=== PATIENT | male | born 1950 | race Caucasian/White ===

== ENCOUNTER 2016-07-26 13:02 | Outpatient (RCR) | payer MEDICARE, BC ==
--- OUTSIDE RECORDS SUMMARY | 2016-05-24 13:13 | XMS REPORT | Continuity of Care Document ---
Author Author [facility] Organization [facility] Address Unknown Phone Unavailable Care Team Providers Care Line Installer Repairer Name Role Phone MICHELLE MARIA MD PCP Insurance Providers Payer Name Policy Number Subscriber Name Relationship Wps Medicare [id number] Bossman Martin Self / Same As Patient Advance Directives Directive Response Recorded Date/Time Advance Directives No 06/11/15 6:00pm Health Care Power of Color Checker No 06/11/15 6:00pm Organ Donor No 06/11/15 6:00pm Problems Active Problems Medical Problem Onset Date Status CAP (community acquired pneumonia) Unknown Acute Chest congestion Unknown Acute Dyspnea on exertion Unknown Acute Dyspnea on exertion Unknown Acute Non-Hodgkin lymphoma Unknown Acute Medications Current Home Medications Medication Dose Units Route Directions Days/Qty Instructions Start Date Aspirin 325 Mg 975 Mg Oral Daily 06/11/15 [place] 3 Polyunsat Fatty Acids 1,000 Mg 2,000 Mg Oral Daily 06/11/15 Oxycodone Hcl 10 Mg 10 Mg Oral Every 12 Hours 06/12/15 Multivitamin 1 Each 1 Tab Oral Twice A Day 06/12/15 [place]-3/Dha/Epa/Fish Oil 1 Each 1,000 Mg Oral Bedtime 06/12/15 Aspirin 325 Mg 1,300 Mg Oral Bedtime 06/12/15 Mv-Min/Vit C/Glu/Evita Hcl/Hc124 1 Each 2 Tab Oral Twice A Day Levofloxacin 750 Mg 750 Mg Oral Daily@1100 7 06/13/15 Past Home Medications Medication Directions Ordered Status Aspirin 325 Mg Tab, 8 Ea Oral Daily 04/03/14 Discontinued Tramadol Hcl 50 Mg Tablet, 50 Mg Oral Every 8HRS as needed for Pain 11/15/13 Discontinued Cyclobenzaprine Hcl (Flexeril) 10 Mg Tablet, 1 Each Oral Twice A Day as needed for Spasms 11/15/13 Discontinued [Glucosamine] , 1 Tab Oral Daily 11/15/13 Discontinued Multivitamin 1 Each Tablet, 1 Each Oral Daily 11/15/13 Discontinued Vitamin B Complex & Vit C No.4 150 Mg Tablet, 150 Mg Oral Daily 11/15/13 Discontinued Milk Thistle Seed Xt/Silymarin 1 Each Capsule, 1 Each Oral Daily 11/15/13 Discontinued Aspirin 325 Mg Tab, 1300 Mg Oral Twice A Day 11/15/13 Discontinued Oxycodone/Acetaminophen 1 Tab Tablet, 1-2 Tab Oral Every 4HRS as needed for Pain 11/16/13 Discontinued Oxycodone Hcl 5 Mg Tablet, 5-10 Mg Oral Every 6 Hours as needed for Pain Discontinued Levofloxacin 500 Mg Tablet, 500 Mg Oral Daily 06/11/15 Discontinued Levofloxacin 500 Mg Tablet, 500 Mg Oral Daily 06/12/15 Discontinued Social History Social History Problem Response Recorded Date/Time Alcohol Use Occasionally Uses 06/11/2015 5:41pm Recreational Drug Use N PT REPORTS QUIT USING HEROIN 25 YRS AGO 06/11/2015 5: 41pm Recent Foreign Travel No 11/23/2013 3:45pm Recent Infectious Disease Exposure No 11/23/2013 3:45pm Hospitalization with Isolation Denies 11/24/2013 2:23pm Sexually Transmitted Disease No 06/11/2015 5:41pm HIV/AIDS No 06/11/2015 5:41pm Do you dip or chew tobacco? Yes 06/11/2015 5:52pm Hospital Discharge Instructions No hospital discharge instructions. Plan of Care Prescriptions See Medication Section Functional Status No functional status results. Allergies, Adverse Reactions, Alerts Allergen Type Severity Reaction Status Last Updated Gadolinium-Containing Contrast Media ([id number]) Allergy Severe Anaphylaxis Active 03/01/15 gadoteridol ([id number]) Allergy Mild SNEEZING, HOARSE VOICE Active Immunizations Name Given Type Date of Pneumonia Vaccine 12/13/14 Historical Date of Influenza Vaccine 05/15/15 Historical Hepatitis B Yes Historical Tetanus Booster (TDap) Unknown Historical Vital Signs No known vital signs results. Results Laboratory Results Test Name Result Units Flags Reference Collection Date/Time Result Date/ Time Comments Urine Immunofixation Comments [id number] 10/22/2015 7:00am 2015 1:30pm Test performed at [place] [address], [facility] [address] CLIA# [id number], Radha Perez MD - Lastex Operator Procedures No known history of procedures. Encounters Encounter Location Arrival/Admit Date Discharge/Depart Date Attending Provider Discharged Recurring [facility] 12/08/15 10:49am 11:59pm INOCENCIO VERA N
[2016-05-24 13:35] LABS: BASOPHILS % (AUTO) 1 % (0-10); EOSINOPHILS # (AUTO) 0.1 10^3/uL (0.0-0.3); EOSINOPHILS % (AUTO) 4 % (0-10); LYMPHOCYTES # (AUTO) 0.8 X 10^3 (1.0-4.0); LYMPHOCYTES % (AUTO) 28 % (12-44); MEAN CORPUSCULAR HEMOGLOBIN 33 PG (25-34); MEAN CORPUSCULAR HGB CONC 36 G/DL (32-36); MEAN CORPUSCULAR VOLUME 92 FL (80-99); MEAN PLATELET VOLUME 8.3 FL (7.4-10.4); MONOCYTES # (AUTO) 0.3 X 10^3 (0.0-1.0); MONOCYTES % (AUTO) 11 % (0-12); NEUTROPHILS # (AUTO) 1.6 X 10^3 (1.8-7.8); NEUTROPHILS % (AUTO) 57 % (42-75); PLATELET COUNT 229 10^3/uL (130-400); RED BLOOD COUNT 4.04 10^6/uL (4.35-5.85); RED CELL DISTRIBUTION WIDTH 15.4 % (10.0-14.5); WHITE BLOOD COUNT 2.8 10^3/uL (4.3-11.0)
[2016-05-24 14:06] LABS: ALANINE AMINOTRANSFERASE 24 U/L (0-55); ALBUMIN 4.5 G/DL (3.2-4.5); ANION GAP 10 MMOL/L (5-14); ASPARTATE AMINO TRANSFERASE 32 U/L (5-34); BILIRUBIN,TOTAL 0.6 MG/DL (0.1-1.0); BLOOD UREA NITROGEN 10 MG/DL (7-18); BUN/CREATININE RATIO 11; CALCIUM 9.8 MG/DL (8.5-10.1); CARBON DIOXIDE 23 MMOL/L (21-32); CHLORIDE 103 MMOL/L (98-107); CREATININE SERUM 0.89 MG/DL (0.60-1.30); GFR ESTIMATED > 60; GLUCOSE 102 MG/DL (70-105); LACTATE DEHYDROGENASE 278 U/L (125-220); POTASSIUM 3.5 MMOL/L (3.6-5.0); SODIUM 136 MMOL/L (135-145); TOTAL PROTEIN 7.8 G/DL (6.4-8.2)
[2016-05-25 05:43] LABS: IMMUNOGLOBULIN IGA 28 mg/dL (71-263); IMMUNOGLOBULIN IGG 1554 mg/dL (672-1680)
[2016-05-25 08:06] LABS: IMMUNOGLOBULIN IGM 35 mg/dL (47-209)
[2016-06-07 15:42] LABS: PEP REPORT SEE PATH REPORT
[2016-06-08 01:05] LABS: LIGHT CHAIN KAPPA SERUM QUANT 44.96 mg/L (3.30-19.40); LIGHT CHAIN LAMBDA SERUM QUANT 10.74 mg/L (5.71-26.30)
[2016-06-14 06:32] LABS: CLIN PATHOLOGY REPORT FOOTNOTE; SERUM PROTEIN ELEC DETAIL L-16-0013537
[~2016-07-26] VITALS: Ht 180.3 cm; Wt 93.4 kg
[~2016-07-26 13:02] MED LIST: ACETAMINOPHEN 500 MG TAB (TYLENOL) CANCER CTR PO PRN; ASP325T PO; ASPI-808 PO; CYCL10TA9 PO; LEVO500T2 PO; LEVO500T80 PO; LEVO750T39 PO; MILK1CAP2 PO; MULT-974 PO; MULT1TAB69 PO; MV-M1TAB27 PO; OMEG-160 PO; OMG1KC PO; OXC10TCR PO; OXYC1TAB87 PO; OXYC5TAB71 PO; PNEUMOCOCCAL VACCINE 25 MCG/0.5 ML VIAL IM ONE; TRAM50TA2 PO; VITA150T PO; diphenhydrAMINE 25 MG TAB (BENADRYL) CANCER CENTER PO SCH; glucosamine PO; riTUXimab 500 MG, riTUXimab FOR IV INJ CONC 200 MG in NS (IVPB) CANCER CENTER 163 ML IV SCH
[2016-07-26 13:18] LABS: BASOPHILS % (AUTO) 0 % (0-10); EOSINOPHILS # (AUTO) 0.1 10^3/uL (0.0-0.3); EOSINOPHILS % (AUTO) 4 % (0-10); LYMPHOCYTES # (AUTO) 0.7 X 10^3 (1.0-4.0); LYMPHOCYTES % (AUTO) 23 % (12-44); MEAN CORPUSCULAR HEMOGLOBIN 33 PG (25-34); MEAN CORPUSCULAR HGB CONC 36 G/DL (32-36); MEAN CORPUSCULAR VOLUME 91 FL (80-99); MONOCYTES # (AUTO) 0.4 X 10^3 (0.0-1.0); MONOCYTES % (AUTO) 13 % (0-12); NEUTROPHILS # (AUTO) 1.7 X 10^3 (1.8-7.8); NEUTROPHILS % (AUTO) 61 % (42-75); PLATELET COUNT 102 10^3/uL (130-400); RED BLOOD COUNT 4.13 10^6/uL (4.35-5.85); RED CELL DISTRIBUTION WIDTH 15.1 % (10.0-14.5); WHITE BLOOD COUNT 2.9 10^3/uL (4.3-11.0)
[2016-07-26 13:49] LABS: ALANINE AMINOTRANSFERASE 23 U/L (0-55); ALBUMIN 4.7 G/DL (3.2-4.5); ANION GAP 9 MMOL/L (5-14); ASPARTATE AMINO TRANSFERASE 30 U/L (5-34); BILIRUBIN,TOTAL 0.4 MG/DL (0.1-1.0); BLOOD UREA NITROGEN 19 MG/DL (7-18); BUN/CREATININE RATIO 23; CALCIUM 9.9 MG/DL (8.5-10.1); CARBON DIOXIDE 22 MMOL/L (21-32); CHLORIDE 106 MMOL/L (98-107); CREATININE SERUM 0.83 MG/DL (0.60-1.30); GFR ESTIMATED > 60; GLUCOSE 92 MG/DL (70-105); LACTATE DEHYDROGENASE 278 U/L (125-220); POTASSIUM 4.1 MMOL/L (3.6-5.0); SODIUM 137 MMOL/L (135-145); TOTAL PROTEIN 7.9 G/DL (6.4-8.2)
[2016-07-27 03:26] LABS: IMMUNOGLOBULIN IGA 32 mg/dL (71-263); IMMUNOGLOBULIN IGG 1510 mg/dL (672-1680)
[2016-07-27 07:59] LABS: IMMUNOGLOBULIN IGM 36 mg/dL (47-209)
[2016-08-13] MEDS ORDERED: AZIT250T5 PO (15:26)
== END 2016-08-22 | disposition home or self-care (01) ==
LOC: ONC 13:02
PROVIDERS: ATTEND Internal Medicine Hematology & Oncology
DX: Z51.11 Encounter for antineoplastic chemotherapy (principal); C85.80 Other specified types of non-Hodgkin lymphoma, unspecified site; D68.59 Other primary thrombophilia; B19.20 Unspecified viral hepatitis C without hepatic coma; Z79.899 Other long term (current) drug therapy; Z23 Encounter for immunization
CPT/HCPCS: 36415; 36591; 80053; 82784; 83615; 83883; 84155; 84165; 85025; 86317; 90471; 90732; 96413; 99213

== ENCOUNTER → 2016-09-15 | Outpatient (CLI) | payer MEDICARE ==
[~2016-09-15] MED LIST changes: +ACET-2469 PO; -ACETAMINOPHEN 500 MG TAB (TYLENOL) CANCER CTR PO PRN; +AZIT250T5 PO; +BARIUM SUSPENSION 2.1% (VANILLA SILQ) 450 ML PO ONE; +CATHETER FLUSH 10 ML SYR IV PRN; +HYDR-3812 PO; +IOHEXOL 350 MG/ML 100 ML (OMNIPAQUE 350) VIAL IV ONE; +LISI-552 PO; +NS 100 ML (IVPB) BAG IV ONE; +OXYC20TA3 PO; -PNEUMOCOCCAL VACCINE 25 MCG/0.5 ML VIAL IM ONE; -diphenhydrAMINE 25 MG TAB (BENADRYL) CANCER CENTER PO SCH; -riTUXimab 500 MG, riTUXimab FOR IV INJ CONC 200 MG in NS (IVPB) CANCER CENTER 163 ML IV SCH
--- OUTSIDE RECORDS SUMMARY | 2016-09-15 10:09 | XMS REPORT | Continuity of Care Document ---
Author Author [facility] Organization [facility] Address Unknown Phone Unavailable Care Team Providers Care Product Development Director Name Role Phone MICHELLE MARIA MD PCP Insurance Providers Payer Name Policy Number Subscriber Name Relationship Wps Medicare [id number] Bossman Martin Self / Same As Patient Advance Directives Directive Response Recorded Date/Time Advance Directives No 06/11/15 6:00pm Health Care Power of Shipping Support No 06/11/15 6:00pm Organ Donor No 06/11/15 6:00pm Problems Active Problems Medical Problem Onset Date Status CAP (community acquired pneumonia) Unknown Acute Chest congestion Unknown Acute Dyspnea on exertion Unknown Acute Dyspnea on exertion Unknown Acute Non-Hodgkin lymphoma Unknown Acute Medications Current Home Medications Medication Dose Units Route Directions Days/Qty Instructions Start Date Aspirin 325 Mg 975 Mg Oral Daily 06/11/15 [place] 3 Polyunsat Fatty Acids 1,000 Mg 2,000 Mg Oral Daily 06/11/15 Oxycodone Hcl 10 Mg 10 Mg Oral Every 12 Hours 06/12/15 Multivitamin 1 Each 1 Tab Oral Twice A Day 06/12/15 [place]-3/Dha/Epa/Fish Oil 1 Each 1,000 Mg Oral Bedtime [...] Reaction Status Last Updated Gadolinium-Containing Contrast Media ([id number]) Allergy Severe Anaphylaxis Active 03/01/15 gadoteridol ([id number]) Allergy Mild SNEEZING, HOARSE VOICE Active Immunizations Name Given Type Date of Pneumonia Vaccine 12/13/14 Historical Date of Influenza Vaccine 05/15/15 Historical Hepatitis B Yes Historical Tetanus Booster (TDap) Unknown Historical Vital Signs No known vital signs results. Results Laboratory Results Test Name Result Units Flags Reference Collection Date/Time Result Date/ Time Comments Urine Immunofixation Comments [id number] 10/22/2015 7:00am 2015 1:30pm Test performed at [place] [address], [facility] [address] CLIA# [id number], Radha Perez MD - Sampler Ovens Procedures No known history of procedures. Encounters Encounter Location Arrival/Admit Date Discharge/Depart Date Attending Provider Discharged Recurring [facility] 12/08/15 10:49am 11:59pm INOCENCIO VERA N
--- NOTE | 2016-09-15 11:28 | Diagnostic Imaging Report ---
PROCEDURE: CT chest, abdomen, and pelvis with contrast. TECHNIQUE: Multiple contiguous axial images were obtained through the chest, abdomen, and pelvis after the administration of intravenous contrast. INDICATION: Non-Hodgkin's lymphoma, surveillance. COMPARISON: 01/15/2015. CT CHEST FINDINGS: No supraclavicular or axillary lymphadenopathy. No mediastinal, hilar or juxtaphrenic lymphadenopathy. Heart is normal in size without pericardial effusion. Normal caliber thoracic aorta. No pleural effusion or pneumothorax. No pulmonary mass or consolidation. No concerning pulmonary nodules to suggest pulmonary involvement of lymphoma. Scattered centrilobular emphysema is unchanged. Linear atelectasis in the right lower lobe is similar. No osseous lesions in the thorax to indicate skeletal metastasis. IMPRESSION: 1. Stable chest without evidence of recurrence. However, please see below for details of the abdomen for recurrence. CT ABDOMEN AND PELVIS FINDINGS: Multiple new enlarged upper abdominal lymph nodes. These are predominantly centered around the celiac and superior mesenteric axes. The dominant conglomeration of lymph nodes now measures 3.6 x 4.7 cm and is located along the superior mesenteric root in the central mesentery. Additional new enlarging lymph nodes include the followin.3 x 1.5 cm gastroepiploic lymph node, 1.6 x 1.1 cm right paraaortic lymph node and a 1.6 x 1.8 cm lymph node, and a conglomeration of lymph nodes along the lower right superior mesenteric artery and vein now measuring 3.8 x 2.2 cm. Confluent ill-defined induration around the mesentery is otherwise unchanged. Multiple new enlarged bilateral inguinal lymph nodes, largest on the left measures 4.6 x 3.2 cm, and the largest on the right measures 2.7 x 1.9 cm. There is an enlarged right internal iliac chain lymph node measuring 1.6 x 1.6 cm. There is also a new subcutaneous soft tissue nodule in the mid right back measuring 1.2 cm. The liver and gallbladder are normal. The spleen is at the upper limits of normal in size measuring 13 cm. No bowel obstruction. Pancreas and adrenals are normal. Kidneys enhance normally without evidence of lymphomatous involvement. Prostate remains enlarged measuring 5.6 x 5.2 cm. Normal caliber abdominal aorta. IMPRESSION: 1. New and increased lymphadenopathy within the upper abdomen, pelvis and bilateral inguinal regions is compatible with disease progression. Dictated by: Dictated on workstation # [id number]
== END ==
LOC: RAD 10:05
PROVIDERS: ATTEND Internal Medicine Hematology & Oncology
DX: Z01.89 Encounter for other specified special examinations (principal); C82.18 Follicular lymphoma grade II, lymph nodes of multiple sites
CPT/HCPCS: 71260; 74177

== ENCOUNTER 2016-09-23 05:36 | Outpatient (CLI) | payer MEDICARE ==
[~2016-09-23] VITALS: Ht 182.9 cm; Wt 98.0 kg
[~2016-09-23 05:36] MED LIST changes: -ACET-2469 PO; -BARIUM SUSPENSION 2.1% (VANILLA SILQ) 450 ML PO ONE; -CATHETER FLUSH 10 ML SYR IV PRN; -HYDR-3812 PO; -IOHEXOL 350 MG/ML 100 ML (OMNIPAQUE 350) VIAL IV ONE; -LISI-552 PO; -NS 100 ML (IVPB) BAG IV ONE; -OXYC20TA3 PO
--- OUTSIDE RECORDS SUMMARY | 2016-09-23 05:39 | XMS REPORT | Continuity of Care Document ---
Author Author [facility] Organization [facility] Address Unknown Phone Unavailable Care Team Providers Care Merchandise Deliverer Name Role Phone MICHELLE MARIA MD PCP Insurance Providers Payer Name Policy Number Subscriber Name Relationship Wps Medicare [id number] Bossman Martin Self / Same As Patient Advance Directives Directive Response Recorded Date/Time Advance Directives No 06/11/15 6:00pm Health Care Power of Equities Trader No 06/11/15 6:00pm Organ Donor No 06/11/15 6:00pm Problems Active Problems Medical Problem Onset Date Status CAP (community acquired pneumonia) Unknown Acute Chest congestion Unknown Acute Dyspnea on exertion Unknown Acute Dyspnea on exertion Unknown Acute Non-Hodgkin lymphoma Unknown Acute Medications Current Home Medications Medication Dose Units Route Directions Days/Qty Instructions Start Date Aspirin 325 Mg 975 Mg Oral Daily 06/11/15 [place] 3 Polyunsat Fatty Acids 1,000 Mg 2,000 Mg Oral Daily 06/11/15 Oxycodone Hcl 10 Mg 10 Mg Oral Every 12 Hours 06/12/15 Multivitamin 1 Each 1 Tab Oral Twice A Day 06/12/15 [place]-3/Dha/Epa/Fish Oil 1 Each 1,000 Mg Oral Bedtime [...] Reaction Status Last Updated Gadolinium-Containing Contrast Media ([id number]) Allergy Severe Anaphylaxis Active 03/01/15 gadoteridol ([id number]) Allergy Mild SNEEZING, HOARSE VOICE Active Immunizations Name Given Type Date of Pneumonia Vaccine 12/13/14 Historical Date of Influenza Vaccine 05/15/15 Historical Hepatitis B Yes Historical Tetanus Booster (TDap) Unknown Historical Vital Signs No known vital signs results. Results Laboratory Results Test Name Result Units Flags Reference Collection Date/Time Result Date/ Time Comments Urine Immunofixation Comments [id number] 10/22/2015 7:00am 2015 1:30pm Test performed at [place] [address], [facility] [address] CLIA# [id number], Radha Perez MD - Forensic Psychologist Procedures No known history of procedures. Encounters Encounter Location Arrival/Admit Date Discharge/Depart Date Attending Provider Discharged Recurring [facility] 12/08/15 10:49am 11:59pm INOCENCIO VERA N
[2016-09-23] MEDS ORDERED: LISI-552 PO (09:27)
[2016-09-23] MEDS ORDERED: ACET-2469 PO (09:27)
[2016-09-23] MEDS ORDERED: VITA150T PO (09:27)
[2016-09-23] MEDS ORDERED: OXYC20TA3 PO (09:27)
[2016-09-29] MEDS ORDERED: HYDR-3812 PO (12:01)
== END 2016-09-23 09:31 ==
LOC: PREOP 05:36
PROVIDERS: ATTEND Surgery
DX: Z01.818 Encounter for other preprocedural examination (principal); C82.18 Follicular lymphoma grade II, lymph nodes of multiple sites

== ENCOUNTER 2016-09-29 08:43 | Day surgery (SDC) | payer MEDICARE ==
[~2016-09-29] VITALS: Ht 182.9 cm; Wt 98.0 kg
[~2016-09-29 08:43] MED LIST changes: +ACET-2469 PO; +LISI-552 PO; +OXYC20TA3 PO
--- OUTSIDE RECORDS SUMMARY | 2016-09-29 08:46 | XMS REPORT | Continuity of Care Document ---
Author Author [facility] Organization [facility] Address Unknown Phone Unavailable Care Team Providers Care Bus Company Manager Name Role Phone MICHELLE MARIA MD PCP Insurance Providers Payer Name Policy Number Subscriber Name Relationship Wps Medicare [id number] Bossman Martin Self / Same As Patient Advance Directives Directive Response Recorded Date/Time Advance Directives No 06/11/15 6:00pm Health Care Power of Night Clerk Auditor No 06/11/15 6:00pm Organ Donor No 06/11/15 6:00pm Problems Active Problems Medical Problem Onset Date Status CAP (community acquired pneumonia) Unknown Acute Chest congestion Unknown Acute Dyspnea on exertion Unknown Acute Dyspnea on exertion Unknown Acute Non-Hodgkin lymphoma Unknown Acute Medications Current Home Medications Medication Dose Units Route Directions Days/Qty Instructions Start Date Aspirin 325 Mg 975 Mg Oral Daily 06/11/15 [place] 3 Polyunsat Fatty Acids 1,000 Mg 2,000 Mg Oral Daily 06/11/15 Oxycodone Hcl 10 Mg 10 Mg Oral Every 12 Hours 06/12/15 Multivitamin 1 Each 1 Tab Oral Twice A Day 06/12/15 [place]-3/Dha/Epa/Fish Oil 1 Each 1,000 Mg Oral Bedtime [...] Reaction Status Last Updated Gadolinium-Containing Contrast Media ([id number]) Allergy Severe Anaphylaxis Active 03/01/15 gadoteridol ([id number]) Allergy Mild SNEEZING, HOARSE VOICE Active Immunizations Name Given Type Date of Pneumonia Vaccine 12/13/14 Historical Date of Influenza Vaccine 05/15/15 Historical Hepatitis B Yes Historical Tetanus Booster (TDap) Unknown Historical Vital Signs No known vital signs results. Results Laboratory Results Test Name Result Units Flags Reference Collection Date/Time Result Date/ Time Comments Urine Immunofixation Comments [id number] 10/22/2015 7:00am 2015 1:30pm Test performed at [place] [address], [facility] [address] CLIA# [id number], Radha Perez MD - Catapult And Arresting Gear Officer Procedures No known history of procedures. Encounters Encounter Location Arrival/Admit Date Discharge/Depart Date Attending Provider Discharged Recurring [facility] 12/08/15 10:49am 11:59pm INOCENCIO VERA N
--- OUTSIDE RECORDS SUMMARY | 2016-09-29 08:47 | XMS REPORT | Continuity of Care Document ---
Author Author [facility] Organization [facility] Address Unknown Phone Unavailable Care Team Providers Care Mill Tender Washing Name Role Phone MICHELLE MARIA MD PCP Insurance Providers Payer Name Policy Number Subscriber Name Relationship Wps Medicare [id number] Bossman Martin Self / Same As Patient Advance Directives Directive Response Recorded Date/Time Advance Directives No 06/11/15 6:00pm Health Care Power of Remotely Piloted Vehicle Controller No 06/11/15 6:00pm Organ Donor No 06/11/15 6:00pm Problems Active Problems Medical Problem Onset Date Status CAP (community acquired pneumonia) Unknown Acute Chest congestion Unknown Acute Dyspnea on exertion Unknown Acute Dyspnea on exertion Unknown Acute Non-Hodgkin lymphoma Unknown Acute Medications Current Home Medications Medication Dose Units Route Directions Days/Qty Instructions Start Date Aspirin 325 Mg 975 Mg Oral Daily 06/11/15 [place] 3 Polyunsat Fatty Acids 1,000 Mg 2,000 Mg Oral Daily 06/11/15 Oxycodone Hcl 10 Mg 10 Mg Oral Every 12 Hours 06/12/15 Multivitamin 1 Each 1 Tab Oral Twice A Day 06/12/15 [place]-3/Dha/Epa/Fish Oil 1 Each 1,000 Mg Oral Bedtime [...] Reaction Status Last Updated Gadolinium-Containing Contrast Media ([id number]) Allergy Severe Anaphylaxis Active 03/01/15 gadoteridol ([id number]) Allergy Mild SNEEZING, HOARSE VOICE Active Immunizations Name Given Type Date of Pneumonia Vaccine 12/13/14 Historical Date of Influenza Vaccine 05/15/15 Historical Hepatitis B Yes Historical Tetanus Booster (TDap) Unknown Historical Vital Signs No known vital signs results. Results Laboratory Results Test Name Result Units Flags Reference Collection Date/Time Result Date/ Time Comments Urine Immunofixation Comments [id number] 10/22/2015 7:00am 2015 1:30pm Test performed at [place] [address], [facility] [address] CLIA# [id number], Radha Perez MD - Pickling Grader Procedures No known history of procedures. Encounters Encounter Location Arrival/Admit Date Discharge/Depart Date Attending Provider Discharged Recurring [facility] 12/08/15 10:49am 11:59pm INOCENCIO VERA N
[2016-09-29 08:50] VITALS: BP 152/92
--- NOTE | 2016-09-29 08:51 | Progress Note-Pre Operative ---
Pre-Operative Progress Note H&P Reviewed The H&P was reviewed, patient examined and no changes noted. Date H&P Reviewed: Sep 29, 2016 Time H&P Reviewed: 08:50 Pre-Operative Diagnosis: Follicular lymphoma. Non-functioning port IVANA BOYD MD Sep 29, 2016 8:51 am
[2016-09-29 09:15] LABS: BASOPHILS % (AUTO) 0 % (0-10); EOSINOPHILS # (AUTO) 0.1 10^3/uL (0.0-0.3); EOSINOPHILS % (AUTO) 2 % (0-10); LYMPHOCYTES # (AUTO) 0.6 X 10^3 (1.0-4.0); LYMPHOCYTES % (AUTO) 19 % (12-44); MEAN CORPUSCULAR HEMOGLOBIN 33 PG (25-34); MEAN CORPUSCULAR HGB CONC 37 G/DL (32-36); MEAN CORPUSCULAR VOLUME 90 FL (80-99); MEAN PLATELET VOLUME 8.9 FL (7.4-10.4); MONOCYTES # (AUTO) 0.5 X 10^3 (0.0-1.0); MONOCYTES % (AUTO) 14 % (0-12); NEUTROPHILS # (AUTO) 2.1 X 10^3 (1.8-7.8); NEUTROPHILS % (AUTO) 65 % (42-75); PLATELET COUNT 117 10^3/uL (130-400); RED CELL DISTRIBUTION WIDTH 14.2 % (10.0-14.5); WHITE BLOOD COUNT 3.3 10^3/uL (4.3-11.0)
[2016-09-29] MEDS ORDERED: LIDOCAINE 1% 10 MG/ML 0.2 ML SYR (FOR IV START) ONE (10:07)
[2016-09-29] MEDS ORDERED: LACTATED RINGERS 1,000 ML IV PRN (10:14)
[2016-09-29] MEDS ORDERED: LIDOCAINE 1% 10 MG/ML 0.2 ML SYR (FOR IV START) INJ ONE (10:15)
[2016-09-29] MEDS ORDERED: HEParin (CENTRAL IV FLUSH) 500 UNIT/5 ML SYR ONE (10:30)
[2016-09-29] MEDS ORDERED: BUP/EPI 0.25% 1:200,000 (MARCAINE) 30 ML VIAL ONE (10:30)
[2016-09-29] MEDS ORDERED: fentaNYL INJECTION 100 MCG/2 ML AMP ONE (11:05)
[2016-09-29] MEDS ORDERED: proPOfol 200 MG/20 ML (DIPRIVAN) VIAL IV ONE (11:05)
[2016-09-29] MEDS: ceFAZolin 1 GM/NS 50 ML IVPB IV ONE ×4 (11:08→12:08)
[2016-09-29] MEDS ORDERED: SEVOFLURANE (ULTANE) 15 ML INHAL SOLN ONE (11:57)
[2016-09-29] MEDS ORDERED: LACTATED RINGERS 1,000 ML IV ONE (11:57)
--- NOTE | 2016-09-29 12:00 | Progress Note-Post Operative ---
Post-Operative Progess Note Pre-Operative Diagnosis Follicular lymphoma. Non-functioning port Post-Operative Diagnosis ssame Post-Op Procedure Note Date of Procedure: Sep 29, 2016 Name of Procedure: removal of nonfunctioning port Tcmjuw-r-Pfry placement Anesthesia Type Gen. Estimated blood loss (mL): IVANA Galarza MD Sep 29, 2016 12:00 pm
[2016-09-29] MEDS ORDERED: HYDR-3812 PO (12:01)
--- NOTE | 2016-09-29 12:02 | Discharge Inst-Simple/Standard ---
Discharge Inst-Standard Discharge Medications New, Converted or Re-Newed RX: RX on Chart Patient Instructions/Follow Up Plan of Care/Instructions/FU: dressings off in 48 hours. May use Uqhdnc-x-Elur Activity as Tolerated: Yes Discharge Diet: No Restrictions IVANA BOYD MD Sep 29, 2016 12:02 pm
[2016-09-29] MEDS ORDERED: ONDANSETRON 4 MG/2 ML (SDV) Z0FRAN IV PRN (12:15)
[2016-09-29] MEDS: morphine INJ 10 MG/ML 1ML (SYR OR VIAL) IV PRN ×3 (12:31→12:42)
[2016-09-29] MEDS ORDERED: HYDROmorphone (DILAUDID) 2 MG/ML VIAL ONE (12:54)
[2016-09-29] MEDS: HYDROmorphone (DILAUDID) 2 MG/ML VIAL IV PRN ×2 (12:56→13:07)
--- NOTE | 2016-09-29 13:20 | Diagnostic Imaging Report ---
INDICATION: Central line placement. IMPRESSION: 137.4 seconds of fluoroscopy was used during right IJ central line insertion. A digital image shows the tip of the catheter projecting over the cavoatrial junction. Dictated by: Dictated on workstation # [id number]
[2016-09-29 13:40] VITALS: BP 132/97
[2016-09-29] MEDS ORDERED: oxyCODONE/APAP 10/325MG (PERCOCET 10) TABLET PO ONE ×2 (14:15→14:30)
[2016-09-29 14:20] VITALS: BP 129/98
[2016-09-29 14:50] VITALS: BP 130/85
[2016-09-29 15:00] VITALS: BP 130/85
--- NOTE | 2016-10-01 08:42 | OPERATIVE REPORT ---
PROCEDURE PHYSICIAN: IVANA BOYD DATE OF PROCEDURE: 09/29/2016 PREOPERATIVE DIAGNOSIS: 1. Follicular lymphoma. 2. Nonfunctioning port. PROCEDURE: 1. Removal of nonfunctioning Odzosx-v-Bcnc. 2. Ultrasound localization of right internal jugular vein. 3. Intraoperative fluoroscopy. 4. Vxxgrf-u-Taby placement. INDICATION FOR THE PROCEDURE: This gentleman is on systemic therapy to manage follicular lymphoma. An existing Fqudxo-y-Ehqp became nonfunctional. Therefore, it was felt reasonable to remove it and replace with a new Vnznav-s-Rmuw, using the jugular approach under ultrasound guidance. Informed consent was obtained after reviewing the procedure in detail. DESCRIPTION OF PROCEDURE: He was placed supine on the operating table and general anesthesia induced using a laryngeal mask airway. A gram of Ancef was administered intravenously as prophylaxis against wound infection. His neck and upper chest were prepared and draped in the usual sterile manner. Preemptive analgesia was established using 0.25% Marcaine with epinephrine. A secondary incision was made along the previous scar over the right infraclavicular fossa and nonfunctioning Arwyzs-o-Lkxb removed uneventfully. Subsequently, right internal jugular vein was localized using a 10 MHz ultrasound probe and a floppy guidewire introduced into the heart, under fluoroscopy. The Mike catheter was then brought into the neck in a retrograde fashion and advanced to the heart, under fluoroscopy, using the peel-away sheath. The catheter was then pulled back to the superior vena cava under fluoroscopy and connected to the Dqaotc-c-Wcvg, that had been primed with heparinized saline. I was able to aspirate and flush the system without difficulty. The port was then secured to the pectoralis tissue, using 2-0 Prolene sutures. The incision was then closed using 3-0 Vicryl for the subcutaneous tissue and 4-0 Vicryl for skin, in a subcuticular fashion. He tolerated the procedure well, was extubated in the operating room and taken to the recovery room in a stable condition. [place], sponges, and instruments were correct at the end of the operation. Job ID: [id number] Dictated Date: 09/29/2016 13:52:20 Barbering Teacher Date: 10/01/2016 08:37:16 / josue RAMOS
== END 2016-09-29 15:00 | disposition home or self-care (01) ==
LOC: SDC 08:43
PROVIDERS: ATTEND Surgery
DX: T82.9XXA Unspecified complication of cardiac and vascular prosthetic device, implant and graft, initial encounter (principal); C82.18 Follicular lymphoma grade II, lymph nodes of multiple sites
CPT/HCPCS: 36415; 85025; 87081

== ENCOUNTER 2016-11-15 12:42 | Outpatient (RCR) | payer MEDICARE ==
--- OUTSIDE RECORDS SUMMARY | 2016-08-26 11:25 | XMS REPORT | Continuity of Care Document ---
Author Author [facility] Organization [facility] Address Unknown Phone Unavailable Care Team Providers Care Ostrich Farmer Name Role Phone MICHELLE MARIA MD PCP Insurance Providers Payer Name Policy Number Subscriber Name Relationship Wps Medicare [id number] Bossman Martin Self / Same As Patient Advance Directives Directive Response Recorded Date/Time Advance Directives No 06/11/15 6:00pm Health Care Power of Eyeglass Frames Polisher No 06/11/15 6:00pm Organ Donor No 06/11/15 6:00pm Problems Active Problems Medical Problem Onset Date Status CAP (community acquired pneumonia) Unknown Acute Chest congestion Unknown Acute Dyspnea on exertion Unknown Acute Dyspnea on exertion Unknown Acute Non-Hodgkin lymphoma Unknown Acute Medications Current Home Medications Medication Dose Units Route Directions Days/Qty Instructions Start Date Aspirin 325 Mg 975 Mg Oral Daily 06/11/15 [place] 3 Polyunsat Fatty Acids 1,000 Mg 2,000 Mg Oral Daily 06/11/15 Oxycodone Hcl 10 Mg 10 Mg Oral Every 12 Hours 06/12/15 Multivitamin 1 Each 1 Tab Oral Twice A Day 06/12/15 [place]-3/Dha/Epa/Fish Oil 1 Each 1,000 Mg Oral Bedtime [...] Reaction Status Last Updated Gadolinium-Containing Contrast Media ([id number]) Allergy Severe Anaphylaxis Active 03/01/15 gadoteridol ([id number]) Allergy Mild SNEEZING, HOARSE VOICE Active Immunizations Name Given Type Date of Pneumonia Vaccine 12/13/14 Historical Date of Influenza Vaccine 05/15/15 Historical Hepatitis B Yes Historical Tetanus Booster (TDap) Unknown Historical Vital Signs No known vital signs results. Results Laboratory Results Test Name Result Units Flags Reference Collection Date/Time Result Date/ Time Comments Urine Immunofixation Comments [id number] 10/22/2015 7:00am 2015 1:30pm Test performed at [place] [address], [facility] [address] CLIA# [id number], Radha Perez MD - Bag Shaker Procedures No known history of procedures. Encounters Encounter Location Arrival/Admit Date Discharge/Depart Date Attending Provider Discharged Recurring [facility] 12/08/15 10:49am 11:59pm INOCENCIO VERA N
[2016-09-15 08:59] LABS: BASOPHILS % (AUTO) 0 % (0-10); EOSINOPHILS # (AUTO) 0.1 10^3/uL (0.0-0.3); EOSINOPHILS % (AUTO) 3 % (0-10); LYMPHOCYTES # (AUTO) 0.6 X 10^3 (1.0-4.0); LYMPHOCYTES % (AUTO) 21 % (12-44); MEAN CORPUSCULAR HEMOGLOBIN 33 PG (25-34); MEAN CORPUSCULAR HGB CONC 35 G/DL (32-36); MEAN CORPUSCULAR VOLUME 93 FL (80-99); MEAN PLATELET VOLUME 8.7 FL (7.4-10.4); MONOCYTES # (AUTO) 0.3 X 10^3 (0.0-1.0); MONOCYTES % (AUTO) 13 % (0-12); NEUTROPHILS # (AUTO) 1.7 X 10^3 (1.8-7.8); NEUTROPHILS % (AUTO) 63 % (42-75); PLATELET COUNT 111 10^3/uL (130-400); RED BLOOD COUNT 4.27 10^6/uL (4.35-5.85); RED CELL DISTRIBUTION WIDTH 15.2 % (10.0-14.5); WHITE BLOOD COUNT 2.7 10^3/uL (4.3-11.0)
[2016-09-15 09:26] LABS: ALANINE AMINOTRANSFERASE 28 U/L (0-55); ALBUMIN 4.8 G/DL (3.2-4.5); ANION GAP 7 MMOL/L (5-14); ASPARTATE AMINO TRANSFERASE 34 U/L (5-34); BILIRUBIN,TOTAL 0.5 MG/DL (0.1-1.0); BLOOD UREA NITROGEN 14 MG/DL (7-18); BUN/CREATININE RATIO 13; CALCIUM 9.6 MG/DL (8.5-10.1); CARBON DIOXIDE 25 MMOL/L (21-32); CHLORIDE 104 MMOL/L (98-107); CREATININE SERUM 1.09 MG/DL (0.60-1.30); GFR ESTIMATED > 60; GLUCOSE 109 MG/DL (70-105); LACTATE DEHYDROGENASE 254 U/L (125-220); POTASSIUM 4.6 MMOL/L (3.6-5.0); SODIUM 136 MMOL/L (135-145)
[2016-09-21 03:49] LABS: IMMUNOGLOBULIN IGA 37 mg/dL (71-263); IMMUNOGLOBULIN IGG 1584 mg/dL (672-1680)
[2016-09-21 07:48] LABS: IMMUNOGLOBULIN IGM 31 mg/dL (47-209)
[~2016-11-15 12:42] MED LIST changes: +ACETAMINOPHEN 500 MG TAB (TYLENOL) CANCER CTR ONE; +ACETAMINOPHEN 500 MG TAB (TYLENOL) CANCER CTR PO PRN; +HYDR-3812 PO; +IVIG 10 GM (PRIVIGEN) CANCER C 100 ML IV SCH; +IVIG 20 GM (PRIVIGEN) CANCER C 200 ML IV SCH; +diphenhydrAMINE 25 MG TAB (BENADRYL) CANCER CENTER PO ONE; +diphenhydrAMINE 25 MG TAB (BENADRYL) CANCER CENTER PO SCH; +riTUXimab 500 MG, riTUXimab FOR IV INJ CONC 200 MG in NS (IVPB) CANCER CENTER 163 ML IV SCH
[2016-11-15 13:06] LABS: BASOPHILS % (AUTO) 0 % (0-10); EOSINOPHILS # (AUTO) 0.1 10^3/uL (0.0-0.3); EOSINOPHILS % (AUTO) 5 % (0-10); LYMPHOCYTES # (AUTO) 0.6 X 10^3 (1.0-4.0); LYMPHOCYTES % (AUTO) 19 % (12-44); MEAN CORPUSCULAR HEMOGLOBIN 34 PG (25-34); MEAN CORPUSCULAR HGB CONC 37 G/DL (32-36); MEAN CORPUSCULAR VOLUME 92 FL (80-99); MEAN PLATELET VOLUME 9.3 FL (7.4-10.4); MONOCYTES # (AUTO) 0.5 X 10^3 (0.0-1.0); MONOCYTES % (AUTO) 16 % (0-12); NEUTROPHILS # (AUTO) 1.8 X 10^3 (1.8-7.8); NEUTROPHILS % (AUTO) 60 % (42-75); PLATELET COUNT 122 10^3/uL (130-400); RED BLOOD COUNT 3.58 10^6/uL (4.35-5.85); WHITE BLOOD COUNT 2.9 10^3/uL (4.3-11.0)
[2016-11-15 13:53] LABS: ALANINE AMINOTRANSFERASE 18 U/L (0-55); ALBUMIN 4.3 G/DL (3.2-4.5); ANION GAP 7 MMOL/L (5-14); ASPARTATE AMINO TRANSFERASE 31 U/L (5-34); BILIRUBIN,TOTAL 0.5 MG/DL (0.1-1.0); BLOOD UREA NITROGEN 13 MG/DL (7-18); BUN/CREATININE RATIO 14; CALCIUM 9.6 MG/DL (8.5-10.1); CARBON DIOXIDE 24 MMOL/L (21-32); CHLORIDE 103 MMOL/L (98-107); CREATININE SERUM 0.96 MG/DL (0.60-1.30); GFR ESTIMATED > 60; GLUCOSE 98 MG/DL (70-105); LACTATE DEHYDROGENASE 322 U/L (125-220); POTASSIUM 4.3 MMOL/L (3.6-5.0); SODIUM 134 MMOL/L (135-145)
[2016-11-16 05:20] LABS: IMMUNOGLOBULIN IGA 30 mg/dL (71-263); IMMUNOGLOBULIN IGG 1512 mg/dL (672-1680)
[2016-11-16 07:21] LABS: IMMUNOGLOBULIN IGM 26 mg/dL (47-209)
== END 2016-11-24 | disposition home or self-care (01) ==
LOC: ONC 12:42
PROVIDERS: ATTEND Internal Medicine Hematology & Oncology
DX: C82.18 Follicular lymphoma grade II, lymph nodes of multiple sites (principal); D68.59 Other primary thrombophilia; B19.20 Unspecified viral hepatitis C without hepatic coma; Z79.899 Other long term (current) drug therapy
CPT/HCPCS: 36415; 36591; 80053; 82784; 83615; 85025; 96365; 96366; 96413; 99213

== ENCOUNTER → 2017-01-28 | Outpatient (CLI) | payer MEDICARE ==
[~2017-01-28] MED LIST changes: -ACETAMINOPHEN 500 MG TAB (TYLENOL) CANCER CTR ONE; -ACETAMINOPHEN 500 MG TAB (TYLENOL) CANCER CTR PO PRN; +BARIUM SUSPENSION 2.1% (VANILLA SILQ) 450 ML PO ONE; +CATHETER FLUSH 10 ML SYR IV PRN; +IOHEXOL 350 MG/ML 100 ML (OMNIPAQUE 350) VIAL IV ONE; -IVIG 10 GM (PRIVIGEN) CANCER C 100 ML IV SCH; -IVIG 20 GM (PRIVIGEN) CANCER C 200 ML IV SCH; +NS 100 ML (IVPB) BAG IV ONE; -diphenhydrAMINE 25 MG TAB (BENADRYL) CANCER CENTER PO ONE; -diphenhydrAMINE 25 MG TAB (BENADRYL) CANCER CENTER PO SCH; -riTUXimab 500 MG, riTUXimab FOR IV INJ CONC 200 MG in NS (IVPB) CANCER CENTER 163 ML IV SCH
--- NOTE | 2017-01-28 12:51 | Diagnostic Imaging Report ---
PROCEDURE: CT chest, abdomen, and pelvis with contrast. TECHNIQUE: Multiple contiguous axial images were obtained through the chest, abdomen, and pelvis after the administration of intravenous contrast. INDICATION: Non-Hodgkin's lymphoma surveillance. COMPARISON: 09/15/2016. FINDINGS: CT chest with contrast: The lungs are well aerated. There are no parenchymal masses. No infiltrates. There is minimal atelectasis noted in the right lung base. There is good opacification of the aorta and pulmonary artery. Aorta appears normal. There is calcification of the coronary arteries. No mediastinal or hilar adenopathy of pathologic size has developed. There are no bony lesions. IMPRESSION: Stable CT chest with no changes to indicate recurrent lymphoma. CT abdomen and pelvis: The marker lymph node measured in the superior retroperitoneal region of the abdomen has increased in size. This now measures 3 x 2.4 cm. This previously measured 2.3 x 1.5 cm. The periaortic lymph node left of midline which previously measured 1.7 x 1.1 cm now measures 1.8 x 1.4 cm. The lymph node in the mesenteric root anterior to the duodenum now measures 5.6 x 4.3 cm. This previously measured 4.7 x 3.6 cm. The additional matted adenopathy extending to the right from this level also has increased in size. The liver remains normal in appearance. The gallbladder and bile ducts are normal. The pancreas and spleen are normal. The adrenal glands and kidneys appear normal. There is normal enhancement of the abdominal organs and vessels. The aorta is densely calcified without aneurysm. The stomach and small bowel are not distended. There is no evidence of bowel obstruction. The colon shows normal stool and gas pattern. The pelvis appears normal. Soft tissues show significant bilateral inguinal adenopathy. The previously measured lymph node in the right inguinal region now measures approximately 5.6 x 4.3 cm. This previously measured 4.4 x 3.2 cm. Bone windows appear normal. IMPRESSION: 1. Diffuse intra-abdominal and inguinal adenopathy previously reported has continued to increase in size. See report above for details. Dictated by: Dictated on workstation # [id number]
== END ==
LOC: RAD 10:27
PROVIDERS: ATTEND Internal Medicine Hematology & Oncology
DX: C82.18 Follicular lymphoma grade II, lymph nodes of multiple sites (principal)
CPT/HCPCS: 71260; 74177

== ENCOUNTER 2017-03-07 12:49 | Outpatient (RCR) | payer MEDICARE ==
[2017-01-28 11:04] LABS: BASOPHILS % (AUTO) 0 % (0-10); EOSINOPHILS # (AUTO) 0.1 10^3/uL (0.0-0.3); EOSINOPHILS % (AUTO) 2 % (0-10); LYMPHOCYTES # (AUTO) 0.9 X 10^3 (1.0-4.0); LYMPHOCYTES % (AUTO) 17 % (12-44); MEAN CORPUSCULAR HEMOGLOBIN 33 PG (25-34); MEAN CORPUSCULAR HGB CONC 35 G/DL (32-36); MEAN CORPUSCULAR VOLUME 92 FL (80-99); MEAN PLATELET VOLUME 10.1 FL (7.4-10.4); MONOCYTES # (AUTO) 0.5 X 10^3 (0.0-1.0); MONOCYTES % (AUTO) 9 % (0-12); NEUTROPHILS # (AUTO) 3.7 X 10^3 (1.8-7.8); NEUTROPHILS % (AUTO) 72 % (42-75); PLATELET COUNT 122 10^3/uL (130-400); RED BLOOD COUNT 4.08 10^6/uL (4.35-5.85); RED CELL DISTRIBUTION WIDTH 14.9 % (10.0-14.5); WHITE BLOOD COUNT 5.2 10^3/uL (4.3-11.0)
[2017-01-28 11:29] LABS: ALANINE AMINOTRANSFERASE 17 U/L (0-55); ALBUMIN 4.5 GM/DL (3.2-4.5); ANION GAP 11 MMOL/L (5-14); ASPARTATE AMINO TRANSFERASE 25 U/L (5-34); BILIRUBIN,TOTAL 0.7 MG/DL (0.1-1.0); BLOOD UREA NITROGEN 15 MG/DL (7-18); BUN/CREATININE RATIO 13 (0-20); CALCIUM 9.8 MG/DL (8.5-10.1); CARBON DIOXIDE 24 MMOL/L (21-32); CHLORIDE 102 MMOL/L (98-107); CREATININE SERUM 1.12 MG/DL (0.60-1.30); GFR ESTIMATED > 60; GLUCOSE 103 MG/DL (70-105); HEMOLYSIS 4 (-100-29); ICTERUS 0.7 (-100-1.9); LACTATE DEHYDROGENASE 242 U/L (125-220); LIPEMIA 0 (-100-49); POTASSIUM 4.2 MMOL/L (3.6-5.0); SODIUM 137 MMOL/L (135-145); TOTAL PROTEIN 8.6 GM/DL (6.4-8.2)
[2017-02-07 13:15] LABS: BASOPHILS % (AUTO) 0 % (0-10); EOSINOPHILS # (AUTO) 0.1 10^3/uL (0.0-0.3); EOSINOPHILS % (AUTO) 2 % (0-10); LYMPHOCYTES # (AUTO) 0.8 X 10^3 (1.0-4.0); LYMPHOCYTES % (AUTO) 16 % (12-44); MEAN CORPUSCULAR HEMOGLOBIN 33 PG (25-34); MEAN CORPUSCULAR HGB CONC 36 G/DL (32-36); MEAN CORPUSCULAR VOLUME 91 FL (80-99); MEAN PLATELET VOLUME 8.8 FL (7.4-10.4); MONOCYTES # (AUTO) 0.5 X 10^3 (0.0-1.0); MONOCYTES % (AUTO) 10 % (0-12); NEUTROPHILS # (AUTO) 3.5 X 10^3 (1.8-7.8); NEUTROPHILS % (AUTO) 72 % (42-75); PLATELET COUNT 127 10^3/uL (130-400); RED BLOOD COUNT 3.92 10^6/uL (4.35-5.85); WHITE BLOOD COUNT 4.9 10^3/uL (4.3-11.0)
[2017-02-07 13:35] LABS: ALANINE AMINOTRANSFERASE 17 U/L (0-55); ALBUMIN 4.5 GM/DL (3.2-4.5); ANION GAP 8 MMOL/L (5-14); ASPARTATE AMINO TRANSFERASE 23 U/L (5-34); BILIRUBIN,TOTAL 0.6 MG/DL (0.1-1.0); BLOOD UREA NITROGEN 14 MG/DL (7-18); BUN/CREATININE RATIO 13 (0-20); CALCIUM 9.9 MG/DL (8.5-10.1); CARBON DIOXIDE 26 MMOL/L (21-32); CHLORIDE 103 MMOL/L (98-107); CREATININE SERUM 1.04 MG/DL (0.60-1.30); GFR ESTIMATED > 60; GLUCOSE 111 MG/DL (70-105); HEMOLYSIS 5 (-100-29); ICTERUS 0.6 (-100-1.9); LACTATE DEHYDROGENASE 230 U/L (125-220); LIPEMIA 7 (-100-49); POTASSIUM 3.9 MMOL/L (3.6-5.0); SODIUM 137 MMOL/L (135-145); TOTAL PROTEIN 8.5 GM/DL (6.4-8.2)
[2017-02-08 01:52] LABS: IMMUNOGLOBULIN IGA 41 mg/dL (71-263); IMMUNOGLOBULIN IGG 1481 mg/dL (672-1680)
[2017-02-08 07:15] LABS: IMMUNOGLOBULIN IGM 46 mg/dL (47-209)
[2017-02-21 13:15] LABS: BASOPHILS % (AUTO) 0 % (0-10); EOSINOPHILS # (AUTO) 0.1 10^3/uL (0.0-0.3); EOSINOPHILS % (AUTO) 1 % (0-10); LYMPHOCYTES # (AUTO) 0.6 X 10^3 (1.0-4.0); LYMPHOCYTES % (AUTO) 11 % (12-44); MEAN CORPUSCULAR HEMOGLOBIN 33 PG (25-34); MEAN CORPUSCULAR HGB CONC 36 G/DL (32-36); MEAN CORPUSCULAR VOLUME 92 FL (80-99); MEAN PLATELET VOLUME 9.3 FL (7.4-10.4); MONOCYTES # (AUTO) 0.5 X 10^3 (0.0-1.0); MONOCYTES % (AUTO) 10 % (0-12); NEUTROPHILS # (AUTO) 3.9 X 10^3 (1.8-7.8); NEUTROPHILS % (AUTO) 77 % (42-75); PLATELET COUNT 133 10^3/uL (130-400); RED BLOOD COUNT 3.91 10^6/uL (4.35-5.85); RED CELL DISTRIBUTION WIDTH 14.9 % (10.0-14.5)
[2017-02-21 13:41] LABS: ALANINE AMINOTRANSFERASE 20 U/L (0-55); ALBUMIN 4.5 GM/DL (3.2-4.5); ANION GAP 8 MMOL/L (5-14); ASPARTATE AMINO TRANSFERASE 26 U/L (5-34); BILIRUBIN,TOTAL 0.6 MG/DL (0.1-1.0); BLOOD UREA NITROGEN 14 MG/DL (7-18); BUN/CREATININE RATIO 14; CALCIUM 9.7 MG/DL (8.5-10.1); CARBON DIOXIDE 24 MMOL/L (21-32); CHLORIDE 102 MMOL/L (98-107); CREATININE SERUM 0.98 MG/DL (0.60-1.30); GFR ESTIMATED > 60; GLUCOSE 108 MG/DL (70-105); LACTATE DEHYDROGENASE 252 U/L (125-220); MAGNESIUM 2.1 MG/DL (1.8-2.4); POTASSIUM 4.3 MMOL/L (3.6-5.0); SODIUM 134 MMOL/L (135-145); TOTAL PROTEIN 8.4 GM/DL (6.4-8.2); URIC ACID 5.1 MG/DL (2.6-7.2)
[2017-02-28 14:44] LABS: BASOPHILS % (AUTO) 0 % (0-10); EOSINOPHILS # (AUTO) 0.1 10^3/uL (0.0-0.3); EOSINOPHILS % (AUTO) 2 % (0-10); LYMPHOCYTES # (AUTO) 0.6 X 10^3 (1.0-4.0); LYMPHOCYTES % (AUTO) 10 % (12-44); MEAN CORPUSCULAR HEMOGLOBIN 33 PG (25-34); MEAN CORPUSCULAR HGB CONC 36 G/DL (32-36); MEAN CORPUSCULAR VOLUME 91 FL (80-99); MEAN PLATELET VOLUME 9.1 FL (7.4-10.4); MONOCYTES # (AUTO) 0.7 X 10^3 (0.0-1.0); MONOCYTES % (AUTO) 12 % (0-12); NEUTROPHILS # (AUTO) 4.4 X 10^3 (1.8-7.8); NEUTROPHILS % (AUTO) 76 % (42-75); PLATELET COUNT 147 10^3/uL (130-400); RED BLOOD COUNT 4.29 10^6/uL (4.35-5.85); WHITE BLOOD COUNT 5.8 10^3/uL (4.3-11.0)
[2017-02-28 16:09] LABS: ANION GAP 12 MMOL/L (5-14); BLOOD UREA NITROGEN 17 MG/DL (7-18); BUN/CREATININE RATIO 16; CALCIUM 10.4 MG/DL (8.5-10.1); CARBON DIOXIDE 23 MMOL/L (21-32); CHLORIDE 99 MMOL/L (98-107); CREATININE SERUM 1.04 MG/DL (0.60-1.30); GFR ESTIMATED > 60; GLUCOSE 101 MG/DL (70-105); POTASSIUM 3.6 MMOL/L (3.6-5.0); SODIUM 134 MMOL/L (135-145)
[~2017-03-07] VITALS: Ht 180.3 cm; Wt 94.3 kg
[~2017-03-07 12:49] MED LIST changes: +ACETAMINOPHEN 325 MG TAB (TYLENOL) CANCER CTR PO PRN; +ACETAMINOPHEN 500 MG TAB (TYLENOL) CANCER CTR PO PRN; -BARIUM SUSPENSION 2.1% (VANILLA SILQ) 450 ML PO ONE; +BENDAMUSTINE HCL 160 MG in NS (IVPB) CANCER CENTER 50 ML IV SCH; -CATHETER FLUSH 10 ML SYR IV PRN; -IOHEXOL 350 MG/ML 100 ML (OMNIPAQUE 350) VIAL IV ONE; +IVIG 10 GM (PRIVIGEN) CANCER C 100 ML IV SCH; +IVIG 20 GM (PRIVIGEN) CANCER C 200 ML IV SCH; -NS 100 ML (IVPB) BAG IV ONE; +NS IV 1000 ML (CANCER CTR) IV SCH; +NS IV 500 ML (CANCER CENTER) 500 ML ONE; +ONDANSETRON 16 MG, DEXAMETHASONE 10 MG/NS 50 ML IVPB IV SCH; +PALONOSETRON 0.25 MG, DEXAMETHASONE 10 MG/NS 50 ML IVPB IV PRN; +diphenhydrAMINE 25 MG TAB (BENADRYL) CANCER CENTER PO SCH; +diphenhydrAMINE 50 MG/ML INJ (CANCER CENTER) IV PRN; +riTUXimab 500 MG, riTUXimab FOR IV INJ CONC 300 MG in NS (IVPB) CANCER CENTER 186 ML IV SCH
[2017-03-07 13:31] LABS: BASOPHILS % (AUTO) 0 % (0-10); EOSINOPHILS # (AUTO) 0.1 10^3/uL (0.0-0.3); EOSINOPHILS % (AUTO) 2 % (0-10); LYMPHOCYTES # (AUTO) 0.7 X 10^3 (1.0-4.0); LYMPHOCYTES % (AUTO) 14 % (12-44); MEAN CORPUSCULAR HEMOGLOBIN 34 PG (25-34); MEAN CORPUSCULAR HGB CONC 36 G/DL (32-36); MEAN CORPUSCULAR VOLUME 93 FL (80-99); MEAN PLATELET VOLUME 9.1 FL (7.4-10.4); MONOCYTES # (AUTO) 0.6 X 10^3 (0.0-1.0); MONOCYTES % (AUTO) 12 % (0-12); NEUTROPHILS # (AUTO) 3.8 X 10^3 (1.8-7.8); NEUTROPHILS % (AUTO) 73 % (42-75); PLATELET COUNT 135 10^3/uL (130-400); RED BLOOD COUNT 3.63 10^6/uL (4.35-5.85); RED CELL DISTRIBUTION WIDTH 15.1 % (10.0-14.5); WHITE BLOOD COUNT 5.2 10^3/uL (4.3-11.0)
[2017-03-07 13:59] LABS: ANION GAP 7 MMOL/L (5-14); BLOOD UREA NITROGEN 17 MG/DL (7-18); BUN/CREATININE RATIO 19; CALCIUM 9.6 MG/DL (8.5-10.1); CARBON DIOXIDE 25 MMOL/L (21-32); CHLORIDE 99 MMOL/L (98-107); CREATININE SERUM 0.89 MG/DL (0.60-1.30); GFR ESTIMATED > 60; GLUCOSE 96 MG/DL (70-105); POTASSIUM 4.6 MMOL/L (3.6-5.0); SODIUM 131 MMOL/L (135-145)
== END 2017-03-13 | disposition home or self-care (01) ==
LOC: ONC 12:49
PROVIDERS: ATTEND Internal Medicine Hematology & Oncology
DX: Z51.11 Encounter for antineoplastic chemotherapy (principal); C82.18 Follicular lymphoma grade II, lymph nodes of multiple sites; D80.2 Selective deficiency of immunoglobulin A [IgA]; D68.59 Other primary thrombophilia; B19.20 Unspecified viral hepatitis C without hepatic coma; Z79.899 Other long term (current) drug therapy
CPT/HCPCS: 36415; 36591; 80048; 80053; 82784; 83615; 83735; 84550; 85025; 96365; 96366; 96375; 96409; 96411; 96413; 96415

== ENCOUNTER 2017-05-03 13:34 | Outpatient (RCR) | payer MEDICARE ==
[2017-03-21 14:00] LABS: BASOPHILS % (AUTO) 0 % (0-10); EOSINOPHILS # (AUTO) 0.1 10^3/uL (0.0-0.3); EOSINOPHILS % (AUTO) 3 % (0-10); LYMPHOCYTES # (AUTO) 0.7 X 10^3 (1.0-4.0); LYMPHOCYTES % (AUTO) 22 % (12-44); MEAN CORPUSCULAR HEMOGLOBIN 34 PG (25-34); MEAN CORPUSCULAR HGB CONC 36 G/DL (32-36); MEAN CORPUSCULAR VOLUME 95 FL (80-99); MEAN PLATELET VOLUME 9.6 FL (7.4-10.4); MONOCYTES # (AUTO) 0.5 X 10^3 (0.0-1.0); MONOCYTES % (AUTO) 15 % (0-12); NEUTROPHILS # (AUTO) 1.9 X 10^3 (1.8-7.8); NEUTROPHILS % (AUTO) 60 % (42-75); PLATELET COUNT 114 10^3/uL (130-400); RED BLOOD COUNT 3.55 10^6/uL (4.35-5.85); RED CELL DISTRIBUTION WIDTH 15.5 % (10.0-14.5); WHITE BLOOD COUNT 3.1 10^3/uL (4.3-11.0)
[2017-03-21 14:26] LABS: ALANINE AMINOTRANSFERASE 20 U/L (0-55); ALBUMIN 4.4 GM/DL (3.2-4.5); ANION GAP 10 MMOL/L (5-14); ASPARTATE AMINO TRANSFERASE 28 U/L (5-34); BILIRUBIN,TOTAL 0.7 MG/DL (0.1-1.0); BLOOD UREA NITROGEN 15 MG/DL (7-18); BUN/CREATININE RATIO 15; CALCIUM 9.8 MG/DL (8.5-10.1); CARBON DIOXIDE 21 MMOL/L (21-32); CHLORIDE 104 MMOL/L (98-107); CREATININE SERUM 0.97 MG/DL (0.60-1.30); GFR ESTIMATED > 60; GLUCOSE 81 MG/DL (70-105); LACTATE DEHYDROGENASE 239 U/L (125-220); MAGNESIUM 2.1 MG/DL (1.8-2.4); POTASSIUM 4.2 MMOL/L (3.6-5.0); SODIUM 135 MMOL/L (135-145)
[2017-04-05 06:30] LABS: IMMUNOGLOBULIN IGA 35 mg/dL (71-263); IMMUNOGLOBULIN IGG 1581 mg/dL (672-1680)
[2017-04-05 10:56] LABS: IMMUNOGLOBULIN IGM 39 mg/dL (47-209)
[2017-04-19 13:41] LABS: BASOPHILS % (AUTO) 1 % (0-10); EOSINOPHILS # (AUTO) 0.1 10^3/uL (0.0-0.3); EOSINOPHILS % (AUTO) 7 % (0-10); LYMPHOCYTES # (AUTO) 0.5 X 10^3 (1.0-4.0); LYMPHOCYTES % (AUTO) 43 % (12-44); MEAN CORPUSCULAR HEMOGLOBIN 34 PG (25-34); MEAN CORPUSCULAR HGB CONC 36 G/DL (32-36); MEAN CORPUSCULAR VOLUME 95 FL (80-99); MEAN PLATELET VOLUME 9.2 FL (7.4-10.4); MONOCYTES # (AUTO) 0.4 X 10^3 (0.0-1.0); MONOCYTES % (AUTO) 33 % (0-12); NEUTROPHILS # (AUTO) 0.2 X 10^3 (1.8-7.8); NEUTROPHILS % (AUTO) 16 % (42-75); PLATELET COUNT 115 10^3/uL (130-400); RED BLOOD COUNT 3.42 10^6/uL (4.35-5.85); RED CELL DISTRIBUTION WIDTH 14.4 % (10.0-14.5)
[2017-04-19 13:46] LABS: WHITE BLOOD COUNT 1.2 10^3/uL (4.3-11.0)
[2017-04-19 14:04] LABS: ALANINE AMINOTRANSFERASE 17 U/L (0-55); ALBUMIN 4.2 GM/DL (3.2-4.5); ANION GAP 9 MMOL/L (5-14); ASPARTATE AMINO TRANSFERASE 31 U/L (5-34); BILIRUBIN,TOTAL 0.6 MG/DL (0.1-1.0); BLOOD UREA NITROGEN 11 MG/DL (7-18); BUN/CREATININE RATIO 10; CALCIUM 9.3 MG/DL (8.5-10.1); CARBON DIOXIDE 22 MMOL/L (21-32); CHLORIDE 105 MMOL/L (98-107); CREATININE SERUM 1.07 MG/DL (0.60-1.30); GFR ESTIMATED > 60; GLUCOSE 90 MG/DL (70-105); LACTATE DEHYDROGENASE 278 U/L (125-220); MAGNESIUM 2.1 MG/DL (1.8-2.4); SODIUM 136 MMOL/L (135-145); TOTAL PROTEIN 7.7 GM/DL (6.4-8.2); URIC ACID 5.4 MG/DL (2.6-7.2)
[2017-04-26 13:55] LABS: BASOPHILS % (AUTO) 1 % (0-10); EOSINOPHILS # (AUTO) 0.1 10^3/uL (0.0-0.3); EOSINOPHILS % (AUTO) 6 % (0-10); LYMPHOCYTES # (AUTO) 0.5 X 10^3 (1.0-4.0); LYMPHOCYTES % (AUTO) 39 % (12-44); MEAN CORPUSCULAR HEMOGLOBIN 34 PG (25-34); MEAN CORPUSCULAR HGB CONC 36 G/DL (32-36); MEAN CORPUSCULAR VOLUME 94 FL (80-99); MEAN PLATELET VOLUME 8.9 FL (7.4-10.4); MONOCYTES # (AUTO) 0.4 X 10^3 (0.0-1.0); MONOCYTES % (AUTO) 29 % (0-12); NEUTROPHILS # (AUTO) 0.3 X 10^3 (1.8-7.8); NEUTROPHILS % (AUTO) 26 % (42-75); PLATELET COUNT 113 10^3/uL (130-400); RED BLOOD COUNT 3.52 10^6/uL (4.35-5.85); RED CELL DISTRIBUTION WIDTH 14.3 % (10.0-14.5)
[2017-04-26 13:57] LABS: WHITE BLOOD COUNT 1.3 10^3/uL (4.3-11.0)
[2017-04-26 14:14] LABS: ANION GAP 9 MMOL/L (5-14); BLOOD UREA NITROGEN 14 MG/DL (7-18); BUN/CREATININE RATIO 14; CALCIUM 9.5 MG/DL (8.5-10.1); CARBON DIOXIDE 24 MMOL/L (21-32); CHLORIDE 103 MMOL/L (98-107); CREATININE SERUM 0.97 MG/DL (0.60-1.30); GFR ESTIMATED > 60; GLUCOSE 100 MG/DL (70-105); SODIUM 136 MMOL/L (135-145)
[2017-05-02 13:38] LABS: BASOPHILS % (AUTO) 2 % (0-10); EOSINOPHILS # (AUTO) 0.1 10^3/uL (0.0-0.3); EOSINOPHILS % (AUTO) 6 % (0-10); LYMPHOCYTES # (AUTO) 0.6 X 10^3 (1.0-4.0); LYMPHOCYTES % (AUTO) 40 % (12-44); MEAN CORPUSCULAR HEMOGLOBIN 34 PG (25-34); MEAN CORPUSCULAR HGB CONC 36 G/DL (32-36); MEAN CORPUSCULAR VOLUME 94 FL (80-99); MEAN PLATELET VOLUME 9.2 FL (7.4-10.4); MONOCYTES # (AUTO) 0.3 X 10^3 (0.0-1.0); MONOCYTES % (AUTO) 18 % (0-12); NEUTROPHILS # (AUTO) 0.5 X 10^3 (1.8-7.8); NEUTROPHILS % (AUTO) 34 % (42-75); PLATELET COUNT 116 10^3/uL (130-400); RED BLOOD COUNT 3.51 10^6/uL (4.35-5.85); RED CELL DISTRIBUTION WIDTH 14.1 % (10.0-14.5); WHITE BLOOD COUNT 1.6 10^3/uL (4.3-11.0)
[2017-05-02 13:56] LABS: ANION GAP 9 MMOL/L (5-14); BLOOD UREA NITROGEN 14 MG/DL (7-18); BUN/CREATININE RATIO 14; CALCIUM 9.4 MG/DL (8.5-10.1); CARBON DIOXIDE 25 MMOL/L (21-32); CHLORIDE 102 MMOL/L (98-107); CREATININE SERUM 1.01 MG/DL (0.60-1.30); GFR ESTIMATED > 60; GLUCOSE 98 MG/DL (70-105); SODIUM 136 MMOL/L (135-145)
[~2017-05-03] VITALS: Ht 180.3 cm; Wt 93.4 kg
[~2017-05-03 13:34] MED LIST changes: +BENDAMUSTINE HCL 130 MG in NS (IVPB) CANCER CENTER 50 ML IV SCH
== END 2017-05-14 | disposition home or self-care (01) ==
LOC: ONC 13:34
PROVIDERS: ATTEND Internal Medicine Hematology & Oncology
DX: Z51.11 Encounter for antineoplastic chemotherapy (principal); C82.18 Follicular lymphoma grade II, lymph nodes of multiple sites; D80.2 Selective deficiency of immunoglobulin A [IgA]; D68.59 Other primary thrombophilia; B19.20 Unspecified viral hepatitis C without hepatic coma; Z79.899 Other long term (current) drug therapy
CPT/HCPCS: 36591; 80048; 80053; 82784; 83615; 83735; 84550; 85025; 96365; 96366; 96375; 96409; 96411; 96413; 96415

== ENCOUNTER 2017-08-12 12:45 | Outpatient (RCR) | payer MEDICARE ==
[2017-05-30 10:56] LABS: BASOPHILS % (AUTO) 1 % (0-10); EOSINOPHILS # (AUTO) 0.1 10^3/uL (0.0-0.3); EOSINOPHILS % (AUTO) 5 % (0-10); HEMATOCRIT 35 % (40-54); HEMOGLOBIN 12.6 G/DL (13.3-17.7); LYMPHOCYTES # (AUTO) 0.4 X 10^3 (1.0-4.0); LYMPHOCYTES % (AUTO) 25 % (12-44); MEAN CORPUSCULAR HEMOGLOBIN 33 PG (25-34); MEAN CORPUSCULAR HGB CONC 36 G/DL (32-36); MEAN CORPUSCULAR VOLUME 93 FL (80-99); MEAN PLATELET VOLUME 9.2 FL (7.4-10.4); MONOCYTES # (AUTO) 0.4 X 10^3 (0.0-1.0); MONOCYTES % (AUTO) 25 % (0-12); NEUTROPHILS # (AUTO) 0.8 X 10^3 (1.8-7.8); NEUTROPHILS % (AUTO) 45 % (42-75); PLATELET COUNT 133 10^3/uL (130-400); RED BLOOD COUNT 3.79 10^6/uL (4.35-5.85); RED CELL DISTRIBUTION WIDTH 13.8 % (10.0-14.5); WHITE BLOOD COUNT 1.8 10^3/uL (4.3-11.0)
[2017-05-30 11:19] LABS: ALANINE AMINOTRANSFERASE 18 U/L (0-55); ALBUMIN 4.4 GM/DL (3.2-4.5); ALKALINE PHOSPHATASE 65 U/L (40-136); BILIRUBIN,TOTAL 0.7 MG/DL (0.1-1.0); BUN/CREATININE RATIO 14; CALCIUM 9.5 MG/DL (8.5-10.1); CARBON DIOXIDE 25 MMOL/L (21-32); CHLORIDE 102 MMOL/L (98-107); CREATININE SERUM 0.94 MG/DL (0.60-1.30); GFR ESTIMATED > 60; GLUCOSE 109 MG/DL (70-105); MAGNESIUM 2.1 MG/DL (1.8-2.4); POTASSIUM 4.1 MMOL/L (3.6-5.0); SODIUM 135 MMOL/L (135-145); TOTAL PROTEIN 8.1 GM/DL (6.4-8.2)
[2017-06-06 13:19] LABS: BASOPHILS % (AUTO) 1 % (0-10); EOSINOPHILS # (AUTO) 0.1 10^3/uL (0.0-0.3); EOSINOPHILS % (AUTO) 6 % (0-10); HEMATOCRIT 36 % (40-54); LYMPHOCYTES # (AUTO) 0.3 X 10^3 (1.0-4.0); LYMPHOCYTES % (AUTO) 15 % (12-44); MEAN CORPUSCULAR HEMOGLOBIN 33 PG (25-34); MEAN CORPUSCULAR HGB CONC 36 G/DL (32-36); MEAN CORPUSCULAR VOLUME 92 FL (80-99); MEAN PLATELET VOLUME 9.5 FL (7.4-10.4); MONOCYTES # (AUTO) 0.5 X 10^3 (0.0-1.0); MONOCYTES % (AUTO) 28 % (0-12); NEUTROPHILS # (AUTO) 0.8 X 10^3 (1.8-7.8); NEUTROPHILS % (AUTO) 50 % (42-75); PLATELET COUNT 124 10^3/uL (130-400); RED CELL DISTRIBUTION WIDTH 13.8 % (10.0-14.5); WHITE BLOOD COUNT 1.7 10^3/uL (4.3-11.0)
[2017-06-06 13:39] LABS: BUN/CREATININE RATIO 13; CARBON DIOXIDE 29 MMOL/L (21-32); CHLORIDE 102 MMOL/L (98-107); CREATININE SERUM 0.94 MG/DL (0.60-1.30); GFR ESTIMATED > 60; GLUCOSE 111 MG/DL (70-105); POTASSIUM 4.2 MMOL/L (3.6-5.0); SODIUM 136 MMOL/L (135-145)
[2017-06-13 13:42] LABS: BASOPHILS % (AUTO) 1 % (0-10); EOSINOPHILS # (AUTO) 0.1 10^3/uL (0.0-0.3); EOSINOPHILS % (AUTO) 7 % (0-10); HEMATOCRIT 34 % (40-54); HEMOGLOBIN 12.4 G/DL (13.3-17.7); LYMPHOCYTES # (AUTO) 0.3 X 10^3 (1.0-4.0); LYMPHOCYTES % (AUTO) 26 % (12-44); MEAN CORPUSCULAR HEMOGLOBIN 34 PG (25-34); MEAN CORPUSCULAR HGB CONC 37 G/DL (32-36); MEAN CORPUSCULAR VOLUME 94 FL (80-99); MEAN PLATELET VOLUME 9.2 FL (7.4-10.4); MONOCYTES # (AUTO) 0.4 X 10^3 (0.0-1.0); MONOCYTES % (AUTO) 31 % (0-12); NEUTROPHILS # (AUTO) 0.5 X 10^3 (1.8-7.8); NEUTROPHILS % (AUTO) 36 % (42-75); PLATELET COUNT 111 10^3/uL (130-400); RED BLOOD COUNT 3.61 10^6/uL (4.35-5.85); RED CELL DISTRIBUTION WIDTH 14.7 % (10.0-14.5)
[2017-06-13 13:43] LABS: WHITE BLOOD COUNT 1.3 10^3/uL (4.3-11.0)
[2017-06-13 13:59] LABS: BUN/CREATININE RATIO 13; CALCIUM 9.7 MG/DL (8.5-10.1); CARBON DIOXIDE 20 MMOL/L (21-32); CHLORIDE 101 MMOL/L (98-107); CREATININE SERUM 0.99 MG/DL (0.60-1.30); GFR ESTIMATED > 60; GLUCOSE 105 MG/DL (70-105); POTASSIUM 4.2 MMOL/L (3.6-5.0); SODIUM 133 MMOL/L (135-145)
[2017-06-20 11:05] LABS: BASOPHILS % (AUTO) 0 % (0-10); EOSINOPHILS # (AUTO) 0.1 10^3/uL (0.0-0.3); EOSINOPHILS % (AUTO) 6 % (0-10); HEMATOCRIT 34 % (40-54); HEMOGLOBIN 12.3 G/DL (13.3-17.7); LYMPHOCYTES # (AUTO) 0.3 X 10^3 (1.0-4.0); LYMPHOCYTES % (AUTO) 24 % (12-44); MEAN CORPUSCULAR HEMOGLOBIN 34 PG (25-34); MEAN CORPUSCULAR HGB CONC 36 G/DL (32-36); MEAN CORPUSCULAR VOLUME 94 FL (80-99); MEAN PLATELET VOLUME 9.1 FL (7.4-10.4); MONOCYTES # (AUTO) 0.4 X 10^3 (0.0-1.0); MONOCYTES % (AUTO) 28 % (0-12); NEUTROPHILS # (AUTO) 0.5 X 10^3 (1.8-7.8); NEUTROPHILS % (AUTO) 42 % (42-75); PLATELET COUNT 103 10^3/uL (130-400); RED BLOOD COUNT 3.62 10^6/uL (4.35-5.85); RED CELL DISTRIBUTION WIDTH 14.8 % (10.0-14.5)
[2017-06-20 11:15] LABS: WHITE BLOOD COUNT 1.3 10^3/uL (4.3-11.0)
[2017-06-20 11:27] LABS: BUN/CREATININE RATIO 16; CALCIUM 9.3 MG/DL (8.5-10.1); CARBON DIOXIDE 23 MMOL/L (21-32); CHLORIDE 103 MMOL/L (98-107); CREATININE SERUM 0.87 MG/DL (0.60-1.30); GFR ESTIMATED > 60; GLUCOSE 105 MG/DL (70-105); POTASSIUM 4.5 MMOL/L (3.6-5.0); SODIUM 137 MMOL/L (135-145)
[2017-06-27 11:26] LABS: BASOPHILS % (AUTO) 1 % (0-10); EOSINOPHILS # (AUTO) 0.1 10^3/uL (0.0-0.3); EOSINOPHILS % (AUTO) 5 % (0-10); HEMATOCRIT 35 % (40-54); HEMOGLOBIN 12.5 G/DL (13.3-17.7); LYMPHOCYTES # (AUTO) 0.5 X 10^3 (1.0-4.0); LYMPHOCYTES % (AUTO) 21 % (12-44); MEAN CORPUSCULAR HEMOGLOBIN 34 PG (25-34); MEAN CORPUSCULAR HGB CONC 36 G/DL (32-36); MEAN CORPUSCULAR VOLUME 94 FL (80-99); MONOCYTES # (AUTO) 0.6 X 10^3 (0.0-1.0); MONOCYTES % (AUTO) 28 % (0-12); NEUTROPHILS % (AUTO) 46 % (42-75); PLATELET COUNT 132 10^3/uL (130-400); RED BLOOD COUNT 3.68 10^6/uL (4.35-5.85); RED CELL DISTRIBUTION WIDTH 14.5 % (10.0-14.5); WHITE BLOOD COUNT 2.2 10^3/uL (4.3-11.0)
[2017-06-27 11:42] LABS: ALANINE AMINOTRANSFERASE 23 U/L (0-55); ALBUMIN 4.5 GM/DL (3.2-4.5); ALKALINE PHOSPHATASE 59 U/L (40-136); BILIRUBIN,TOTAL 0.7 MG/DL (0.1-1.0); BUN/CREATININE RATIO 13; CALCIUM 9.7 MG/DL (8.5-10.1); CARBON DIOXIDE 25 MMOL/L (21-32); CHLORIDE 102 MMOL/L (98-107); CREATININE SERUM 0.97 MG/DL (0.60-1.30); GFR ESTIMATED > 60; GLUCOSE 93 MG/DL (70-105); POTASSIUM 4.1 MMOL/L (3.6-5.0); SODIUM 135 MMOL/L (135-145); TOTAL PROTEIN 8.1 GM/DL (6.4-8.2)
[2017-07-04 14:14] LABS: BASOPHILS % (AUTO) 0 % (0-10); EOSINOPHILS # (AUTO) 0.1 10^3/uL (0.0-0.3); EOSINOPHILS % (AUTO) 2 % (0-10); HEMATOCRIT 34 % (40-54); HEMOGLOBIN 12.3 G/DL (13.3-17.7); LYMPHOCYTES # (AUTO) 0.5 X 10^3 (1.0-4.0); LYMPHOCYTES % (AUTO) 13 % (12-44); MEAN CORPUSCULAR HEMOGLOBIN 34 PG (25-34); MEAN CORPUSCULAR HGB CONC 36 G/DL (32-36); MEAN CORPUSCULAR VOLUME 93 FL (80-99); MEAN PLATELET VOLUME 9.2 FL (7.4-10.4); MONOCYTES # (AUTO) 0.5 X 10^3 (0.0-1.0); MONOCYTES % (AUTO) 12 % (0-12); NEUTROPHILS # (AUTO) 3.1 X 10^3 (1.8-7.8); NEUTROPHILS % (AUTO) 73 % (42-75); PLATELET COUNT 139 10^3/uL (130-400); RED BLOOD COUNT 3.62 10^6/uL (4.35-5.85); RED CELL DISTRIBUTION WIDTH 14.6 % (10.0-14.5); WHITE BLOOD COUNT 4.2 10^3/uL (4.3-11.0)
[2017-07-04 14:30] LABS: BUN/CREATININE RATIO 15; CALCIUM 9.6 MG/DL (8.5-10.1); CARBON DIOXIDE 22 MMOL/L (21-32); CHLORIDE 105 MMOL/L (98-107); CREATININE SERUM 1.11 MG/DL (0.60-1.30); GFR ESTIMATED > 60; GLUCOSE 91 MG/DL (70-105); SODIUM 137 MMOL/L (135-145)
[2017-07-26 13:48] LABS: BASOPHILS % (AUTO) 0 % (0-10); EOSINOPHILS # (AUTO) 0.2 10^3/uL (0.0-0.3); EOSINOPHILS % (AUTO) 5 % (0-10); HEMATOCRIT 35 % (40-54); HEMOGLOBIN 12.6 G/DL (13.3-17.7); LYMPHOCYTES # (AUTO) 0.5 X 10^3 (1.0-4.0); LYMPHOCYTES % (AUTO) 13 % (12-44); MEAN CORPUSCULAR HEMOGLOBIN 35 PG (25-34); MEAN CORPUSCULAR HGB CONC 37 G/DL (32-36); MEAN CORPUSCULAR VOLUME 95 FL (80-99); MEAN PLATELET VOLUME 9.1 FL (7.4-10.4); MONOCYTES # (AUTO) 0.5 X 10^3 (0.0-1.0); MONOCYTES % (AUTO) 13 % (0-12); NEUTROPHILS # (AUTO) 2.4 X 10^3 (1.8-7.8); NEUTROPHILS % (AUTO) 69 % (42-75); PLATELET COUNT 125 10^3/uL (130-400); RED BLOOD COUNT 3.64 10^6/uL (4.35-5.85); RED CELL DISTRIBUTION WIDTH 14.9 % (10.0-14.5); WHITE BLOOD COUNT 3.5 10^3/uL (4.3-11.0)
[2017-07-26 14:06] LABS: ALANINE AMINOTRANSFERASE 17 U/L (0-55); ALBUMIN 4.5 GM/DL (3.2-4.5); ALKALINE PHOSPHATASE 59 U/L (40-136); BILIRUBIN,TOTAL 0.6 MG/DL (0.1-1.0); BUN/CREATININE RATIO 13; CALCIUM 9.4 MG/DL (8.5-10.1); CARBON DIOXIDE 23 MMOL/L (21-32); CHLORIDE 101 MMOL/L (98-107); CREATININE SERUM 0.97 MG/DL (0.60-1.30); GFR ESTIMATED > 60; GLUCOSE 93 MG/DL (70-105); POTASSIUM 3.9 MMOL/L (3.6-5.0); SODIUM 135 MMOL/L (135-145)
[2017-08-11 11:15] LABS: BASOPHILS % (AUTO) 1 % (0-10); EOSINOPHILS # (AUTO) 0.1 10^3/uL (0.0-0.3); EOSINOPHILS % (AUTO) 2 % (0-10); HEMATOCRIT 36 % (40-54); LYMPHOCYTES # (AUTO) 0.5 X 10^3 (1.0-4.0); LYMPHOCYTES % (AUTO) 13 % (12-44); MEAN CORPUSCULAR HEMOGLOBIN 35 PG (25-34); MEAN CORPUSCULAR HGB CONC 36 G/DL (32-36); MEAN CORPUSCULAR VOLUME 96 FL (80-99); MONOCYTES # (AUTO) 0.6 X 10^3 (0.0-1.0); MONOCYTES % (AUTO) 15 % (0-12); NEUTROPHILS # (AUTO) 2.6 X 10^3 (1.8-7.8); NEUTROPHILS % (AUTO) 69 % (42-75); PLATELET COUNT 130 10^3/uL (130-400); RED BLOOD COUNT 3.76 10^6/uL (4.35-5.85); RED CELL DISTRIBUTION WIDTH 14.6 % (10.0-14.5); WHITE BLOOD COUNT 3.8 10^3/uL (4.3-11.0)
[2017-08-11 11:31] LABS: BUN/CREATININE RATIO 15; CALCIUM 9.7 MG/DL (8.5-10.1); CARBON DIOXIDE 24 MMOL/L (21-32); CHLORIDE 102 MMOL/L (98-107); CREATININE SERUM 1.09 MG/DL (0.60-1.30); GFR ESTIMATED > 60; GLUCOSE 105 MG/DL (70-105); POTASSIUM 4.4 MMOL/L (3.6-5.0); SODIUM 137 MMOL/L (135-145)
[~2017-08-12] VITALS: Ht 180.3 cm; Wt 100.7 kg
[~2017-08-12 12:45] MED LIST changes: +ACHD5005 PO; +AZIT250T12 PO; -AZIT250T5 PO; -BENDAMUSTINE HCL 160 MG in NS (IVPB) CANCER CENTER 50 ML IV SCH; -HYDR-3812 PO; +ONDANSETRON MDV (CANCER CENTER 16 MG, DEXAMETHASONE PF INJ (CANCER C 10 MG in D5W 50 ML... IV SCH; +PALONOSETRON HCL 0.25 MG, DEXAMETHASONE PF INJ (CANCER C 10 MG in D5W 50 ML IV(CANCER C... IV PRN
[2017-08-13] MEDS ORDERED: METO-351 PO (14:14)
== END 2017-08-28 | disposition home or self-care (01) ==
LOC: ONC 12:45
PROVIDERS: ATTEND Internal Medicine Hematology & Oncology
DX: Z51.11 Encounter for antineoplastic chemotherapy (principal); C82.18 Follicular lymphoma grade II, lymph nodes of multiple sites; D80.2 Selective deficiency of immunoglobulin A [IgA]; D68.59 Other primary thrombophilia; B19.20 Unspecified viral hepatitis C without hepatic coma; Z79.899 Other long term (current) drug therapy
CPT/HCPCS: 36415; 36591; 80048; 80053; 82784; 83615; 83735; 84550; 85025; 96365; 96366; 96375; 96409; 96411; 96413

== ENCOUNTER 2017-08-12 13:15 | Observation (INO) | payer MEDICARE ==
[~2017-08-12] VITALS: Ht 182.9 cm; Wt 99.3 kg
[~2017-08-12 13:15] MED LIST changes: -ACETAMINOPHEN 325 MG TAB (TYLENOL) CANCER CTR PO PRN; -ACETAMINOPHEN 500 MG TAB (TYLENOL) CANCER CTR PO PRN; -BENDAMUSTINE HCL 130 MG in NS (IVPB) CANCER CENTER 50 ML IV SCH; -IVIG 10 GM (PRIVIGEN) CANCER C 100 ML IV SCH; -IVIG 20 GM (PRIVIGEN) CANCER C 200 ML IV SCH; -NS IV 1000 ML (CANCER CTR) IV SCH; -NS IV 500 ML (CANCER CENTER) 500 ML ONE; -ONDANSETRON 16 MG, DEXAMETHASONE 10 MG/NS 50 ML IVPB IV SCH; -ONDANSETRON MDV (CANCER CENTER 16 MG, DEXAMETHASONE PF INJ (CANCER C 10 MG in D5W 50 ML... IV SCH; -PALONOSETRON 0.25 MG, DEXAMETHASONE 10 MG/NS 50 ML IVPB IV PRN; -PALONOSETRON HCL 0.25 MG, DEXAMETHASONE PF INJ (CANCER C 10 MG in D5W 50 ML IV(CANCER C... IV PRN; -diphenhydrAMINE 25 MG TAB (BENADRYL) CANCER CENTER PO SCH; -diphenhydrAMINE 50 MG/ML INJ (CANCER CENTER) IV PRN; -riTUXimab 500 MG, riTUXimab FOR IV INJ CONC 300 MG in NS (IVPB) CANCER CENTER 186 ML IV SCH
--- OUTSIDE RECORDS SUMMARY | 2017-08-12 13:21 | XMS REPORT ---
Author Author WILLY JEFFERSON Organization [employer] Address Unknown Phone Unavailable Care Team Providers Care Fluid Jet Cutter Operator Name Role Phone WILLY JEFFERSON CP Unavailable Allergies No Known Allergies Problems Problem Type Condition Code Onset Dates Condition Status Problem Personal history of tobacco use, presenting hazards to health V15.82 Active Problem Routine general medical examination at health care facility V70.0 Active Problem Other malaise and fatigue 780.79 Active Problem Acute pain of left shoulder M25.512 Active Problem Bursitis M71.9 Active Problem Chronic pain syndrome G89.4 Active Problem Unspecified episodic mood disorder 296.90 Active Problem Pneumonia, organism unspecified 486 Active Problem Lymphoma C85.90 Active Problem Hepatitis C B19.20 Active Problem Cellulitis and abscess of foot, except toes 682.7 Active Problem Family history of other condition V19.8 Active Assessment Low back pain M54.5 Active Problem Other malignant lymphomas, unspecified site, extranodal and solid organ sites 202.80 Active Problem Primary hypercoagulable state 289.81 Active Problem Abdominal or pelvic swelling, mass or lump, unspecified site 789.30 Active Medications Medication Code System Code Instructions Start Date End Date Status Dosage Oxycodone HCl [facility] [address]-75 20 mg Orally 2 times a day January 20, 2016 1 tablet as needed Results No Known Results Summary Purpose [employer]Works Submission
--- OUTSIDE RECORDS SUMMARY | 2017-08-12 13:21 | XMS REPORT ---
Author Author WILLY JEFFERSON Organization [employer] Address Unknown Phone Unavailable Care Team Providers Care Specialties Operator Name Role Phone WILLY JEFFERSON CP Unavailable Allergies No Known Allergies Problems Problem Type Condition Code Onset Dates Condition Status Problem Family history of other condition V19.8 Active Problem Abdominal or pelvic swelling, mass or lump, unspecified site 789.30 Active Problem Other malignant lymphomas, unspecified site, extranodal and solid organ sites 202.80 Active Problem Primary hypercoagulable state 289.81 Active Problem Cellulitis and abscess of foot, except toes 682.7 Active Problem Hepatitis C B19.20 Active Problem Unspecified episodic mood disorder 296.90 Active Problem Lymphoma C85.90 Active Problem Other malaise and fatigue 780.79 Active Problem Personal history of tobacco use, presenting hazards to health V15.82 Active Problem Pneumonia, organism unspecified 486 Active Problem Routine general medical examination at health care facility V70.0 Active Medications No Known Medications Results No Known Results Summary Purpose [employer]Works Submission
--- OUTSIDE RECORDS SUMMARY | 2017-08-12 13:22 | XMS REPORT ---
Author Author WILLY JEFFERSON Organization [employer] Address Unknown Phone Unavailable Care Team Providers Care Greens Keeper Name Role Phone WILLY JEFFERSON CP Unavailable [...] at health care facility V70.0 Active Medications Medication Code System Code Instructions Start Date End Date Status Dosage OxyContin [facility] [address]-51 10 mg Orally every 12 hrs Mar 19, 2015 1 tablet Results No Known Results Summary Purpose [employer]ClinicalWorks Submission
--- OUTSIDE RECORDS SUMMARY | 2017-08-12 13:22 | XMS REPORT ---
Author Author WILLY JEFFERSON Organization [employer] Address Unknown Phone Unavailable Care Team Providers Care Associate Professor Of Theology Name Role Phone WILLY JEFFERSON CP Unavailable Allergies No Known Allergies Problems Problem Type Condition Code Onset Dates Condition Status Problem Primary hypercoagulable state 289.81 Active Problem Family history of other condition V19.8 Active Problem Cellulitis and abscess of foot, except toes 682.7 Active Problem Pneumonia, organism unspecified 486 Active Problem Routine general medical examination at health care facility V70.0 Active Problem Unspecified episodic mood disorder 296.90 Active Problem Abdominal or pelvic swelling, mass or lump, unspecified site 789.30 Active Problem Other malignant lymphomas, unspecified site, extranodal and solid organ sites 202.80 Active Problem Other malaise and fatigue 780.79 Active Problem Personal history of tobacco use, presenting hazards to health V15.82 Active Medications No Known Medications Results No Known Results Summary Purpose [employer] Submission
--- OUTSIDE RECORDS SUMMARY | 2017-08-12 13:22 | XMS REPORT ---
Author Author WILLY JEFFERSON Organization [employer] Address Unknown Phone Unavailable Care Team Providers Care Health Care Facilities Inspector Name Role Phone WILLY JEFFERSON CP Unavailable [...] presenting hazards to health V15.82 Active Medications Medication Code System Code Instructions Start Date End Date Status Dosage OxyContin [facility] [address]-28 10 MG Orally every 12 hrs Mar 19, 2015 1 tablet Results No Known Results Summary Purpose [employer]ClinicalWorks Submission
--- OUTSIDE RECORDS SUMMARY | 2017-08-12 13:22 | XMS REPORT ---
Author WILLY Tobin Organization [employer] Address Unknown Phone Unavailable Care Team Providers Care Shipyard Laborer Name Role Phone WILLY JEFFERSON CP Unavailable Allergies No Known Allergies Problems Problem Type Condition Code Onset Dates Condition Status Problem Primary hypercoagulable state 289.81 Active Problem Family history of other condition V19.8 Active Problem Cellulitis and abscess of foot, except toes 682.7 Active Assessment Chronic hepatitis C with hepatic coma B18.2 Active Problem Pneumonia, organism unspecified 486 Active [...] health V15.82 Active Medications No Known Medications Procedures Procedure Coding System Code Date VENIPUNCT, ROUTINE* CPT-4 14127 Jun 30, 2015 LIPID PANEL CPT-4 90640 Jun 30, 2015 PROTHROMBIN TIME CPT-4 43993 Jun 30, 2015 ACUTE HEPATITIS PANEL CPT-4 35579 Jun 30, 2015 HEPATITIS C, RNA, QUANT CPT-4 70446 Jun 30, 2015 ALANINE AMINO (ALT) (SGPT) CPT-4 01978 Jun 30, 2015 ASSAY OF HAPTOGLOBIN, QUANT CPT-4 14585 Jun 30, 2015 BILIRUBIN, TOTAL CPT-4 65668 Jun 30, 2015 ASSAY, NEPHELOMETRY NOT SPEC CPT-4 45403 Jun 30, 2015 No Charge CPT-4 13844 Jun 30, 2015 ASSAY OF APOLIPOPROTEIN CPT-4 74449 Jun 30, 2015 ASSAY OF GGT CPT-4 18660 Jun 30, 2015 Results Name Result Date Reference Range Unit Abnormality Flag ROUTINE VENIPUNCTURE Summary Purpose eClinicalWorks Submission
--- OUTSIDE RECORDS SUMMARY | 2017-08-12 13:22 | XMS REPORT ---
Author Author WILLY JEFFERSON [facility] Address [address] [place] [address] Care Team Providers Care Fmd Teacher Name Role Phone WILLY JEFFERSON Unavailable PROBLEMS Type Condition ICD9-CM Code [id number] Code Onset Dates Condition Status SNOMED Code Problem Hepatitis C B19.20 Active 00778306 Problem Primary hypercoagulable state 289.81 Active 82659722 Problem Other chronic pain G89.29 Active 92041600 Problem Essential hypertension I10 Active 36250772 Problem Bursitis M71.9 Active 81425055 Problem Lymphoma C85.90 Active 657936661 Problem Chronic pain syndrome G89.4 Active 285896269 Problem Acute pain of left shoulder M25.512 Active 81441999 ALLERGIES No Information SOCIAL HISTORY Never Assessed PLAN OF CARE VITAL SIGNS MEDICATIONS Medication Instructions Dosage Frequency Start Date End Date Duration Status Oxycodone HCl 20 MG Orally 4 times a day 1 tablet as needed 6h Sep, 28 days Active RESULTS No Results PROCEDURES No Known procedures IMMUNIZATIONS No Known Immunizations MEDICAL (GENERAL) HISTORY Type Description Date Medical History Hep C positive history of IV drug use Medical History Hernia x2 Medical History Protein S deficiency Medical History Sepsis due to Pneumonia 11/2014 Medical History Follicular non-Hodgkin's lymphoma, grade 1-2 CD20 positive affecting abd/thorax Surgical History Tonsillectomy Surgical History hernia repair x 2 Surgical History lymph node biopsy Surgical History port replaced right jugular 11/2016 Hospitalization History pnemumonia and [place] in [place] 2014 Hospitalization History pneumonia in [place] along with bacertia in foot 2011 Hospitalization History surgeries Hospitalization History pneumonia 06/2015 Hospitalization History Viral Pneumonia 04/2016
--- OUTSIDE RECORDS SUMMARY | 2017-08-12 13:22 | XMS REPORT ---
Author Author WILLY JEFFERSON [facility] Address [address] [place] [address] Care Team Providers Care Pathology Teacher Name Role Phone WILLY JEFFERSON Unavailable PROBLEMS Type Condition ICD9-CM Code [id number] Code Onset Dates Condition Status SNOMED Code Problem Hepatitis C B19.20 Active 13690915 Problem Primary hypercoagulable state 289.81 Active 58375721 Problem Other chronic pain G89.29 Active 17549202 Problem Essential hypertension I10 Active 35164469 Problem Bursitis M71.9 Active 49527293 Problem Lymphoma C85.90 Active 320125367 Problem Chronic pain syndrome G89.4 Active 835746191 Problem Acute pain of left shoulder M25.512 Active 38238912 ALLERGIES Substance Reaction Event Type Date Status contrast dye Unknown Non Drug Allergy Aug, Active SOCIAL HISTORY No smoking Hx information available PLAN OF CARE Activity Details Follow Up 3 Months Reason:chronic pain VITAL SIGNS Height 72 in 2016-08-25 Weight 213.4 lbs 2016-08-25 Heart Rate 80 bpm 2016-08-25 Respiratory Rate 20 2016-08-25 Oximetry on room air:97 % 2016-08-25 BMI 28.94 kg/m2 2016-08-25 Blood pressure systolic 162 mmHg 2016-08-25 Blood pressure diastolic 100 mmHg 2016-08-25 MEDICATIONS Medication Instructions Dosage Frequency Start Date End Date Duration Status MS Contin 15 MG Orally every 12 hrs 1 tablet 12h Aug, Aug, 07 days Active Super B Complex Active Multivitamin/Minerals Active Fish Oil 1200 MG Orally Twice a day 1 capsule 12h Active Albuterol Sulfate HFA 108 (90 Base) MCG/ACT Inhalation every 4 hrs 2 puffs as needed 4h Active Lisinopril 20 mg Orally Once a day 1 tab 24h Aug, 30 days Active RESULTS No Results PROCEDURES Procedure Date Ordered Related Diagnosis Body Site MEASURE BLOOD OXYGEN LEVEL Aug 25, 2016 [facility] VISIT ESTABLISHED PATIENT Aug 25, 2016 Office Visit, Est Pt., Level 3 Aug 25, 2016 IMMUNIZATIONS No Known Immunizations
--- OUTSIDE RECORDS SUMMARY | 2017-08-12 13:22 | XMS REPORT ---
Author Author WILLY JEFFERSON Organization eClinicalWorks Address Unknown Phone Unavailable Care Team Providers Care Facilities Coordinator Name Role Phone WILLY JEFFERSON CP Unavailable Allergies No Known Allergies Problems Problem Type Condition Code Onset Dates Condition Status Problem Abdominal or pelvic swelling, mass or lump, unspecified site 789.30 Active Problem Other malaise and fatigue 780.79 Active Problem Personal history of tobacco use, presenting hazards to health V15.82 Active Problem Bursitis M71.9 Active Problem Lymphoma C85.90 Active Problem Acute pain of left shoulder M25.512 Active Problem Pneumonia, organism unspecified 486 Active Problem Routine general medical examination at health care facility V70.0 Active Problem Hepatitis C B19.20 Active Problem Unspecified episodic mood disorder 296.90 Active Problem Primary hypercoagulable state 289.81 Active Problem Cellulitis and abscess of foot, except toes 682.7 Active Problem Family history of other condition V19.8 Active Assessment Low back pain M54.5 Active Problem Other malignant lymphomas, unspecified site, extranodal and solid organ sites 202.80 Active Medications Medication Code System Code Instructions Start Date End Date Status Dosage Oxycodone HCl [facility] [address]-37 20 mg Orally 2 times a day January 20, 2016 1 tablet as needed Results No Known Results Summary Purpose eClinicalWorks Submission
--- OUTSIDE RECORDS SUMMARY | 2017-08-12 13:22 | XMS REPORT ---
Author Author JORJE BROWN [facility] Address [address] [place] [address] Care Team Providers Care Application Integration Engineer Name Role Phone STEPHANIE JORJE Unavailable PROBLEMS Type Condition ICD9-CM Code [id number] Code Onset Dates Condition Status SNOMED Code Problem Personal history of tobacco use, presenting hazards to health V15.82 Active 1771455743255 Problem Routine general medical examination at health care facility V70.0 Active 027408769 Problem Other malaise and fatigue 780.79 Active 498515688 Problem Acute pain of left shoulder M25.512 Active 15365139 Problem Bursitis M71.9 Active 79900094 Problem Unspecified episodic mood disorder 296.90 Active 529847262 Problem Pneumonia, organism unspecified 486 Active 856096762 Problem Lymphoma C85.90 Active 832346932 Problem Hepatitis C B19.20 Active 97670582 Assessment Low back pain M54.5 15 Apr, 2016 Active 809280320 Problem Cellulitis and abscess of foot, except toes 682.7 Active 424553370 Problem Family history of other condition V19.8 Active 234959505 Assessment Impingement syndrome, shoulder, left M75.42 Apr, Active 947402791 Problem Other malignant lymphomas, unspecified site, extranodal and solid organ sites 202.80 Active 12639017 Problem Primary hypercoagulable state 289.81 Active 87082947 Problem Abdominal or pelvic swelling, mass or lump, unspecified site 789.30 Active 701708096 ALLERGIES Unknown Allergies SOCIAL HISTORY No smoking Hx information available PLAN OF CARE VITAL SIGNS Height 72 in 2016-04-29 Blood pressure systolic 152 mmHg 2016-04-29 Blood pressure diastolic 88 mmHg 2016-04-29 MEDICATIONS Unknown Medications RESULTS No Results PROCEDURES Procedure Date Ordered Related Diagnosis Body Site [facility] VISIT ESTABLISHED PATIENT Apr 29, 2016 Office Visit, Est Pt., Level 3 Apr 29, 2016 IMMUNIZATIONS No Known Immunizations
--- OUTSIDE RECORDS SUMMARY | 2017-08-12 13:22 | XMS REPORT ---
Author Author WILLY JEFFERSON Organization eClinicalWorks Address Unknown Phone Unavailable Care Team Providers Care Parer Name Role Phone WILLY JEFFERSON CP Unavailable [...] Start Date End Date Status Dosage OxyContin [facility] [address]-12 10 MG Orally every 12 hrs Mar 19, 2015 1 tablet Results No Known Results Summary Purpose eClinicalWorks Submission
--- OUTSIDE RECORDS SUMMARY | 2017-08-12 13:23 | XMS REPORT ---
Author Author WILLY JEFFERSON [facility] Address [address] [place] [address] Care Team Providers Care Vendor Specialist Name Role Phone WILLY JEFFERSON Unavailable PROBLEMS Type Condition ICD9-CM Code [id number] Code Onset Dates Condition Status SNOMED Code Problem Hepatitis C B19.20 Active 33064552 Problem Primary hypercoagulable state 289.81 Active 42044976 Problem Other chronic pain G89.29 Active 37537189 Problem Essential hypertension I10 Active 78889958 Problem Bursitis M71.9 Active 42151577 Problem Lymphoma C85.90 Active 673302536 Problem Chronic pain syndrome G89.4 Active 399628113 Problem Acute pain of left shoulder M25.512 Active 43159114 ALLERGIES Unknown Allergies SOCIAL HISTORY No smoking Hx information available PLAN OF CARE VITAL SIGNS MEDICATIONS Medication Instructions Dosage Frequency Start Date End Date Duration Status Oxycodone HCl 20 mg Orally 2 times a day 1 tablet as needed 12h 14 Jul, 2016 Active RESULTS No Results PROCEDURES No Known procedures IMMUNIZATIONS No Known Immunizations
--- OUTSIDE RECORDS SUMMARY | 2017-08-12 13:23 | XMS REPORT ---
Author Author WILLY JEFFERSON [facility] eClinicalWorks Address Unknown Phone Unavailable Care Team Providers Care Toll Line Mechanic Name Role Phone WILLY JEFFERSON CP Unavailable Allergies, Adverse Reactions, Alerts Substance Reaction Event Type contrast dye Info Not Available Non Drug Allergy Problems Problem Type Condition Code Onset Dates [...] C85.90 Active Problem Hepatitis C B19.20 Active Assessment Arthralgia, unspecified joint M25.50 Active Assessment History of pneumonia Z87.01 Active Problem Cellulitis and abscess of foot, except toes 682.7 Active Problem Family history of other condition V19.8 Active Assessment Chronic pain syndrome G89.4 Active Problem Other malignant lymphomas, unspecified site, extranodal and solid organ sites 202.80 Active Problem Primary hypercoagulable state 289.81 Active Problem Abdominal or pelvic swelling, mass or lump, unspecified site 789.30 Active Medications Medication Code System Code Instructions Start Date End Date Status Dosage Albuterol Sulfate HFA [facility] [address]-73 108 (90 Base) MCG/ACT Inhalation every 4 hrs 2 puffs [place] [address]-88 5 MG Orally Once a day 1 tablet Fish Oil [facility] [address] 1200 MG Orally Twice a day 1 capsule Multivitamin/Minerals NDC 0 not defined Oxycodone HCl [facility] [address]-63 20 mg Orally 2 times a day January 20, 2016 1 tablet as needed Procedures Procedure Coding System Code Date CHEST X-RAY CPT-4 19616 Jun 07, 2016 [facility] VISIT ESTABLISHED PATIENT CPT-4 G0467 Jun 07, 2016 No Charge CPT-4 03451 Jun 07, 2016 Office Visit, Est Pt., Level 3 CPT-4 51685 Jun 07, 2016 Vital Signs Date/Time: Jun 07, 2016 Cardiac Monitoring Heart Rate 76 bpm Weight 201.1 lbs Height 72 in BMI 27.27 Index Blood Pressure Diastolic 80 mmHg Blood Pressure Systolic 140 mmHg Results Name Result Date Reference Range Unit Abnormality Flag [employer] Xray : Chest (IN HOUSE) Summary Purpose eClinicalWorks Submission
--- OUTSIDE RECORDS SUMMARY | 2017-08-12 13:23 | XMS REPORT ---
Author Author WILLY JEFFERSON Organization eClinical[employer] Address Unknown Phone Unavailable Care Team Providers Care Manufacturing Quality Inspector Name Role Phone WILLY JEFFERSON CP [...] Start Date End Date Status Dosage OxyContin [facility] [address]-59 10 MG Orally every 12 hrs Mar 19, 2015 1 tablet Results No Known Results Summary Purpose eClinicalWorks Submission
--- OUTSIDE RECORDS SUMMARY | 2017-08-12 13:23 | XMS REPORT ---
Author Author WILLY JEFFERSON Organization eClinicalWorks Address Unknown Phone Unavailable Care Team Providers Care Engraver Block Name Role Phone WILLY JEFFERSON CP Unavailable [...] Medications Results No Known Results Summary Purpose [employer] Submission
--- OUTSIDE RECORDS SUMMARY | 2017-08-12 13:23 | XMS REPORT ---
Author Author WILLY JEFFERSON Organization eClinicalWorks Address Unknown Phone Unavailable Care Team Providers Care Boss Dyer Name Role Phone WILLY JEFFERSON CP Unavailable [...]
--- OUTSIDE RECORDS SUMMARY | 2017-08-12 13:24 | XMS REPORT ---
Author Author WILLY JEFFERSON [facility] Address [address] [place] [address] Care Team Providers Care Stacker Name Role Phone WILLY JEFFERSON Unavailable PROBLEMS Type Condition ICD9-CM Code [id number] Code Onset Dates Condition Status SNOMED Code Problem Hepatitis C B19.20 Active 32119237 Problem Primary hypercoagulable state 289.81 Active 33417628 Problem Other chronic pain G89.29 Active 46563824 Problem Essential hypertension I10 Active 43094701 Problem Bursitis M71.9 Active 23924549 Problem Lymphoma C85.90 Active 478005112 Problem Chronic pain syndrome G89.4 Active 771390154 Problem Acute pain of left shoulder M25.512 Active 62831366 ALLERGIES No Information SOCIAL HISTORY Never Assessed PLAN OF CARE VITAL SIGNS MEDICATIONS Medication Instructions Dosage Frequency Start Date End Date Duration Status Oxycodone HCl 20 MG Orally 3 times a day 1 tablet as needed 8h Jan, 28 days Active RESULTS No Results PROCEDURES [...] 11/2016 Hospitalization History [place]nemum[place] in [place] 2014 Hospitalization History pneumonia in [place] along with bacertia in foot 2011 Hospitalization History surgeries Hospitalization History pneumonia 06/2015 Hospitalization History Viral Pneumonia 04/2016
--- OUTSIDE RECORDS SUMMARY | 2017-08-12 13:24 | XMS REPORT ---
Author Author WILLY JEFFERSON [facility] Address [address] [place] [address] Care Team Providers Care Supervisor Dry Cell Assembly Name Role Phone WILLY JEFFERSON Unavailable PROBLEMS Type Condition ICD9-CM Code EGI83-GC Code Onset Dates Condition Status SNOMED Code Problem Hepatitis C B19.20 Active 11817263 Problem Primary hypercoagulable state 289.81 Active 63641450 Problem Other chronic pain G89.29 Active 26873622 Problem Essential hypertension I10 Active 30827366 Problem Bursitis M71.9 Active 86006596 Problem Lymphoma C85.90 Active 802773822 Problem Chronic pain syndrome G89.4 Active 318230355 Problem Acute pain of left shoulder M25.512 Active 51870798 ALLERGIES No Information SOCIAL HISTORY Never Assessed PLAN OF CARE VITAL SIGNS MEDICATIONS Medication Instructions Dosage Frequency Start Date End Date Duration Status Oxycodone HCl 20 MG Orally 4 times a day 1 tablet as needed 6h Oct, 28 days Active RESULTS No Results PROCEDURES [...] 11/2016 Hospitalization History [place]um[place] in [place] 2014 Hospitalization History pneumonia in [place] along with bacertia in foot 2011 Hospitalization History surgeries Hospitalization History pneumonia 06/2015 Hospitalization History Viral Pneumonia 04/2016
--- OUTSIDE RECORDS SUMMARY | 2017-08-12 13:24 | XMS REPORT ---
Author Author WILLY JEFFERSON [facility] Address [address] [place] [address] Care Team Providers Care Nut Process Helper Name Role Phone WILLY JEFFERSON Unavailable PROBLEMS Type Condition ICD9-CM Code JMR03-IN Code Onset Dates Condition Status SNOMED Code Problem Hepatitis C B19.20 Active 10551924 Problem Primary hypercoagulable state 289.81 Active 83106041 Problem Other chronic pain G89.29 Active 50156780 Problem Essential hypertension I10 Active 07670288 Problem Bursitis M71.9 Active 60933462 Problem Lymphoma C85.90 Active 825706696 Problem Chronic pain syndrome G89.4 Active 322199160 Problem Acute pain of left shoulder M25.512 Active 64804266 ALLERGIES Substance Reaction Event Type Date Status contrast dye Unknown Non Drug Allergy December, Active SOCIAL HISTORY Never Assessed PLAN OF CARE Activity Details Follow Up 3 Months Reason:pain mgmt VITAL SIGNS Height 72 in 2016-12-27 Weight 209 lbs 2016-12-27 Temperature 97.9 degrees Fahrenheit 2016-12-27 Heart Rate 88 bpm 2016-12-27 Respiratory Rate 18 2016-12-27 BMI 28.34 kg/m2 2016-12-27 Blood pressure systolic 120 mmHg 2016-12-27 Blood pressure diastolic 80 mmHg 2016-12-27 MEDICATIONS Medication Instructions Dosage Frequency Start Date End Date Duration Status Lisinopril 20 mg Orally Once a day 1 tab 24h Aug, 30 days Active Multivitamin/Minerals Active Super B Complex Active Albuterol Sulfate HFA 108 (90 Base) MCG/ACT Inhalation every 4 hrs 2 puffs as needed 4h Active Fish Oil 1200 MG Orally Twice a day 1 capsule 12h Active Oxycodone HCl 20 mg Orally 3 times a day 1 tablet as needed 8h December, Active RESULTS No Results PROCEDURES Procedure Date Ordered Result Body Site [facility] VISIT ESTABLISHED PATIENT December 27, 2016 IMMUNIZATIONS No Known Immunizations MEDICAL (GENERAL) HISTORY [...] 11/2016 Hospitalization History [place]nemum[place] and [place] in [place] 2014 Hospitalization History pneumonia in [place] along with bacertia in foot 2011 Hospitalization History surgeries Hospitalization History pneumonia 06/2015 Hospitalization History Viral Pneumonia 04/2016
--- OUTSIDE RECORDS SUMMARY | 2017-08-12 13:24 | XMS REPORT ---
Author Author WILLY JEFFERSON [facility] Address [address] [place] [address] Care Team Providers Care Silk Washing Machine Operator Name Role Phone WILLY JEFFERSON Unavailable PROBLEMS Type Condition ICD9-CM Code [id number] Code Onset Dates Condition Status SNOMED Code Problem Personal history of tobacco use, presenting hazards to health V15.82 Active 6182883558575 Problem Routine general medical examination at health care facility V70.0 Active 454207146 Problem Other malaise and fatigue 780.79 Active 300055603 Problem Acute pain of left shoulder M25.512 Active 93124206 Problem Bursitis M71.9 Active 91905580 Problem Unspecified episodic mood disorder 296.90 Active 867255500 Problem Pneumonia, organism unspecified 486 Active 280793585 Problem Lymphoma C85.90 Active 925074346 Problem Hepatitis C B19.20 Active 51063948 Assessment Other chronic pain G89.29 Mar, Active 39402474 Assessment Low back pain M54.5 Mar, Active 382286331 Problem Cellulitis and abscess of foot, except toes 682.7 Active 546644324 Problem Family history of other condition V19.8 Active 414258045 Assessment Left arm pain M79.602 Mar, Active 215252098 Problem Other malignant lymphomas, unspecified site, extranodal and solid organ sites 202.80 Active 17945045 Problem Primary hypercoagulable state 289.81 Active 40551881 Problem Abdominal or pelvic swelling, mass or lump, unspecified site 789.30 Active 649414134 ALLERGIES Substance Reaction Event Type Date Status contrast dye Unknown Non Drug Allergy Mar, Active SOCIAL HISTORY No smoking Hx information available PLAN OF CARE VITAL SIGNS Height 72 in 2016-04-08 Weight 206 lbs 2016-04-08 Heart Rate 88 bpm 2016-04-08 Respiratory Rate 20 2016-04-08 BMI 27.94 kg/m2 2016-04-08 Blood pressure systolic 154 mmHg 2016-04-08 Blood pressure diastolic 92 mmHg 2016-04-08 MEDICATIONS Medication Instructions Dosage Frequency Start Date End Date Duration Status Oxycodone HCl 20 mg Orally 2 times a day 1 tablet as needed 12h Jan, Active Aspirin 325 mg 3 2 times per day May, Active Multivitamin/Minerals Active Fish Oil 1200 MG Orally Twice a day 1 capsule 12h Active RESULTS Name Result Date Reference Range Xray : Shoulder, Left 2 view (IN HOUSE) 2016-04-08 PROCEDURES Procedure Date Ordered Related Diagnosis Body Site X-RAY EXAM OF SHOULDER Apr 08, 2016 [facility] VISIT ESTABLISHED PATIENT Apr 08, 2016 Office Visit, Est Pt., Level 3 Apr 08, 2016 IMMUNIZATIONS No Known Immunizations
--- OUTSIDE RECORDS SUMMARY | 2017-08-12 13:24 | XMS REPORT ---
Author Author WILLY JEFFERSON Organization [employer] Address Unknown Phone Unavailable Care Team Providers Care State Federal Relations Deputy Director Name Role Phone WILLY JEFFERSON CP Unavailable Allergies No Known Allergies Problems Problem Type Condition ICD-9 Code Onset Dates Condition Status Problem Primary [...] Start Date End Date Status Dosage OxyContin [facility] [address]-90 10 MG Orally every 12 hrs Mar 19, 2015 1 tablet Results No Known Results Summary Purpose [employer] Submission
--- OUTSIDE RECORDS SUMMARY | 2017-08-12 13:24 | XMS REPORT ---
Author Author WILLY JEFFERSON Organization [employer] Address Unknown Phone Unavailable Care Team Providers Care Retort Setter Name Role Phone WILLY JEFFERSON CP Unavailable [...] Start Date End Date Status Dosage OxyContin [facility] [address]-17 10 MG Orally every 12 hrs Mar 19, 2015 1 tablet Results No Known Results Summary Purpose [employer] Submission
--- OUTSIDE RECORDS SUMMARY | 2017-08-12 13:24 | XMS REPORT ---
Author Author WILLY JEFFERSON Organization [employer] Address Unknown Phone Unavailable Care Team Providers Care Corn Detasseler Machine Operator Name Role Phone WILLY JEFFERSON CP [...] Start Date End Date Status Dosage OxyContin [facility] [address]-96 10 MG Orally every 12 hrs Mar 19, 2015 1 tablet Results No Known Results Summary Purpose [employer] Submission
--- OUTSIDE RECORDS SUMMARY | 2017-08-12 13:24 | XMS REPORT ---
Author WILLY Tobin [facility] [employer] Address Unknown Phone Unavailable Care Team Providers Care Marine Chronometer Assembler Name Role Phone WILLY JEFFERSON CP Unavailable [...] use, presenting hazards to health V15.82 Active Assessment Carpal tunnel syndrome of left wrist G56.02 Active Assessment Chronic hepatitis C with hepatic coma B18.2 Active Assessment Pneumonia, organism unspecified, unspecified laterality, unspecified part of lung J18.9 Active Medications Medication Code System Code Instructions Start Date End Date Status Dosage Fish Oil [facility] [address] 1200 MG Orally Twice a day 1 capsule OxyContin [facility] [address]-36 10 MG Orally every 12 hrs Mar 19, 2015 1 tablet Multivitamin/Minerals NDC 0 not defined Wrist Splint/Cock-Up/Left L [facility] [address] . use at bedtime Once a day Jun 24, 2015 as directed Aspirin [facility] [address]-87 325 mg May 23, 2012 3 2 times per day Procedures Procedure Coding System Code Date Office Visit, Est Pt., Level 3 CPT-4 80340 Jun 24, 2015 Vital Signs Date/Time: Jun 24, 2015 Temperature 98.0 F Weight 195.4 lbs Height 72 in BMI 26.50 Index Blood Pressure Diastolic 74 mmHg Blood Pressure Systolic 106 mmHg Cardiac Monitoring Heart Rate 68 bpm Results No Known Results Summary Purpose [employer] Submission
[2017-08-12] MEDS ORDERED: NITROGLYCERIN 0.4 MG SL TABS BTL 25'S SL ONE (13:25)
--- OUTSIDE RECORDS SUMMARY | 2017-08-12 13:25 | XMS REPORT ---
Author Author WILLY JEFFERSON [facility] Address [address] [place] [address] Care Team Providers Care French Instructor Name Role Phone WILLY JEFFERSON Unavailable PROBLEMS Type Condition ICD9-CM Code [id number] Code Onset Dates Condition Status SNOMED Code Problem Personal history of tobacco use, presenting hazards to health V15.82 Active 2116426724618 Problem Routine general medical examination at health care facility V70.0 Active 302866704 Problem Other malaise and fatigue 780.79 Active 651997145 Problem Acute pain of left shoulder M25.512 Active 40926569 Problem Bursitis M71.9 Active 62266480 Problem Unspecified episodic mood disorder 296.90 Active 462964533 Problem Pneumonia, organism unspecified 486 Active 884755561 Problem Lymphoma C85.90 Active 489069139 Problem Hepatitis C B19.20 Active 01560604 Problem Cellulitis and abscess of foot, except toes 682.7 Active 343307873 Problem Family history of other condition V19.8 Active 519413241 Assessment Low back pain M54.5 Apr, Active 604570955 Problem Other malignant lymphomas, unspecified site, extranodal and solid organ sites 202.80 Active 85664419 Problem Primary hypercoagulable state 289.81 Active 00511025 Problem Abdominal or pelvic swelling, mass or lump, unspecified site 789.30 Active 523791626 ALLERGIES Unknown Allergies SOCIAL HISTORY No smoking Hx information available PLAN OF CARE VITAL SIGNS MEDICATIONS Medication Instructions Dosage Frequency Start Date End Date Duration Status Oxycodone HCl 20 mg Orally 2 times a day 1 tablet as needed 12h 07 Jan, 2016 Active RESULTS No Results PROCEDURES No Known procedures IMMUNIZATIONS No Known Immunizations
--- OUTSIDE RECORDS SUMMARY | 2017-08-12 13:25 | XMS REPORT ---
Author Author WILLY JEFFERSON [facility] Address [address] [place] [address] Care Team Providers Care Yeast Fermentation Attendant Name Role Phone WILLY JEFFERSON Unavailable PROBLEMS Type Condition ICD9-CM Code UAU47-UX Code Onset Dates Condition Status SNOMED Code Problem Hepatitis C B19.20 Active 22244873 Problem Primary hypercoagulable state 289.81 Active 66890405 Problem Other chronic pain G89.29 Active 83668132 Problem Essential hypertension I10 Active 05901320 Problem Bursitis M71.9 Active 67237504 Problem Lymphoma C85.90 Active 530128949 Problem Chronic pain syndrome G89.4 Active 105987614 Problem Acute pain of left shoulder M25.512 Active 09798053 ALLERGIES Unknown Allergies SOCIAL HISTORY No smoking Hx information available PLAN OF CARE VITAL SIGNS MEDICATIONS Medication Instructions Dosage Frequency Start Date End Date Duration Status Oxycodone HCl 20 MG Orally 4 times a day 1 tablet as needed 6h Aug, Sep, 28 days Active RESULTS No Results PROCEDURES No Known procedures IMMUNIZATIONS No Known Immunizations
--- OUTSIDE RECORDS SUMMARY | 2017-08-12 13:27 | XMS REPORT | Continuity of Care Document ---
Author Author [facility] Address Unknown Phone Unavailable Allergies Active Description Code Type Severity Reaction Onset Reported/Identified Relationship to Patient Clinical Status Yes No Known Drug Allergies [id number] Drug Allergy Unknown N/A 11/15/2013 Yes gadoteridol [id number] Drug Allergy Mild SNEEZING, HOARS 12/31/2014 Yes Gadolinium-Containing Contrast Medi [id number] Drug Allergy Severe Anaphylaxis 03/01/2015 Medications There is no data. Problems Date Dx Coded Attending Type Code Diagnosis Diagnosed By 07/14/1547 DARI TILLMAN DO, Ot S43.492A OTHER SPRAIN OF LEFT SHOULDER JOINT, INI 07/14/1547 DARI TILLMAN DO, Ot X58.XXXA EXPOSURE TO OTHER SPECIFIED FACTORS, INI 07/14/1547 DARI TILLMAN DO, Ot Y99.8 OTHER EXTERNAL CAUSE STATUS 07/22/2008 338.4 PAIN CHRONIC SYNDROME 07/22/2008 338.4 PAIN CHRONIC SYNDROME 07/22/2008 RUPAL JEFFERSON APRNNDA S 338.4 PAIN CHRONIC SYNDROME 07/22/2008 RUPAL JEFFERSON APRNNDA S 338.4 PAIN CHRONIC SYNDROME 07/22/2008 RUPAL JEFFERSON APRNNDA S 338.4 PAIN CHRONIC SYNDROME 07/22/2008 RONNY ARREGUIN WILLY S 338.4 PAIN CHRONIC SYNDROME 07/22/2008 RONNY ARREGUIN WILLY S 338.4 PAIN CHRONIC SYNDROME 07/22/2008 RONNY ARREGUIN, WILLY S 338.4 PAIN CHRONIC SYNDROME 07/22/2008 RONNY ARREGUIN, WILLY S 338.4 PAIN CHRONIC SYNDROME 08/03/2008 270.7 HYPERGLYCEMIA 08/03/2008 270.7 HYPERGLYCEMIA 08/03/2008 RONNY ARREGUIN, WILLY S 270.7 HYPERGLYCEMIA 08/03/2008 RONNY ARREGUIN WILLY S 270.7 HYPERGLYCEMIA 08/03/2008 RONNY EXHAUST WORKER, WILLY S 270.7 HYPERGLYCEMIA 08/03/2008 RONNY EXHAUST WORKER, WILLY S 270.7 HYPERGLYCEMIA 08/03/2008 RONNY EXHAUST WORKER, WILLY S 270.7 HYPERGLYCEMIA 08/03/2008 RONNY EXHAUST WORKER, WILYL S 270.7 HYPERGLYCEMIA 08/03/2008 RONNY EXHAUST WORKER, WILLY S 270.7 HYPERGLYCEMIA 09/07/2008 070.54 HEPATITIS C CHRONIC 09/07/2008 070.54 HEPATITIS C CHRONIC 09/07/2008 RONNY EXHAUST WORKER, WILLY S 070.54 HEPATITIS C CHRONIC 09/07/2008 RONNY EXHAUST WORKER, WILLY S 070.54 HEPATITIS C CHRONIC 09/07/2008 RONNY EXHAUST WORKER, WILLY S 070.54 HEPATITIS C CHRONIC 09/07/2008 RONNY EXHAUST WORKER, WILLY S 070.54 HEPATITIS C CHRONIC 09/07/2008 RONNY EXHAUST WORKER, WILLY S 070.54 HEPATITIS C CHRONIC 09/07/2008 RONNY EXHAUST WORKER, WILLY S 070.54 HEPATITIS C CHRONIC 09/07/2008 RONNY EXHAUST WORKER, WILLY S 070.54 HEPATITIS C CHRONIC 10/07/2008 724.4 BACK PAIN WITH RADIATION 10/07/2008 724.4 BACK PAIN WITH RADIATION 10/07/2008 RONNY EXHAUST WORKER, WILLY S 724.4 BACK PAIN WITH RADIATION 10/07/2008 RONNY EXHAUST WORKER, WILLY S 724.4 BACK PAIN WITH RADIATION 10/07/2008 RONNY EXHAUST WORKER, WILLY S 724.4 BACK PAIN WITH RADIATION 10/07/2008 RONNY EXHAUST WORKER, WILLY S 724.4 BACK PAIN WITH RADIATION 10/07/2008 RONNY EXHAUST WORKER, WILLY S 724.4 BACK PAIN WITH RADIATION 10/07/2008 RONNY EXHAUST WORKER, WILLY S 724.4 BACK PAIN WITH RADIATION 10/07/2008 RONNY EXHAUST WORKER, WILLY S 724.4 BACK PAIN WITH RADIATION 10/31/2008 724.5 BACKACHE UNSPECIFIED 10/31/2008 724.5 BACKACHE UNSPECIFIED 10/31/2008 RONNY EXHAUST WORKER, WILLY S 724.5 BACKACHE UNSPECIFIED 10/31/2008 RONNY EXHAUST WORKER, WILLY S 724.5 BACKACHE UNSPECIFIED 10/31/2008 RONNY EXHAUST WORKER, WILLY S 724.5 BACKACHE UNSPECIFIED 10/31/2008 RONNY EXHAUST WORKER, WILLY S 724.5 BACKACHE UNSPECIFIED 10/31/2008 RONNY EXHAUST WORKER, WILLY S 724.5 BACKACHE UNSPECIFIED 10/31/2008 RONNY EXHAUST WORKER, WILLY S 724.5 BACKACHE UNSPECIFIED 10/31/2008 RONNY EXHAUST WORKER, WILLY S 724.5 BACKACHE UNSPECIFIED 01/13/2012 289.81 PROTEIN S DEFICIENCY 01/13/2012 682.7 SKIN ABSCESS OF THE HEEL 01/13/2012 289.81 PROTEIN S DEFICIENCY 01/13/2012 682.7 SKIN ABSCESS OF THE HEEL 01/13/2012 RONNY EXHAUST WORKER, WILLY S 289.81 PROTEIN S DEFICIENCY 01/13/2012 RONNY EXHAUST WORKER, WILLY S 682.7 SKIN ABSCESS OF THE HEEL 01/13/2012 RONNY EXHAUST WORKER, WILLY S 289.81 PROTEIN S DEFICIENCY 01/13/2012 RONNY EXHAUST WORKER, WILLY S 682.7 SKIN ABSCESS OF THE HEEL 01/13/2012 RONNY EXHAUST WORKER, WILLY S 289.81 PROTEIN S DEFICIENCY 01/13/2012 RONNY EXHAUST WORKER, WILLY S 682.7 SKIN ABSCESS OF THE HEEL 01/13/2012 RONNY EXHAUST WORKER, WILLY S 289.81 PROTEIN S DEFICIENCY 01/13/2012 RONNY EXHAUST WORKER, WILLY S 682.7 SKIN ABSCESS OF THE HEEL 01/13/2012 RONNY EXHAUST WORKER, WILLY S 289.81 PROTEIN S DEFICIENCY 01/13/2012 RONNY EXHAUST WORKER, WILLY S 682.7 SKIN ABSCESS OF THE HEEL 01/13/2012 RONNY EXHAUST WORKER, WILLY S 289.81 PROTEIN S DEFICIENCY 01/13/2012 RONNY EXHAUST WORKER, WILLY S 682.7 SKIN ABSCESS OF THE HEEL 01/13/2012 RONNY EXHAUST WORKER, WILLY S 289.81 PROTEIN S DEFICIENCY 01/13/2012 RONNY EXHAUST WORKER, WILLY S 682.7 SKIN ABSCESS OF THE HEEL 05/23/2012 486 PNEUMONIA 05/23/2012 486 PNEUMONIA 05/23/2012 RONNY EXHAUST WORKER, WILLY S 486 PNEUMONIA 05/23/2012 RONNY EXHAUST WORKER, WILLY S 486 PNEUMONIA 05/23/2012 RONNY EXHAUST WORKER, WILLY S 486 PNEUMONIA 05/23/2012 RONNY EXHAUST WORKER, WILLY S 486 PNEUMONIA 05/23/2012 RONNY EXHAUST WORKER, WILLY S 486 PNEUMONIA 05/23/2012 RONNY EXHAUST WORKER, WILLY S 486 PNEUMONIA 05/23/2012 RONNY EXHAUST WORKER, WILLY S 486 PNEUMONIA 03/26/2013 780.79 fatigue 03/26/2013 V15.82 Nicotine abuse 03/26/2013 V70.0 EXAM - ROUTINE H&P 03/26/2013 RONNY EXHAUST WORKER, WILLY S 780.79 fatigue 03/26/2013 RONNY EXHAUST WORKER, WILLY S V15.82 Nicotine abuse 03/26/2013 RONNY EXHAUST WORKER, WILLY S V70.0 EXAM - ROUTINE H&P 03/26/2013 RONNY EXHAUST WORKER, WILLY S 780.79 fatigue 03/26/2013 RONNY EXHAUST WORKER, WILLY S V15.82 Nicotine abuse 03/26/2013 RONNY EXHAUST WORKER, WILLY S V70.0 EXAM - ROUTINE H&P 03/26/2013 RONNY EXHAUST WORKER, WILLY S 780.79 fatigue 03/26/2013 RONNY EXHAUST WORKER, WILLY S V15.82 Nicotine abuse 03/26/2013 RONNY EXHAUST WORKER, WILLY S V70.0 EXAM - ROUTINE H&P 03/26/2013 RONNY EXHAUST WORKER, WILLY S 780.79 fatigue 03/26/2013 RONNY EXHAUST WORKER, WILLY S V15.82 Nicotine abuse 03/26/2013 RONNY EXHAUST WORKER, WILLY S V70.0 EXAM - ROUTINE H&P 03/26/2013 RONNY EXHAUST WORKER, WILLY S 780.79 fatigue 03/26/2013 RONNY EXHAUST WORKER, WILLY S V15.82 Nicotine abuse 03/26/2013 RONNY EXHAUST WORKER, WILLY S V70.0 EXAM - ROUTINE H&P 03/26/2013 RONNY EXHAUST WORKER, WILLY S 780.79 fatigue 03/26/2013 RONNY EXHAUST WORKER, WILLY S V15.82 Nicotine abuse 03/26/2013 RONNY EXHAUST WORKER, WILLY S V70.0 EXAM - ROUTINE H&P 03/26/2013 RONNY EXHAUST WORKER, WILLY S 780.79 fatigue 03/26/2013 RONNY EXHAUST WORKER, WILLY S V15.82 Nicotine abuse 03/26/2013 RONNY EXHAUST WORKER, WILLY S V70.0 EXAM - ROUTINE H&P 06/27/2013 RONNY EXHAUST WORKER, WILLY S 789.30 ABDOMINAL MASS 06/27/2013 RONNY EXHAUST WORKER, WILLY S 789.30 ABDOMINAL MASS 06/27/2013 RONNY EXHAUST WORKER, WILLY S 789.30 ABDOMINAL MASS 06/27/2013 RONNY EXHAUST WORKER, WILLY S 789.30 ABDOMINAL MASS 06/27/2013 RONNY EXHAUST WORKER, WILLY S 789.30 ABDOMINAL MASS 06/27/2013 RONNY EXHAUST WORKER, WILLY S 789.30 ABDOMINAL MASS 06/27/2013 RONNY EXHAUST WORKER, WILLY S 789.30 ABDOMINAL MASS 11/12/2013 RONNY EXHAUST WORKER, WILLY S 202.80 OTHER MALIGNANT LYMPHOMAS UNSPECIFIED SITE 11/12/2013 RONNY EXHAUST WORKER, WILLY S V19.8 FAMILY HISTORY OF OTHER CONDITION 11/12/2013 RONNY EXHAUST WORKER, WILLY S 202.80 OTHER MALIGNANT LYMPHOMAS UNSPECIFIED SITE 11/12/2013 RONNY EXHAUST WORKER, WILLY S V19.8 FAMILY HISTORY OF OTHER CONDITION 11/12/2013 RONNY EXHAUST WORKER, WILLY S 202.80 OTHER MALIGNANT LYMPHOMAS UNSPECIFIED SITE 11/12/2013 RONNY EXHAUST WORKER, WILLY S V19.8 FAMILY HISTORY OF OTHER CONDITION 11/12/2013 RONNY EXHAUST WORKER, WILLY S 202.80 OTHER MALIGNANT LYMPHOMAS UNSPECIFIED SITE 11/12/2013 RONNY EXHAUST WORKER, WILLY S V19.8 FAMILY HISTORY OF OTHER CONDITION 11/12/2013 RONNY EXHAUST WORKER, WILLY S 202.80 OTHER MALIGNANT LYMPHOMAS UNSPECIFIED SITE 11/12/2013 RONNY EXHAUST WORKER, WILLY S V19.8 FAMILY HISTORY OF OTHER CONDITION 11/12/2013 GABY JEFFERSON APRNA S 202.80 OTHER MALIGNANT LYMPHOMAS UNSPECIFIED SITE 11/12/2013 WILLY JEFFERSON APRN S V19.8 FAMILY HISTORY OF OTHER CONDITION 11/16/2013 BENITA DOCHUCHO Ot 070.54 CHRONIC HEPATITIS C W/O HEPATIC COMA 11/16/2013 BENITA RIVASCHUCHO Ot 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 11/16/2013 BENITA RIVASCHUCHO Ot 289.81 PRIMARY HYPERCOAGULABLE STATE 11/24/2013 BENITA RIVAS IMELDAINEZ Ot 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 11/24/2013 BENITA DOCHUCHO Ot 289.81 PRIMARY HYPERCOAGULABLE STATE 11/24/2013 BENITA CHUCHO RIVAS Ot V58.69 OTH MED,LT,CURRENT USE 01/15/2014 GBAY JEFFERSON APRNA S 296.90 MOOD DISORDER NOS 01/15/2014 GABY JEFFERSON APRNA S 296.90 MOOD DISORDER NOS 01/15/2014 GABY JEFFERSON APRNA S 296.90 MOOD DISORDER NOS 01/15/2014 GABY JEFFERSON APRNA S 296.90 MOOD DISORDER NOS 01/15/2014 GABY JEFFERSON APRNA S 296.90 MOOD DISORDER NOS 02/21/2014 JL GARLAND MD Ot 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 02/21/2014 JL GARLAND MD Ot 289.81 PRIMARY HYPERCOAGULABLE STATE 02/21/2014 JL GARLAND MD Ot V58.11 ENCOUNTER FOR ANTINEOPLASTIC CHEMOTHERAP 05/26/2014 JL GARLAND MD Ot 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 05/26/2014 JL GARLAND MD Ot 289.81 PRIMARY HYPERCOAGULABLE STATE 05/26/2014 JL GARLAND MD Ot V58.11 ENCOUNTER FOR ANTINEOPLASTIC CHEMOTHERAP 07/02/2014 JL GARLAND MD Ot 070.70 UNSPECIFIED VIRAL HEPATITIS C WITHOUT HE 07/02/2014 JL GARLAND MD Ot 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 07/02/2014 DADA NICKERSON, JL Ot 289.81 PRIMARY HYPERCOAGULABLE STATE 07/02/2014 DADA NICKERSON, JL Ot V58.11 ENCOUNTER FOR ANTINEOPLASTIC CHEMOTHERAP 07/02/2014 DADA NICKERSON, JL Ot V58.69 OTH MED,LT,CURRENT USE 07/02/2014 JODY, BOBAN N Ot 070.70 07/02/2014 JODY, BOBAN N Ot 202.80 07/02/2014 JODY, BOBAN N Ot 289.81 07/02/2014 JODY, BOBAN N Ot V58.11 07/02/2014 JODY, BOBAN N Ot V58.69 07/16/2014 JODY, BOBAN N Ot 070.70 07/16/2014 JODY, BOBAN N Ot 202.80 07/16/2014 JODY, BOBAN N Ot 289.81 07/16/2014 JODY, BOBAN N Ot V58.11 07/16/2014 JODY, BOBAN N Ot V58.69 07/17/2014 JODY, BOBAN N Ot 070.70 07/17/2014 JODY, BOBAN N Ot 202.80 07/17/2014 JODY, BOBAN N Ot 289.81 07/17/2014 JODY, BOBAN N Ot V58.69 08/29/2014 JODY, BOBAN N Ot 070.70 08/29/2014 JODY, BOBAN N Ot 202.80 08/29/2014 JODY, BOBAN N Ot 289.81 08/29/2014 JDOY, BOBAN N Ot V58.69 09/27/2014 WILLY JEFFERSON Ot 789.30 09/27/2014 CHUCHO JOY DO Ot 202.80 09/27/2014 CHUCHO JOY DO Ot V72.84 09/27/2014 DADA NICKERSON, JL Ot 202.80 09/27/2014 DADA NICKERSON, JL Ot 785.6 09/27/2014 DADA NICKERSON, JL Ot 789.2 09/27/2014 DADA NICKERSON, JL Ot 789.30 09/27/2014 LORRIE MUÑOZ SUPERVISOR AREA Ot 202.80 09/27/2014 TONILORRIE S SUPERVISOR AREA Ot 289.81 09/27/2014 DADA NICKERSON, KYANIRMAL Ot 202.80 09/27/2014 DADA NICKERSON, KAYNIRMAL Ot 785.6 09/27/2014 DADA NICKERSON, KAYNIRMAL Ot 789.2 09/27/2014 MUÑOZLORRIE Fernández S SUPERVISOR ARE[employer] Ot 070.70 09/27/2014 MUÑOZ, HILAH S SUPERVISOR ARE[employer] Ot 202.88 09/27/2014 MUÑOZ, HILAH S SUPERVISOR ARE[employer] Ot V58.69 09/27/2014 MUÑOZ, HILAH S SUPERVISOR ARE[employer] Ot 070.70 09/27/2014 MUÑOZ, HILAH S SUPERVISOR ARE[employer] Ot 202.80 09/27/2014 MUÑOZ, HILAH S SUPERVISOR ARE[employer] Ot 289.81 09/27/2014 MUÑOZ, HILAH S SUPERVISOR AREA Ot V58.69 09/27/2014 MUÑOZ, HILAH S SUPERVISOR AREA Ot 202.80 09/27/2014 MUÑOZ EZEAH S SUPERVISOR AREA Ot 070.70 09/27/2014 MUÑOZ, HILAH S SUPERVISOR AREA Ot 202.80 09/27/2014 MUÑOZ, HILAH S SUPERVISOR AREA Ot 289.81 09/27/2014 MUÑOZ, EZEAH S SUPERVISOR AREA Ot V58.69 09/27/2014 JODY, BOBAN N Ot 070.70 09/27/2014 JODY, BOBAN N Ot 202.80 09/27/2014 JODY, BOBAN N Ot 289.81 09/27/2014 JODY, BOBAN N Ot V58.69 09/27/2014 MUÑOZ, EZEAH S SUPERVISOR ARE[employer] Ot 202.80 09/27/2014 MUÑOZ, LORRIE S SUPERVISOR AREA Ot 070.70 09/27/2014 MUÑOZ, HILAH S SUPERVISOR ARE[employer] Ot 202.80 09/27/2014 MUÑOZ, HILAH S SUPERVISOR ARE[employer] Ot 289.81 09/27/2014 MUÑOZ, HILAH S SUPERVISOR AREA Ot V58.69 09/27/2014 JODY, BOBAN N Ot 070.70 09/27/2014 JODY, BOBAN N Ot 202.80 09/27/2014 JODY, BOBAN N Ot 289.81 09/27/2014 JODY, BOBAN N Ot V58.69 09/27/2014 MUÑOZ EZEAH S SUPERVISOR ARE[employer] Ot 070.70 09/27/2014 MUÑOZLORRIE Fernández S SUPERVISOR AREA Ot 202.80 09/27/2014 MUÑOZLORRIE Fernández S SUPERVISOR AREA Ot 289.81 09/27/2014 LORRIE MUÑOZ S SUPERVISOR AREA Ot V58.69 09/27/2014 LORRIE MUÑOZ S SUPERVISOR AREA Ot 070.70 09/27/2014 MUÑOZLORRIE S SUPERVISOR AREA Ot 202.88 09/27/2014 MUÑOZLORRIE S SUPERVISOR AREA Ot V58.69 09/27/2014 MUÑOZLORRIE S SUPERVISOR AREA Ot 202.80 09/27/2014 MUÑOZLORRIE S SUPERVISOR AREA Ot 070.70 09/27/2014 MUÑOZLORRIE S SUPERVISOR AREA Ot 202.88 09/27/2014 LORRIE MUÑOZ S SUPERVISOR AREA Ot V58.69 09/27/2014 WILLY JEFFERSON SUPERVISOR ARE[employer] Ot 789.30 09/27/2014 CHUCHO JOY DO Ot 202.80 09/27/2014 CHUCHO JOY DO Ot V72.84 09/27/2014 DADA NICKERSON, JL Ot 202.80 09/27/2014 DADA NICKERSON, JL Ot 785.6 09/27/2014 DADA NICKERSON, JL Ot 789.2 09/27/2014 DADA NICKERSON, JL Ot 789.30 09/27/2014 MUÑOZLORRIE S SUPERVISOR ARE[employer] Ot 202.80 09/27/2014 MUÑOZLORRIE S SUPERVISOR AREA Ot 289.81 09/27/2014 DADA NICKERSON, JL Ot 202.80 09/27/2014 DADA NICKERSON, JL Ot 785.6 09/27/2014 DADA NICKERSON, JL Ot 789.2 09/27/2014 MUÑOZLORRIE Fernández S SUPERVISOR AREA Ot 070.70 09/27/2014 MUÑOZLORRIE S SUPERVISOR AREA Ot 202.88 09/27/2014 MUÑOZLORRIE Fernández S SUPERVISOR AREA Ot V58.69 09/27/2014 MUÑOZLORRIE S SUPERVISOR AREA Ot 070.70 09/27/2014 MUÑOZLORRIE S SUPERVISOR AREA Ot 202.80 09/27/2014 MUÑOZ LORRIE S SUPERVISOR AREA Ot 289.81 09/27/2014 MUÑOZ, LORRIE S SUPERVISOR AREA Ot V58.69 09/27/2014 MUÑOZLORRIE Fernández S SUPERVISOR AREA Ot 202.80 09/27/2014 MUÑOZLORRIE Fernández S SUPERVISOR AREA Ot 070.70 09/27/2014 MUÑOZ, EZEAH S SUPERVISOR AREA Ot 202.80 09/27/2014 MUÑOZ, EZEAH S SUPERVISOR AREA Ot 289.81 09/27/2014 MUÑOZ, LORRIE S SUPERVISOR AREA Ot V58.69 09/27/2014 JODY, BOBAN N Ot 070.70 09/27/2014 JODY, BOBAN N Ot 202.80 09/27/2014 JODY, BOBAN N Ot 289.81 09/27/2014 JODY, BOBAN N Ot V58.69 09/27/2014 MUÑOZLORRIE Fernández S SUPERVISOR AREA Ot 202.80 09/27/2014 JODY, BOBAN N Ot 070.70 09/27/2014 JODY, BOBAN N Ot 202.80 09/27/2014 JODY, BOBAN N Ot 289.81 09/27/2014 JODY, BOBAN N Ot V58.69 09/27/2014 WILLY JEFFERSON SUPERVISOR [employer] Ot 789.30 09/27/2014 CHUCHO JOY DO Ot 202.80 09/27/2014 DWAYNE JOY DOTIE Ot V72.84 09/27/2014 DADA NICKERSON, JL Ot 202.80 09/27/2014 DADA NICKERSON, JL Ot 785.6 09/27/2014 DADA NICKERSON, JL Ot 789.2 09/27/2014 DADA NICKERSON, JL Ot 789.30 09/27/2014 MUÑOZLORRIE Fernández S SUPERVISOR AREA Ot 202.80 09/27/2014 MUÑOZLORRIE Fernández S SUPERVISOR AREA Ot 289.81 09/27/2014 DADA NICKERSON, JL Ot 202.80 09/27/2014 DADA NICKERSON, JL Ot 785.6 09/27/2014 DADA NICKERSON, JL Ot 789.2 09/27/2014 TONI LORRIE S SUPERVISOR AREA Ot 070.70 09/27/2014 MUÑOZ LORRIE S SUPERVISOR AREA Ot 202.88 09/27/2014 MUÑOZ LORRIE S SUPERVISOR AREA Ot V58.69 09/27/2014 LORRIE MUÑOZ S SUPERVISOR AREA Ot 070.70 09/27/2014 MUÑOZLORRIE Fernández S SUPERVISOR AREA Ot 202.80 09/27/2014 MUÑOZLORRIE Fernández S SUPERVISOR AREA Ot 289.81 09/27/2014 LORRIE MUÑOZ S SUPERVISOR AREA Ot V58.69 09/27/2014 MUÑOZLORRIE Fernández S SUPERVISOR AREA Ot 202.80 09/27/2014 MUÑOZLORRIE Fernández S SUPERVISOR AREA Ot 070.70 09/27/2014 MUÑOZEZEAH S SUPERVISOR AREA Ot 202.80 09/27/2014 MUÑOZLORRIE S SUPERVISOR AREA Ot 289.81 09/27/2014 MUÑOZLORRIE Fernández S SUPERVISOR AREA Ot V58.69 09/27/2014 INOCENCIO VERA N Ot 070.70 09/27/2014 YANIV VERAAN N Ot 202.80 09/27/2014 YANIV VERAAN N Ot 289.81 09/27/2014 YANIV VERAAN N Ot V58.69 09/27/2014 LORRIE MUÑOZ S SUPERVISOR ARE[employer] Ot 202.80 09/27/2014 MUÑOZLORRIE Fernández S SUPERVISOR AREA Ot 070.70 09/27/2014 MUÑOZLORRIE Fernández S SUPERVISOR AREA Ot 202.80 09/27/2014 LORRIE MUÑOZ S SUPERVISOR AREA Ot 289.81 09/27/2014 LORRIE MUÑOZ S SUPERVISOR AREA Ot V58.69 09/27/2014 MUÑOZLORRIE Fernández S SUPERVISOR AREA Ot 202.80 09/27/2014 MUÑOZLORRIE eFrnández S SUPERVISOR AREA Ot 202.80 10/02/2014 WILLY JEFFERSON SUPERVISOR [employer] Ot 789.30 10/02/2014 DWAYNE JOY DOTIE Ot 202.80 10/02/2014 IMELDA JOY DOROUTIE Ot V72.84 10/02/2014 DADA NICKERSON, JL Ot 202.80 10/02/2014 DADA NICKERSON, JL Ot 785.6 10/02/2014 DADA NICKERSON, JL Ot 789.2 10/02/2014 DADA NICKERSON, JL Ot 789.30 10/02/2014 MUÑOZLORRIE S SUPERVISOR ARE[employer] Ot 202.80 10/02/2014 MUÑOZ LORRIE S SUPERVISOR AREA Ot 289.81 10/02/2014 DADA NICKERSON, JL Ot 202.80 10/02/2014 [facility]ADA [facility] 785.6 10/02/2014 DADA NICKERSON, RAHULDAVID Ot 789.2 10/02/2014 MUÑOZ, HILAH S SUPERVISOR ARE[employer] Ot 070.70 10/02/2014 MUÑOZ, HILAH S SUPERVISOR ARE[employer] Ot 202.88 10/02/2014 MUÑOZ, HILAH S SUPERVISOR AREA Ot V58.69 10/02/2014 MUÑOZ, HILAH S SUPERVISOR AREA Ot 070.70 10/02/2014 MUÑOZ, HILAH S SUPERVISOR AREA Ot 202.80 10/02/2014 MUÑOZ, HILAH S SUPERVISOR AREA Ot 289.81 10/02/2014 MUÑOZ, HILAH S SUPERVISOR AREA Ot V58.69 10/02/2014 MUÑOZ, HILAH S SUPERVISOR AREA Ot 202.80 10/02/2014 MUÑOZ, HILAH S SUPERVISOR AREA Ot 070.70 10/02/2014 MUÑOZ, HILAH S SUPERVISOR AREA Ot 202.80 10/02/2014 MUÑOZ, HILAH S SUPERVISOR ARE[employer] Ot 289.81 10/02/2014 MUÑOZ, HILAH S SUPERVISOR AREA Ot V58.69 10/02/2014 JODY, BOBAN N Ot 070.70 10/02/2014 JODY, BOBAN N Ot 202.80 10/02/2014 JODY, BOBAN N Ot 289.81 10/02/2014 JODY, BOBAN N Ot V58.69 10/02/2014 MUÑOZ, HILAH S SUPERVISOR [employer] Ot 202.80 10/02/2014 MUÑOZ, HILAH S SUPERVISOR AREA Ot 202.80 10/02/2014 MUÑOZ, HILAH S SUPERVISOR AREA Ot 070.70 10/02/2014 MUÑOZ, HILAH S SUPERVISOR AREA Ot 202.80 10/02/2014 MUÑOZ, HILAH S SUPERVISOR AREA Ot 289.81 10/02/2014 MUÑOZ, HILAH S SUPERVISOR AREA Ot V58.69 10/02/2014 MUÑOZ, HILAH S SUPERVISOR AREA Ot 070.70 10/02/2014 MUÑOZ, HILAH S SUPERVISOR AREA Ot 202.88 10/02/2014 MUÑOZ, HILAH S SUPERVISOR AREA Ot V58.69 10/02/2014 DADA NICKERSON, RAHULDAVID Ot 202.80 10/02/2014 DADA NICKERSON, RAHULDAVID Ot 785.6 10/02/2014 DADA NICKERSON, JL Ot 789.2 10/02/2014 LORRIE MUÑOZ SUPERVISOR [employer] Ot 202.80 10/02/2014 LORRIE MUÑOZ SUPERVISOR ARE[employer] Ot 289.81 10/02/2014 DADA NICKERSON, JL Ot 202.80 10/02/2014 DADA NICKERSON, JL Ot 785.6 10/02/2014 DADA NICKERSON, JL Ot 789.2 10/02/2014 DADA NICKERSON, JL Ot 789.30 10/02/2014 WILLY JEFFERSONP Ot 789.30 10/14/2014 INOCENCIO VERA Ot 070.70 UNSPECIFIED VIRAL HEPATITIS C WITHOUT HE 10/14/2014 INOCENCIO VERA Ot 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 10/14/2014 INOCENCIO VERA Ot 289.81 PRIMARY HYPERCOAGULABLE STATE 10/14/2014 INOCENCIO VERA Ot V58.11 ENCOUNTER FOR ANTINEOPLASTIC CHEMOTHERAP 10/14/2014 INOCENCIO VERA Ot V58.69 OT MED,LT,CURRENT USE 11/15/2014 LORRIE MUÑOZ [employer]PERVISOR [employer] Ot 070.70 11/15/2014 LORRIE MUÑOZ SUPERVISOR [employer] Ot 202.80 11/15/2014 LORRIE MUÑOZ SUPERVISOR [employer] Ot 289.81 11/15/2014 LORRIE MUÑOZ SUPERVISOR AREA Ot V58.69 11/15/2014 WILLY JEFFERSON SUPERVISOR [employer] Ot 789.30 11/15/2014 CHUCHO JOY DO Ot 202.80 11/15/2014 CHUCHO JOY DO Ot V72.84 11/15/2014 DADA NICKERSON, JL Ot 202.80 11/15/2014 DADA NICKERSON, JL Ot 785.6 11/15/2014 DADA NICKERSON, JL Ot 789.2 11/15/2014 DADA NICKERSON, JL Ot 789.30 11/15/2014 LORRIE MUÑOZ SUPERVISOR AREA Ot 202.80 11/15/2014 LORRIE MUÑOZ SUPERVISOR AREA Ot 289.81 11/15/2014 DADA NICKERSON, JL Ot 202.80 11/15/2014 DADA NICKERSON, THIENDAVID Ot 785.6 11/15/2014 DADA NICKERSON, JL Ot 789.2 11/15/2014 MUÑOZLORRIE S SUPERVISOR AREA Ot 070.70 11/15/2014 MUÑOZ, HILAH S SUPERVISOR AREA Ot 202.88 11/15/2014 MUÑOZ, EZEAH S SUPERVISOR AREA Ot V58.69 11/15/2014 MUÑOZ, HILAH S SUPERVISOR AREA Ot 070.70 11/15/2014 MUÑOZ, HILAH S SUPERVISOR AREA Ot 202.80 11/15/2014 MUÑOZ, HILAH S SUPERVISOR AREA Ot 289.81 11/15/2014 MUÑOZ, HILAH S SUPERVISOR AREA Ot V58.69 11/15/2014 MUÑOZ, HILAH S SUPERVISOR AREA Ot 202.80 11/15/2014 MUÑOZ, HILAH S SUPERVISOR AREA Ot 070.70 11/15/2014 MUÑOZ, HILAH S SUPERVISOR AREA Ot 202.80 11/15/2014 MUÑOZ, HILAH S SUPERVISOR AREA Ot 289.81 11/15/2014 MUÑOZ, HILAH S SUPERVISOR AREA Ot V58.69 11/15/2014 MUÑOZ, HILAH S SUPERVISOR AREA Ot 202.80 11/15/2014 JODY BOBAN N Ot 070.70 11/15/2014 JODY, BOBAN N Ot 202.80 11/15/2014 JODY, BOBAN N Ot 289.81 11/15/2014 JODY, BOBAN N Ot V58.69 11/15/2014 MUÑOZ, EZEAH S SUPERVISOR AREA Ot 070.70 11/15/2014 MUÑOZ, HILAH S SUPERVISOR AREA Ot 202.80 11/15/2014 MUÑOZ, HILAH S SUPERVISOR AREA Ot 289.81 11/15/2014 MUÑOZ, HILAH S SUPERVISOR AREA Ot V58.69 11/27/2014 MÑUOZ, HILAH S SUPERVISOR AREA Ot 070.70 11/27/2014 MUÑOZ, HILAH S SUPERVISOR AREA Ot 202.80 11/27/2014 MUÑOZ, HILAH S SUPERVISOR AREA Ot 289.81 11/27/2014 MUÑOZ, HILAH S SUPERVISOR AREA Ot V58.69 11/27/2014 JODY, BOBAN N Ot 070.70 11/27/2014 JODY, BOBAN N Ot 202.80 11/27/2014 JODY, BOBAN N Ot 289.81 11/27/2014 JODYYANIV BIRMINGHAMEMERITA N Ot V58.69 11/28/2014 WILLY JEFFERSON SUPERVISOR AREA Ot 789.30 11/28/2014 BENITA RIVAS, CHUCHO Ot 202.80 11/28/2014 BENITA RIVAS, IMELDAROUTIE Ot V72.84 11/28/2014 [facility]ADA [facility]ICKERSON[facility].80 11/28/2014 DADA NICKERSON, [facility] Ot 785.6 11/28/2014 DADA NICKERSON, [facility] Ot 789.2 11/28/2014 DADA NICKERSON, [facility] Ot 789.30 11/28/2014 TONI LORRIE S SUPERVISOR AREA Ot 202.80 11/28/2014 TONI HILAH S SUPERVISOR AREA Ot 289.81 11/28/2014 DADA NICKERSON, KAYDAVID Ot 202.80 11/28/2014 DADA NICKERSON, [facility] Ot 785.6 11/28/2014 DADA NICKERSON, [facility] Ot 789.2 11/28/2014 TONI HILAH S SUPERVISOR AREA Ot 070.70 11/28/2014 MUÑOZ, HILAH S SUPERVISOR AREA Ot 202.88 11/28/2014 MUÑOZ HILAH S SUPERVISOR AREA Ot V58.69 11/28/2014 MUÑOZ HILAH S SUPERVISOR AREA Ot 070.70 11/28/2014 MUÑOZ, HILAH S SUPERVISOR AREA Ot 202.80 11/28/2014 MUÑOZ HILAH S SUPERVISOR AREA Ot 289.81 11/28/2014 MUÑOZ HILAH S SUPERVISOR AREA Ot V58.69 11/28/2014 MUÑOZ HILAH S SUPERVISOR AREA Ot 202.80 11/28/2014 MUÑOZ HILAH S SUPERVISOR AREA Ot 070.70 11/28/2014 MUÑOZ, HILAH S SUPERVISOR AREA Ot 202.80 11/28/2014 MUÑOZ HILAH S SUPERVISOR AREA Ot 289.81 11/28/2014 MUÑOZ HILAH S SUPERVISOR AREA Ot V58.69 11/28/2014 MUÑOZ, HILAH S SUPERVISOR AREA Ot 202.80 11/28/2014 INOCENCIO VERA N Ot 070.70 11/28/2014 INOCENCIO VERA N Ot 202.80 11/28/2014 INOCENCIO VERA N Ot 289.81 11/28/2014 JODY, BOBAN N Ot V58.69 11/28/2014 JODY, BOBAN N Ot 070.70 11/28/2014 JODY, BOBAN N Ot 202.80 11/28/2014 JODY, BOBAN N Ot 289.81 11/28/2014 JODY, BOBAN N Ot V58.69 11/28/2014 JODY, BOBAN N Ot 070.70 11/28/2014 JODY, BOBAN N Ot 202.80 11/28/2014 JODY, BOBAN N Ot 289.81 11/28/2014 JODY, BOBAN N Ot V58.69 11/29/2014 JODY, BOBAN N Ot 070.70 11/29/2014 JODY, BOBAN N Ot 202.80 11/29/2014 JODY, BOBAN N Ot 289.81 11/29/2014 JODY, BOBAN N Ot V58.69 12/03/2014 JODY, BOBAN N Ot 070.70 12/03/2014 JODY, BOBAN N Ot 202.80 12/03/2014 JODY, BOBAN N Ot 289.81 12/03/2014 JODY, BOBAN N Ot V58.69 12/24/2014 LORRIE MUÑOZ SUPERVISOR AREA Ot 202.80 12/24/2014 WILLY JEFFERSON SUPERVISOR AREA Ot 789.30 12/24/2014 CHUCHO JOY DO Ot 202.80 12/24/2014 CHUCHO JOY DO Ot V72.84 12/24/2014 DADA NICKERSON, JL Ot 202.80 12/24/2014 DADA NICKERSON, JL Ot 785.6 12/24/2014 DADA NICKERSON, JL Ot 789.2 12/24/2014 DADA NICKERSON, JL Ot 789.30 12/24/2014 LORRIE MUÑOZ SUPERVISOR AREA Ot 202.80 12/24/2014 LORRIE MUÑOZ SUPERVISOR AREA Ot 289.81 12/24/2014 DADA NICKERSON, JL Ot 202.80 12/24/2014 DADA NICKERSON, JL Ot 785.6 12/24/2014 DADA NICKERSON, JL Ot 789.2 12/24/2014 LORRIE MUÑOZ SUPERVISOR AREA Ot 070.70 12/24/2014 MUÑOZLORRIE Fernández S SUPERVISOR AREA Ot 202.88 12/24/2014 MUÑOZ, LORRIE S SUPERVISOR AREA Ot V58.69 12/24/2014 MUÑOZ, HILAH S SUPERVISOR AREA Ot 070.70 12/24/2014 MUÑOZ, HILAH S SUPERVISOR AREA Ot 202.80 12/24/2014 MUÑOZ, EZEAH S SUPERVISOR AREA Ot 289.81 12/24/2014 MUÑOZ, EZEAH S SUPERVISOR AREA Ot V58.69 12/24/2014 MUÑOZ, HILAH S SUPERVISOR AREA Ot 202.80 12/24/2014 MUÑOZ, EZEAH S SUPERVISOR AREA Ot 070.70 12/24/2014 MUÑOZ, HILAH S SUPERVISOR AREA Ot 202.80 12/24/2014 MUÑOZ, HILAH S SUPERVISOR AREA Ot 289.81 12/24/2014 MUÑOZ, EZEAH S SUPERVISOR AREA Ot V58.69 12/24/2014 MUÑOZ, EZEAH S SUPERVISOR AREA Ot 202.80 12/24/2014 JODY, BOBAN N Ot 070.70 12/24/2014 JODY, BOBAN N Ot 202.80 12/24/2014 JODY, BOBAN N Ot 289.81 12/24/2014 JODY, BOBAN N Ot V58.69 12/30/2014 TORITO NASH MD Ot 201.90 12/30/2014 TORITO NASH MD Ot 722.52 12/30/2014 TORITO NASH MD Ot 738.4 12/30/2014 TORITO NASH MD Ot 786.50 01/11/2015 JODY, BOBAN N Ot 070.70 01/11/2015 JODY, BOBAN N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, UNSPE 05/28/2016 INOCENCIO VERA Carine Ot 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 05/28/2016 INOCENCIO VERA Carine Ot Z51.11 ENCOUNTER FOR ANTINEOPLASTIC CHEMOTHERAP 05/28/2016 INOCENCIO VERA Carine Ot 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 05/28/2016 LAYNE DO, DARI F Ot M25.512 PAIN IN LEFT SHOULDER 05/28/2016 LAYNE DO, DARI F Ot M25.512 PAIN IN LEFT SHOULDER 06/14/2016 LORRIE MUÑOZ SUPERVISOR AREA Ot 070.70 UNSPECIFIED VIRAL HEPATITIS C WITHOUT HE 06/14/2016 LORRIE MUÑOZ SUPERVISOR AREA Ot 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 06/14/2016 LORRIE MUÑOZ SUPERVISOR AREA Ot 289.81 PRIMARY HYPERCOAGULABLE STATE 06/14/2016 LORRIE MUÑOZ SUPERVISOR AREA Ot V58.69 OTH MED,LT,CURRENT USE 06/14/2016 CHARITY NICKERSON, TORITO Shetty Ot 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 06/14/2016 CHARITY NICKERSON, TORITO Shetty Ot 722.52 LUMB/LUMBOSAC DISC DEGEN 06/14/2016 TORITO NASH MD Ot 738.4 ACQ SPONDYLOLISTHESIS 06/14/2016 TORITO NASH MD Ot 786.50 CHEST PAIN NOS 06/14/2016 TORITO NASH MD Ot 724.1 PAIN IN THORACIC SPINE 06/14/2016 SHERIDAN KANG APRN Ot 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 06/14/2016 SHERIDAN KANG APRN Ot 305.1 TOBACCO USE DISORDER 06/14/2016 SHERIDAN KANG APRN Ot 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 06/14/2016 SHERIDAN KANG EXHAUST WORKER Ot 780.79 OTH MALAISE FATIGUE 06/14/2016 SHERIDAN KANG APRN Ot 786.05 SHORTNESS OF BREATH 06/14/2016 INOCENCIO VERA Ot 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 06/14/2016 INOCENCIO VERA Ot 786.09 RESPIRATORY ABNORM NEC 06/14/2016 LORRIE MUÑOZ SUPERVISOR AREA Ot 070.70 UNSPECIFIED VIRAL HEPATITIS C WITHOUT HE 06/14/2016 LORRIE MUÑOZ SUPERVISOR AREA Ot 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 06/14/2016 LORRIE MUÑZO SUPERVISOR AREA Ot 289.81 PRIMARY HYPERCOAGULABLE STATE 06/14/2016 LORRIE MUÑOZP Ot V58.69 OTH MED,LT,CURRENT USE 06/14/2016 LORRIE MUÑOZ SUPERVISOR AREA Ot R05 COUGH 06/14/2016 LORRIE MUÑOZ SUPERVISOR AREA Ot R06.02 SHORTNESS OF BREATH 06/14/2016 LORRIE MUÑOZ SUPERVISOR AREA Ot B19.20 UNSPECIFIED VIRAL HEPATITIS C WITHOUT HE 06/14/2016 LORRIE MUÑOZP Ot 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, UNSPE 06/14/2016 LORRIE MUÑOZP Ot 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 06/14/2016 LORRIE MUÑOZ SUPERVISOR AREA Ot Z79.899 OTHER SENIOR CARE (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 THERAPY 06/14/2016 LORRIE MUÑOZ SUPERVISOR AREA Ot B19.20 UNSPECIFIED VIRAL HEPATITIS C WITHOUT HE 06/14/2016 LORRIE MUÑOZP Ot 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, UNSPE 06/14/2016 LORRIE MUÑOZP Ot 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 06/14/2016 LORRIE MUÑOZ SUPERVISOR AREA Ot Z79.899 OTHER SENIOR CARE (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 THERAPY 06/14/2016 LORRIE MUÑOZ SUPERVISOR AREA Ot B19.20 UNSPECIFIED VIRAL HEPATITIS C WITHOUT HE 06/14/2016 LORRIE MUÑOZ SUPERVISOR AREA Ot 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, UNSPE 06/14/2016 LORRIE MUÑOZP Ot 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 06/14/2016 LORRIE MUÑOZP Ot Z45.2 ENCOUNTER FOR ADJUSTMENT AND MANAGEMENT 06/14/2016 LORRIE MUÑOZ SUPERVISOR AREA Ot Z79.899 OTHER SENIOR CARE (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 THERAPY 06/14/2016 LORRIE MUÑOZ SUPERVISOR AREA Ot B19.20 UNSPECIFIED VIRAL HEPATITIS C WITHOUT HE 06/14/2016 LORRIE MUÑOZ SUPERVISOR AREA Ot 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, UNSPE 06/14/2016 LORRIE MUÑOZ SUPERVISOR AREA Ot 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 06/14/2016 LORRIE MUÑOZ SUPERVISOR AREA Ot Z45.2 ENCOUNTER FOR ADJUSTMENT AND MANAGEMENT 06/14/2016 LORRIE MUÑOZ SUPERVISOR AREA Ot Z79.899 OTHER SENIOR CARE (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 THERAPY 06/14/2016 INOCENCIO VERA Carine Ot B19.20 UNSPECIFIED VIRAL HEPATITIS C WITHOUT HE 06/14/2016 JODY YANIVEMERITA Carine Ot 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, UNSPE 06/14/2016 JODY YANIVEMERITA Carine Ot 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 06/14/2016 JODYINOCENCIO Ot Z51.11 ENCOUNTER FOR ANTINEOPLASTIC CHEMOTHERAP 06/14/2016 JODYINOCENCIO Ot Z79.899 OTHER SENIOR CARE (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 THERAPY 06/14/2016 DARI TILLMAN DO Ot M25.512 PAIN IN LEFT SHOULDER 06/17/2016 DARI TILLMAN DO Ot M25.512 PAIN IN LEFT SHOULDER 06/21/2016 JODY YANIVEMERITA Carine Ot B19.20 UNSPECIFIED VIRAL HEPATITIS C WITHOUT HE 06/21/2016 JODY YANIVEMERITA Carine Ot 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, UNSPE 06/21/2016 JODY INOCENCIO Hawk Ot 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 06/21/2016 INOCENCIO VERA Ot Z51.11 ENCOUNTER FOR ANTINEOPLASTIC CHEMOTHERAP 06/21/2016 INOCENCIO VERA Ot 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 07/07/2016 DARI TILLMAN DO Ot S43.492A OTHER SPRAIN OF LEFT SHOULDER JOINT, INI 07/07/2016 DARI TILLMAN DO Ot X58.XXXA EXPOSURE TO OTHER SPECIFIED FACTORS, INI 07/07/2016 DARI TILLMAN DO Ot Y99.8 OTHER EXTERNAL CAUSE STATUS 07/07/2016 DARI TILLMAN DO Ot S43.492A OTHER SPRAIN OF LEFT SHOULDER JOINT, INI 07/07/2016 DARI TILLMAN DO Ot X58.XXXA EXPOSURE TO OTHER SPECIFIED FACTORS, INI 07/07/2016 DARI TILLMAN DO Ot Y99.8 OTHER EXTERNAL CAUSE STATUS 07/13/2016 INOCENCIO VERA Carine Ot B19.20 UNSPECIFIED VIRAL HEPATITIS C WITHOUT HE 07/13/2016 INOCENCIO VERA Ot 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, UNSPE 07/13/2016 INOCENCIO VERA Carine Ot 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 07/13/2016 INOCENCIO VERA Carine Ot Z51.11 ENCOUNTER FOR ANTINEOPLASTIC CHEMOTHERAP 07/13/2016 INOCENCIO VERA Carine Ot Z79.899 OTHER SENIOR CARE (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 THERAPY 07/15/2016 LORRIE MUÑOZ SUPERVISOR AREA Ot 070.70 UNSPECIFIED VIRAL HEPATITIS C WITHOUT HE 07/15/2016 LORRIE MUÑOZ SUPERVISOR AREA Ot 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 07/15/2016 LORRIE MUÑOZ SUPERVISOR AREA Ot 289.81 PRIMARY HYPERCOAGULABLE STATE 07/15/2016 LORRIE MUÑOZ SUPERVISOR AREA Ot V58.69 OTH MED,LT,CURRENT USE 07/15/2016 TROITO NASH MD Ot 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 07/15/2016 TORITO NASH MD Ot 722.52 LUMB/LUMBOSAC DISC DEGEN 07/15/2016 TORITO NASH MD Ot 738.4 ACQ SPONDYLOLISTHESIS 07/15/2016 TORITO NASH MD Ot 786.50 CHEST PAIN NOS 07/15/2016 TORITO NASH MD Ot 724.1 PAIN IN THORACIC SPINE 07/15/2016 SHERIDAN KANG APRN Ot 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 07/15/2016 SHERIDAN KANG APRN Ot 305.1 TOBACCO USE DISORDER 07/15/2016 SHERIDAN KANG APRN Ot 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 07/15/2016 SHERIDAN KANG APRN Ot 780.79 OTH MALAISE FATIGUE 07/15/2016 SHERIDAN KANG APRN Ot 786.05 SHORTNESS OF BREATH 07/15/2016 JODY, BOBAN N Ot 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 07/15/2016 INOCENCIO VERA N Ot 786.09 RESPIRATORY ABNORM NEC 07/15/2016 LORRIE MUÑOZ SUPERVISOR AREA Ot 070.70 UNSPECIFIED VIRAL HEPATITIS C WITHOUT HE 07/15/2016 LORRIE MUÑOZ SUPERVISOR AREA Ot 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 07/15/2016 LORRIE MUÑOZ SUPERVISOR AREA Ot 289.81 PRIMARY HYPERCOAGULABLE STATE 07/15/2016 LORRIE MUÑOZP Ot V58.69 OTH MED,LT,CURRENT USE 07/15/2016 LORRIE MUÑOZ SUPERVISOR AREA Ot R05 COUGH 07/15/2016 LORRIE MUÑOZP Ot R06.02 SHORTNESS OF BREATH 07/15/2016 LORRIE MUÑOZ SUPERVISOR AREA Ot B19.20 UNSPECIFIED VIRAL HEPATITIS C WITHOUT HE 07/15/2016 LORRIE MUÑOZ SUPERVISOR AREA Ot 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, UNSPE 07/15/2016 LORRIE MUÑOZP Ot 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 07/15/2016 LORRIE MUÑOZ SUPERVISOR AREA Ot 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 07/15/2016 LORRIE MUÑOZ SUPERVISOR AREA Ot B19.20 UNSPECIFIED VIRAL HEPATITIS C WITHOUT HE 07/15/2016 LORRIE MUÑOZ SUPERVISOR AREA Ot 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, UNSPE 07/15/2016 LORRIE MUÑOZP Ot 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 07/15/2016 LORRIE MUÑOZ SUPERVISOR AREA Ot Z79.899 OTHER SENIOR CARE (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 THERAPY 07/15/2016 LORRIE MUÑOZ SUPERVISOR AREA Ot B19.20 UNSPECIFIED VIRAL HEPATITIS C WITHOUT HE 07/15/2016 LORRIE MUÑOZ SUPERVISOR AREA Ot 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, UNSPE 07/15/2016 LORRIE MUÑOZ SUPERVISOR AREA Ot 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 07/15/2016 LORRIE MUÑOZ SUPERVISOR AREA Ot Z45.2 ENCOUNTER FOR ADJUSTMENT AND MANAGEMENT 07/15/2016 LORRIE MUÑOZ SUPERVISOR AREA Ot 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 07/15/2016 LORRIE MUÑOZ SUPERVISOR AREA Ot B19.20 UNSPECIFIED VIRAL HEPATITIS C WITHOUT HE 07/15/2016 LORRIE MUÑOZ SUPERVISOR AREA Ot 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, UNSPE 07/15/2016 LORRIE MUÑOZ SUPERVISOR AREA Ot 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 07/15/2016 LORRIE MUÑOZ SUPERVISOR AREA Ot Z45.2 ENCOUNTER FOR ADJUSTMENT AND MANAGEMENT 07/15/2016 LORRIE MUÑOZ SUPERVISOR AREA Ot 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 07/15/2016 INOCENCIO VERA Ot B19.20 UNSPECIFIED VIRAL HEPATITIS C WITHOUT HE 07/15/2016 INOCENCIO VERA Ot 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, UNSPE 07/15/2016 INOCENCIO VERA Ot 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 07/15/2016 INOCENCIO VERA Ot Z51.11 ENCOUNTER FOR ANTINEOPLASTIC CHEMOTHERAP 07/15/2016 INOCENCIO VERA Ot Z79.899 OTHER SENIOR CARE (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 THERAPY 07/15/2016 LAYNE RIVAS DARI F Ot M25.512 PAIN IN LEFT SHOULDER 07/15/2016 LAYNE RIVAS DARI F Ot S43.492A OTHER SPRAIN OF LEFT SHOULDER JOINT, INI 07/15/2016 DARI TILLMAN DO F Ot X58.XXXA EXPOSURE TO OTHER SPECIFIED FACTORS, INI 07/15/2016 DARI TILLMAN DO Ot Y99.8 OTHER EXTERNAL CAUSE STATUS 07/16/2016 GARRET FREDERICK MD Ot M43.16 SPONDYLOLISTHESIS, LUMBAR REGION 07/16/2016 GARRET FREDERICK MD Ot M48.06 SPINAL STENOSIS, LUMBAR REGION 07/16/2016 GARRET FREDERICK MD Ot M51.34 OTHER INTERVERTEBRAL DISC DEGENERATION, 07/16/2016 INOCENCIO VERA Ot B19.20 UNSPECIFIED VIRAL HEPATITIS C WITHOUT HE 07/16/2016 INOCENCIO VERA Ot 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, UNSPE 07/16/2016 INOCENCIO VERA Ot 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 07/16/2016 INOCENCIO VERA Ot Z51.11 ENCOUNTER FOR ANTINEOPLASTIC CHEMOTHERAP 07/16/2016 INOCENCIO VERA Ot 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 07/16/2016 GARRET FREDERICK MD Ot M43.16 SPONDYLOLISTHESIS, LUMBAR REGION 07/16/2016 GARRET FREDERICK MD Ot M48.06 SPINAL STENOSIS, LUMBAR REGION 07/16/2016 GARRET FREDERICK MD Ot M51.34 OTHER INTERVERTEBRAL DISC DEGENERATION, 07/26/2016 INOCENCIO VERA Carine Ot B19.20 UNSPECIFIED VIRAL HEPATITIS C WITHOUT HE 07/26/2016 INOCENCIO VERA Ot 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, UNSPE 07/26/2016 INOCENCIO VERA Carine Ot 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 07/26/2016 INOCENCIO VERA Carine Ot Z23 ENCOUNTER FOR IMMUNIZATION 07/26/2016 INOCENCIO VERA Carine Ot Z51.11 ENCOUNTER FOR ANTINEOPLASTIC CHEMOTHERAP 07/26/2016 INOCENCIO VERA Ot 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 08/11/2016 LAYNE RIVAS DARI F Ot S43.492A OTHER SPRAIN OF LEFT SHOULDER JOINT, INI 08/11/2016 LAYNE RIVAS DARI F Ot X58.XXXA EXPOSURE TO OTHER SPECIFIED FACTORS, INI 08/11/2016 LAYNE RIVAS DARI F Ot Y99.8 OTHER EXTERNAL CAUSE STATUS 08/12/2016 GARRET FREDERICK MD Ot M43.16 SPONDYLOLISTHESIS, LUMBAR REGION 08/12/2016 GARRET FREDERICK MD Ot M48.06 SPINAL STENOSIS, LUMBAR REGION 08/12/2016 GARRET FREDERICK MD Ot M51.34 OTHER INTERVERTEBRAL DISC DEGENERATION, 08/13/2016 LORRIE MUÑOZ SUPERVISOR AREA Ot 070.70 UNSPECIFIED VIRAL HEPATITIS C WITHOUT HE 08/13/2016 LORRIE MUÑOZ SUPERVISOR AREA Ot 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 08/13/2016 LORRIE MUÑOZ SUPERVISOR AREA Ot 289.81 PRIMARY HYPERCOAGULABLE STATE 08/13/2016 LORRIE MUÑOZ SUPERVISOR AREA Ot V58.69 OTH MED,LT,CURRENT USE 08/13/2016 TORITO NASH MD Ot 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 08/13/2016 CHARITY NICKERSON, TORITO Shetty Ot 722.52 LUMB/LUMBOSAC DISC DEGEN 08/13/2016 TORITO NASH MD Ot 738.4 ACQ SPONDYLOLISTHESIS 08/13/2016 TORITO NASH MD Ot 786.50 CHEST PAIN NOS 08/13/2016 TORITO NASH MD Ot 724.1 PAIN IN THORACIC SPINE 08/13/2016 SHERIDAN KANG E EXHAUST WORKER Ot 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 08/13/2016 SHERIDAN KANG E EXHAUST WORKER Ot 305.1 TOBACCO USE DISORDER 08/13/2016 SHERIDAN KANG E EXHAUST WORKER Ot 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 08/13/2016 SHERIDAN KANG E EXHAUST WORKER Ot 780.79 OTH MALAISE FATIGUE 08/13/2016 SHERIDAN KANG E EXHAUST WORKER Ot 786.05 SHORTNESS OF BREATH 08/13/2016 INOCENCIO VERA Ot 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 08/13/2016 INOCENCIO VERA Ot 786.09 RESPIRATORY ABNORM NEC 08/13/2016 LORRIE MUÑOZ SUPERVISOR AREA Ot 070.70 UNSPECIFIED VIRAL HEPATITIS C WITHOUT HE 08/13/2016 LORRIE MUÑOZ SUPERVISOR AREA Ot 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 08/13/2016 LORRIE MUÑOZ SUPERVISOR AREA Ot 289.81 PRIMARY HYPERCOAGULABLE STATE 08/13/2016 LORRIE MUÑOZ SUPERVISOR AREA Ot V58.69 OTH MED,LT,CURRENT USE 08/13/2016 LORRIE MUÑOZ SUPERVISOR AREA Ot R05 COUGH 08/13/2016 LORRIE MUÑOZ SUPERVISOR AREA Ot R06.02 SHORTNESS OF BREATH 08/13/2016 LORRIE MUÑOZ SUPERVISOR AREA Ot B19.20 UNSPECIFIED VIRAL HEPATITIS C WITHOUT HE 08/13/2016 LORRIE MUÑOZ SUPERVISOR AREA Ot 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, UNSPE 08/13/2016 LORRIE MUÑOZ SUPERVISOR AREA Ot 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 08/13/2016 LORRIE MUÑOZ SUPERVISOR AREA Ot Z79.899 OTHER SENIOR CARE (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 THERAPY 08/13/2016 LORRIE MUÑOZ SUPERVISOR AREA Ot B19.20 UNSPECIFIED VIRAL HEPATITIS C WITHOUT HE 08/13/2016 LORRIE MUÑOZ SUPERVISOR AREA Ot 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, UNSPE 08/13/2016 LORRIE MUÑOZ SUPERVISOR AREA Ot 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 08/13/2016 LORRIE MUÑOZ SUPERVISOR AREA Ot 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 08/13/2016 LORRIE MUÑOZ SUPERVISOR AREA Ot B19.20 UNSPECIFIED VIRAL HEPATITIS C WITHOUT HE 08/13/2016 LORRIE MUÑOZP Ot 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, UNSPE 08/13/2016 LORRIE MUÑOZ SUPERVISOR AREA Ot 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 08/13/2016 LORRIE MUÑOZ SUPERVISOR AREA Ot Z45.2 ENCOUNTER FOR ADJUSTMENT AND MANAGEMENT 08/13/2016 LORRIE MUÑOZP Ot 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 08/13/2016 LORRIE MUÑOZP Ot B19.20 UNSPECIFIED VIRAL HEPATITIS C WITHOUT HE 08/13/2016 LORRIE MUÑOZ SUPERVISOR AREA Ot 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, UNSPE 08/13/2016 LORRIE MUÑOZ SUPERVISOR AREA Ot 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 08/13/2016 LORRIE MUÑOZ SUPERVISOR AREA Ot Z45.2 ENCOUNTER FOR ADJUSTMENT AND MANAGEMENT 08/13/2016 LORRIE MUÑOZ SUPERVISOR AREA Ot 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 08/13/2016 JODY INOCENCIO Hawk Ot B19.20 UNSPECIFIED VIRAL HEPATITIS C WITHOUT HE 08/13/2016 JODY INOCENCIO Hawk Ot 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, UNSPE 08/13/2016 INOCENCIO VERA N Ot 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 08/13/2016 INOCENCIO VERA Ot Z23 ENCOUNTER FOR IMMUNIZATION 08/13/2016 INOCENCIO VERA Ot Z51.11 ENCOUNTER FOR ANTINEOPLASTIC CHEMOTHERAP 08/13/2016 INOCENCIO VERA N Ot 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 08/13/2016 DARI TILLMAN DO Ot M25.512 PAIN IN LEFT SHOULDER 08/13/2016 OTONIEL NICKERSON, GARRET Shetty Ot M43.16 SPONDYLOLISTHESIS, LUMBAR REGION 08/13/2016 GARRET FREDERICK MD Ot M48.06 SPINAL STENOSIS, LUMBAR REGION 08/13/2016 GARRET FREDERICK MD Ot M51.34 OTHER INTERVERTEBRAL DISC DEGENERATION, 08/13/2016 ROSHAN CROW MD Ot B19.20 UNSPECIFIED VIRAL HEPATITIS C WITHOUT HE 08/13/2016 ROSHAN CROW MD Ot C85.90 NON-HODGKIN LYMPHOMA, UNSPECIFIED, UNSPE 08/13/2016 ROSHAN CROW MD Ot 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 08/13/2016 ROSHAN CROW MD Ot J06.9 ACUTE UPPER RESPIRATORY INFECTION, UNSPE 08/13/2016 ROSHAN CROW MD Ot J18.9 PNEUMONIA, UNSPECIFIED ORGANISM 08/13/2016 ROSHAN CROW MD Ot K74.60 UNSPECIFIED CIRRHOSIS OF LIVER 08/13/2016 ROSHAN CROW MD Ot R05 COUGH 08/13/2016 ROSHAN CROW MD Ot Z79.82 SENIOR CARE (CURRENT) USE OF ASPIRIN 08/13/2016 ROSHAN CROW MD Ot Z79.899 OTHER SENIOR CARE (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 THERAPY 08/13/2016 ROSHAN CROW MD Ot Z87.891 PERSONAL HISTORY OF NICOTINE DEPENDENCE 08/16/2016 LORRIE MUÑOZ Ot B19.20 UNSPECIFIED VIRAL HEPATITIS C WITHOUT HE 08/16/2016 LORRIE MUÑOZ Ot 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, UNSPE 08/16/2016 LORRIE MUÑOZ Ot 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 08/16/2016 LORRIE MUÑOZ Ot Z45.2 ENCOUNTER FOR ADJUSTMENT AND MANAGEMENT 08/16/2016 LORRIE MUÑOZ Ot 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 08/17/2016 ROSHAN CROW MD Ot B19.20 UNSPECIFIED VIRAL HEPATITIS C WITHOUT HE 08/17/2016 MIGNON NICKERSON, ROSHAN Gann Ot C85.90 NON-HODGKIN LYMPHOMA, UNSPECIFIED, UNSPE 08/17/2016 ROSHAN CROW MD Ot 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 08/17/2016 ROSHAN CROW MD Ot J06.9 ACUTE UPPER RESPIRATORY INFECTION, UNSPE 08/17/2016 ROSHAN CROW MD Ot J18.9 PNEUMONIA, UNSPECIFIED ORGANISM 08/17/2016 ROSHAN CROW MD Ot K74.60 UNSPECIFIED CIRRHOSIS OF LIVER 08/17/2016 ROSHAN CROW MD Ot R05 COUGH 08/17/2016 ROSHAN CROW MD Ot Z79.82 SEPARATOR INSERTER (CURRENT) USE OF ASPIRIN 08/17/2016 ROSHAN CROW MD Ot 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 08/17/2016 ROSHAN CROW MD Ot Z87.891 PERSONAL HISTORY OF NICOTINE DEPENDENCE 08/22/2016 INOCENCIO VERA Ot B19.20 UNSPECIFIED VIRAL HEPATITIS C WITHOUT HE 08/22/2016 INOCENCIO VERA Ot 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, UNSPE 08/22/2016 INOCENCIO VERA Ot 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 08/22/2016 INOCENCIO VERA Ot Z23 ENCOUNTER FOR IMMUNIZATION 08/22/2016 INOCENCIO VERA Ot Z51.11 ENCOUNTER FOR ANTINEOPLASTIC CHEMOTHERAP 08/22/2016 INOCENCIO VERA Ot Z79.899 OTHER SENIOR CARE (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 THERAPY 09/15/2016 LORRIE MUÑOZ SUPERVISOR AREA Ot 070.70 UNSPECIFIED VIRAL HEPATITIS C WITHOUT HE 09/15/2016 LORRIE MUÑOZ SUPERVISOR AREA Ot 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 09/15/2016 LORRIE MUÑOZ SUPERVISOR AREA Ot 289.81 PRIMARY HYPERCOAGULABLE STATE 09/15/2016 LORRIE MUÑOZ SUPERVISOR AREA Ot V58.69 OTH MED,LT,CURRENT USE 09/15/2016 TORITO NASH MD Ot 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 09/15/2016 TORITO NASH MD Ot 722.52 LUMB/LUMBOSAC DISC DEGEN 09/15/2016 TORITO NASH MD Ot 738.4 ACQ SPONDYLOLISTHESIS 09/15/2016 TORITO NASH MD Ot 786.50 CHEST PAIN NOS 09/15/2016 TORITO NASH MD Ot 724.1 PAIN IN THORACIC SPINE 09/15/2016 SHERIDAN KANG EXHAUST WORKER Ot 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 09/15/2016 SHERIDAN KANG EXHAUST WORKER Ot 305.1 TOBACCO USE DISORDER 09/15/2016 SHERIDAN KANG EXHAUST WORKER Ot 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 09/15/2016 SHERIDAN KANG EXHAUST WORKER Ot 780.79 OTH MALAISE FATIGUE 09/15/2016 SHERIDAN KANG E EXHAUST WORKER Ot 786.05 SHORTNESS OF BREATH 09/15/2016 INOCENCIO VERA Ot 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 09/15/2016 INOCENCIO VERA Ot 786.09 RESPIRATORY ABNORM NEC 09/15/2016 LORRIE MUÑOZ SUPERVISOR AREA Ot 070.70 UNSPECIFIED VIRAL HEPATITIS C WITHOUT HE 09/15/2016 LORRIE MUÑOZP Ot 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 09/15/2016 LORRIE MUÑOZ SUPERVISOR AREA Ot 289.81 PRIMARY HYPERCOAGULABLE STATE 09/15/2016 LORRIE MUÑOZP Ot V58.69 OTH MED,LT,CURRENT USE 09/15/2016 LORRIE MUÑOZ SUPERVISOR AREA Ot R05 COUGH 09/15/2016 LORRIE MUÑOZ SUPERVISOR AREA Ot R06.02 SHORTNESS OF BREATH 09/15/2016 LORRIE MUÑOZ SUPERVISOR AREA Ot B19.20 UNSPECIFIED VIRAL HEPATITIS C WITHOUT HE 09/15/2016 LORRIE MUÑOZP Ot 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, UNSPE 09/15/2016 LORRIE MUÑOZ SUPERVISOR AREA Ot 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 09/15/2016 LORRIE MUÑOZ SUPERVISOR AREA Ot Z79.899 OTHER SENIOR CARE (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 THERAPY 09/15/2016 LORRIE MUÑOZ SUPERVISOR ARE[employer] Ot B19.20 UNSPECIFIED VIRAL HEPATITIS C WITHOUT HE 09/15/2016 LORRIE MUÑOZ SUPERVISOR [employer] Ot 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, UNSPE 09/15/2016 LORRIE MUÑOZ SUPERVISOR [employer] Ot 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 09/15/2016 LORRIE MUÑOZ SUPERVISOR [employer] Ot Z79.899 OTHER SENIOR CARE (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 THERAPY 09/15/2016 LORRIE MUÑOZ SUPERVISOR [employer] Ot B19.20 UNSPECIFIED VIRAL HEPATITIS C WITHOUT HE 09/15/2016 LORRIE MUÑOZ SUPERVISOR [employer] Ot 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, UNSPE 09/15/2016 LORRIE MUÑOZ [employer]PERVISOR [employer] Ot 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 09/15/2016 LORRIE MUÑOZ [employer]PERVISOR [employer] Ot Z45.2 ENCOUNTER FOR ADJUSTMENT AND MANAGEMENT 09/15/2016 LORRIE MUÑOZ [employer]PERVISOR [employer] Ot 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 09/15/2016 LORRIE MUÑOZ [employer]PERVISOR [employer] Ot B19.20 UNSPECIFIED VIRAL HEPATITIS C WITHOUT HE 09/15/2016 LORRIE MUÑOZ SUPERVISOR [employer] Ot 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, UNSPE 09/15/2016 LORRIE MUÑOZ SUPERVISOR [employer] Ot 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 09/15/2016 LORRIE MUÑOZ SUPERVISOR [employer] Ot Z45.2 ENCOUNTER FOR ADJUSTMENT AND MANAGEMENT 09/15/2016 LORRIE MUÑOZ SUPERVISOR [employer] Ot 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 09/15/2016 DARI TILLMAN DO Ot M25.512 PAIN IN LEFT SHOULDER 09/15/2016 GARRET FREDERICK MD Ot M43.16 SPONDYLOLISTHESIS, LUMBAR REGION 09/15/2016 GARRET FREDERICK MD Ot M48.06 SPINAL STENOSIS, LUMBAR REGION 09/15/2016 GARRET FREDERICK MD Ot M51.34 OTHER INTERVERTEBRAL DISC DEGENERATION, 09/15/2016 INOCENCIO VREA Ot B19.20 UNSPECIFIED VIRAL HEPATITIS C WITHOUT HE 09/15/2016 INOCENCIO VERA Ot 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, UNSPE 09/15/2016 INOCENCIO VERA Ot 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 09/15/2016 INOCENCIO VERA N Ot Z23 ENCOUNTER FOR IMMUNIZATION 09/15/2016 INOCENCIO VERA N Ot Z51.11 ENCOUNTER FOR ANTINEOPLASTIC CHEMOTHERAP 09/15/2016 INOCENCIO VERA Carine Ot 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 09/16/2016 INOCENCIO VERA Carine Ot C82.18 FOLLICULAR LYMPHOMA GRADE II, LYMPH NODE 09/16/2016 JODY YANIVEMERITA N Ot Z01.89 ENCOUNTER FOR OTHER SPECIFIED SPECIAL EX 09/16/2016 INOCENCIO VERA Carine Ot C82.18 FOLLICULAR LYMPHOMA GRADE II, LYMPH NODE 09/16/2016 JODY YANIVEMERITA N Ot Z01.89 ENCOUNTER FOR OTHER SPECIFIED SPECIAL EX 09/17/2016 INOCENCIO VERA Carine Ot C82.18 FOLLICULAR LYMPHOMA GRADE II, LYMPH NODE 09/17/2016 JODY YANIVEMERITA Carine Ot Z01.89 ENCOUNTER FOR OTHER SPECIFIED SPECIAL EX 09/21/2016 INOCENCIO VERA Carine Ot B19.20 UNSPECIFIED VIRAL HEPATITIS C WITHOUT HE 09/21/2016 INOCENCIO VERA Carine Ot 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, UNSPE 09/21/2016 INOCENCIO VERA Carine Ot 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 09/21/2016 INOCENCIO VERA Carine Ot Z23 ENCOUNTER FOR IMMUNIZATION 09/21/2016 INOCENCIO VERA Carine Ot Z51.11 ENCOUNTER FOR ANTINEOPLASTIC CHEMOTHERAP 09/21/2016 INOCENCIO VERA N Ot 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 09/24/2016 DEB NICKERSON, IVANA Unger Ot C82.18 FOLLICULAR LYMPHOMA GRADE II, LYMPH NODE 09/24/2016 DEB NICKERSON, IVANA Unger Ot Z01.818 ENCOUNTER FOR OTHER PREPROCEDURAL EXAMIN 09/29/2016 DEB NICKERSON, IVANA Unger Ot C82.18 FOLLICULAR LYMPHOMA GRADE II, LYMPH NODE 09/29/2016 IVANA BOYD MD Ot T82.9XXA UNSP COMP OF CARDIAC AND VASCULAR PROSTH 10/04/2016 IVANA BOYD MD Ot C82.18 FOLLICULAR LYMPHOMA GRADE II, LYMPH NODE 10/04/2016 IVANA BOYD MD, Ot T82.9XXA UNSP COMP OF CARDIAC AND VASCULAR PROSTH 10/07/2016 JODY, BOBAN N Ot C82.18 FOLLICULAR LYMPHOMA GRADE II, LYMPH NODE 10/07/2016 INOCENCIO VERA N Ot Z01.89 ENCOUNTER FOR OTHER SPECIFIED SPECIAL EX 11/24/2016 INOCENCIO VERA N Ot B19.20 UNSPECIFIED VIRAL HEPATITIS C WITHOUT HE 11/24/2016 INOCENCIO VERA N Ot C82.18 FOLLICULAR LYMPHOMA GRADE II, LYMPH NODE 11/24/2016 JODY YANIVEMERITA N Ot 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, UNSPE 11/24/2016 INOCENCIO VERA N Ot 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 11/24/2016 INOCENCIO VERA N Ot Z79.899 OTHER SENIOR CARE (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 THERAPY 11/25/2016 INOCENCIO VERA N Ot B19.20 UNSPECIFIED VIRAL HEPATITIS C WITHOUT HE 11/25/2016 JODY YANIVEMERITA N Ot 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, UNSPE 11/25/2016 JODY YANIVEMERITA N Ot 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 11/25/2016 INOCENCIO VERA N Ot Z79.899 OTHER SENIOR CARE (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 THERAPY 11/30/2016 INOCENCIO VERA N Ot B19.20 UNSPECIFIED VIRAL HEPATITIS C WITHOUT HE 11/30/2016 INOCENCIO VERA N Ot 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, UNSPE 11/30/2016 JOYD YANIVEMERITA N Ot 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 11/30/2016 JODY YANIVEMERITA N Ot Z79.899 OTHER SENIOR CARE (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 THERAPY 12/09/2016 JODY YANIVEMERITA N Ot B19.20 UNSPECIFIED VIRAL HEPATITIS C WITHOUT HE 12/09/2016 JODY YANIVEMERITA N Ot C82.18 FOLLICULAR LYMPHOMA GRADE II, LYMPH NODE 12/09/2016 JODY INOCENCIO N Ot 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 12/09/2016 JODY BOBEMERITA N Ot 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 01/11/2017 JODY YANIVEMERITA N Ot B19.20 UNSPECIFIED VIRAL HEPATITIS C WITHOUT HE 01/11/2017 JODY YANIVEMERITA N Ot C82.18 FOLLICULAR LYMPHOMA GRADE II, LYMPH NODE 01/11/2017 INOCENCIO VERA N Ot 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 01/11/2017 INOCENCIO VERA N Ot 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 01/11/2017 INOCENCIO VERA N Ot Z79.899 OTHER SENIOR CARE (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 THERAPY 01/18/2017 INOCENCIO VERA N Ot B19.20 UNSPECIFIED VIRAL HEPATITIS C WITHOUT HE 01/18/2017 INOCENCIO VERA N Ot C82.18 FOLLICULAR LYMPHOMA GRADE II, LYMPH NODE 01/18/2017 INOCENCIO VERA N Ot 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 01/18/2017 INOCENCIO VERA N Ot 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 01/18/2017 INOCENCIO VERA N Ot Z51.11 ENCOUNTER FOR ANTINEOPLASTIC CHEMOTHERAP 01/18/2017 INOCENCIO VERA N Ot 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 02/01/2017 INOCENCIO VERA N Ot C82.18 FOLLICULAR LYMPHOMA GRADE II, LYMPH NODE 02/02/2017 INOCENCIO VERA N Ot C82.18 FOLLICULAR LYMPHOMA GRADE II, LYMPH NODE 02/08/2017 INOCENCIO VERA N Ot B19.20 UNSPECIFIED VIRAL HEPATITIS C WITHOUT HE 02/08/2017 INOCENCIO VERA N Ot C82.18 FOLLICULAR LYMPHOMA GRADE II, LYMPH NODE 02/08/2017 INOCENCIO VERA N Ot 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 02/08/2017 INOCENCIO VERA N Ot 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 02/08/2017 INOCENCIO VERA N Ot Z51.11 ENCOUNTER FOR ANTINEOPLASTIC CHEMOTHERAP 02/08/2017 INOCENCIO VERA N Ot 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 02/21/2017 INOCENCIO VERA N Ot B19.20 UNSPECIFIED VIRAL HEPATITIS C WITHOUT HE 02/21/2017 INOCENCIO VERA N Ot C82.18 FOLLICULAR LYMPHOMA GRADE II, LYMPH NODE 02/21/2017 INOCENCIO VERA N Ot 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 02/21/2017 INOCENCIO VERA N Ot 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 02/21/2017 INOCENCIO VERA N Ot Z51.11 ENCOUNTER FOR ANTINEOPLASTIC CHEMOTHERAP 02/21/2017 INOCENCIO VERA N Ot Z79.899 OTHER SENIOR CARE (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 THERAPY 02/21/2017 INOCENCIO VERA N Ot C82.18 FOLLICULAR LYMPHOMA GRADE II, LYMPH NODE 03/13/2017 INOCENCIO VERA N Ot B19.20 UNSPECIFIED VIRAL HEPATITIS C WITHOUT HE 03/13/2017 INOCENCIO VERA N Ot C82.18 FOLLICULAR LYMPHOMA GRADE II, LYMPH NODE 03/13/2017 JODYINOCENCIO [place] N Ot 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 03/13/2017 INOCENCIO VERA N Ot 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 03/13/2017 INOCENCIO VERA N Ot Z51.11 ENCOUNTER FOR ANTINEOPLASTIC CHEMOTHERAP 03/13/2017 INOCENCIO VERA N Ot Z79.899 OTHER SENIOR CARE (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 THERAPY 03/21/2017 INOCENCIO VERA N Ot B19.20 UNSPECIFIED VIRAL HEPATITIS C WITHOUT HE 03/21/2017 INOCENCIO VERA N Ot C82.18 FOLLICULAR LYMPHOMA GRADE II, LYMPH NODE 03/21/2017 INOCENCIO VERA N Ot 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 03/21/2017 INOCENCIO VERA N Ot 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 03/21/2017 INOCENCIO VERA N Ot Z51.11 ENCOUNTER FOR ANTINEOPLASTIC CHEMOTHERAP 03/21/2017 INOCENCIO VERA N Ot 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 04/20/2017 INOCENCIO VERA N Ot B19.20 UNSPECIFIED VIRAL HEPATITIS C WITHOUT HE 04/20/2017 INOCENCIO VERA N Ot C82.18 FOLLICULAR LYMPHOMA GRADE II, LYMPH NODE 04/20/2017 INOCENCIO VERA N Ot 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 04/20/2017 INOCENCIO VERA N Ot 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 04/20/2017 INOCENCIO VERA N Ot Z51.11 ENCOUNTER FOR ANTINEOPLASTIC CHEMOTHERAP 04/20/2017 INOCENCIO VERA N Ot 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 05/02/2017 INOCENCIO VERA N Ot B19.20 UNSPECIFIED VIRAL HEPATITIS C WITHOUT HE 05/02/2017 INOCENCIO VERA N Ot C82.18 FOLLICULAR LYMPHOMA GRADE II, LYMPH NODE 05/02/2017 INOCENCIO VERA N Ot 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 05/02/2017 INOCENCIO VERA N Ot 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 05/02/2017 INOCENCIO VERA N Ot Z51.11 ENCOUNTER FOR ANTINEOPLASTIC CHEMOTHERAP 05/02/2017 INOCENCIO VERA N Ot 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 05/04/2017 INOCENCIO VERA N Ot B19.20 UNSPECIFIED VIRAL HEPATITIS C WITHOUT HE 05/04/2017 INOCENCIO VERA N Ot C82.18 FOLLICULAR LYMPHOMA GRADE II, LYMPH NODE 05/04/2017 INOCENCIO VERA N Ot 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 05/04/2017 INOCENCIO VERA N Ot 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 05/04/2017 INOCENCIO VERA N Ot Z51.11 ENCOUNTER FOR ANTINEOPLASTIC CHEMOTHERAP 05/04/2017 INOCENCIO VERA N Ot 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 05/09/2017 INOCENCIO VERA N Ot B19.20 UNSPECIFIED VIRAL HEPATITIS C WITHOUT HE 05/09/2017 INOCENCIO VERA N Ot C82.18 FOLLICULAR LYMPHOMA GRADE II, LYMPH NODE 05/09/2017 INOCENCIO VERA N Ot 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 05/09/2017 INOCENCIO VERA N Ot 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 05/09/2017 INOCENCIO VERA N Ot Z51.11 ENCOUNTER FOR ANTINEOPLASTIC CHEMOTHERAP 05/09/2017 INOCENCIO VERA N Ot Z79.899 OTHER SENIOR CARE (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 THERAPY 05/14/2017 INOCENCIO VERA N Ot B19.20 UNSPECIFIED VIRAL HEPATITIS C WITHOUT HE 05/14/2017 INOCENCIO VERA N Ot C82.18 FOLLICULAR LYMPHOMA GRADE II, LYMPH NODE 05/14/2017 INOCENCIO VERA N Ot 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 05/14/2017 INOCENCIO VERA N Ot 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 05/14/2017 INOCENCIO VERA N Ot Z51.11 ENCOUNTER FOR ANTINEOPLASTIC CHEMOTHERAP 05/14/2017 IONCENCIO VERA N Ot Z79.899 OTHER SENIOR CARE (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 THERAPY 05/31/2017 INOCENCIO VERA N Ot B19.20 UNSPECIFIED VIRAL HEPATITIS C WITHOUT HE 05/31/2017 INOCENCIO VERA N Ot C82.18 FOLLICULAR LYMPHOMA GRADE II, LYMPH NODE 05/31/2017 INOCENCIO VERA N Ot 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 05/31/2017 INOCENCIO VERA N Ot 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 05/31/2017 INOCENCIO VERA N Ot Z51.11 ENCOUNTER FOR ANTINEOPLASTIC CHEMOTHERAP 05/31/2017 INOCENCIO VERA N Ot 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 06/21/2017 LORRIE MUÑOZ [employer] Ot C82.18 FOLLICULAR LYMPHOMA GRADE II, LYMPH NODE 06/21/2017 LORRIE MUÑOZP Ot R59.0 LOCALIZED ENLARGED LYMPH NODES 07/04/2017 INOCENCIO VERA N Ot B19.20 UNSPECIFIED VIRAL HEPATITIS C WITHOUT HE 07/04/2017 INOCENCIO VERA N Ot C82.18 FOLLICULAR LYMPHOMA GRADE II, LYMPH NODE 07/04/2017 INOCENCIO VERA N Ot 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 07/04/2017 INOCENCIO VERA N Ot 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 07/04/2017 INOCENCIO VERA N Ot Z51.11 ENCOUNTER FOR ANTINEOPLASTIC CHEMOTHERAP 07/04/2017 INOCENCIO VERA N Ot 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 07/12/2017 LORRIE MUÑOZ [employer] Ot C82.18 FOLLICULAR LYMPHOMA GRADE II, LYMPH NODE 07/12/2017 LORRIE MUÑOZP Ot R59.0 LOCALIZED ENLARGED LYMPH NODES 07/26/2017 INOCENCIO VERA N Ot B19.20 UNSPECIFIED VIRAL HEPATITIS C WITHOUT HE 07/26/2017 INOCENCIO VERA N Ot C82.18 FOLLICULAR LYMPHOMA GRADE II, LYMPH NODE 07/26/2017 INOCENCIO VERA N Ot 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 07/26/2017 INOCENCIO VERA N Ot 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 07/26/2017 INOCENCIO VERA N Ot Z51.11 ENCOUNTER FOR ANTINEOPLASTIC CHEMOTHERAP 07/26/2017 INOCENCIO VERA N Ot Z79.899 OTHER SENIOR CARE (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 THERAPY Procedures Code Description [place] [address] ROUTINE VENIPUNCTURE 03/29/2013 63726 CBC 03/29/2013 77449 CMP 03/29/2013 04797 LIPID PANEL 03/29/2013 9965476 GFR CALC (RESULT ONLY) 03/29/2013 21932 TSH 03/29/2013 19443 ROUTINE VENIPUNCTURE 11/12/[address] ABDOMEN & PELVIS W/ & W/ O CONTRAST 11/12/2013 Medical O [facility] 11/12/2013 84793 LIPID PANEL 11/12/2013 19863 CBC 11/12/2013 51641 CMP 11/12/20139823386 GFR CALC (RESULT ONLY) 11/12/2013 90595 TSH 11/12/2013 30598 H PYLORI (RML) 11/13/2013 [facility] Chucho Galvan 11/16/2013 Results Test Result Range Influenza virus A and B antigen detection - 08/13/16 13:21 FLU RESULT NEGATIVE FOR INFLUENZA A AND B ANTIGENS BY IA NRG Complete blood count (CBC) with automated white blood cell (WBC) differential - 08/13/16 13:51 Blood leukocytes automated count (number/volume) 3.3 10*3/uL 4.3-11.0 Blood erythrocytes automated count (number/volume) 4.40 10*6/uL 4.35-5.85 Venous blood hemoglobin measurement (mass/volume) 14.4 g/dL 13.3-17.7 Blood hematocrit (volume fraction) 40 % 40-54 Automated erythrocyte mean corpuscular volume 90 [foz_us] 80-99 Automated erythrocyte mean corpuscular hemoglobin (mass per erythrocyte) 33 pg 25-34 Automated erythrocyte mean corpuscular hemoglobin concentration measurement ( mass/volume) 36 g/dL 32-36 Automated erythrocyte distribution width ratio 15.4 % 10.0-14.5 Automated blood platelet count (count/volume) 111 10*3/uL 130-400 Automated blood platelet mean volume measurement 9.5 [foz_us] 7.4-10.4 Automated blood neutrophils/100 leukocytes 62 % 42-75 Automated blood lymphocytes/100 leukocytes 20 % 12-44 Blood monocytes/100 leukocytes 16 % 0-12 Automated blood eosinophils/100 leukocytes 2 % 0-10 Automated blood basophils/100 leukocytes 0 % 0-10 Blood neutrophils automated count (number/volume) 2.1 10*3 1.8-7.8 Blood lymphocytes automated count (number/volume) 0.7 10*3 1.0-4.0 Blood monocytes automated count (number/volume) 0.5 10*3 0.0-1.0 Automated eosinophil count 0.1 10*3/uL 0.0-0.3 Automated blood basophil count (count/volume) 0.0 10*3/uL 0.0-0.1 Comprehensive metabolic panel - 08/13/16 13:51 Serum or plasma sodium measurement (moles/volume) 136 mmol/L 135-145 Serum or plasma potassium measurement (moles/volume) 3.9 mmol/L 3.6-5.0 Serum or plasma chloride measurement (moles/volume) 103 mmol/L 98-107 Carbon dioxide 21 mmol/L 21-32 Serum or plasma anion gap determination (moles/volume) 12 mmol/L 5-14 Serum or plasma urea nitrogen measurement (mass/volume) 19 mg/dL 7-18 Serum or plasma creatinine measurement (mass/volume) 0.99 mg/dL 0.60-1.30 Serum or plasma urea nitrogen/creatinine mass ratio 19 NRG Serum or plasma creatinine measurement with calculation of estimated glomerular filtration rate > NRG Serum or plasma glucose measurement (mass/volume) 101 mg/dL 70-105 Serum or plasma calcium measurement (mass/volume) 9.8 mg/dL 8.5-10.1 Serum or plasma total bilirubin measurement (mass/volume) 0.8 mg/dL 0.1-1.0 Serum or plasma alkaline phosphatase measurement (enzymatic activity/volume) 90 U/L 40-136 Serum or plasma aspartate aminotransferase measurement (enzymatic activity/ volume) 39 U/L 5-34 Serum or plasma alanine aminotransferase measurement (enzymatic activity/volume ) 31 U/L 0-55 Serum or plasma protein measurement (mass/volume) 8.5 g/dL 6.4-8.2 Serum or plasma albumin measurement (mass/volume) 4.9 g/dL 3.2-4.5 Serum or plasma C reactive protein measurement (mass/volume) - 08/13/16 13:51 Serum or plasma C reactive protein measurement (mass/volume) 0.84 mg /dL 0.00-0.50 Complete blood count (CBC) with automated white blood cell (WBC) differential - 09/29/16 09:05 Blood leukocytes automated count (number/volume) 3.3 10*3/uL 4.3-11.0 Blood erythrocytes automated count (number/volume) 4.50 10*6/uL 4.35-5.85 Venous blood hemoglobin measurement (mass/volume) 14.9 g/dL 13.3-17.7 Blood hematocrit (volume fraction) 40 % 40-54 Automated erythrocyte mean corpuscular volume 90 [foz_us] 80-99 Automated erythrocyte mean corpuscular hemoglobin (mass per erythrocyte) 33 pg 25-34 Automated erythrocyte mean corpuscular hemoglobin concentration measurement ( mass/volume) 37 g/dL 32-36 Automated erythrocyte distribution width ratio 14.2 % 10.0-14.5 Automated blood platelet count (count/volume) 117 10*3/uL 130-400 Automated blood platelet mean volume measurement 8.9 [foz_us] 7.4-10.4 Automated blood neutrophils/100 leukocytes 65 % 42-75 Automated blood lymphocytes/100 leukocytes 19 % 12-44 Blood monocytes/100 leukocytes 14 % 0-12 Automated blood eosinophils/100 leukocytes 2 % 0-10 Automated blood basophils/100 leukocytes 0 % 0-10 Blood neutrophils automated count (number/volume) 2.1 10*3 1.8-7.8 Blood lymphocytes automated count (number/volume) 0.6 10*3 1.0-4.0 Blood monocytes automated count (number/volume) 0.5 10*3 0.0-1.0 Automated eosinophil count 0.1 10*3/uL 0.0-0.3 Automated blood basophil count (count/volume) 0.0 10*3/uL 0.0-0.1 Methicillin resistant Staphylococcus aureus (MRSA) screening culture - 10:17 Methicillin resistant Staphylococcus aureus (MRSA) screening culture NEG NRG Complete blood count (CBC) with automated white blood cell (WBC) differential - 08/11/17 11:10 Blood leukocytes automated count (number/volume) 3.8 10*3/uL 4.3-11.0 Blood erythrocytes automated count (number/volume) 3.76 10*6/uL 4.35-5.85 Venous blood hemoglobin measurement (mass/volume) 13.0 g/dL 13.3-17.7 Blood hematocrit (volume fraction) 36 % 40-54 Automated erythrocyte mean corpuscular volume 96 [foz_us] 80-99 Automated erythrocyte mean corpuscular hemoglobin (mass per erythrocyte) 35 pg 25-34 Automated erythrocyte mean corpuscular hemoglobin concentration measurement ( mass/volume) 36 g/dL 32-36 Automated erythrocyte distribution width ratio 14.6 % 10.0-14.5 Automated blood platelet count (count/volume) 130 10*3/uL 130-400 Automated blood platelet mean volume measurement 9.0 [foz_us] 7.4-10.4 Automated blood neutrophils/100 leukocytes 69 % 42-75 Automated blood lymphocytes/100 leukocytes 13 % 12-44 Blood monocytes/100 leukocytes 15 % 0-12 Automated blood eosinophils/100 leukocytes 2 % 0-10 Automated blood basophils/100 leukocytes 1 % 0-10 Blood neutrophils automated count (number/volume) 2.6 10*3 1.8-7.8 Blood lymphocytes automated count (number/volume) 0.5 10*3 1.0-4.0 Blood monocytes automated count (number/volume) 0.6 10*3 0.0-1.0 Automated eosinophil count 0.1 10*3/uL 0.0-0.3 Automated blood basophil count (count/volume) 0.0 10*3/uL 0.0-0.1 Whole blood basic metabolic panel - 08/11/17 11:10 Serum or plasma sodium measurement (moles/volume) 137 mmol/L 135-145 Serum or plasma potassium measurement (moles/volume) 4.4 mmol/L 3.6-5.0 Serum or plasma chloride measurement (moles/volume) 102 mmol/L 98-107 Carbon dioxide 24 mmol/L 21-32 Serum or plasma anion gap determination (moles/volume) 11 mmol/L 5-14 Serum or plasma urea nitrogen measurement (mass/volume) 16 mg/dL 7-18 Serum or plasma creatinine measurement (mass/volume) 1.09 mg/dL 0.60-1.30 Serum or plasma urea nitrogen/creatinine mass ratio 15 NRG Serum or plasma creatinine measurement with calculation of estimated glomerular filtration rate > NRG Serum or plasma glucose measurement (mass/volume) 105 mg/dL 70-105 Serum or plasma calcium measurement (mass/volume) 9.7 mg/dL 8.5-10.1 Encounters ACCT No. Visit Date/Time Discharge Status Pt. Type Provider Facility Loc./Unit Complaint [id number] 08/27/2014 15:42:00 08/27/2014 23:59:59 CLS Outpatient ORNNY EXHAUST WORKERGABYA S [id number] 04/29/2014 14:54:00 04/29/2014 23:59:59 CLS Outpatient RONNY EXHAUST WORKERGABYA S [id number] 03/14/2014 10:29:00 03/14/2014 23:59:59 CLS Outpatient RONNY EXHAUST WORKERRUPALWILLY S [id number] 02/19/2014 09:58:00 02/19/2014 23:59:59 CLS Outpatient RONNY EXHAUST WORKERRUPALWILLY S [id number] 01/15/2014 14:29:00 01/15/2014 23:59:59 CLS Outpatient RONNY EXHAUST WORKERRUPALWILLY S [id number] 11/12/2013 10:03:00 11/12/2013 23:59:59 CLS Outpatient RONNY EXHAUST WORKERRUPALWILLY S [id number] 06/27/2013 14:20:00 06/27/2013 23:59:59 CLS Outpatient RONNY EXHAUST WORKERGABYA S [id number] 05/23/2012 10:43:00 05/23/2012 23:59:59 CLS Outpatient [id number] 03/29/2013 08:59:00 Document Registration [id number] 07/26/2017 15:27:00 07/26/2017 23:59:59 CLS Preadmit INOCENCIO VERA Carine [facility] RAD C82.18,D80.9,Z51.11 [id number] 07/26/2017 15:26:00 07/26/2017 23:59:59 CLS Preadmit INOCENCIO VERA Carine [facility] RAD C82.18,D80.9,Z51.11 [id number] 07/26/2017 13:21:00 07/26/2017 23:59:59 CLS Outpatient INOCENCIO VERA Carine [facility] ONC [id number] 06/20/2017 09:36:00 06/20/2017 23:59:59 CLS Outpatient LORRIE MUÑOZ [facility] RAD C82.18 FOLLICULAR NON -HODGKIN'S LYMPHOMA [id number] 05/03/2017 13:34:00 05/14/2017 00:01:00 DIS Outpatient INOCENCIO VERA [facility] ONC [id number] 03/07/2017 12:49:00 03/07/2017 23:59:59 CLS Outpatient INOCENCIO VERA [facility] ONC [id number] 01/28/2017 10:27:00 01/28/2017 23:59:59 CLS Outpatient INOCENCIO VERA [facility] RAD C82.18 [id number] 11/15/2016 12:42:00 11/24/2016 00:01:00 DIS Outpatient INOCENCIO VERA [facility] ONC [id number] 09/29/2016 08:43:00 09/29/2016 15:00:00 DIS Outpatient IVANA BOYD MD [facility] SDC NONFUNCTIONING PORT [id number] 09/23/2016 05:36:00 09/23/2016 09:31:00 DIS Outpatient IVANA BOYD MD [facility] PREOP NONFUNCTIONING PORT [id number] 09/15/2016 10:05:00 09/15/2016 23:59:59 CLS Outpatient INOCENCIO VERA [facility] RAD C82.18 [id number] 07/26/2016 13:02:00 08/22/2016 00:01:00 DIS Outpatient INOCENCIO VERA [facility] ONC [id number] 08/13/2016 13:07:00 08/13/2016 15:39:00 DIS Emergency MIGNON NICKERSON, ROSHAN Gann [facility] ER COUGH/CONGESTION HEADACHE/BODYACHES [id number] 07/23/2016 13:42:00 08/11/2016 15:48:00 DIS Outpatient DARI TILLMAN DO [facility] REHAB LT SHLD TEAR OF SUPRASPRINATIS [id number] 07/15/2016 13:50:00 07/15/2016 23:59:59 CLS Outpatient GARRET FREDERICK MD [facility] RAD THORACIC PAIN,LUMBAR SPONDYLOSIS [id number] 05/27/2016 16:33:00 05/27/2016 23:59:59 CLS Outpatient DARI TILLMAN DO [facility] RAD LT SHOULDER PAIN [id number] 03/29/2016 10:59:00 05/02/2016 00:01:00 DIS Outpatient INOCENCIO VERA [facility] ONC [id number] 03/29/2016 11:00:00 03/29/2016 23:59:59 CLS Outpatient LORRIE MUÑOZ [employer] [facility] ONC [id number] 12/08/2015 10:49:00 01/12/2016 00:01:00 DIS Outpatient INOCENCIO VERA [facility] ONC [id number] 12/08/2015 10:52:00 12/08/2015 23:59:59 CLS Outpatient LORRIE MUÑOZ S [employer] [facility] ONC [id number] 11/10/2015 14:06:00 11/14/2015 15:21:00 DIS Outpatient INOCENCIO VERA [facility] ONC [id number] 07/28/2015 13:26:00 08/31/2015 00:01:00 DIS Outpatient INOCENCIO VERA [facility] ONC [id number] 07/28/2015 13:27:00 07/28/2015 23:59:59 CLS Outpatient LORRIE MUÑOZ S [employer] [facility] ONC [id number] 06/11/2015 18:12:00 06/13/2015 13:30:00 DIS Inpatient MICHELLE MARIA MD [facility] 4TH PNEUMONIA [id number] 06/11/2015 16:48:00 06/11/2015 23:59:59 CLS Outpatient LORRIE MUÑOZ [employer] [facility] ONC [id number] 06/11/2015 16:20:00 06/11/2015 23:59:59 CLS Outpatient LORRIE MUÑOZ S [employer] [facility] RAD [id number] 04/07/2015 13:38:00 05/14/2015 00:01:00 DIS Outpatient JODY BOBAN Carine [facility] ONC [id number] 04/07/2015 13:29:00 04/07/2015 23:59:59 CLS Outpatient LORRIE MUÑOZP [facility] ONC [id number] 03/01/2015 09:23:00 03/01/2015 11:48:00 DIS Emergency MIGNON NICKERSON, ROSHAN Gann [facility] ER CONGESTION,FEVER,BODY ACHES [id number] 02/03/2015 13:46:00 02/26/2015 00:01:00 DIS Outpatient JODYINOCENCIO Carine [facility] ONC [id number] 02/12/2015 13:12:00 02/12/2015 23:59:59 CLS Outpatient SHERIDAN KANG APRN [facility] RT SOB,TOBACCO USE [id number] 02/03/2015 13:43:00 02/03/2015 23:59:59 CLS Outpatient LORRIE MUÑOZ [facility] ONC [id number] 01/15/2015 12:50:00 01/15/2015 23:59:59 CLS Outpatient JODYINOCENCIO Carine [facility] RAD 202.0,SOB [id number] 12/31/2014 08:45:00 12/31/2014 23:59:59 CLS Outpatient TORITO NASH MD [facility] RAD THORACALGIA [id number] 12/19/2014 14:10:00 12/19/2014 23:59:59 CLS Outpatient TORITO NASH MD [facility] RAD DDD [id number] 08/29/2014 09:18:00 08/29/2014 23:59:59 CLS Outpatient INOCENCIO VERA [facility] ONC [id number] 08/20/2014 12:17:00 08/20/2014 23:59:59 CLS Outpatient LORRIE MUÑOZP [facility] RAD [id number] 07/02/2014 13:46:00 07/02/2014 14:24:00 DIS Outpatient XUN JL NICKERSON [facility] ONC [id number] 06/25/2014 12:46:00 06/25/2014 23:59:59 CLS Outpatient LORRIE MUÑOZ [employer] [facility] ONC [id number] 05/02/2014 14:51:00 05/26/2014 00:01:00 DIS Outpatient JL GARLAND MD [facility] ONC [id number] 05/21/2014 10:05:00 05/21/2014 23:59:59 CLS Outpatient MUÑOZLORRIE Fernández S [employer] [facility] RAD [id number] 05/01/2014 10:10:00 05/01/2014 23:59:59 CLS Outpatient LORRIE MUÑOZ S [employer] [facility] ONC [id number] 03/06/2014 08:36:00 03/06/2014 23:59:59 CLS Outpatient LORRIE MUÑOZ S [employer] [facility] ONC [id number] 02/21/2014 08:31:00 02/21/2014 23:59:59 CLS Outpatient JL GARLAND MD [facility] RAD [id number] 12/24/2013 08:14:00 02/21/2014 00:01:00 DIS Outpatient JL GARLAND MD [facility] ONC [id number] 12/18/2013 09:41:00 12/18/2013 23:59:59 CLS Outpatient LORRIE MUÑOZ [employer] [facility] ONC [id number] 11/26/2013 11:27:00 11/26/2013 23:59:59 CLS Outpatient JL GARLAND MD [facility] RAD [id number] 11/23/2013 10:42:00 11/24/2013 13:50:00 DIS Outpatient CHUCHO JOY DO [facility] [id number] 11/22/2013 13:11:00 11/22/2013 23:59:59 CLS Outpatient CHUCHO JOY DO [facility] PREOP [id number] 11/15/2013 11:59:00 11/16/2013 15:15:00 DIS Outpatient CHUCHO JOY DO [facility] [id number] 11/12/2013 11:26:00 11/12/2013 23:59:59 CLS Outpatient WILLY JEFFERSON [facility] RAD
[2017-08-12] MEDS ORDERED: NITROGLYCERIN 0.4 MG SL TABS BTL 25'S SL PRN (13:30)
[2017-08-12] MEDS ORDERED: ASPIRIN 81 MG CHEW (CHILDREN'S ASA) PO ONE (13:30)
[2017-08-12] MEDS ORDERED: meTOproloL SUCCINATE 50 MG (TOPROL XL) TAB PO SCH (13:30)
[2017-08-12] MEDS ORDERED: NS IV 1000 ML 1,000 ML IV ONE (13:32)
--- NOTE | 2017-08-12 13:32 | ED Chest Pain ---
General Stated Complaint: CHEST PAIN Source: patient Exam Limitations: no limitations History of Present Illness Time seen by provider: 13:25 Initial Comments Here with report of central chest pain that he describes as an ache that has been going on since 10 a.m. It is worse with activity and better with rest. Also noted fast heart rate. Currently receiving chemotherapy for non-Hodgkin's lymphoma. Also has protein S deficiency and takes aspirin daily. He did take 2 full dose aspirin today. Reports eating and drinking okay. Denies shortness of breath or sweating. Denies recent fevers. Does report that this appears to be coming more often and lasting longer each time. Timing/Duration: 1-3 hours Severity/Quality: moderate, aching Location: central Radiation: no radiation Activities at Onset: none Prior CP/Workup: no prior cardiac workup ASA po DIRECTOR OF INSTITUTIONAL RESEARCH: Yes NTG SL DIRECTOR OF INSTITUTIONAL RESEARCH: No Associated Symptoms: No abdominal pain, No back pain, No diaphoresis, No dizziness, No fatigue, No fever/chills, No nausea/vomiting, No shortness of breath, No weakness Allergies and Home Medications Allergies Coded Allergies: Gadolinium-Containing Contrast Medi (Verified Allergy, Severe, Anaphylaxis , 03/01/15) gadoteridol (Unverified Allergy, Mild, SNEEZING, HOARSE VOICE, 12/31/14) Home Medications Acetaminophen/Diphenhydramine 1 Each Tablet, 3 EACH PO HS, (Reported) Aspirin 325 Mg Tablet, 1,300 MG PO DAILY, (Reported) take 4 (325mg) tabs Hydrocodone Bit/Acetaminophen 1 Each Tablet, 1-2 TAB PO 4-6HR PRN for PAIN, #30 Prescribed by: IVANA BOYD on 09/29/16 1201 Lisinopril 20 Mg Tablet, 20 MG PO DAILY, (Reported) Multivitamin 1 Each Tablet, 1 TAB PO BID, (Reported) [place] 3 Polyunsat Fatty Acids 1,000 Mg Cap, 1,000 MG PO BID, (Reported) Oxycodone HCl 20 Mg Tablet, 20 MG PO TID PRN for PAIN, (Reported) Vitamin B Complex & Vit C No.4 150 Mg Tablet, 150 MG PO DAILY, (Reported) Review of Systems Constitutional: see HPI, No chills, No fever EENTM: No Symptoms Reported Respiratory: No Symptoms Reported Cardiovascular: See HPI, Chest Pain, Denies Edema, Palpitations Gastrointestinal: Denies Diarrhea, Denies Vomiting Genitourinary: No Symptoms Reported Musculoskeletal: no symptoms reported Skin: no symptoms reported All Other Systems Reviewed Negative Unless Noted: Yes Past Mqgiwck-Dlakhl-Iwzmir Hx Patient Social History Alcohol Use: Occasionally Uses Alcohol Beverage of Choice: Beer Recreational Drug Use: No Smoking Status: Former Smoker Type Used: Cigarettes, Smokeless Tobacco Former Smoker, Quit: Aug 13, 2013 Recent Foreign Travel: No Contact w/Someone Who Travel: No Recent Hopitalizations: No Immunizations Up To Date Tetanus Booster (TDap): Unknown Date of Pneumonia Vaccine: December 13, 2014 Date of Influenza Vaccine: May 15, 2015 Seasonal Allergies Seasonal Allergies: No Surgeries Surgeries: Abdominal, Adenoidectomy, Tonsillectomy Respiratory History of Respiratory Disorde: Yes Respiratory Disorders: Pneumonia, Emphysema Currently Using CPAP: No Cardiovascular History of Cardiac Disorders: Yes Cardiac Disorders: Hypertension Reproductive System Hx Reproductive Disorders: No Sexually Transmitted Disease: No HIV/AIDS: No Gastrointestinal History of Gastrointestinal Di: Yes Gastrointestinal Disorders: Hemorrhoids, Hepatitis, Cirrhosis Musculoskeletal History of Musculoskeletal Dis: Yes Musculoskeletal Disorders: Degenerate Disk Disease HEENT Loss of Vision: Denies Hearing Impairment: Denies Cancer Cancer: Lymphoma Psychosocial History of Psychiatric Problem: Yes Behavioral Health Disorders: Anxiety, Depression Blood Transfusions Adverse Reaction to a Blood Tr: No Reviewed Nursing Assessment Reviewed/Agree w Nursing PMH: Yes Family Medical History Family Medial History: Abdominal aortic aneurysm Alcoholism Aphasia Cancer Cancer of colon Cataract Chest pain Congestive heart failure Coronary thrombosis 09 BROTHER 09 BROTHER 09 BROTHER 09 BROTHER 09 SISTER 09 SISTER 09 SISTER Dementia Dysphagia Family history: Allergy Family history: Alzheimer's disease Family history: Cardiovascular disease Family history: Coronary thrombosis Family history: Gastrointestinal disease Family history: Thyroid disorder Heart disease Hereditary disease History of drug abuse Kidney disease Myocardial infarction 09 BROTHER Psychotic disorder Seizure disorder Stroke 09 BROTHER Physical Exam Vital Signs Vital Sign - Last 12Hours 08/12/17 13:20 Temp 98.5 Pulse 120 Resp 18 B/P (MAP) 171/99 (123) Pulse Ox 97 Capillary Refill : General Appearance: No Apparent Distress, WD/WN HEENT: PERRL/EOMI, Pharynx Normal Neck: Non Tender, Supple Respiratory: Lungs Clear, Normal Breath Sounds Cardiovascular: No Murmur, Tachycardia Gastrointestinal: Non Tender, Soft Extremity: Normal Range of Motion, Non Tender Neurologic/Psychiatric: Alert, Oriented x3 Skin: Warm/Dry, Other (flush appearance to the cheeks and face) Progress/Results/Core Measures Results/Orders Lab Results Laboratory Tests Test 08/12/17 13:46 Range/Units White Blood Count 12.1 H 4.3-11.0 10^3/uL Red Blood Count 3.77 L 4.35-5.85 10^6/uL Hemoglobin 12.9 L 13.3-17.7 G/DL Hematocrit 36 L 40-54 % Mean Corpuscular Volume 96 80-99 FL Mean Corpuscular Hemoglobin 34 25-34 PG Mean Corpuscular Hemoglobin Concent 36 32-36 G/DL Red Cell Distribution Width 14.3 10.0-14.5 % Platelet Count 135 130-400 10^3/uL Mean Platelet Volume 8.8 7.4-10.4 FL Neutrophils (%) (Auto) 87 H 42-75 % Lymphocytes (%) (Auto) 4 L 12-44 % Monocytes (%) (Auto) 9 0-12 % Eosinophils (%) (Auto) 0 0-10 % Basophils (%) (Auto) 0 0-10 % Neutrophils # (Auto) 10.5 H 1.8-7.8 X 10^3 Lymphocytes # (Auto) 0.5 L 1.0-4.0 X 10^3 Monocytes # (Auto) 1.1 H 0.0-1.0 X 10^3 Eosinophils # (Auto) 0.0 0.0-0.3 10^3/uL Basophils # (Auto) 0.0 0.0-0.1 10^3/uL Neutrophils % (Manual) 91 % Lymphocytes % (Manual) 2 % Monocytes % (Manual) 7 % Eosinophils % (Manual) 0 % Basophils % (Manual) 0 % Band Neutrophils 0 % Blood Morphology Comment NORMAL Prothrombin Time 13.0 12.2-14.7 SEC INR Comment 1.0 0.8-1.4 Activated Partial Thromboplast Time 28 24-35 SEC D-Dimer 0.60 H 0.00-0.49 UG/ML Sodium Level 137 135-145 MMOL/L Potassium Level 4.2 3.6-5.0 MMOL/L Chloride Level 104 98-107 MMOL/L Carbon Dioxide Level 23 21-32 MMOL/L Anion Gap 10 5-14 MMOL/L Blood Urea Nitrogen 14 7-18 MG/DL Creatinine 1.11 0.60-1.30 MG/DL Estimat Glomerular Filtration Rate > 60 BUN/Creatinine Ratio 13 Glucose Level 128 H 70-105 MG/DL Calcium Level 9.8 8.5-10.1 MG/DL Magnesium Level 2.1 1.8-2.4 MG/DL Total Bilirubin 0.4 0.1-1.0 MG/DL Aspartate Amino Transf (AST/SGOT) 34 5-34 U/L Alanine Aminotransferase (ALT/SGPT) 26 0-55 U/L Alkaline Phosphatase 58 40-136 U/L Myoglobin 40.0 10.0-92.0 NG/ML Troponin I < 0.30 <0.30 NG/ML Total Protein 8.3 H 6.4-8.2 GM/DL Albumin 4.6 H 3.2-4.5 GM/DL My Orders Orders - KULDIP JEFFERS MD Cbc With Automated Diff (08/12/17 13:18) Magnesium (08/12/17 13:18) Chest 1 View, Ap/Pa Only (08/12/17 13:18) Ekg Tracing (08/12/17 13:18) Cardiac Profile 1 (08/12/17 13:18) Comprehensive Metabolic Panel (08/12/17 13:18) Myoglobin Serum (08/12/17 13:18) Protime With Inr (08/12/17 13:18) Partial Thromboplastin Time (08/12/17 13:18) O2 (08/12/17 13:18) Monitor-Rhythm Ecg Trace Only (08/12/17 13:18) Lipid Panel (08/13/17 06:00) Aspirin Chewable Tablet (Baby Aspirin Ch (08/12/17 13:30) Saline Lock/Iv-Start (08/12/17 13:18) Nitroglycerin 0.4 Mg Btl 25's (Nitrostat (08/12/17 13:25) Nitroglycerin 0.4 Mg Btl 25's (Nitrostat (08/12/17 13:30) Fibrin Degradation Products (08/12/17 13:28) Metoprolol Succinate (Xl) Tab (Toprol Xl (08/12/17 13:30) Ns Iv 1000 Ml (Sodium Chloride 0.9%) (08/12/17 13:32) Manual Differential (08/12/17 13:46) Ct Angio Chest W (08/12/17 14:47) Iohexol Injection (Omnipaque 350 Mg/Ml 1 (08/12/17 15:30) Sodium Chloride Flush (Catheter Flush Sy (08/12/17 15:30) Ns (Ivpb) (Sodium Chloride 0.9% Ivpb Bag (08/12/17 15:30) Pharmacy Communication (Pharmacy Communi (08/12/17 15:24) Medications Given in ED Current Medications Medications Dose Ordered Sig/Aviva Route Start Time Stop Time Status Last Admin Dose Admin Iohexol 150 ml ONCE ONCE IV 08/12/17 15:30 08/12/17 15:31 DC 08/12/17 15:26 125 ML Nitroglycerin 0.4 mg STK-MED ONCE SL 08/12/17 13:25 08/12/17 13:28 DC 08/12/17 13:30 0.4 MG Sodium Chloride 10 ml NEEDED PRN IV 08/12/17 15:30 08/12/17 15:27 10 ML Sodium Chloride 100 ml ONCE ONCE IV 08/12/17 15:30 08/12/17 15:31 DC 08/12/17 15:26 80 ML Sodium Chloride 1,000 ml @ 0 mls/hr Q0M ONCE IV 08/12/17 13:32 08/12/17 13:33 DC 08/12/17 13:59 1,000 MLS/HR Vital Signs/I&O Vital Sign - Last 12Hours 08/12/17 13:20 Temp 98.5 Pulse 120 Resp 18 B/P (MAP) 171/99 (123) Pulse Ox 97 Progress Note : Progress Note Seen and evaluated. Here from cancer center. He did not get his chemotherapy treatment today due to the chest pain. Patient does have his port accessed currently. Labs, chest x-ray, EKG and nitroglycerin sublingual ordered. Normal saline 1 L bolus. Toprol-XL 50 mg by mouth ordered. Monitor patient. 1450: Pain is resolved. D-dimer is elevated. Patient is high risk for pulmonary embolism due to protein S deficiency and lymphoma. We will get CT angiogram of the chest. 1600: No acute findings on CT angiogram. We will admit the patient for further evaluation. 1602: I did discuss the case with Dr. Elina Lomas. She says patient for admission, observation status. Consult Dr. Burden. 1606: I did discuss the case with Dr. Burden and he accepts patient in consult. Patient is in agreement with plan ECG Initial ECG Impression Date: Aug 12, 2017 Initial ECG Impression Time: 13:25 Initial ECG Rate: 115 Initial ECG Rhythm: S.Tach Comment Sinus tachycardia with normal axis. No evidence of ST elevation NM. Similar to previous but rate faster to 01 March 2015. Interpreted by me. Diagnostic Imaging Diagonstic Imaging: Xray Plain Films/CT/US/NM/MRI: chest Comments [facility]. [place], [place] [id number] PT STATUS: REG ER : 1950 PHYSICIAN: KULDIP JEFFERS MD ADMIT DATE: 08/12/17/ER Draft Date of Exam:08/12/17 CHEST 1 VIEW, AP/PA ONLY PATIENT HISTORY: Central chest pain, on and off for a few months. Worsening over the last two months. TECHNIQUE: Single frontal view of the chest. COMPARISON: 08/13/2016. FINDINGS: The tip of the right-sided Port-A-Cath projects over the mid SVC. Lung volumes are normal. No focal consolidation is seen. No pleural effusion or pneumothorax is identified. The cardiomediastinal silhouette is normal in size and contour. No acute osseous abnormality is seen. IMPRESSION: No acute pulmonary abnormality seen. Dictated on workstation # [id number] Dict: 08/12/17 1402 Trans: 08/12/17 1416 [facility] [id number] Interpreted by: MIRIAM SPRINGER MD Electronically signed by: Diagonstic Imaging: CT Plain Films/CT/US/NM/MRI: chest Comments [facility]. [place], [place] NAME: BOSSMAN KELLY [facility] REC#: [id number] PT STATUS: REG ER : 1950 PHYSICIAN: KULDIP JEFFERS MD ADMIT DATE: 08/12/17/ER Draft Date of Exam:08/12/17 CT ANGIO CHEST W PROCEDURE: CT angiography of the chest with contrast. TECHNIQUE: Multiple contiguous axial images were obtained through the chest after uneventful bolus administration of intravenous contrast. Reconstructed CTA MIP acquisitions were also performed. INDICATION: Chest pain. History of non-Hodgkin's lymphoma. COMPARISON: CT chest of 06/20/2017. FINDINGS: Vasculature: No pulmonary emboli. No CT evidence of pulmonary hypertension or right ventricular strain. Thoracic aorta is normal in caliber. No aortic dissection or pseudoaneurysm. Heart and mediastinum: Visualized thyroid is normal. No supraclavicular, axillary, or intra-thoracic lymphadenopathy. Heart is normal in size without pericardial effusion. There are coronary artery calcifications present. Right IJ Port-A-Cath has tip terminating in the mid to lower SVC. Pleura: No pleural effusion or pneumothorax. Lungs and airway: No endoluminal lesion in the trachea or central bronchi. Scattered centrilobular emphysema is unchanged. Stable band-like atelectasis in the right lower lobe. No airspace consolidation, suspicious nodule or pulmonary mass. Upper abdomen: Enlarged upper abdominal celiac axis lymph node is stable measuring 1.3 cm in short axis. Ill-defined hazy attenuation within the retroperitoneum is most compatible with treated lymphadenopathy. Macario hepatis lymph node remains stable in size. No new or enlarging upper abdominal lymph nodes. Musculoskeletal: No concerning osseous lesion. IMPRESSION: 1. No acute cardiopulmonary process. Specifically, no pulmonary emboli or acute aortic syndrome. 2. Stable upper abdominal lymphadenopathy and retroperitoneal stranding compatible with patient's known lymphoma. 3. Stable coronary artery disease. Dictated on workstation # [id number] Dict: 08/12/17 1530 Trans: 08/12/17 1538 [facility] [id number] Interpreted by: JO ANN FOLEY MD Electronically signed by: Departure Communication (Admissions) Time/Spoke to Admitting Phy: 16:02 Impression Impression: Primary Impression: Chest pain Qualified Codes: R07.9 - Chest pain, unspecified Additional Impression: Non-Hodgkin's lymphoma in adult Disposition: ADMITTED INPATIENT Condition: Stable Admissions Decision to Admit Reason: Admit from ER (General) Decision to Admit/Date: Aug 12, 2017 Time/Decision to Admit Time: 16:02 Departure-Patient Inst. Referrals: MICHELLE MARIA MD (PCP) Primary Care Physician WILLY JEFFERSON (Family) Primary Care Physician KULDIP JEFFERS MD Aug 12, 2017 13:32
[2017-08-12 13:57] LABS: BASOPHILS % (AUTO) 0 % (0-10); EOSINOPHILS % (AUTO) 0 % (0-10); HEMATOCRIT 36 % (40-54); HEMOGLOBIN 12.9 G/DL (13.3-17.7); LYMPHOCYTES # (AUTO) 0.5 X 10^3 (1.0-4.0); LYMPHOCYTES % (AUTO) 4 % (12-44); MEAN CORPUSCULAR HEMOGLOBIN 34 PG (25-34); MEAN CORPUSCULAR HGB CONC 36 G/DL (32-36); MEAN CORPUSCULAR VOLUME 96 FL (80-99); MEAN PLATELET VOLUME 8.8 FL (7.4-10.4); MONOCYTES # (AUTO) 1.1 X 10^3 (0.0-1.0); MONOCYTES % (AUTO) 9 % (0-12); NEUTROPHILS # (AUTO) 10.5 X 10^3 (1.8-7.8); NEUTROPHILS % (AUTO) 87 % (42-75); PLATELET COUNT 135 10^3/uL (130-400); RED BLOOD COUNT 3.77 10^6/uL (4.35-5.85); RED CELL DISTRIBUTION WIDTH 14.3 % (10.0-14.5); WHITE BLOOD COUNT 12.1 10^3/uL (4.3-11.0)
[2017-08-12 14:11] LABS: BAND NEUTROPHILS 0 %; LYMPHOCYTES % (MANUAL) 2 %; NEUTROPHILS % (MANUAL) 91 %
[2017-08-12 14:12] LABS: BASOPHILS % (MANUAL) 0 %; EOSINOPHILS % (MANUAL) 0 %; MONOCYTES % (MANUAL) 7 %; RBC MORPH NORMAL
--- NOTE | 2017-08-12 14:17 | Diagnostic Imaging Report ---
PATIENT HISTORY: Central chest pain, on and off for a few months. Worsening over the last two months. TECHNIQUE: Single frontal view of the chest. COMPARISON: 08/13/2016. FINDINGS: The tip of the right-sided Port-A-Cath projects over the mid SVC. Lung volumes are normal. No focal consolidation is seen. No pleural effusion or pneumothorax is identified. The cardiomediastinal silhouette is normal in size and contour. No acute osseous abnormality is seen. IMPRESSION: No acute pulmonary abnormality seen. Dictated by: Dictated on workstation # [id number]
[2017-08-12 14:22] LABS: ALANINE AMINOTRANSFERASE 26 U/L (0-55); ALBUMIN 4.6 GM/DL (3.2-4.5); ALKALINE PHOSPHATASE 58 U/L (40-136); BILIRUBIN,TOTAL 0.4 MG/DL (0.1-1.0); BUN/CREATININE RATIO 13; CALCIUM 9.8 MG/DL (8.5-10.1); CARBON DIOXIDE 23 MMOL/L (21-32); CHLORIDE 104 MMOL/L (98-107); CREATININE SERUM 1.11 MG/DL (0.60-1.30); GFR ESTIMATED > 60; GLUCOSE 128 MG/DL (70-105); MAGNESIUM 2.1 MG/DL (1.8-2.4); POTASSIUM 4.2 MMOL/L (3.6-5.0); SODIUM 137 MMOL/L (135-145); TOTAL PROTEIN 8.3 GM/DL (6.4-8.2)
[2017-08-12] MEDS ORDERED: IOHEXOL 350 MG/ML 150 ML (OMNIPAQUE 350) VIAL IV ONE (15:30)
[2017-08-12] MEDS ORDERED: CATHETER FLUSH 10 ML SYR IV PRN (15:30)
[2017-08-12] MEDS ORDERED: NS 100 ML (IVPB) BAG IV ONE (15:30)
--- NOTE | 2017-08-12 15:39 | Diagnostic Imaging Report ---
PROCEDURE: CT angiography of the chest with contrast. TECHNIQUE: Multiple contiguous axial images were obtained through the chest after uneventful bolus administration of intravenous contrast. Reconstructed CTA MIP acquisitions were also performed. INDICATION: Chest pain. History of non-Hodgkin's lymphoma. COMPARISON: CT chest of 06/20/2017. FINDINGS: Vasculature: No pulmonary emboli. No CT evidence of pulmonary hypertension or right ventricular strain. Thoracic aorta is normal in caliber. No aortic dissection or pseudoaneurysm. Heart and mediastinum: Visualized thyroid is normal. No supraclavicular, axillary, or intra-thoracic lymphadenopathy. Heart is normal in size without pericardial effusion. There are coronary artery calcifications present. Right IJ Port-A-Cath has tip terminating in the mid to lower SVC. Pleura: No pleural effusion or pneumothorax. Lungs and airway: No endoluminal lesion in the trachea or central bronchi. Scattered centrilobular emphysema is unchanged. Stable band-like atelectasis in the right lower lobe. No airspace consolidation, suspicious nodule or pulmonary mass. Upper abdomen: Enlarged upper abdominal celiac axis lymph node is stable measuring 1.3 cm in short axis. Ill-defined hazy attenuation within the retroperitoneum is most compatible with treated lymphadenopathy. Macario hepatis lymph node remains stable in size. No new or enlarging upper abdominal lymph nodes. Musculoskeletal: No concerning osseous lesion. IMPRESSION: 1. No acute cardiopulmonary process. Specifically, no pulmonary emboli or acute aortic syndrome. 2. Stable upper abdominal lymphadenopathy and retroperitoneal stranding compatible with patient's known lymphoma. 3. Stable coronary artery disease. Dictated by: Dictated on workstation # [id number]
--- OUTSIDE RECORDS SUMMARY | 2017-08-12 16:32 | XMS REPORT | Continuity of Care Document ---
Author Author [facility] Address Unknown Phone Unavailable Allergies Active Description Code Type Severity Reaction Onset Reported/Identified Relationship to Patient Clinical Status Yes No Known Drug Allergies [id number] Drug Allergy Unknown N/A 11/15/2013 Yes gadoteridol [id number] Drug Allergy Mild SNEEZING, HOARS 12/31/2014 Yes Gadolinium-Containing Contrast Medi [id number] Drug Allergy Severe Anaphylaxis 03/01/2015 Medications There [...] ARREGUIN WILLY S 270.7 HYPERGLYCEMIA 08/03/2008 RONNY GRASS CUTTER, WILLY S 270.7 HYPERGLYCEMIA 08/03/2008 RONNY GRASS CUTTER, WILLY S 270.7 HYPERGLYCEMIA 08/03/2008 RONNY GRASS CUTTER, WILLY S 270.7 HYPERGLYCEMIA 08/03/2008 RONNY GRASS CUTTER, WILLY S 270.7 HYPERGLYCEMIA 08/03/2008 RONNY GRASS CUTTER, WILLY S 270.7 HYPERGLYCEMIA 09/07/2008 070.54 HEPATITIS C CHRONIC 09/07/2008 070.54 HEPATITIS C CHRONIC 09/07/2008 RONNY GRASS CUTTER, WILLY S 070.54 HEPATITIS C CHRONIC 09/07/2008 RONNY GRASS CUTTER, WILLY S 070.54 HEPATITIS C CHRONIC 09/07/2008 RONNY GRASS CUTTER, WILLY S 070.54 HEPATITIS C CHRONIC 09/07/2008 RONNY GRASS CUTTER, WILLY S 070.54 HEPATITIS C CHRONIC 09/07/2008 RONNY GRASS CUTTER, WILLY S 070.54 HEPATITIS C CHRONIC 09/07/2008 RONNY GRASS CUTTER, WILLY S 070.54 HEPATITIS C CHRONIC 09/07/2008 RONNY GRASS CUTTER, WILLY S 070.54 HEPATITIS C CHRONIC 10/07/2008 724.4 BACK PAIN WITH RADIATION 10/07/2008 724.4 BACK PAIN WITH RADIATION 10/07/2008 RONNY GRASS CUTTER, WILLY S 724.4 BACK PAIN WITH RADIATION 10/07/2008 RONNY GRASS CUTTER, WILLY S 724.4 BACK PAIN WITH RADIATION 10/07/2008 RONNY GRASS CUTTER, WILLY S 724.4 BACK PAIN WITH RADIATION 10/07/2008 RONNY GRASS CUTTER, WILLY S 724.4 BACK PAIN WITH RADIATION 10/07/2008 RONNY GRASS CUTTER, WILLY S 724.4 BACK PAIN WITH RADIATION 10/07/2008 RONNY GRASS CUTTER, WILLY S 724.4 BACK PAIN WITH RADIATION 10/07/2008 RONNY GRASS CUTTER, WILLY S 724.4 BACK PAIN WITH RADIATION 10/31/2008 724.5 BACKACHE UNSPECIFIED 10/31/2008 724.5 BACKACHE UNSPECIFIED 10/31/2008 RONNY GRASS CUTTER, WILLY S 724.5 BACKACHE UNSPECIFIED 10/31/2008 RONNY GRASS CUTTER, WILLY S 724.5 BACKACHE UNSPECIFIED 10/31/2008 RONNY GRASS CUTTER, WILLY S 724.5 BACKACHE UNSPECIFIED 10/31/2008 RONNY GRASS CUTTER, WILLY S 724.5 BACKACHE UNSPECIFIED 10/31/2008 RONNY GRASS CUTTER, WILLY S 724.5 BACKACHE UNSPECIFIED 10/31/2008 RONNY GRASS CUTTER, WILLY S 724.5 BACKACHE UNSPECIFIED 10/31/2008 RONNY GRASS CUTTER, WILLY S 724.5 BACKACHE UNSPECIFIED 01/13/2012 289.81 PROTEIN S DEFICIENCY 01/13/2012 682.7 SKIN ABSCESS OF THE HEEL 01/13/2012 289.81 PROTEIN S DEFICIENCY 01/13/2012 682.7 SKIN ABSCESS OF THE HEEL 01/13/2012 RONNY GRASS CUTTER, WILLY S 289.81 PROTEIN S DEFICIENCY 01/13/2012 RONNY GRASS CUTTER, WILLY S 682.7 SKIN ABSCESS OF THE HEEL 01/13/2012 RONNY GRASS CUTTER, WILLY S 289.81 PROTEIN S DEFICIENCY 01/13/2012 RONNY GRASS CUTTER, WILLY S 682.7 SKIN ABSCESS OF THE HEEL 01/13/2012 RONNY GRASS CUTTER, WILLY S 289.81 PROTEIN S DEFICIENCY 01/13/2012 RONNY GRASS CUTTER, WILLY S 682.7 SKIN ABSCESS OF THE HEEL 01/13/2012 RONNY GRASS CUTTER, WILLY S 289.81 PROTEIN S DEFICIENCY 01/13/2012 RONNY GRASS CUTTER, WILLY S 682.7 SKIN ABSCESS OF THE HEEL 01/13/2012 RONNY GRASS CUTTER, WILLY S 289.81 PROTEIN S DEFICIENCY 01/13/2012 RONNY GRASS CUTTER, WILLY S 682.7 SKIN ABSCESS OF THE HEEL 01/13/2012 RONNY GRASS CUTTER, WILLY S 289.81 PROTEIN S DEFICIENCY 01/13/2012 RONNY GRASS CUTTER, WILLY S 682.7 SKIN ABSCESS OF THE HEEL 01/13/2012 RONNY GRASS CUTTER, WILLY S 289.81 PROTEIN S DEFICIENCY 01/13/2012 RONNY GRASS CUTTER, WILLY S 682.7 SKIN ABSCESS OF THE HEEL 05/23/2012 486 PNEUMONIA 05/23/2012 486 PNEUMONIA 05/23/2012 RONNY GRASS CUTTER, WILLY S 486 PNEUMONIA 05/23/2012 RONNY GRASS CUTTER, WILLY S 486 PNEUMONIA 05/23/2012 RONNY GRASS CUTTER, WILLY S 486 PNEUMONIA 05/23/2012 RONNY GRASS CUTTER, WILLY S 486 PNEUMONIA 05/23/2012 RONNY GRASS CUTTER, WILLY S 486 PNEUMONIA 05/23/2012 RONNY GRASS CUTTER, WILLY S 486 PNEUMONIA 05/23/2012 RONNY GRASS CUTTER, WILLY S 486 PNEUMONIA 03/26/2013 780.79 fatigue 03/26/2013 V15.82 Nicotine abuse 03/26/2013 V70.0 EXAM - ROUTINE H&P 03/26/2013 RONNY GRASS CUTTER, WILLY S 780.79 fatigue 03/26/2013 RONNY GRASS CUTTER, WILLY S V15.82 Nicotine abuse 03/26/2013 RONNY GRASS CUTTER, WILLY S V70.0 EXAM - ROUTINE H&P 03/26/2013 RONNY GRASS CUTTER, WILLY S 780.79 fatigue 03/26/2013 RONNY GRASS CUTTER, WILLY S V15.82 Nicotine abuse 03/26/2013 RONNY GRASS CUTTER, WILLY S V70.0 EXAM - ROUTINE H&P 03/26/2013 RONNY GRASS CUTTER, WILLY S 780.79 fatigue 03/26/2013 RONNY GRASS CUTTER, WILLY S V15.82 Nicotine abuse 03/26/2013 RONNY GRASS CUTTER, WILLY S V70.0 EXAM - ROUTINE H&P 03/26/2013 RONNY GRASS CUTTER, WILLY S 780.79 fatigue 03/26/2013 RONNY GRASS CUTTER, WILLY S V15.82 Nicotine abuse 03/26/2013 RONNY GRASS CUTTER, WILLY S V70.0 EXAM - ROUTINE H&P 03/26/2013 RONNY GRASS CUTTER, WILLY S 780.79 fatigue 03/26/2013 RONNY GRASS CUTTER, WILLY S V15.82 Nicotine abuse 03/26/2013 RONNY GRASS CUTTER, WILLY S V70.0 EXAM - ROUTINE H&P 03/26/2013 RONNY GRASS CUTTER, WILLY S 780.79 fatigue 03/26/2013 RONNY GRASS CUTTER, WILLY S V15.82 Nicotine abuse 03/26/2013 RONNY GRASS CUTTER, WILLY S V70.0 EXAM - ROUTINE H&P 03/26/2013 RONNY GRASS CUTTER, WILLY S 780.79 fatigue 03/26/2013 RONNY GRASS CUTTER, WILLY S V15.82 Nicotine abuse 03/26/2013 RONNY GRASS CUTTER, WILLY S V70.0 EXAM - ROUTINE H&P 06/27/2013 RONNY GRASS CUTTER, WILLY S 789.30 ABDOMINAL MASS 06/27/2013 RONNY GRASS CUTTER, WILLY S 789.30 ABDOMINAL MASS 06/27/2013 RONNY GRASS CUTTER, WILLY S 789.30 ABDOMINAL MASS 06/27/2013 RONNY GRASS CUTTER, WILLY S 789.30 ABDOMINAL MASS 06/27/2013 RONNY GRASS CUTTER, WILLY S 789.30 ABDOMINAL MASS 06/27/2013 RONNY GRASS CUTTER, WILLY S 789.30 ABDOMINAL MASS 06/27/2013 RONNY GRASS CUTTER, WLILY S 789.30 ABDOMINAL MASS 11/12/2013 RONNY GRASS CUTTER, WILLY S 202.80 OTHER MALIGNANT LYMPHOMAS UNSPECIFIED SITE 11/12/2013 RONNY GRASS CUTTER, WILLY S V19.8 FAMILY HISTORY OF OTHER CONDITION 11/12/2013 RONNY GRASS CUTTER, WILLY S 202.80 OTHER MALIGNANT LYMPHOMAS UNSPECIFIED SITE 11/12/2013 RONNY GRASS CUTTER, WILLY S V19.8 FAMILY HISTORY OF OTHER CONDITION 11/12/2013 RONNY GRASS CUTTER, WILLY S 202.80 OTHER MALIGNANT LYMPHOMAS UNSPECIFIED SITE 11/12/2013 RONNY GRASS CUTTER, WILLY S V19.8 FAMILY HISTORY OF OTHER CONDITION 11/12/2013 RONNY GRASS CUTTER, WILLY S 202.80 OTHER MALIGNANT LYMPHOMAS UNSPECIFIED SITE 11/12/2013 RONNY GRASS CUTTER, WILLY S V19.8 FAMILY HISTORY OF OTHER CONDITION 11/12/2013 RONNY GRASS CUTTER, WILLY S 202.80 OTHER MALIGNANT LYMPHOMAS UNSPECIFIED SITE 11/12/2013 RONNY GRASS CUTTER, WILLY S V19.8 FAMILY HISTORY OF OTHER [...] RIVAS Ot V58.69 OTH MED,LT,CURRENT USE 01/15/2014 GABY JEFFERSON APRNA S 296.90 MOOD [...] 08/29/2014 JODY, BOBAN N Ot 289.81 08/29/2014 JODY, BOBAN N Ot V58.69 09/27/2014 WILLY JEFFERSON Ot 789.30 09/27/2014 CHUCHO OJY DO Ot 202.80 09/27/2014 CHUCHO JOY DO Ot V72.84 09/27/2014 DADA NICKERSON, JL Ot 202.80 09/27/2014 DADA NICKERSON, JL Ot 785.6 09/27/2014 DADA NICKERSON, JL Ot 789.2 09/27/2014 DADA NICKERSON, JL Ot 789.30 09/27/2014 LORRIE MUÑOZ WEB PRODUCTION ASSISTANT Ot 202.80 09/27/2014 TONILORRIE S WEB PRODUCTION ASSISTANT Ot 289.81 09/27/2014 DADA NICKERSON, KAYNIRMAL Ot 202.80 09/27/2014 DADA NICKERSON, KAYNIRMAL Ot 785.6 09/27/2014 DADA NICKERSON, KAYNIRMAL Ot 789.2 09/27/2014 MUÑOZLORRIE Fernández S WEB PRODUCTION ASSISTANT Ot 070.70 09/27/2014 MUÑOZ, HILAH S WEB PRODUCTION ASSISTANT Ot 202.88 09/27/2014 MUÑOZ, HILAH S WEB PRODUCTION ASSISTANT Ot V58.69 09/27/2014 MUÑOZ, HILAH S WEB PRODUCTION ASSISTANT Ot 070.70 09/27/2014 MUÑOZ, HILAH S WEB PRODUCTION ASSISTANT Ot 202.80 09/27/2014 MUÑOZ, HILAH S WEB PRODUCTION ASSISTANT Ot 289.81 09/27/2014 MUÑOZ, HILAH S WEB PRODUCTION ASSISTANT Ot V58.69 09/27/2014 MUÑOZ, HILAH S WEB PRODUCTION ASSISTANT Ot 202.80 09/27/2014 MUÑOZ EZEAH S WEB PRODUCTION ASSISTANT Ot 070.70 09/27/2014 MUÑOZ, HILAH S WEB PRODUCTION ASSISTANT Ot 202.80 09/27/2014 MUÑOZ, HILAH S WEB PRODUCTION ASSISTANT Ot 289.81 09/27/2014 MUÑOZ, EZEAH S WEB PRODUCTION ASSISTANT Ot V58.69 09/27/2014 JODY, BOBAN N Ot 070.70 09/27/2014 JODY, BOBAN N Ot 202.80 09/27/2014 JODY, BOBAN N Ot 289.81 09/27/2014 JODY, BOBAN N Ot V58.69 09/27/2014 MUÑOZ, EZEAH S WEB PRODUCTION ASSISTANT Ot 202.80 09/27/2014 MUÑOZ, LORRIE S WEB PRODUCTION ASSISTANT Ot 070.70 09/27/2014 MUÑOZ, HILAH S WEB PRODUCTION ASSISTANT Ot 202.80 09/27/2014 MUÑOZ, HILAH S WEB PRODUCTION ASSISTANT Ot 289.81 09/27/2014 MUÑOZ, HILAH S WEB PRODUCTION ASSISTANT Ot V58.69 09/27/2014 JODY, BOBAN N Ot 070.70 09/27/2014 JODY, BOBAN N Ot 202.80 09/27/2014 JODY, BOBAN N Ot 289.81 09/27/2014 JODY, BOBAN N Ot V58.69 09/27/2014 MUÑOZ EZEAH S WEB PRODUCTION ASSISTANT Ot 070.70 09/27/2014 MUÑOZLORRIE Fernández S WEB PRODUCTION ASSISTANT Ot 202.80 09/27/2014 MUÑOZLORRIE Fernández S WEB PRODUCTION ASSISTANT Ot 289.81 09/27/2014 LORRIE MUÑOZ S WEB PRODUCTION ASSISTANT Ot V58.69 09/27/2014 LORRIE MUÑOZ S WEB PRODUCTION ASSISTANT Ot 070.70 09/27/2014 MUÑOZLORRIE S WEB PRODUCTION ASSISTANT Ot 202.88 09/27/2014 MUÑOZLORRIE S WEB PRODUCTION ASSISTANT Ot V58.69 09/27/2014 MUÑOZLORRIE S WEB PRODUCTION ASSISTANT Ot 202.80 09/27/2014 MUÑOZLORRIE S WEB PRODUCTION ASSISTANT Ot 070.70 09/27/2014 MUÑOZLORRIE S WEB PRODUCTION ASSISTANT Ot 202.88 09/27/2014 LORRIE MUÑOZ S WEB PRODUCTION ASSISTANT Ot V58.69 09/27/2014 WILLY JEFFERSON WEB PRODUCTION ASSISTANT Ot 789.30 09/27/2014 CHUCHO JOY DO Ot 202.80 09/27/2014 CHUCHO JOY DO Ot V72.84 09/27/2014 DADA NICKERSON, JL Ot 202.80 09/27/2014 DADA NICKERSON, JL Ot 785.6 09/27/2014 DADA NICKERSON, JL Ot 789.2 09/27/2014 DADA NICKERSON, JL Ot 789.30 09/27/2014 MUÑOZLORRIE S WEB PRODUCTION ASSISTANT Ot 202.80 09/27/2014 MUÑOZLORRIE S WEB PRODUCTION ASSISTANT Ot 289.81 09/27/2014 DADA NICKERSON, JL Ot 202.80 09/27/2014 DADA NICKERSON, JL Ot 785.6 09/27/2014 DADA NICKERSON, JL Ot 789.2 09/27/2014 MUÑOZLORRIE Fernández S WEB PRODUCTION ASSISTANT Ot 070.70 09/27/2014 MUÑOZLORRIE S WEB PRODUCTION ASSISTANT Ot 202.88 09/27/2014 MUÑOZLORRIE Fernández S WEB PRODUCTION ASSISTANT Ot V58.69 09/27/2014 MUÑOZLORRIE S WEB PRODUCTION ASSISTANT Ot 070.70 09/27/2014 MUÑOZLORRIE S WEB PRODUCTION ASSISTANT Ot 202.80 09/27/2014 MUÑOZ LORRIE S WEB PRODUCTION ASSISTANT Ot 289.81 09/27/2014 MUÑOZ, LORRIE S WEB PRODUCTION ASSISTANT Ot V58.69 09/27/2014 MUÑOZLORRIE Fernández S WEB PRODUCTION ASSISTANT Ot 202.80 09/27/2014 MUÑOZLORRIE Fernández S WEB PRODUCTION ASSISTANT Ot 070.70 09/27/2014 MUÑOZ, EZEAH S WEB PRODUCTION ASSISTANT Ot 202.80 09/27/2014 MUÑOZ, EZEAH S WEB PRODUCTION ASSISTANT Ot 289.81 09/27/2014 MUÑOZ, LORRIE S WEB PRODUCTION ASSISTANT Ot V58.69 09/27/2014 JODY, BOBAN N Ot 070.70 09/27/2014 JODY, BOBAN N Ot 202.80 09/27/2014 JODY, BOBAN N Ot 289.81 09/27/2014 JODY, BOBAN N Ot V58.69 09/27/2014 MUÑOZLORRIE Fernández S WEB PRODUCTION ASSISTANT Ot 202.80 09/27/2014 JODY, BOBAN N Ot 070.70 09/27/2014 JODY, BOBAN N Ot 202.80 09/27/2014 JODY, BOBAN N Ot 289.81 09/27/2014 JODY, BOBAN N Ot V58.69 09/27/2014 WILLY JEFFERSON WEB PRODUCTION ASSISTANT Ot 789.30 09/27/2014 CHUCHO JOY DO Ot 202.80 09/27/2014 DWAYNE JOY DOTIE Ot V72.84 09/27/2014 DADA NICKERSON, JL Ot 202.80 09/27/2014 DADA NICKERSON, JL Ot 785.6 09/27/2014 DADA NICKERSON, JL Ot 789.2 09/27/2014 DADA NICKERSON, JL Ot 789.30 09/27/2014 MUÑOZLORRIE Fernández S WEB PRODUCTION ASSISTANT Ot 202.80 09/27/2014 MUÑOZLORRIE Fernández S WEB PRODUCTION ASSISTANT Ot 289.81 09/27/2014 DADA NICKERSON, JL Ot 202.80 09/27/2014 DADA NICKERSON, JL Ot 785.6 09/27/2014 DADA NICKERSON, JL Ot 789.2 09/27/2014 TONI LORRIE S WEB PRODUCTION ASSISTANT Ot 070.70 09/27/2014 MUÑOZ LORRIE S WEB PRODUCTION ASSISTANT Ot 202.88 09/27/2014 MUÑOZ LORRIE S WEB PRODUCTION ASSISTANT Ot V58.69 09/27/2014 LORRIE MUÑOZ S WEB PRODUCTION ASSISTANT Ot 070.70 09/27/2014 MUÑOZLORRIE Fernández S WEB PRODUCTION ASSISTANT Ot 202.80 09/27/2014 MUÑOZLORRIE Fernández S WEB PRODUCTION ASSISTANT Ot 289.81 09/27/2014 LORRIE MUÑOZ S WEB PRODUCTION ASSISTANT Ot V58.69 09/27/2014 MUÑOZLORRIE Fernández S WEB PRODUCTION ASSISTANT Ot 202.80 09/27/2014 MUÑOZLORRIE Fernández S WEB PRODUCTION ASSISTANT Ot 070.70 09/27/2014 MUÑOZEZEAH S WEB PRODUCTION ASSISTANT Ot 202.80 09/27/2014 MUÑOZLORRIE S WEB PRODUCTION ASSISTANT Ot 289.81 09/27/2014 MUÑOZLORRIE Fernández S WEB PRODUCTION ASSISTANT Ot V58.69 09/27/2014 INOCENCIO VERA N Ot 070.70 09/27/2014 YANIV VERAAN N Ot 202.80 09/27/2014 YANIV VERAAN N Ot 289.81 09/27/2014 YANIV VERAAN N Ot V58.69 09/27/2014 LORRIE MUÑOZ S WEB PRODUCTION ASSISTANT Ot 202.80 09/27/2014 MUÑOZLORRIE Fernández S WEB PRODUCTION ASSISTANT Ot 070.70 09/27/2014 MUÑOZLORRIE Fernández S WEB PRODUCTION ASSISTANT Ot 202.80 09/27/2014 LORRIE MUÑOZ S WEB PRODUCTION ASSISTANT Ot 289.81 09/27/2014 LORRIE MUÑOZ S WEB PRODUCTION ASSISTANT Ot V58.69 09/27/2014 MUÑOZLORRIE Fernández S WEB PRODUCTION ASSISTANT Ot 202.80 09/27/2014 MUÑOZLORRIE Fernández S WEB PRODUCTION ASSISTANT Ot 202.80 10/02/2014 WILLY JEFFERSON WEB PRODUCTION ASSISTANT Ot 789.30 10/02/2014 DWAYNE JOY DOTIE Ot 202.80 10/02/2014 IMELDA JOY DOROUTIE Ot V72.84 10/02/2014 DADA NICKERSON, JL Ot 202.80 10/02/2014 DADA NICKERSON, JL Ot 785.6 10/02/2014 DADA NICKERSON, JL Ot 789.2 10/02/2014 DADA NICKERSON, JL Ot 789.30 10/02/2014 MUÑOZLORRIE S WEB PRODUCTION ASSISTANT Ot 202.80 10/02/2014 MUÑOZ LORRIE S WEB PRODUCTION ASSISTANT Ot 289.81 10/02/2014 DADA NICKERSON, JL Ot 202.80 10/02/2014 DADA NICKERSON, [facility] Ot 785.6 10/02/2014 DADA NICKERSON, RAHULDAVID Ot 789.2 10/02/2014 MUÑOZ, HILAH S WEB PRODUCTION ASSISTANT Ot 070.70 10/02/2014 MUÑOZ, HILAH S WEB PRODUCTION ASSISTANT Ot 202.88 10/02/2014 MUÑOZ, HILAH S WEB PRODUCTION ASSISTANT Ot V58.69 10/02/2014 MUÑOZ, HILAH S WEB PRODUCTION ASSISTANT Ot 070.70 10/02/2014 MUÑOZ, HILAH S WEB PRODUCTION ASSISTANT Ot 202.80 10/02/2014 MUÑOZ, HILAH S WEB PRODUCTION ASSISTANT Ot 289.81 10/02/2014 MUÑOZ, HILAH S WEB PRODUCTION ASSISTANT Ot V58.69 10/02/2014 MUÑOZ, HILAH S WEB PRODUCTION ASSISTANT Ot 202.80 10/02/2014 MUÑOZ, HILAH S WEB PRODUCTION ASSISTANT Ot 070.70 10/02/2014 MUÑOZ, HILAH S WEB PRODUCTION ASSISTANT Ot 202.80 10/02/2014 MUÑOZ, HILAH S WEB PRODUCTION ASSISTANT Ot 289.81 10/02/2014 MUÑOZ, HILAH S WEB PRODUCTION ASSISTANT Ot V58.69 10/02/2014 JODY, BOBAN N Ot 070.70 10/02/2014 JODY, BOBAN N Ot 202.80 10/02/2014 JODY, BOBAN N Ot 289.81 10/02/2014 JODY, BOBAN N Ot V58.69 10/02/2014 MUÑOZ, HILAH S WEB PRODUCTION ASSISTANT Ot 202.80 10/02/2014 MUÑOZ, HILAH S WEB PRODUCTION ASSISTANT Ot 202.80 10/02/2014 MUÑOZ, HILAH S WEB PRODUCTION ASSISTANT Ot 070.70 10/02/2014 MUÑOZ, HILAH S WEB PRODUCTION ASSISTANT Ot 202.80 10/02/2014 MUÑOZ, HILAH S WEB PRODUCTION ASSISTANT Ot 289.81 10/02/2014 MUÑOZ, HILAH S WEB PRODUCTION ASSISTANT Ot V58.69 10/02/2014 MUÑOZ, HILAH S WEB PRODUCTION ASSISTANT Ot 070.70 10/02/2014 MUÑOZ, HILAH S WEB PRODUCTION ASSISTANT Ot 202.88 10/02/2014 MUÑOZ, HILAH S WEB PRODUCTION ASSISTANT Ot V58.69 10/02/2014 DADA NICKERSON, RAHULDAVID Ot 202.80 10/02/2014 DADA NICKERSON, RAHULDAVID Ot 785.6 10/02/2014 DADA NICKERSON, JL Ot 789.2 10/02/2014 LORRIE MUÑOZ WEB PRODUCTION ASSISTANT Ot 202.80 10/02/2014 LORRIE MUÑOZ WEB PRODUCTION ASSISTANT Ot 289.81 10/02/2014 DADA NICKERSON, JL Ot [...] V58.69 OT MED,LT,CURRENT USE 11/15/2014 LORRIE MUÑOZ WEB PRODUCTION ASSISTANT Ot 070.70 11/15/2014 LORRIE MUÑOZ WEB PRODUCTION ASSISTANT Ot 202.80 11/15/2014 LORRIE MUÑOZ WEB PRODUCTION ASSISTANT Ot 289.81 11/15/2014 LORRIE MUÑOZ WEB PRODUCTION ASSISTANT Ot V58.69 11/15/2014 WILLY JEFFERSON WEB PRODUCTION ASSISTANT Ot 789.30 11/15/2014 CHUCHO JOY DO Ot 202.80 11/15/2014 CHUCHO JOY DO Ot V72.84 11/15/2014 DADA NICKERSON, JL Ot 202.80 11/15/2014 DADA NICKERSON, JL Ot 785.6 11/15/2014 DADA NICKERSON, JL Ot 789.2 11/15/2014 DADA NICKERSON, JL Ot 789.30 11/15/2014 LORRIE MUÑOZ WEB PRODUCTION ASSISTANT Ot 202.80 11/15/2014 LORRIE MUÑOZ WEB PRODUCTION ASSISTANT Ot 289.81 11/15/2014 DADA NICKERSON, JL Ot 202.80 11/15/2014 DADA NICKERSON, THIENDAVID Ot 785.6 11/15/2014 DADA NICKERSON, JL Ot 789.2 11/15/2014 MUÑOZLORRIE S WEB PRODUCTION ASSISTANT Ot 070.70 11/15/2014 MUÑOZ, HILAH S WEB PRODUCTION ASSISTANT Ot 202.88 11/15/2014 MUÑOZ, EZEAH S WEB PRODUCTION ASSISTANT Ot V58.69 11/15/2014 MUÑOZ, HILAH S WEB PRODUCTION ASSISTANT Ot 070.70 11/15/2014 MUÑOZ, HILAH S WEB PRODUCTION ASSISTANT Ot 202.80 11/15/2014 MUÑOZ, HILAH S WEB PRODUCTION ASSISTANT Ot 289.81 11/15/2014 MUÑOZ, HILAH S WEB PRODUCTION ASSISTANT Ot V58.69 11/15/2014 MUÑOZ, HILAH S WEB PRODUCTION ASSISTANT Ot 202.80 11/15/2014 MUÑOZ, HILAH S WEB PRODUCTION ASSISTANT Ot 070.70 11/15/2014 MUÑOZ, HILAH S WEB PRODUCTION ASSISTANT Ot 202.80 11/15/2014 MUÑOZ, HILAH S WEB PRODUCTION ASSISTANT Ot 289.81 11/15/2014 MUÑOZ, HILAH S WEB PRODUCTION ASSISTANT Ot V58.69 11/15/2014 MUÑOZ, HILAH S WEB PRODUCTION ASSISTANT Ot 202.80 11/15/2014 JODY BOBAN N Ot 070.70 11/15/2014 JODY, BOBAN N Ot 202.80 11/15/2014 JODY, BOBAN N Ot 289.81 11/15/2014 JODY, BOBAN N Ot V58.69 11/15/2014 MUÑOZ, EZEAH S WEB PRODUCTION ASSISTANT Ot 070.70 11/15/2014 MUÑOZ, HILAH S WEB PRODUCTION ASSISTANT Ot 202.80 11/15/2014 MUÑOZ, HILAH S WEB PRODUCTION ASSISTANT Ot 289.81 11/15/2014 MUÑOZ, HILAH S WEB PRODUCTION ASSISTANT Ot V58.69 11/27/2014 MUÑOZ, HILAH S WEB PRODUCTION ASSISTANT Ot 070.70 11/27/2014 MUÑOZ, HILAH S WEB PRODUCTION ASSISTANT Ot 202.80 11/27/2014 MUÑOZ, HILAH S WEB PRODUCTION ASSISTANT Ot 289.81 11/27/2014 MUÑOZ, HILAH S WEB PRODUCTION ASSISTANT Ot V58.69 11/27/2014 JODY, BOBAN N Ot 070.70 11/27/2014 JODY, BOBAN N Ot 202.80 11/27/2014 JODY, BOBAN N Ot 289.81 11/27/2014 JODYYANIV BIRMINGHAMEMERITA N Ot V58.69 11/28/2014 WILLY JEFFERSON WEB PRODUCTION ASSISTANT Ot 789.30 11/28/2014 BENITA RIVAS, CHUCHO Ot 202.80 11/28/2014 BENITA RIVAS, IMELDAROUTIE Ot V72.84 11/28/2014 DADA NICKERSON, [facility] Ot 202.80 11/28/2014 DADA NICKERSON, [facility] Ot 785.6 11/28/2014 DADA NICKERSON, [facility] Ot 789.2 11/28/2014 DDAA NICKERSON, [facility] Ot 789.30 11/28/2014 TONI LORRIE S WEB PRODUCTION ASSISTANT Ot 202.80 11/28/2014 TONI HILAH S WEB PRODUCTION ASSISTANT Ot 289.81 11/28/2014 DADA NICKERSON, KAYDAVID Ot 202.80 11/28/2014 DADA NICKERSON, [facility] Ot 785.6 11/28/2014 DADA NICKERSON, [facility] Ot 789.2 11/28/2014 TONI HILAH S WEB PRODUCTION ASSISTANT Ot 070.70 11/28/2014 MUÑOZ, HILAH S WEB PRODUCTION ASSISTANT Ot 202.88 11/28/2014 MUÑOZ HILAH S WEB PRODUCTION ASSISTANT Ot V58.69 11/28/2014 MUÑOZ HILAH S WEB PRODUCTION ASSISTANT Ot 070.70 11/28/2014 MUÑOZ, HILAH S WEB PRODUCTION ASSISTANT Ot 202.80 11/28/2014 MUÑOZ HILAH S WEB PRODUCTION ASSISTANT Ot 289.81 11/28/2014 MUÑOZ HILAH S WEB PRODUCTION ASSISTANT Ot V58.69 11/28/2014 MUÑOZ HILAH S WEB PRODUCTION ASSISTANT Ot 202.80 11/28/2014 MUÑOZ HILAH S WEB PRODUCTION ASSISTANT Ot 070.70 11/28/2014 MUÑOZ, HILAH S WEB PRODUCTION ASSISTANT Ot 202.80 11/28/2014 MUÑOZ HILAH S WEB PRODUCTION ASSISTANT Ot 289.81 11/28/2014 MUÑOZ HILAH S WEB PRODUCTION ASSISTANT Ot V58.69 11/28/2014 MUÑOZ, HILAH S WEB PRODUCTION ASSISTANT Ot 202.80 11/28/2014 INOCENCIO VERA N Ot [...] BOBAN N Ot V58.69 12/24/2014 LORRIE MUÑOZ WEB PRODUCTION ASSISTANT Ot 202.80 12/24/2014 WILLY JEFFERSON WEB PRODUCTION ASSISTANT Ot 789.30 12/24/2014 CHUCHO JOY DO Ot 202.80 12/24/2014 CHUCHO JOY DO Ot V72.84 12/24/2014 DADA NICKERSON, JL Ot 202.80 12/24/2014 DADA NICKERSON, JL Ot 785.6 12/24/2014 DADA NICKERSON, JL Ot 789.2 12/24/2014 DADA NICKERSON, JL Ot 789.30 12/24/2014 LORRIE MUÑOZ WEB PRODUCTION ASSISTANT Ot 202.80 12/24/2014 LORRIE MUÑOZ WEB PRODUCTION ASSISTANT Ot 289.81 12/24/2014 DADA NICKERSON, JL Ot 202.80 12/24/2014 DADA NICKERSON, JL Ot 785.6 12/24/2014 DADA NICKERSON, JL Ot 789.2 12/24/2014 LORRIE MUÑOZ WEB PRODUCTION ASSISTANT Ot 070.70 12/24/2014 MUÑOZLORRIE Fernández S WEB PRODUCTION ASSISTANT Ot 202.88 12/24/2014 MUÑOZ, LORRIE S WEB PRODUCTION ASSISTANT Ot V58.69 12/24/2014 MUÑOZ, HILAH S WEB PRODUCTION ASSISTANT Ot 070.70 12/24/2014 MUÑOZ, HILAH S WEB PRODUCTION ASSISTANT Ot 202.80 12/24/2014 MUÑOZ, EZEAH S WEB PRODUCTION ASSISTANT Ot 289.81 12/24/2014 MUÑOZ, EZEAH S WEB PRODUCTION ASSISTANT Ot V58.69 12/24/2014 MUÑOZ, HILAH S WEB PRODUCTION ASSISTANT Ot 202.80 12/24/2014 MUÑOZ, EEZAH S WEB PRODUCTION ASSISTANT Ot 070.70 12/24/2014 MUÑOZ, HILAH S WEB PRODUCTION ASSISTANT Ot 202.80 12/24/2014 MUÑOZ, HILAH S WEB PRODUCTION ASSISTANT Ot 289.81 12/24/2014 MUÑOZ, EZEAH S WEB PRODUCTION ASSISTANT Ot V58.69 12/24/2014 MUÑOZ, EZEAH S WEB PRODUCTION ASSISTANT Ot 202.80 12/24/2014 JODY, BOBAN N Ot [...] N Ot V58.69 01/28/2015 MUÑOZLORRIE Fernández S WEB PRODUCTION ASSISTANT Ot 202.80 02/04/2015 TORITO NASH MD Ot 201.90 02/04/2015 TORITO NASH MD Ot 722.52 02/04/2015 TORITO NASH MD Ot 738.4 02/04/2015 TORITO NASH MD Ot 786.50 02/04/2015 TORITO NASH MD Ot 724.1 02/04/2015 JODY, BOBAN N Ot 202.80 02/04/2015 INOCENCIO VERA N Ot 786.09 02/06/2015 EZE MUÑOZEMMY Pradeep WEB PRODUCTION ASSISTANT Ot 202.80 02/26/2015 INOCENCIO VERA N Ot 070.70 UNSPECIFIED VIRAL HEPATITIS C WITHOUT HE 02/26/2015 INOCENCIO VERA N Ot 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 02/26/2015 INOCENCIO VERA N Ot 289.81 PRIMARY HYPERCOAGULABLE STATE 02/26/2015 INOCENCIO VERA N Ot V58.11 ENCOUNTER FOR ANTINEOPLASTIC CHEMOTHERAP 02/26/2015 INOCENCIO VERA N Ot V58.69 OTH MED,LT,CURRENT USE 02/28/2015 SHERIDAN KANG GRASS CUTTER Ot 202.80 02/28/2015 SHERIDAN KANG GRASS CUTTER Ot 305.1 02/28/2015 SHERIDAN KANG GRASS CUTTER Ot 305.93 02/28/2015 SHERIDAN KANG GRASS CUTTER Ot 780.79 02/28/2015 SHERIDAN KANG GRASS CUTTER Ot 786.05 03/01/2015 INOCENCIO VERA N Ot [...] NASH MD Ot 724.1 03/04/2015 SHERIDAN KANG GRASS CUTTER Ot 202.80 03/04/2015 SHERIDAN KANG GRASS CUTTER Ot 305.1 03/04/2015 SHERIDAN KANG GRASS CUTTER Ot 305.93 03/04/2015 SHERIDAN KANG GRASS CUTTER Ot 780.79 03/04/2015 SHERIDAN KANG GRASS CUTTER Ot 786.05 03/04/2015 JODY, BOBAN N Ot 202.80 03/04/2015 JODY, BOBAN N Ot 786.09 03/04/2015 JODY, BOBAN N Ot 070.70 03/04/2015 JODY, BOBAN N Ot 202.80 03/04/2015 JODY, BOBAN N Ot 289.81 03/04/2015 JODY, BOBAN N Ot V58.69 03/12/2015 LORRIE MUÑOZ WEB PRODUCTION ASSISTANT Ot 070.70 03/12/2015 LORRIE MUÑOZ WEB PRODUCTION ASSISTANT Ot 202.80 03/12/2015 LORRIE MUÑOZ WEB PRODUCTION ASSISTANT Ot 289.81 03/12/2015 LORRIE MUÑOZ WEB PRODUCTION ASSISTANT Ot V58.69 03/12/2015 CHARITY NICKERSON, TORITO Shetty Ot 201.90 03/12/2015 CHARITY NICKERSON, TORITO Shetty Ot 722.52 03/12/2015 CHARITY NICKERSON, TORITO Shetty Ot 738.4 03/12/2015 CHARITY NICKERSON, TORITO Shetty Ot 786.50 03/12/2015 CHARITY NICKERSON, TORITO Shetty Ot 724.1 03/12/2015 SHERIDAN KANG GRASS CUTTER Ot 202.80 03/12/2015 SHERIDAN KANG GRASS CUTTER Ot 305.1 03/12/2015 SHERIDAN KANG GRASS CUTTER Ot 305.93 03/12/2015 SHERIDAN KANG GRASS CUTTER Ot 780.79 03/12/2015 SHERIDAN KANG GRASS CUTTER Ot 786.05 03/12/2015 JODY, BOBAN N Ot 202.80 03/12/2015 JODY, BOBAN N Ot 786.09 03/12/2015 JODY, BOBAN N Ot 070.70 03/12/2015 JODY, BOBAN N Ot 202.80 03/12/2015 JODY, BOBAN N Ot 289.81 03/12/2015 JODY, BOBAN N Ot V58.69 03/20/2015 LORRIE MUÑOZ WEB PRODUCTION ASSISTANT Ot 070.70 03/20/2015 EZE MUÑOZAH S WEB PRODUCTION ASSISTANT Ot 202.80 03/20/2015 MUÑOZLORRIE Fernández S WEB PRODUCTION ASSISTANT Ot 289.81 03/20/2015 LORRIE MUÑOZ S WEB PRODUCTION ASSISTANT Ot V58.69 04/08/2015 INOCENCIO VERA N Ot 070.70 04/08/2015 INOCENCIO VERA N Ot 202.80 04/08/2015 JODY BOBEMERITA N Ot 289.81 04/08/2015 INOCENCIO VERA N Ot V58.69 04/08/2015 INOCENCIO VERA N Ot 070.70 04/08/2015 INOCENCIO VERA N Ot 202.80 04/08/2015 INOCENCIO VERA N Ot 289.81 04/08/2015 INOCENCIO VERA N Ot V58.69 04/24/2015 LORRIE MUÑOZ S WEB PRODUCTION ASSISTANT Ot 070.70 04/24/2015 MUÑOZLORRIE Fernández S WEB PRODUCTION ASSISTANT Ot 202.80 04/24/2015 MUÑOZLORRIE Fernández S WEB PRODUCTION ASSISTANT Ot 289.81 04/24/2015 LORRIE MUÑOZ S WEB PRODUCTION ASSISTANT Ot V58.69 05/14/2015 INOCENCIO VERA N Ot [...] MD Ot K73.9 06/18/2015 LORRIE MUÑOZ S WEB PRODUCTION ASSISTANT Ot R05 06/18/2015 LORRIE MUÑOZ S WEB PRODUCTION ASSISTANT Ot R06.02 06/18/2015 LORRIE MUÑOZ S WEB PRODUCTION ASSISTANT Ot R05 06/18/2015 MUÑOZLORRIE Fernández WEB PRODUCTION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 14:10:00 12/19/2014 23:59:59 CLS Outpatient TORITO NASH MD [facility] RAD DDD [id number] 08/29/2014 09:18:00 08/29/2014 23:59:59 CLS Outpatient INOCENCIO VERA [facility] ONC [id number] 08/20/2014 12:17:00 08/20/2014 23:59:59 CLS Outpatient LORRIE MUÑOZ S [employer]IST[employer] [facility] RAD [id number] 07/02/2014 13:46:00 07/02/2014 14:24:00 DIS Outpatient JL GARLAND MD [facility] ONC [id number] 06/25/2014 12:46:00 06/25/2014 23:59:59 CLS Outpatient MUÑOZLORRIE Fernández S [employer] ASSISTANT [facility] ONC [id number] 05/02/2014 14:51:00 05/26/2014 00:01:00 DIS Outpatient JL GARLAND MD [facility] ONC [id number] 05/21/2014 10:05:00 05/21/2014 23:59:59 CLS Outpatient LORRIE MUÑOZ S [employer] ASSISTANT [facility] RAD [id number] 05/01/2014 10:10:00 05/01/2014 23:59:59 CLS Outpatient LORRIE MUÑOZ S [employer] ASSISTANT [facility] ONC [id number] 03/06/2014 08:36:00 03/06/2014 23:59:59 CLS Outpatient LORRIE MUÑOZ S [employer] ASSISTANT [facility] ONC [id number] 02/21/2014 08:31:00 02/21/2014 23:59:59 CLS Outpatient JL GARLAND MD [facility] RAD [id number] 12/24/2013 08:14:00 02/21/2014 00:01:00 DIS Outpatient JL GARLAND MD [facility] ONC [id number] 12/18/2013 09:41:00 12/18/2013 23:59:59 CLS Outpatient LORRIE MUÑOZ S [employer] ASSISTANT [facility] ONC [id number] 11/26/2013 11:27:00 11/26/2013 23:59:59 CLS Outpatient JL GARLAND MD [facility] RAD [id number] 11/23/2013 10:42:00 11/24/2013 13:50:00 DIS Outpatient CHUCHO JOY DO [facility] [id number] 11/22/2013 13:11:00 11/22/2013 23:59:59 CLS Outpatient CHUCHO JOY DO [facility] PREOP [id number] 11/15/2013 11:59:00 11/16/2013 15:15:00 DIS Outpatient CHCUHO JOY DO [facility] [id number] 11/12/2013 11:26:00 11/12/2013 23:59:59 CLS Outpatient WILLY JEFFERSON [facility] RAD [id number] 08/12/2017 13:59:00 Document Registration
[2017-08-12 16:49] VITALS: BP 155/92
[2017-08-12 17:06] VITALS: BP 155/92
[2017-08-12 17:51] LABS: CREATINE KINASE 60 U/L (30-200)
[2017-08-12] MEDS: NS IV 1000 ML 1,000 ML IV SCH (17:56)
[2017-08-12 17:58] LABS: MYOGLOBIN SERUM 42.3 NG/ML (10.0-92.0)
[2017-08-12] MEDS: RT-ALBUTEROL SULF 2.5 MG/3 ML PRE-MIX VIAL INH SCH ×2 (18:49→22:51)
[2017-08-12] MEDS ORDERED: INFLUENZA TRIvalent 2017-2018 0.5 ML/45 MCG SYR IM ONE (19:45)
[2017-08-12 20:00] VITALS: BP 129/81
[2017-08-12] MEDS ORDERED: RT-ALBUTEROL SULF 2.5 MG/3 ML PRE-MIX VIAL INH PRN (20:00)
[2017-08-13] VITALS: BP 109/72
[2017-08-13] MEDS: RT-ALBUTEROL SULF 2.5 MG/3 ML PRE-MIX VIAL INH SCH ×4 (02:46→14:20)
[2017-08-13 04:00] VITALS: BP 131/80
--- NOTE | 2017-08-13 05:32 | History & Physicial (CHS) ---
HPI History of Present Illness: 66 year old male currently undergoing chemotherapy for non-Hodgkins Lymphoma at the [facility] was sent from chemo yesterday after reports of chest pain. He reported chest pain with exertion that resolved with rest. He did not receive his chemotherapy dose yesterday and was sent to the ED for furher evaluation. In the ED he was found to have an elevated D-Dimer, and given his multiple risk factors for embolism (cancer, Protein S Deficiency), he had a CTA that was negative for embolism. He was placed in observation with a consult to cardiology with Dr. Burden for evaluation of his chest pain. He had no acute events overnight and his vital signs have remained stable. No history of similar chest pain or pressure, no significant cardiac history that the patient is aware of. Source: old records Attending Physician Elina Lomas MD PCP Andrae Lawson MD Consult Date of Admission Aug 12, 2017 at 16:10 Home Medications Home Medications Reviewed patient Home Medication Reconciliation Form Allergies Coded Allergies: Gadolinium-Containing Contrast Medi (Verified Allergy, Severe, Anaphylaxis , 08/12/17) gadoteridol (Verified Allergy, Mild, SNEEZING, HOARSE VOICE, 08/12/17) DFM-Tjvbtm-Cjylkt Hx Patient Social History Alcohol Use: Rarely Uses Recreational Drug Use: No (PAST HISTORY OF POT) Smoking Status: Former Smoker Former smoker/When Quit: December 13, 2013 Type Used: Cigarettes, Smokeless Tobacco Recent Foreign Travel: No Contact w/other who traveled: No Recent Hopitalizations: No Recent Infectious Disease Expo: No Physical Abuse Screen: No Sexual Abuse: No Immunizations Up To Date Tetanus Booster (TDap): Unknown Date of Pneumonia Vaccine: December 13, 2014 Date of Influenza Vaccine: May 15, 2015 Past Medical History Past medical history 1. Non-Hodgkin's lymphoma, currently receiving antibody treatment 2. Pneumonia with associated ARDS earlier this year 3. Chronic hepatitis C 4. Protein S deficiency 5. Tobaccoism Past surgical history 1. Inguinal hernia repair 2. Tonsillectomy 3. Biopsy of abdominal mass Family Medical History Family History: Abdominal aortic aneurysm Alcoholism Aphasia Cancer Cancer of colon Cataract Chest pain Congestive heart failure Coronary thrombosis 09 BROTHER 09 BROTHER 09 BROTHER 09 BROTHER 09 SISTER 09 SISTER 09 SISTER Dementia Dysphagia Family history: Allergy Family history: Alzheimer's disease Family history: Cardiovascular disease Family history: Coronary thrombosis Family history: Gastrointestinal disease Family history: Thyroid disorder Heart disease Hereditary disease History of drug abuse Kidney disease Myocardial infarction 09 BROTHER Psychotic disorder Seizure disorder Stroke 09 BROTHER No Family History of: [place]'s disease Congenital heart disease Cystic fibrosis Family history: Arthritis Family history: Asthma Family history: Breast disease Family history: Diabetes mellitus Family history: Glaucoma Family history: Hypertension Family history: Osteoporosis Headache Hearing loss History of - anemia History of - respiratory disease Human immunodeficiency virus (HIV) seropositivity Hypercholesterolemia Infertile Malignant neoplasm of lung Parkinson's disease Prostate cancer Tuberculosis Visual impairment Physical Exam-(CHC) Physical Exam Vital Signs VS - Last 72 Hours, by Label 08/12/17 08/12/17 08/12/17 08/12/17 13:20 16:35 16:49 17:06 Temp 98.5 97.6 Pulse 120 93 94 Resp 18 18 18 B/P (MAP) 171/99 (123) 155/92 (113) Pulse Ox 97 97 95 97 O2 Delivery Room Air Room Air Nasal Cannula O2 Flow Rate 2.00 08/12/17 08/12/17 08/12/17 08/12/17 17:06 18:51 18:55 19:00 Pulse 92 112 Pulse Ox 97 97 O2 Delivery Room Air Nasal Cannula O2 Flow Rate 2.00 2.00 FiO2 24 08/12/17 08/12/17 08/12/17 08/13/17 20:00 20:30 22:52 00:00 Temp 98.4 97.8 Pulse 99 85 Resp 18 18 B/P (MAP) 129/81 (97) 109/72 (84) Pulse Ox 95 98 99 O2 Delivery Room Air Nasal Cannula Room Air Room Air O2 Flow Rate 2.00 08/13/17 08/13/17 08/13/17 08/13/17 01:00 02:46 04:00 07:00 Temp 98.8 Pulse 89 95 105 Resp 18 B/P (MAP) 131/80 (97) Pulse Ox 97 98 O2 Delivery Room Air Room Air 08/13/17 08/13/17 08:30 11:14 Temp 99.0 Pulse 100 Resp 18 B/P (MAP) 125/80 (95) Pulse Ox 96 95 O2 Delivery Room Air Room Air Capillary Refill : Less Than 3 SecondsLess Than 3 Seconds Clinical Quality Measures AMI/AHF: ASA po Prior to arrival: Yes DVT/VTE Risk/Contraindication: Risk Factor Score Per Nursin RFS Level Per Nursing on Admit: 4+=Very High Assessment/Plan Assessment/Plan Plan Chest Pain on Exertion: 08/13: was present on admission 08/12, is ____ longer present; cardiology consulted Non-Hodgkins Lympphoma 08/13: currently undergoing chemotherapy at [facility]; dose held yesterday due to patient being sent to ED for chest pain evaluation Protein S Deficiency: 08/13: Chronic problem, patient anticoagulated. CTA negative for embolism Tobacco abuse: 08/13: Cessation encouraged Hepatitis C: 08/13: per history DVT Ppx: Lovenox and ambulation/SCDs FEN: Heart Healthy Diet Dispo: anticipate that patient will be ready for discharge to home later today, pending clearance by cardiology with plans for outpatient testing for further evaluation at the discretion of cardiology ARLEY NASSAR DO Aug 13, 2017 05:32
[2017-08-13 05:59] LABS: BASOPHILS % (AUTO) 0 % (0-10); EOSINOPHILS % (AUTO) 0 % (0-10); HEMATOCRIT 32 % (40-54); HEMOGLOBIN 11.1 G/DL (13.3-17.7); LYMPHOCYTES # (AUTO) 0.4 X 10^3 (1.0-4.0); LYMPHOCYTES % (AUTO) 9 % (12-44); MEAN CORPUSCULAR HEMOGLOBIN 35 PG (25-34); MEAN CORPUSCULAR HGB CONC 35 G/DL (32-36); MEAN CORPUSCULAR VOLUME 98 FL (80-99); MONOCYTES # (AUTO) 0.4 X 10^3 (0.0-1.0); MONOCYTES % (AUTO) 7 % (0-12); NEUTROPHILS # (AUTO) 4.1 X 10^3 (1.8-7.8); NEUTROPHILS % (AUTO) 83 % (42-75); PLATELET COUNT 92 10^3/uL (130-400); RED BLOOD COUNT 3.22 10^6/uL (4.35-5.85); RED CELL DISTRIBUTION WIDTH 14.6 % (10.0-14.5); WHITE BLOOD COUNT 4.9 10^3/uL (4.3-11.0)
[2017-08-13 06:25] LABS: ALANINE AMINOTRANSFERASE 23 U/L (0-55); ALBUMIN 3.9 GM/DL (3.2-4.5); ALKALINE PHOSPHATASE 44 U/L (40-136); BILIRUBIN,TOTAL 0.3 MG/DL (0.1-1.0); BUN/CREATININE RATIO 14; CALCIUM 8.9 MG/DL (8.5-10.1); CARBON DIOXIDE 23 MMOL/L (21-32); CHLORIDE 106 MMOL/L (98-107); CHOLESTEROL 155 MG/DL (< 200); CREATININE SERUM 0.86 MG/DL (0.60-1.30); GFR ESTIMATED > 60; GLUCOSE 93 MG/DL (70-105); HDL CHOLESTEROL 59 MG/DL (40-60); POTASSIUM 3.9 MMOL/L (3.6-5.0); SODIUM 140 MMOL/L (135-145); TRIGLYCERIDES 88 MG/DL (<150); VLDL CHOLESTEROL 18 MG/DL (5-40)
[2017-08-13] MEDS: NS IV 1000 ML 1,000 ML IV SCH (07:24)
[2017-08-13 08:30] VITALS: BP 125/80
[2017-08-13] MEDS ORDERED: lisINopril 20 MG (ZESTRIL) TAB PO SCH (09:00)
[2017-08-13] MEDS ORDERED: meTOproloL SUCCINATE 50 MG (TOPROL XL) TAB PO SCH (09:00)
[2017-08-13] MEDS ORDERED: ASPIRIN E.C. 325 MG (ECOTRIN) TABLET PO SCH (09:00)
--- NOTE | 2017-08-13 11:49 | Discharge Summary ---
Diagnosis/Chief Complaint Date of Admission Aug 12, 2017 at 16:10 Date of Discharge 08/13/17 Admission Diagnosis Admission Diagnosis Chest Pain HTN Non-Hodgkin's Lymphoma Discharge Diagnosis Chest Pain - now resolved HTN Non-Hodgkin's Lymphoma Chief Complaint/HPI Chief Complaint/HPI 66 year old male currently undergoing chemotherapy for non-Hodgkins Lymphoma at the [facility] was sent from chemo yesterday after reports of chest pain. He reported chest pain with exertion that resolved with rest. He did not receive his chemotherapy dose yesterday and was sent to the ED for furher evaluation. In the ED he was found to have an elevated D-Dimer, and given his multiple risk factors for embolism (cancer, Protein S Deficiency), he had a CTA that was negative for embolism. He was placed in observation with a consult to cardiology with Dr. Burden for evaluation of his chest pain. He had no acute events overnight and his vital signs have remained stable. No history of similar chest pain or pressure, no significant cardiac history that the patient is aware of. Discharge Summary-OBS Procedures None. Consultations Discharge Physical Examination Allergies: Coded Allergies: Gadolinium-Containing Contrast Medi (Verified Allergy, Severe, Anaphylaxis , 08/12/17) gadoteridol (Verified Allergy, Mild, SNEEZING, HOARSE VOICE, 08/12/17) Vitals & I&Os Intake and Output 08/13/17 00:00 Intake Total 222 ml Output Total 325 ml Balance -103 ml Vital Sign - Last 12Hours Date Time Temp Pulse Resp B/P (MAP) Pulse Ox O2 Delivery O2 Flow Rate FiO2 08/13/17 11:14 95 Room Air 08/13/17 08:30 99.0 100 18 125/80 (95) 08/12/17 20:30 2.00 08/12/17 17:06 24 General Appearance: Alert, Oriented X3, Cooperative, No Acute Distress HEENT: Atraumatic, PERRLA, EOMI, Mucous Memb Moist/[place] Respiratory: Clear to Auscultation, Normal Air Movement Cardiovascular: Regular Rate, Normal S1, Normal S2, No Murmurs Abdominal: Normal Bowel Sounds, Soft, No Tenderness, No Hepatosplenomegaly Extremities: No Clubbing, No Cyanosis, No Tenderness/Swelling Skin: No Rashes, No Significant Lesion Neuro: Normal Speech, Normal Tone, Sensation Intact, Cranial Nerves 3-12 NL Psych/Mental Status: Mental Status NL, Mood NL Hospital Course Pt was brought to ED from cancer center yesterday after complaining of chest pain. He reports that he has had "heart pain" on and off for the last several months. He was recently diagnosed with non-hodgkin's lymphoma and was about to have a dose of chemotherapy when he started having the pain. This morning he reports that the pain is gone and he would like to go home and have his work up as an outpatient. Dr. Burden is coming to see the patient today, and then we will discharge him to home, and have him follow up on an outpatient basis. The patient was instructed to return to the ED if chest pain returned and was not relieved by the nitro he was given by another provider. Labs Laboratory Tests 08/12/17 13:46: White Blood Count 12.1H, Red Blood Count 3.77L, Hemoglobin 12.9L, Hematocrit 36L , Mean Corpuscular Volume 96, Mean Corpuscular Hemoglobin 34, Mean Corpuscular Hemoglobin Concent 36, Red Cell Distribution Width 14.3, Platelet Count 135, Mean Platelet Volume 8.8, Neutrophils (%) (Auto) 87H, Lymphocytes (%) (Auto) 4L , Monocytes (%) (Auto) 9, Eosinophils (%) (Auto) 0, Basophils (%) (Auto) 0, Neutrophils # (Auto) 10.5H, Lymphocytes # (Auto) 0.5L, Monocytes # (Auto) 1.1H, Eosinophils # (Auto) 0.0, Basophils # (Auto) 0.0, Neutrophils % (Manual) 91, Lymphocytes % (Manual) 2, Monocytes % (Manual) 7, Eosinophils % (Manual) 0, Basophils % (Manual) 0, Band Neutrophils 0, Blood Morphology Comment NORMAL, Prothrombin Time 13.0, INR Comment 1.0, Activated Partial Thromboplast Time 28, D-Dimer 0.60H, Sodium Level 137, Potassium Level 4.2, Chloride Level 104, Carbon Dioxide Level 23, Anion Gap 10, Blood Urea Nitrogen 14, Creatinine 1.11, Estimat Glomerular Filtration Rate > 60, BUN/Creatinine Ratio 13, Glucose Level 128H, Calcium Level 9.8, Magnesium Level 2.1, Total Bilirubin 0.4, Aspartate Amino Transf (AST/SGOT) 34, Alanine Aminotransferase (ALT/SGPT) 26, Alkaline Phosphatase 58, Myoglobin 40.0, Troponin I < 0.30, Total Protein 8.3H, Albumin 4.6H 08/12/17 17:27: Myoglobin 42.3, Troponin I < 0.30, Total Creatine Kinase 60 08/13/17 05:46: White Blood Count 4.9, Red Blood Count 3.22L, Hemoglobin 11.1L, Hematocrit 32L, Mean Corpuscular Volume 98, Mean Corpuscular Hemoglobin 35H, Mean Corpuscular Hemoglobin Concent 35, Red Cell Distribution Width 14.6H, Platelet Count 92L, Mean Platelet Volume 9.0, Neutrophils (%) (Auto) 83H, Lymphocytes (%) (Auto) 9L , Monocytes (%) (Auto) 7, Eosinophils (%) (Auto) 0, Basophils (%) (Auto) 0, Neutrophils # (Auto) 4.1, Lymphocytes # (Auto) 0.4L, Monocytes # (Auto) 0.4, Eosinophils # (Auto) 0.0, Basophils # (Auto) 0.0, Sodium Level 140, Potassium Level 3.9, Chloride Level 106, Carbon Dioxide Level 23, Anion Gap 11, Blood Urea Nitrogen 12, Creatinine 0.86, Estimat Glomerular Filtration Rate > 60, BUN/ Creatinine Ratio 14, Glucose Level 93, Calcium Level 8.9, Total Bilirubin 0.3, Aspartate Amino Transf (AST/SGOT) 26, Alanine Aminotransferase (ALT/SGPT) 23, Alkaline Phosphatase 44, Total Protein 7.0, Albumin 3.9, Triglycerides Level 88 , Cholesterol Level 155, LDL Cholesterol Direct 88, VLDL Cholesterol 18, HDL Cholesterol 59 Discharge Condition at discharge Stable Instructions to patient/family Please see electronic discharge instructions given to patient. Discharge Medications Reviewed and agree with Discharge Medication list on patient's Discharge Instruction sheet Clinical Quality Measures AMI/AHF: ASA po Prior to arrival: Yes DVT/VTE Risk/Contraindication: Risk Factor Score Per Nursin RFS Level Per Nursing on Admit: 4+=Very High ARLEY NASSAR DO Aug 13, 2017 11:49
--- NOTE | 2017-08-13 11:52 | Discharge Instructions ---
Discharge [facility] Discharge Medications New, Converted or Re-Newed RX: Other (no new rx) Continued Medications: Acetaminophen/Diphenhydramine (Tylenol Pm Ex-Strength Caplet) 1 Each Tablet 1 EACH PO HS, TAB Aspirin (Aspirin) 325 Mg Tablet 1300 MG PO DAILY take 4 (325mg) tabs Lisinopril (Lisinopril) 20 Mg Tablet 20 MG PO DAILY, TAB Multivitamin (Multivitamins) 1 Each Tablet 1 TAB PO DAILY [place] 3 Polyunsat Fatty Acids (Fish Oil 1,000 mg Capsule) 1,000 Mg Cap 1000 MG PO BID Oxycodone HCl (Oxycodone HCl) 20 Mg Tablet 20 MG PO TID, TAB Vitamin B Complex & Vit C No.4 (Super B Complex) 150 Mg Tablet 150 MG PO DAILY, TAB Patient Instructions Patient Instructions -clinic will contact you on Tuesday08/16/17 with follow up appointment information Goal/Follow Up Appt: -clinic will contact you Tuesday with date and time of follow up appointment Return to The Hospital For: Chest pain unrelieved by rest or medication, shortness of breath unrelieved by rest or any other emergent complaints or concerns Activity & Diet Discharge Diet: Cardiac Diet Activity as Tolerated: Yes ARLEY NASSAR DO Aug 13, 2017 11:52
[2017-08-13 12:30] VITALS: BP 145/79
[2017-08-13] MEDS ORDERED: NON-FORMULARY MEDICATION 1 EA EA (Oxycodone HCl 20 MG) PO SCH (13:00)
--- NOTE | 2017-08-13 13:34 | Consultation-Cardiology ---
HPI-Cardiology Cardiology Consultation: Date of Consultation 08/13/17 Time Seen by Provider: 13:30 Date of Admission Attending Physician Elina Lomas MD Admitting Physician Andrae Lawson MD Consulting Physician RAYSHAWN STEVENSON MD, MA, FACP, FACC, FSCAI, CCDS HPI: Chief Complaint: Chest discomfort 66 yo man with several months of intermittent chest discomfort: upper mid sternal, feeling of "deep bruise in the chest," mild to mod in intensity, lasting up to approx 3 hours, not clearly related to exertion, not associated with other symptoms, non-radiating. Had similar discomfort at the time of his chemo yesterday. Chemo was not given. Was sent to ER. Had had nearly 3 hours of chest discomfort before it got better with nitro in the ER and then resolved gradually over a fairly long time and has not recurred since. He states the frequency of such discomfort is a few times a week and has not changed much in the recent past. Is physically active. Does not experience these symptoms when goes on vigorous walks. Denies exertional shortness of breath. Denies leg swelling or palp or syncope Review of Systems-Cardiology Review of Systems Constitutional: No malaise, No tiredness, No weight loss, No weight gain Eyes: No vision change Ears/Nose/Throat: No ear discharge, No nasal drainage, No recent hearing loss Respiratory: As described under HPI Cardiovascular: As described under HPI Gastrointestinal: No diarrhea, No nausea, No vomiting Genitourinary: No hematuria, No urine frequency changes Musculoskeletal: No back pain, No joint pain Skin: No rash, No ulcerations Psychiatric/Neurological: No seizure, No focal weakness, No syncope Hematologic: No bleeding abnormalities All Other Systems Reviewed Negative Unless Noted: Yes BFY-Ejpcwg-Gksous Hx Patient Social History Alcohol Use: Rarely Uses Recreational Drug Use: No (PAST HISTORY OF POT) Smoking Status: Former Smoker Former smoker/When Quit: December 13, 2013 Type Used: Cigarettes, Smokeless Tobacco Recent Foreign Travel: No Recent Infectious Disease Expo: No Hospitalization with Isolation: Denies Physical Abuse Screen: No Sexual Abuse: No Immunizations Up To Date Tetanus Booster (TDap): Unknown Date of Pneumonia Vaccine: December 13, 2014 Date of Influenza Vaccine: May 15, 2015 Past Medical History PMH As described under Assessment. Family Medical History Family History: Abdominal aortic aneurysm Alcoholism Aphasia Cancer Cancer of colon Cataract Chest pain Congestive heart failure Coronary thrombosis 09 BROTHER 09 BROTHER 09 BROTHER 09 BROTHER 09 SISTER 09 SISTER 09 SISTER Dementia Dysphagia Family history: Allergy Family history: Alzheimer's disease Family history: Cardiovascular disease Family history: Coronary thrombosis Family history: Gastrointestinal disease Family history: Thyroid disorder Heart disease Hereditary disease History of drug abuse Kidney disease Myocardial infarction 09 BROTHER Psychotic disorder Seizure disorder Stroke 09 BROTHER No Family History of: [place]'s disease Congenital heart disease Cystic fibrosis Family history: Arthritis Family history: Asthma Family history: Breast disease Family history: Diabetes mellitus Family history: Glaucoma Family history: Hypertension Family history: Osteoporosis Headache Hearing loss History of - anemia History of - respiratory disease Human immunodeficiency virus (HIV) seropositivity Hypercholesterolemia Infertile Malignant neoplasm of lung Parkinson's disease Prostate cancer Tuberculosis Visual impairment Allergies and Home Medications Allergies Coded Allergies: Gadolinium-Containing Contrast Medi (Verified Allergy, Severe, Anaphylaxis , 08/12/17) gadoteridol (Verified Allergy, Mild, SNEEZING, HOARSE VOICE, 08/12/17) Home Medications Acetaminophen/Diphenhydramine 1 Each Tablet, 1 EACH PO HS, (Reported) Aspirin 325 Mg Tablet, 1,300 MG PO DAILY, (Reported) take 4 (325mg) tabs Lisinopril 20 Mg Tablet, 20 MG PO DAILY, (Reported) Metoprolol Succinate 25 Mg Tab.er.24h, 25 MG PO DAILY, #30 Ref 3 Prescribed by: RAYSHAWN STEVENSON on 08/13/17 1414 Multivitamin 1 Each Tablet, 1 TAB PO DAILY, (Reported) [place] 3 Polyunsat Fatty Acids 1,000 Mg Cap, 1,000 MG PO BID, (Reported) Oxycodone HCl 20 Mg Tablet, 20 MG PO TID, (Reported) Vitamin B Complex & Vit C No.4 150 Mg Tablet, 150 MG PO DAILY, (Reported) Physical Exam-Cardiology Physical Exam Vital Signs/I&O Vital Sign - Last 12Hours 08/13/17 08/13/17 08/13/17 08/13/17 02:46 04:00 07:00 08:30 Temp 98.8 99.0 Pulse 95 105 100 Resp 18 18 B/P (MAP) 131/80 (97) 125/80 (95) Pulse Ox 97 98 96 O2 Delivery Room Air Room Air Room Air 08/13/17 08/13/17 09:00 11:14 Pulse Ox 95 O2 Delivery Nasal Cannula Room Air O2 Flow Rate 2.00 Intake and Output 08/13/17 00:00 Intake Total 222 ml Output Total 325 ml Balance -103 ml Capillary Refill : Less Than 3 SecondsLess Than 3 Seconds Constitutional: AAO x 3, well-developed, well-nourished HEENT: hearing is well preserved, No xanthelasmas are seen Neck: No carotid bruit, carotid pulses are 2 + bilaterally, with good upstrokes Respiratory: No accessory muscle use, lungs clear to percussion, lungs clear to auscultation Cardiovascular: regular rate-rhythm, S1 and S2, systolic murmur (faint TEJAS at card base) Gastrointestinal: No tender, soft, No guarding, No rebound, audible bowel sounds Extremities: No clubbing, No cyanosis, No significant edema Neurologic/Psychiatric: oriented x 3, grossly intact, power is 5/5 both on sides Skin: No rash on exposed areas, No ulcerations on exposed areas Data Review Labs Laboratory Tests 08/12/17 17:27: Total Creatine Kinase 60, Myoglobin 42.3, Troponin I < 0.30 08/13/17 05:46: White Blood Count 4.9, Red Blood Count 3.22L, Hemoglobin 11.1L, Hematocrit 32L, Mean Corpuscular Volume 98, Mean Corpuscular Hemoglobin 35H, Mean Corpuscular Hemoglobin Concent 35, Red Cell Distribution Width 14.6H, Platelet Count 92L, Mean Platelet Volume 9.0, Neutrophils (%) (Auto) 83H, Lymphocytes (%) (Auto) 9L , Monocytes (%) (Auto) 7, Eosinophils (%) (Auto) 0, Basophils (%) (Auto) 0, Neutrophils # (Auto) 4.1, Lymphocytes # (Auto) 0.4L, Monocytes # (Auto) 0.4, Eosinophils # (Auto) 0.0, Basophils # (Auto) 0.0, Sodium Level 140, Potassium Level 3.9, Chloride Level 106, Carbon Dioxide Level 23, Anion Gap 11, Blood Urea Nitrogen 12, Creatinine 0.86, Estimat Glomerular Filtration Rate > 60, BUN/ Creatinine Ratio 14, Glucose Level 93, Calcium Level 8.9, Total Bilirubin 0.3, Aspartate Amino Transf (AST/SGOT) 26, Alanine Aminotransferase (ALT/SGPT) 23, Alkaline Phosphatase 44, Total Protein 7.0, Albumin 3.9, Triglycerides Level 88 , Cholesterol Level 155, LDL Cholesterol Direct 88, VLDL Cholesterol 18, HDL Cholesterol 59 Laboratory Tests 08/12/17 13:46 08/13/17 05:46 A/P-Cardiology Assessment/Admission Diagnosis Chest discomfort w/o any evidence of ACS, etiology undetermined Follicular non-Hodgkin's lymphoma, grade 1-2, CD20 positive diagnosed in early 2013 with bulky abdominal and thoracic disease causing symptoms. Treated with Treanda and Rituxan regimen 6 cycles until June 2014. Maintenance rituximab 2 years completed in early 2016. Evidence of progressive disease by January 2017. Currently on chemotherapy with Treanda plus Rituxan regimen that is being managed by Dr Neely History of recurrent major infections and lack of response to antigen challenge. He was started on IVIG and this is being managed by Dr Neely H/o hepatitis C treated with Harvoni with a complete response History of protein S deficiency without documented thrombosis. Treated only with aspirin and monitored by his Nuclear Medicine Tech, Dr Neely Chronic tobacco use that he quit in 2014 Fam h/o early heart disease; he's not able to provide details Discussion and Recomendations * There is no evidence of ACS, but he does have multiple CAD risk factors * Given symptoms and CAD risk factors, we recommend further cor work up. He agrees, but wishes to do this as an outpatient * We have added bb to the regimen and have advised continuation of asa * We reviewed management of chest discomfort and advised him to come back to the ER in case of recurrence of symptoms * We reviewed risk factor mod and have advised continuing avoidance of tobacco use Clinical Quality Measures AMI/AHF: ASA po Prior to arrival: Yes DVT/VTE Risk/Contraindication: Risk Factor Score Per Nursin RFS Level Per Nursing on Admit: 4+=Very High RAYSHAWN STEVENSON MD FACP FAC CCDS Aug 13, 2017 13:34
[2017-08-13] MEDS ORDERED: METO-351 PO (14:14)
[2017-08-13] MEDS ORDERED: HEParin (CENTRAL IV FLUSH) 500 UNIT/5 ML SYR IV ONE (15:00)
[2017-08-13] MEDS ORDERED: HEParin (CENTRAL IV FLUSH) 500 UNIT/5 ML SYR ONE (15:04)
[2017-08-13 15:30] VITALS: BP 145/79
[2017-08-13] MEDS ORDERED: OMEGA 3 (FISH OIL) 1000 MG CAP PO SCH (21:00)
[2017-08-13] MEDS ORDERED: ACETAMINOPHEN 500 MG TAB (TYLENOL) PO SCH (21:00)
[2017-08-13] MEDS ORDERED: diphenhydrAMINE 25 MG TAB (BENADRYL) PO SCH (21:00)
[2017-08-14] MEDS ORDERED: NON-FORMULARY MEDICATION 1 EA EA (Vitamin B Complex & Vit C No.4 (Super B Complex) 150 MG) PO SCH (09:00)
[2017-08-14] MEDS ORDERED: ASPIRIN 325 MG (5 GR) TABLET PO SCH (09:00)
[2017-08-14] MEDS ORDERED: MULTIVIT W/MINERALS TAB (THERAGRAN M) PO SCH (09:00)
[2017-08-14] MEDS ORDERED: lisINopril 20 MG (ZESTRIL) TAB PO SCH (09:00)
== END 2017-08-13 15:00 | disposition home or self-care (01) ==
LOC: EDUNIT# 13:15 → ER 13:17 → UNDOADMOB 16:10 → 4TH 16:10 → UNDODISOB 08-13 15:45
PROVIDERS: ADMIT Pediatrics; ATTEND Pediatrics
DX: R07.89 Other chest pain (principal); C82.12 Follicular lymphoma grade II, intrathoracic lymph nodes; C82.13 Follicular lymphoma grade II, intra-abdominal lymph nodes; D68.59 Other primary thrombophilia; J43.9 Emphysema, unspecified; I10 Essential (primary) hypertension; K74.60 Unspecified cirrhosis of liver; F41.9 Anxiety disorder, unspecified; F32.9 Major depressive disorder, single episode, unspecified; R79.1 Abnormal coagulation profile; Z86.19 Personal history of other infectious and parasitic diseases; Z87.01 Personal history of pneumonia (recurrent); Z79.82 Long term (current) use of aspirin; Z79.899 Other long term (current) drug therapy; Z87.891 Personal history of nicotine dependence; Z91.041 Radiographic dye allergy status
CPT/HCPCS: 36415; 71010; 71275; 80053; 80061; 82550; 83735; 83874; 84484; 85007; 85025; 85027; 85379; 85610; 85730; 93005; 93041; 94640; 94760; G0378

== ENCOUNTER → 2017-08-24 | Outpatient (CLI) | payer MEDICARE ==
[~2017-08-24] MED LIST changes: +BARIUM SUSPENSION 2.1% (VANILLA SILQ) 450 ML PO ONE; +IOHEXOL 350 MG/ML 100 ML (OMNIPAQUE 350) VIAL IV ONE; +METO-351 PO; +NS 100 ML (IVPB) BAG IV ONE
--- NOTE | 2017-08-24 10:44 | Diagnostic Imaging Report ---
EXAMINATION: CTA neck, chest, abdomen, and pelvis with and without contrast. INDICATION: Follicular non-Hodgkin's lymphoma. TECHNIQUE: Contiguous axial sections were taken from the midportion of the skull to the low pelvis following administration of intravenous contrast. Sagittal and coronal reconstructed images were also obtained. FINDINGS: The previous CT neck, chest, abdomen, and pelvis exam of 06/20/2017 noted an enlarged cervical lymph node in level II on the right. On the prior exam, that node measured approximately 1.6 x 2.1 x 2.5 cm. On this study, however, the node has decreased in size significantly and now measures only 0.9 x 1.3 x 1.4 cm. No new mass or adenopathy has developed in the neck otherwise. The previous study also revealed a 1.5 x 2.1 cm right axillary node. That node is essentially no different in size. There is no other axillary, mediastinal, or hilar adenopathy noted. On the prior exam, there were a number of enlarged mesenteric lymph nodes. The largest of these nodes measured 3.7 x 4.9 cm. That node is now estimated to be 3.3 x 4.2 cm. Just along the right lateral margin of this node, there was another enlarged node measuring 2.0 x 2.3 cm. This node now measures 1.9 x 2.4 cm. The spleen was also mildly enlarged on the prior exam measuring 5.6 x 13.7 x 13.7 cm. The spleen is somewhat smaller on this study and is now estimated to be 5.5 x 13.3 x 11.6 cm. On the previous exam, there was also right iliac chain adenopathy with the largest node measuring 2.2 cm in maximum short axis diameter. That node now measures 2.1 cm. The previous study also noted bilateral inguinal adenopathy. The largest node on the right measured 2.0 cm and the largest node on the left 2.3 cm. Those nodes now measure 2.0 and 1.9 cm. The overall appearance of the abdomen and pelvis has not changed significantly otherwise. No new abnormality has developed. IMPRESSION: 1. The appearance of the neck has improved since the prior exam as the large node on the right seen previously has decreased in size significantly. 2. The other nodes in the chest, abdomen, and pelvis are also slightly smaller than on the previous exam. The spleen has decreased in size somewhat as well. 3. There is no acute abnormality in the neck, chest, abdomen, or pelvis identified. Dictated by: Dictated on workstation # [id number]
== END ==
LOC: RAD 07:59
PROVIDERS: ATTEND Internal Medicine Hematology & Oncology
DX: C82.18 Follicular lymphoma grade II, lymph nodes of multiple sites (principal); D80.9 Immunodeficiency with predominantly antibody defects, unspecified
CPT/HCPCS: 70491; 71260; 74176

== ENCOUNTER → 2017-08-25 | Outpatient (CLI) | payer MEDICARE ==
[~2017-08-25] MED LIST changes: -BARIUM SUSPENSION 2.1% (VANILLA SILQ) 450 ML PO ONE; -IOHEXOL 350 MG/ML 100 ML (OMNIPAQUE 350) VIAL IV ONE; -NS 100 ML (IVPB) BAG IV ONE
== END ==
LOC: CARD 09:39
PROVIDERS: ATTEND Internal Medicine Cardiovascular Disease
DX: I25.10 Atherosclerotic heart disease of native coronary artery without angina pectoris (principal); R07.89 Other chest pain; C82.18 Follicular lymphoma grade II, lymph nodes of multiple sites; Z87.891 Personal history of nicotine dependence
CPT/HCPCS: 93306

== ENCOUNTER → 2017-09-08 | Outpatient (CLI) | payer MEDICARE ==
[~2017-09-08] VITALS: Ht 182.9 cm; Wt 99.8 kg
[~2017-09-08] MED LIST changes: +REGADENOSON 0.4 MG/5 ML SYR (LEXISCAN) IV ONE
[2017-09-08] MEDS: CATHETER FLUSH 10 ML SYR IV PRN ×2 (07:56→09:25)
[2017-09-08 09:06] VITALS: BP 135/77
== END ==
LOC: CARD 07:43
PROVIDERS: ATTEND Internal Medicine Cardiovascular Disease
DX: I25.10 Atherosclerotic heart disease of native coronary artery without angina pectoris (principal); R07.89 Other chest pain; C82.18 Follicular lymphoma grade II, lymph nodes of multiple sites; Z87.891 Personal history of nicotine dependence
CPT/HCPCS: 78452; 93017

== ENCOUNTER 2017-10-27 12:53 | Outpatient (RCR) | payer MEDICARE ==
[2017-09-01 14:26] LABS: BASOPHILS % (AUTO) 0 % (0-10); EOSINOPHILS # (AUTO) 0.1 10^3/uL (0.0-0.3); EOSINOPHILS % (AUTO) 3 % (0-10); HEMATOCRIT 30 % (40-54); HEMOGLOBIN 10.8 G/DL (13.3-17.7); LYMPHOCYTES # (AUTO) 0.5 X 10^3 (1.0-4.0); LYMPHOCYTES % (AUTO) 16 % (12-44); MEAN CORPUSCULAR HEMOGLOBIN 35 PG (25-34); MEAN CORPUSCULAR HGB CONC 36 G/DL (32-36); MEAN CORPUSCULAR VOLUME 96 FL (80-99); MEAN PLATELET VOLUME 9.4 FL (7.4-10.4); MONOCYTES # (AUTO) 0.5 X 10^3 (0.0-1.0); MONOCYTES % (AUTO) 15 % (0-12); NEUTROPHILS # (AUTO) 2.3 X 10^3 (1.8-7.8); NEUTROPHILS % (AUTO) 66 % (42-75); PLATELET COUNT 129 10^3/uL (130-400); RED BLOOD COUNT 3.09 10^6/uL (4.35-5.85); RED CELL DISTRIBUTION WIDTH 15.6 % (10.0-14.5); WHITE BLOOD COUNT 3.4 10^3/uL (4.3-11.0)
[2017-09-01 14:51] LABS: ALANINE AMINOTRANSFERASE 22 U/L (0-55); ALBUMIN 4.3 GM/DL (3.2-4.5); ALKALINE PHOSPHATASE 54 U/L (40-136); BILIRUBIN,TOTAL 0.6 MG/DL (0.1-1.0); BUN/CREATININE RATIO 20; CALCIUM 9.2 MG/DL (8.5-10.1); CARBON DIOXIDE 22 MMOL/L (21-32); CHLORIDE 105 MMOL/L (98-107); GFR ESTIMATED > 60; GLUCOSE 101 MG/DL (70-105); MAGNESIUM 2.1 MG/DL (1.8-2.4); POTASSIUM 4.2 MMOL/L (3.6-5.0); SODIUM 136 MMOL/L (135-145); TOTAL PROTEIN 7.6 GM/DL (6.4-8.2)
[2017-09-29 10:39] LABS: BASOPHILS % (AUTO) 0 % (0-10); EOSINOPHILS % (AUTO) 1 % (0-10); HEMATOCRIT 31 % (40-54); HEMOGLOBIN 11.4 G/DL (13.3-17.7); LYMPHOCYTES # (AUTO) 0.6 X 10^3 (1.0-4.0); LYMPHOCYTES % (AUTO) 16 % (12-44); MEAN CORPUSCULAR HEMOGLOBIN 35 PG (25-34); MEAN CORPUSCULAR HGB CONC 36 G/DL (32-36); MEAN CORPUSCULAR VOLUME 97 FL (80-99); MEAN PLATELET VOLUME 9.2 FL (7.4-10.4); MONOCYTES # (AUTO) 0.4 X 10^3 (0.0-1.0); MONOCYTES % (AUTO) 10 % (0-12); NEUTROPHILS # (AUTO) 2.7 X 10^3 (1.8-7.8); NEUTROPHILS % (AUTO) 72 % (42-75); PLATELET COUNT 120 10^3/uL (130-400); RED BLOOD COUNT 3.23 10^6/uL (4.35-5.85); RED CELL DISTRIBUTION WIDTH 14.1 % (10.0-14.5); WHITE BLOOD COUNT 3.7 10^3/uL (4.3-11.0)
[2017-09-29 11:03] LABS: ALANINE AMINOTRANSFERASE 18 U/L (0-55); ALBUMIN 4.3 GM/DL (3.2-4.5); ALKALINE PHOSPHATASE 59 U/L (40-136); BILIRUBIN,TOTAL 0.6 MG/DL (0.1-1.0); BUN/CREATININE RATIO 12; CALCIUM 9.4 MG/DL (8.5-10.1); CARBON DIOXIDE 24 MMOL/L (21-32); CHLORIDE 103 MMOL/L (98-107); CREATININE SERUM 1.07 MG/DL (0.60-1.30); GFR ESTIMATED > 60; GLUCOSE 112 MG/DL (70-105); POTASSIUM 4.3 MMOL/L (3.6-5.0); SODIUM 137 MMOL/L (135-145); TOTAL PROTEIN 7.8 GM/DL (6.4-8.2)
[~2017-10-27] VITALS: Ht 180.3 cm; Wt 95.7 kg
[~2017-10-27 12:53] MED LIST changes: +ACETAMINOPHEN 325 MG TAB (TYLENOL) CANCER CTR PO PRN; +ACETAMINOPHEN 500 MG TAB (TYLENOL) CANCER CTR PO PRN; +BENDAMUSTINE HCL 130 MG in NS (IVPB) CANCER CENTER 50 ML IV SCH; +IVIG 10 GM (PRIVIGEN) CANCER C 100 ML IV SCH; +IVIG 20 GM (PRIVIGEN) CANCER C 200 ML IV SCH; +NS IV 1000 ML (CANCER CTR) IV SCH; +ONDANSETRON MDV (CANCER CENTER 16 MG, DEXAMETHASONE PF INJ (CANCER C 10 MG in D5W 50 ML... IV SCH; +PALONOSETRON HCL 0.25 MG, DEXAMETHASONE PF INJ (CANCER C 10 MG in D5W 50 ML IV(CANCER C... IV PRN; -REGADENOSON 0.4 MG/5 ML SYR (LEXISCAN) IV ONE; +diphenhydrAMINE 25 MG TAB (BENADRYL) CANCER CENTER PO SCH; +diphenhydrAMINE 50 MG/ML INJ (CANCER CENTER) IV PRN; +riTUXimab 500 MG, riTUXimab FOR IV INJ CONC 300 MG in NS (IVPB) CANCER CENTER 186 ML IV SCH
== END 2017-11-23 11:43 | disposition home or self-care (01) ==
LOC: ONC 12:53
PROVIDERS: ATTEND Internal Medicine Hematology & Oncology
DX: C82.18 Follicular lymphoma grade II, lymph nodes of multiple sites (principal); D80.2 Selective deficiency of immunoglobulin A [IgA]; D68.59 Other primary thrombophilia; B19.20 Unspecified viral hepatitis C without hepatic coma; Z79.899 Other long term (current) drug therapy
CPT/HCPCS: 36591; 80053; 82784; 83615; 83735; 85025; 96365; 96366; 96367; 96413

== ENCOUNTER 2017-12-22 12:57 | Outpatient (RCR) | payer MEDICARE ==
[2017-11-24 13:07] LABS: BASOPHILS % (AUTO) 0 % (0-10); EOSINOPHILS # (AUTO) 0.1 10^3/uL (0.0-0.3); EOSINOPHILS % (AUTO) 2 % (0-10); HEMATOCRIT 35 % (40-54); HEMOGLOBIN 12.7 G/DL (13.3-17.7); LYMPHOCYTES # (AUTO) 0.6 X 10^3 (1.0-4.0); LYMPHOCYTES % (AUTO) 13 % (12-44); MEAN CORPUSCULAR HEMOGLOBIN 34 PG (25-34); MEAN CORPUSCULAR HGB CONC 36 G/DL (32-36); MEAN CORPUSCULAR VOLUME 95 FL (80-99); MEAN PLATELET VOLUME 9.1 FL (7.4-10.4); MONOCYTES # (AUTO) 0.5 X 10^3 (0.0-1.0); MONOCYTES % (AUTO) 11 % (0-12); NEUTROPHILS # (AUTO) 3.2 X 10^3 (1.8-7.8); NEUTROPHILS % (AUTO) 73 % (42-75); PLATELET COUNT 134 10^3/uL (130-400); RED BLOOD COUNT 3.69 10^6/uL (4.35-5.85); RED CELL DISTRIBUTION WIDTH 13.9 % (10.0-14.5); WHITE BLOOD COUNT 4.4 10^3/uL (4.3-11.0)
[2017-11-24 13:27] LABS: ALANINE AMINOTRANSFERASE 18 U/L (0-55); ALBUMIN 4.7 GM/DL (3.2-4.5); ALKALINE PHOSPHATASE 62 U/L (40-136); BILIRUBIN,TOTAL 0.6 MG/DL (0.1-1.0); BUN/CREATININE RATIO 19; CALCIUM 9.8 MG/DL (8.5-10.1); CARBON DIOXIDE 25 MMOL/L (21-32); CHLORIDE 103 MMOL/L (98-107); CREATININE SERUM 0.95 MG/DL (0.60-1.30); GFR ESTIMATED > 60; GLUCOSE 83 MG/DL (70-105); POTASSIUM 4.3 MMOL/L (3.6-5.0); SODIUM 136 MMOL/L (135-145); TOTAL PROTEIN 8.2 GM/DL (6.4-8.2)
[~2017-12-22] VITALS: Ht 180.3 cm; Wt 104.3 kg
[~2017-12-22 12:57] MED LIST changes: -ACETAMINOPHEN 325 MG TAB (TYLENOL) CANCER CTR PO PRN; -BENDAMUSTINE HCL 130 MG in NS (IVPB) CANCER CENTER 50 ML IV SCH; -ONDANSETRON MDV (CANCER CENTER 16 MG, DEXAMETHASONE PF INJ (CANCER C 10 MG in D5W 50 ML... IV SCH; -PALONOSETRON HCL 0.25 MG, DEXAMETHASONE PF INJ (CANCER C 10 MG in D5W 50 ML IV(CANCER C... IV PRN; -diphenhydrAMINE 50 MG/ML INJ (CANCER CENTER) IV PRN
== END 2018-01-19 13:14 | disposition home or self-care (01) ==
LOC: ONC 12:57
PROVIDERS: ATTEND Internal Medicine Hematology & Oncology
DX: Z51.11 Encounter for antineoplastic chemotherapy (principal); C82.18 Follicular lymphoma grade II, lymph nodes of multiple sites; D80.2 Selective deficiency of immunoglobulin A [IgA]; D68.59 Other primary thrombophilia; B19.20 Unspecified viral hepatitis C without hepatic coma; Z79.899 Other long term (current) drug therapy
CPT/HCPCS: 36591; 80053; 83615; 85025; 96365; 96366; 96413; 96417

== ENCOUNTER 2018-02-16 13:34 | Outpatient (RCR) | payer MEDICARE ==
[2018-01-19 13:11] LABS: BASOPHILS % (AUTO) 0 % (0-10); EOSINOPHILS # (AUTO) 0.1 10^3/uL (0.0-0.3); EOSINOPHILS % (AUTO) 1 % (0-10); HEMATOCRIT 35 % (40-54); HEMOGLOBIN 12.6 G/DL (13.3-17.7); LYMPHOCYTES # (AUTO) 0.7 X 10^3 (1.0-4.0); LYMPHOCYTES % (AUTO) 12 % (12-44); MEAN CORPUSCULAR HEMOGLOBIN 34 PG (25-34); MEAN CORPUSCULAR HGB CONC 36 G/DL (32-36); MEAN CORPUSCULAR VOLUME 94 FL (80-99); MEAN PLATELET VOLUME 8.7 FL (7.4-10.4); MONOCYTES # (AUTO) 0.4 X 10^3 (0.0-1.0); MONOCYTES % (AUTO) 7 % (0-12); NEUTROPHILS # (AUTO) 4.8 X 10^3 (1.8-7.8); NEUTROPHILS % (AUTO) 80 % (42-75); PLATELET COUNT 172 10^3/uL (130-400); RED BLOOD COUNT 3.72 10^6/uL (4.35-5.85); RED CELL DISTRIBUTION WIDTH 14.7 % (10.0-14.5)
[2018-01-19 13:30] LABS: ALBUMIN 4.8 GM/DL (3.2-4.5); BILIRUBIN,TOTAL 0.6 MG/DL (0.1-1.0); CREATININE SERUM 1.28 MG/DL (0.60-1.30); MAGNESIUM 2.5 MG/DL (1.8-2.4); POTASSIUM 4.3 MMOL/L (3.6-5.0); TOTAL PROTEIN 8.5 GM/DL (6.4-8.2)
[~2018-02-16 13:34] MED LIST changes: +ACETAMINOPHEN 500 MG TAB (TYLENOL) CANCER CTR ONE; -NS IV 1000 ML (CANCER CTR) IV SCH; +diphenhydrAMINE 25 MG TAB (BENADRYL) CANCER CENTER PO ONE
[2018-03-16 13:10] LABS: BASOPHILS % (AUTO) 0 % (0-10); EOSINOPHILS # (AUTO) 0.1 10^3/uL (0.0-0.3); EOSINOPHILS % (AUTO) 1 % (0-10); HEMATOCRIT 34 % (40-54); HEMOGLOBIN 11.9 G/DL (13.3-17.7); LYMPHOCYTES % (AUTO) 13 % (12-44); MEAN CORPUSCULAR HEMOGLOBIN 33 PG (25-34); MEAN CORPUSCULAR HGB CONC 35 G/DL (32-36); MEAN CORPUSCULAR VOLUME 95 FL (80-99); MEAN PLATELET VOLUME 9.4 FL (7.4-10.4); MONOCYTES # (AUTO) 0.6 X 10^3 (0.0-1.0); MONOCYTES % (AUTO) 8 % (0-12); NEUTROPHILS # (AUTO) 5.9 X 10^3 (1.8-7.8); NEUTROPHILS % (AUTO) 78 % (42-75); PLATELET COUNT 150 10^3/uL (130-400); RED BLOOD COUNT 3.61 10^6/uL (4.35-5.85); RED CELL DISTRIBUTION WIDTH 14.2 % (10.0-14.5); WHITE BLOOD COUNT 7.6 10^3/uL (4.3-11.0)
[2018-03-16 13:27] LABS: ALANINE AMINOTRANSFERASE 12 U/L (0-55); ALBUMIN 4.4 GM/DL (3.2-4.5); ALKALINE PHOSPHATASE 78 U/L (40-136); BILIRUBIN,TOTAL 0.4 MG/DL (0.1-1.0); BUN/CREATININE RATIO 12; CALCIUM 10.1 MG/DL (8.5-10.1); CARBON DIOXIDE 24 MMOL/L (21-32); CHLORIDE 103 MMOL/L (98-107); CREATININE SERUM 0.92 MG/DL (0.60-1.30); GFR ESTIMATED > 60; GLUCOSE 94 MG/DL (70-105); MAGNESIUM 2.1 MG/DL (1.8-2.4); SODIUM 137 MMOL/L (135-145)
== END 2018-03-16 12:48 | disposition home or self-care (01) ==
LOC: ONC 13:34
PROVIDERS: ATTEND Internal Medicine Hematology & Oncology
DX: Z51.11 Encounter for antineoplastic chemotherapy (principal); C82.18 Follicular lymphoma grade II, lymph nodes of multiple sites; D80.2 Selective deficiency of immunoglobulin A [IgA]; D68.59 Other primary thrombophilia; B19.20 Unspecified viral hepatitis C without hepatic coma; Z79.899 Other long term (current) drug therapy
CPT/HCPCS: 36591; 80053; 83615; 83735; 85025; 96365; 96366; 96413

== ENCOUNTER 2018-05-10 10:03 | Outpatient (RCR) | payer MEDICARE ==
[~2018-05-10] VITALS: Ht 180.3 cm; Wt 97.5 kg
[~2018-05-10 10:03] MED LIST changes: -ACETAMINOPHEN 500 MG TAB (TYLENOL) CANCER CTR ONE; +NS (IVPB) CANCER CENTER 250 ML IV SCH; -diphenhydrAMINE 25 MG TAB (BENADRYL) CANCER CENTER PO SCH
[2018-05-10 10:48] LABS: BASOPHILS % (AUTO) 0 % (0-10); EOSINOPHILS # (AUTO) 0.1 10^3/uL (0.0-0.3); EOSINOPHILS % (AUTO) 1 % (0-10); HEMATOCRIT 34 % (40-54); HEMOGLOBIN 12.3 G/DL (13.3-17.7); LYMPHOCYTES # (AUTO) 0.7 X 10^3 (1.0-4.0); LYMPHOCYTES % (AUTO) 11 % (12-44); MEAN CORPUSCULAR HEMOGLOBIN 35 PG (25-34); MEAN CORPUSCULAR HGB CONC 36 G/DL (32-36); MEAN CORPUSCULAR VOLUME 95 FL (80-99); MEAN PLATELET VOLUME 9.5 FL (7.4-10.4); MONOCYTES # (AUTO) 0.4 X 10^3 (0.0-1.0); MONOCYTES % (AUTO) 7 % (0-12); NEUTROPHILS # (AUTO) 4.8 X 10^3 (1.8-7.8); NEUTROPHILS % (AUTO) 81 % (42-75); PLATELET COUNT 175 10^3/uL (130-400); RED BLOOD COUNT 3.55 10^6/uL (4.35-5.85); RED CELL DISTRIBUTION WIDTH 14.7 % (10.0-14.5)
[2018-05-10] MEDS ORDERED: diphenhydrAMINE 25 MG TAB (BENADRYL) CANCER CENTER PO ONE (10:58)
[2018-05-10 11:10] LABS: ALANINE AMINOTRANSFERASE 14 U/L (0-55); ALBUMIN 4.6 GM/DL (3.2-4.5); ALKALINE PHOSPHATASE 81 U/L (40-136); BILIRUBIN,TOTAL 0.5 MG/DL (0.1-1.0); BUN/CREATININE RATIO 13; CALCIUM 10.1 MG/DL (8.5-10.1); CARBON DIOXIDE 23 MMOL/L (21-32); CHLORIDE 101 MMOL/L (98-107); CREATININE SERUM 0.93 MG/DL (0.60-1.30); GFR ESTIMATED > 60; GLUCOSE 101 MG/DL (70-105); SODIUM 135 MMOL/L (135-145); TOTAL PROTEIN 8.2 GM/DL (6.4-8.2)
== END 2018-06-08 13:04 | disposition home or self-care (01) ==
LOC: ONC 10:03
PROVIDERS: ATTEND Internal Medicine Hematology & Oncology
DX: Z51.11 Encounter for antineoplastic chemotherapy (principal); C82.18 Follicular lymphoma grade II, lymph nodes of multiple sites; D80.2 Selective deficiency of immunoglobulin A [IgA]; D68.59 Other primary thrombophilia; B19.20 Unspecified viral hepatitis C without hepatic coma; Z79.899 Other long term (current) drug therapy
CPT/HCPCS: 36591; 80053; 82784; 83615; 85025; 96365; 96366; 96413

== ENCOUNTER → 2018-08-25 | Outpatient (CLI) | payer MEDICARE ==
[~2018-08-25] MED LIST changes: -ACETAMINOPHEN 500 MG TAB (TYLENOL) CANCER CTR PO PRN; +BARIUM SUSPENSION 2.1% (VANILLA SILQ) 450 ML PO ONE; +IOHEXOL 350 MG/ML 100 ML (OMNIPAQUE 350) VIAL IV ONE; -IVIG 10 GM (PRIVIGEN) CANCER C 100 ML IV SCH; -IVIG 20 GM (PRIVIGEN) CANCER C 200 ML IV SCH; -NS (IVPB) CANCER CENTER 250 ML IV SCH; +NS 100 ML (IVPB) BAG IV ONE; +RECEIVED CONTRAST (Hold Metformin) IV SCH; -diphenhydrAMINE 25 MG TAB (BENADRYL) CANCER CENTER PO ONE; -riTUXimab 500 MG, riTUXimab FOR IV INJ CONC 300 MG in NS (IVPB) CANCER CENTER 186 ML IV SCH
--- NOTE | 2018-08-25 10:20 | Diagnostic Imaging Report ---
INDICATION: Non-Hodgkin's lymphoma as well as right leg swelling. TECHNIQUE: Axial imaging through the neck, chest, abdomen and pelvis was performed after the administration of intravenous contrast. COMPARISON: Comparison is made with prior CT from 08/24/2017. FINDINGS: CT NECK: The visualized intracranial structures are unremarkable. The posterior nasopharynx, oropharynx and larynx are unremarkable. No thyroid masses are seen. The submandibular and parotid glands appear to be fairly symmetric. There appear to be some small intraparotid lymph nodes bilaterally. The node on the left is approximately 10 mm x 11 mm compared with 9 mm x 8 mm. Node on the right measures 17 mm x 10 mm compared to 16 mm x 9 mm. A previously noted level II lymph node on the right immediately anterior to the right sternocleidomastoid muscle has decreased in size and is now barely visible at approximately 5 mm x 8 mm compared with 9 mm x 13 mm. No posterior cervical lymphadenopathy is seen apart from a mildly enlarged node on the right, image 70 measuring 10 mm. This was not visible on prior study. Right IJ line has tip in the jugular vein. Supraclavicular region does show a lymph node that has increased in size on the right measuring 23 mm x 18 mm compared with 16 mm x 13 mm. Additional lymph node inferior to this in the right supraclavicular region is also slightly larger. Left supraclavicular node measures 12 mm x 14 mm compared with 10 mm x 10 mm. IMPRESSION: There has been decrease in size of a right sided jugulodigastric lymph node since prior CT one year earlier. However, there has been some increase in size of bilateral intraparotid lymph nodes as well as bilateral supraclavicular lymph nodes since prior exam. CT CHEST: A right axillary lymph node has increased in size, now measuring 33 mm x 18 mm compared with 21 mm x 15 mm. The left axilla is unremarkable. Mediastinum and janell are unremarkable. No pericardial or pleural fluid is seen. Parenchymal evaluation does show some minimal scarring or atelectasis in the right upper lobe versus minimal patchy infiltrate. This has increased since prior. There is also some minimal subsegmental atelectasis versus minimal nodular infiltrate in the right lower lobe. Left lung is clear. IMPRESSION: 1. Increase in size right axillary lymph node when compared with examination one year earlier. 2. Slight increase in some minimal infiltrate or atelectasis in right upper and right lower lobe since prior CT. CT ABDOMEN AND PELVIS: The liver and gallbladder are unremarkable. Pancreas is unremarkable. The spleen does not appear enlarged. No adrenal mass is seen. The kidneys are unremarkable. Aorta is nonaneurysmal. There has been an increase in mesenteric and central retroperitoneal lymphadenopathy since one year earlier. The previously noted large christopher mass in the central mesentery is now inseparable from additional other lymph nodes noted at this location on prior. There appear to be enlarged lymph nodes at the tim hepatis and hepatogastric region. Hepatogastric node measures 2.6 cm x 1.9 cm compared with 2.1 cm x 1.3 cm. Conglomerate of nodes adjacent to the pancreatic head and portacaval region appear increased. There are enlarged lymph nodes in the aortocaval location which are increased. Aortocaval node measures 3.0 x 1.2 cm and was barely visible on prior study. A christopher mass near the aortic bifurcation on the right side has significantly increased in size measuring 4.1 x 2.8 cm. This was not visible on prior study. Large lymph node more inferiorly adjacent to the right external iliac has significantly increased measuring 4.1 cm compared with 2.1 cm. Medial to this is a large christopher mass measuring 5.1 x 3.9 cm compared with 2.1 x 1.6 cm. There has been significant increase in bilateral inguinal lymphadenopathy. A right-sided inguinal node measures 3.6 cm in short axis compared with 2.0 cm. A left sided marker node is similar at 1.7 cm compared with 1.9 cm. Obturator nodes on the right have significantly increased. Bowel loops are normal caliber. There is no ascites. The prostate is enlarged. The bladder is unremarkable. IMPRESSION: There has been significant increase in abdominal and pelvic lymphadenopathy when compared with prior examination from one year earlier. It is conceivable that patient is experiencing right leg swelling due to extrinsic compression upon the right iliac venous system from christopher masses. No other significant abnormality is seen apart from prostatomegaly. Dictated by: Dictated on workstation # [id number]
== END ==
LOC: RAD 08:29
PROVIDERS: ATTEND Nurse Practitioner Adult Health
DX: C82.18 Follicular lymphoma grade II, lymph nodes of multiple sites (principal); M79.89 Other specified soft tissue disorders; N40.0 Benign prostatic hyperplasia without lower urinary tract symptoms; I87.1 Compression of vein; R59.0 Localized enlarged lymph nodes
CPT/HCPCS: 70491; 71260; 74176

== ENCOUNTER 2018-08-31 10:45 | Outpatient (RCR) | payer MEDICARE ==
[2018-07-05 11:21] LABS: BASOPHILS % (AUTO) 0 % (0-10); EOSINOPHILS # (AUTO) 0.2 10^3/uL (0.0-0.3); EOSINOPHILS % (AUTO) 3 % (0-10); HEMATOCRIT 36 % (40-54); HEMOGLOBIN 12.3 G/DL (13.3-17.7); LYMPHOCYTES # (AUTO) 0.7 X 10^3 (1.0-4.0); LYMPHOCYTES % (AUTO) 11 % (12-44); MEAN CORPUSCULAR HEMOGLOBIN 33 PG (25-34); MEAN CORPUSCULAR HGB CONC 34 G/DL (32-36); MEAN CORPUSCULAR VOLUME 95 FL (80-99); MEAN PLATELET VOLUME 9.5 FL (7.4-10.4); MONOCYTES # (AUTO) 0.5 X 10^3 (0.0-1.0); MONOCYTES % (AUTO) 7 % (0-12); NEUTROPHILS # (AUTO) 5.3 X 10^3 (1.8-7.8); NEUTROPHILS % (AUTO) 79 % (42-75); PLATELET COUNT 186 10^3/uL (130-400); RED BLOOD COUNT 3.76 10^6/uL (4.35-5.85); WHITE BLOOD COUNT 6.7 10^3/uL (4.3-11.0)
[2018-07-05 11:37] LABS: ALANINE AMINOTRANSFERASE 14 U/L (0-55); ALBUMIN 4.5 GM/DL (3.2-4.5); ALKALINE PHOSPHATASE 81 U/L (40-136); BILIRUBIN,TOTAL 0.6 MG/DL (0.1-1.0); BUN/CREATININE RATIO 13; CALCIUM 9.8 MG/DL (8.5-10.1); CARBON DIOXIDE 24 MMOL/L (21-32); CHLORIDE 103 MMOL/L (98-107); CREATININE SERUM 1.06 MG/DL (0.60-1.30); GFR ESTIMATED > 60; GLUCOSE 123 MG/DL (70-105); MAGNESIUM 2.2 MG/DL (1.8-2.4); POTASSIUM 4.1 MMOL/L (3.6-5.0); SODIUM 136 MMOL/L (135-145); TOTAL PROTEIN 8.1 GM/DL (6.4-8.2)
[2018-08-22 13:50] LABS: BASOPHILS % (AUTO) 0 % (0-10); EOSINOPHILS # (AUTO) 0.1 10^3/uL (0.0-0.3); EOSINOPHILS % (AUTO) 2 % (0-10); HEMATOCRIT 36 % (40-54); HEMOGLOBIN 12.3 G/DL (13.3-17.7); LYMPHOCYTES # (AUTO) 1.2 X 10^3 (1.0-4.0); LYMPHOCYTES % (AUTO) 15 % (12-44); MEAN CORPUSCULAR HGB CONC 34 G/DL (32-36); MEAN CORPUSCULAR VOLUME 95 FL (80-99); MONOCYTES # (AUTO) 0.7 X 10^3 (0.0-1.0); MONOCYTES % (AUTO) 8 % (0-12); NEUTROPHILS % (AUTO) 75 % (42-75); PLATELET COUNT 193 10^3/uL (130-400); RED BLOOD COUNT 3.79 10^6/uL (4.35-5.85); RED CELL DISTRIBUTION WIDTH 14.8 % (10.0-14.5)
[2018-08-22 13:51] LABS: MEAN CORPUSCULAR HEMOGLOBIN 32 PG (25-34)
[2018-08-22 14:23] LABS: ALANINE AMINOTRANSFERASE 15 U/L (0-55); ALBUMIN 4.3 GM/DL (3.2-4.5); ALKALINE PHOSPHATASE 84 U/L (40-136); BILIRUBIN,TOTAL 0.3 MG/DL (0.1-1.0); BUN/CREATININE RATIO 12; CALCIUM 9.3 MG/DL (8.5-10.1); CARBON DIOXIDE 26 MMOL/L (21-32); CHLORIDE 102 MMOL/L (98-107); CREATININE SERUM 0.99 MG/DL (0.60-1.30); GFR ESTIMATED > 60; GLUCOSE 89 MG/DL (70-105); POTASSIUM 3.8 MMOL/L (3.6-5.0); SODIUM 137 MMOL/L (135-145); TOTAL PROTEIN 7.7 GM/DL (6.4-8.2)
[~2018-08-31 10:45] MED LIST changes: +ACETAMINOPHEN 500 MG TAB (TYLENOL) CANCER CTR ONE; +ACETAMINOPHEN 500 MG TAB (TYLENOL) CANCER CTR PO PRN; -BARIUM SUSPENSION 2.1% (VANILLA SILQ) 450 ML PO ONE; -IOHEXOL 350 MG/ML 100 ML (OMNIPAQUE 350) VIAL IV ONE; +IVIG 10 GM (PRIVIGEN) CANCER C 100 ML IV SCH; +IVIG 20 GM (PRIVIGEN) CANCER C 200 ML IV SCH; +NS (IVPB) CANCER CENTER 250 ML IV SCH; -NS 100 ML (IVPB) BAG IV ONE; -RECEIVED CONTRAST (Hold Metformin) IV SCH; +diphenhydrAMINE 25 MG TAB (BENADRYL) CANCER CENTER PO ONE; +diphenhydrAMINE 25 MG TAB (BENADRYL) CANCER CENTER PO SCH; +riTUXimab 500 MG, riTUXimab FOR IV INJ CONC 300 MG in NS (IVPB) CANCER CENTER 186 ML IV SCH
[2018-08-31] MEDS ORDERED: IVIG 5 GM (PRIVIGEN) CANCER CT 50 ML IV SCH (11:30)
[2018-08-31] MEDS ORDERED: IVIG 20 GM (PRIVIGEN) CANCER C 200 ML IV SCH (11:30)
== END 2018-09-06 | disposition home or self-care (01) ==
LOC: ONC 10:45
PROVIDERS: ATTEND Internal Medicine Hematology & Oncology
DX: C82.18 Follicular lymphoma grade II, lymph nodes of multiple sites (principal); D80.2 Selective deficiency of immunoglobulin A [IgA]; D68.59 Other primary thrombophilia; B19.20 Unspecified viral hepatitis C without hepatic coma; Z79.899 Other long term (current) drug therapy
CPT/HCPCS: 36415; 36591; 80053; 82784; 83615; 83735; 85025; 96365; 96366; 96367; 96413; 99213; J9310; J9312

== ENCOUNTER → 2018-10-06 | Outpatient (CLI) | payer MEDICARE ==
[~2018-10-06] VITALS: Ht 182.9 cm; Wt 97.5 kg
[~2018-10-06] MED LIST changes: -ACETAMINOPHEN 500 MG TAB (TYLENOL) CANCER CTR ONE; -ACETAMINOPHEN 500 MG TAB (TYLENOL) CANCER CTR PO PRN; -IVIG 10 GM (PRIVIGEN) CANCER C 100 ML IV SCH; -IVIG 20 GM (PRIVIGEN) CANCER C 200 ML IV SCH; -NS (IVPB) CANCER CENTER 250 ML IV SCH; -diphenhydrAMINE 25 MG TAB (BENADRYL) CANCER CENTER PO ONE; -diphenhydrAMINE 25 MG TAB (BENADRYL) CANCER CENTER PO SCH; -riTUXimab 500 MG, riTUXimab FOR IV INJ CONC 300 MG in NS (IVPB) CANCER CENTER 186 ML IV SCH
[2018-10-06] MEDS: LIDOCAINE 1% INJ 20 ML 20 ML VIAL INJ ONE (10:13)
--- NOTE | 2018-10-06 11:09 | Diagnostic Imaging Report ---
INDICATION: Lymphoma. Patient has enlarging lymph nodes in the right groin. The study is performed for further evaluation. FINDINGS: Patient was brought to the procedure room, placed on the table in a supine position. Ultrasound imaging over the right groin was performed to evaluate appropriate entry site. Right groin was then prepped and draped in usual sterile fashion. A small amount of 1% lidocaine was utilized for local anesthesia. A total of six core biopsies were obtained through the dominant mass in the right groin utilizing a 14-gauge Achieve needle. Needle was removed and hemostasis was obtained using manual compression. Patient tolerated the procedure well and left the department in stable condition. IMPRESSION: Successful ultrasound-guided core biopsy of the dominant christopher mass in the right groin, as described. Dictated by: Dictated on workstation # [id number]
== END ==
LOC: RAD 08:02
PROVIDERS: ATTEND Nurse Practitioner Adult Health
DX: C82.18 Follicular lymphoma grade II, lymph nodes of multiple sites (principal)
CPT/HCPCS: 76942

== ENCOUNTER → 2018-12-13 | Outpatient (CLI) | payer MEDICARE ==
[~2018-12-13] MED LIST changes: +HOLD METFORMIN - RECEIVED CONTRAST 20 ML VIAL IV SCH; +IOHEXOL 350 MG/ML 100 ML (OMNIPAQUE 350) VIAL IV ONE
--- NOTE | 2018-12-13 20:23 | Diagnostic Imaging Report ---
PROCEDURE: CT chest with contrast, CT abdomen and pelvis with and without contrast. TECHNIQUE: Pre and post intravenous contrast axial imaging of the abdomen and pelvis and post contrast axial imaging of the chest were performed. Auto Exposure Controls were utilized during the CT exam to meet ALARA standards for radiation dose reduction. INDICATION: Non-Hodgkin's lymphoma. Restaging. COMPARISON: Multiple priors, most recent performed on 08/25/2018. FINDINGS - CHEST: TRACHEA AND MAIN BRONCHI: Patent without evidence of tracheal or endobronchial lesion. LUNGS AND PLEURA: Mild upper lobe predominant emphysematous change is noted. Mild dependent subsegmental atelectasis in both lower lobes. There is unchanged scarring in the right upper lobe posteriorly and in the left lower lobe superiorly. No new consolidation or pulmonary mass. No pleural effusion or pneumothorax. MEDIASTINUM AND TABITHA: Visualized thyroid gland is normal. No mediastinal or hilar lymphadenopathy. Esophagus is nondistended. HEART AND VESSELS: Heart is normal in size. No pericardial effusion. Thoracic aorta is nonaneurysmal. Distal tip of right IJ Port-A-Cath terminates in the inferior SVC. DIAPHRAGM: There is marked elevation of the right hemidiaphragm, unchanged from prior exam. No focal diaphragmatic abnormality is demonstrated. CHEST WALL: There has been no significant change in scattered ovoid nodular soft tissue densities in the subcutaneous fat of both breasts, felt to reflect prominent intramammary lymph nodes. These are similar in appearance to the most recent CT scan performed on 08/25/2018, but were not present prior to that scan. There has been interval decrease in size of enlarged right axillary lymph node, which measures 2.3 x 1.2 cm on today's exam (previously 3.2 x 1.8 cm). No new enlarged axillary lymph nodes are demonstrated. Port-A-Cath hub is implanted in the superoanterior right chest wall. FINDINGS - ABDOMEN AND PELVIS: LIVER: Normal. GALLBLADDER: Normal CT appearance. BILE DUCTS: No biliary ductal dilatation. SPLEEN: Normal. PANCREAS: Mildly atrophic, otherwise unremarkable. No pancreatic ductal dilatation. ADRENAL GLANDS: No nodules. KIDNEYS AND URETERS: No hydronephrosis. Kidneys enhance symmetrically. No suspicious mass. The ureters are normal. STOMACH AND BOWEL: Stomach is physiologically-distended. No bowel obstruction. There is apparent thickening of the mid sigmoid colon. This portion of the colon is not well distended. APPENDIX: Normal. PELVIC ORGANS/BLADDER: No focal bladder abnormality is demonstrated. There is marked enlargement of the prostate gland, which measures over 6 cm in transverse diameter. PERITONEUM AND RETROPERITONEUM: No pneumoperitoneum. No abdominal free fluid or loculated collection. LYMPH NODES: Overall interval decrease in size of mesenteric and retroperitoneal lymphadenopathy. The largest is a multilobulated mass in the central small bowel mesentery which likely reflects several confluent enlarged lymph nodes. This measures 8.5 x 3.7 cm on today's exam (previously 9.7 x 4.9 cm). Interval decrease in size of tim hepatis lymph node adjacent to the caudate lobe which measures 4.1 x 2.4 cm (previously 4.7 x 3.7 cm). Allowing for differences in technique, no significant change in size of enlarged hepatogastric lymph node, measuring 2.6 x 2.1 cm on today's exam. There has also been decrease in size of the previously demonstrated enlarged lymph node just lateral to the IVC at the level of the aortic bifurcation, which measures 3.3 x 2.0 cm (previously 4.1 x 2.8 cm). Decrease in size of right pelvic sidewall/external iliac chain lymph nodes. The largest of these measures 2.8 x 4.5 cm (previously 3.9 x 5.1 cm). These pelvic sidewall lymph nodes now demonstrate internal low attenuation, likely reflecting necrosis. Decrease in size of previously demonstrated right inguinal lymph nodes, the largest measures 2.9 cm in short axis diameter (previously 3.6 cm). Left inguinal lymph nodes have also decreased in size. A necrotic left inguinal lymph node is demonstrated measuring 3.0 cm, not imaged previously. Scattered soft tissue density nodules in the perirenal fascia and fascia inferior to the kidneys are not significantly changed from the prior exam. VESSELS: Moderate atherosclerotic calcification. Abdominal aorta is nonaneurysmal. No venous thrombosis. Circumaortic left renal vein, anatomic variant. ABDOMINAL WALL: Scattered subcentimeter reniform soft tissue attenuation nodules are demonstrated throughout the subcutaneous fat of the posterior abdominal wall, similar in size and distribution to prior exam. There is a small fat-containing paraumbilical hernia, unchanged. BONES: Multilevel degenerative changes involve the spine. No acute osseous abnormality. Bilateral spondylolysis of the L5 vertebral body is again demonstrated, with unchanged grade 1 spondylolisthesis of L5 on S1. IMPRESSION - CHEST: 1. Decrease in size of previously demonstrated right axillary lymph node. No new axillary or mediastinal lymphadenopathy is demonstrated. 2. Allowing for differences in technique, there has been no significant change in scattered reniform soft tissue nodules in the subcutaneous fat of the breasts, likely reflecting intramammary lymph nodes. 3. No acute findings in the chest. No focal consolidation or pulmonary mass. IMPRESSION: - ABDOMEN AND PELVIS: 1. Interval decrease in size of previously demonstrated mesenteric, retroperitoneal, and inguinal lymph nodes. Many of these demonstrate internal low attenuation, likely reflecting necrosis. No new lymphadenopathy is demonstrated. 2. No significant change in scattered reniform soft tissue attenuation nodules scattered throughout the subcutaneous fat of the posterior abdominal wall, likely related to patient's history of lymphoma. 3. Apparent short segment thickening involving the mid sigmoid colon. This may be artifactual in nature due to underdistention. There is no surrounding inflammatory change to suggest acute colitis, however, the diagnosis should be excluded on a clinical basis. 4. Marked enlargement of the prostate gland. Dictated by: Dictated on workstation # [id number]
== END ==
LOC: RAD 13:57
PROVIDERS: ATTEND Internal Medicine Hematology & Oncology
DX: C82.18 Follicular lymphoma grade II, lymph nodes of multiple sites (principal); N63.10 Unspecified lump in the right breast, unspecified quadrant; N63.20 Unspecified lump in the left breast, unspecified quadrant; R22.2 Localized swelling, mass and lump, trunk; K63.89 Other specified diseases of intestine; N40.0 Benign prostatic hyperplasia without lower urinary tract symptoms
CPT/HCPCS: 71260; 74178

== ENCOUNTER 2018-12-19 12:50 | Outpatient (RCR) | payer MEDICARE ==
[2018-10-06 09:48] LABS: PROTHROMBIN TIME PATIENT 13.5 SEC (12.2-14.7)
[2018-10-24 09:46] LABS: BASOPHILS % (AUTO) 0 % (0-10); EOSINOPHILS # (AUTO) 0.2 10^3/uL (0.0-0.3); EOSINOPHILS % (AUTO) 4 % (0-10); HEMATOCRIT 35 % (40-54); HEMOGLOBIN 11.9 G/DL (13.3-17.7); LYMPHOCYTES # (AUTO) 1.1 X 10^3 (1.0-4.0); LYMPHOCYTES % (AUTO) 18 % (12-44); MEAN CORPUSCULAR HEMOGLOBIN 32 PG (25-34); MEAN CORPUSCULAR HGB CONC 34 G/DL (32-36); MEAN CORPUSCULAR VOLUME 93 FL (80-99); MEAN PLATELET VOLUME 8.7 FL (7.4-10.4); MONOCYTES # (AUTO) 0.6 X 10^3 (0.0-1.0); MONOCYTES % (AUTO) 10 % (0-12); NEUTROPHILS # (AUTO) 3.9 X 10^3 (1.8-7.8); NEUTROPHILS % (AUTO) 68 % (42-75); PLATELET COUNT 206 10^3/uL (130-400); RED CELL DISTRIBUTION WIDTH 14.9 % (10.0-14.5); WHITE BLOOD COUNT 5.8 10^3/uL (4.3-11.0)
[2018-10-24 10:04] LABS: ALANINE AMINOTRANSFERASE 16 U/L (0-55); ALBUMIN 4.4 GM/DL (3.2-4.5); ALKALINE PHOSPHATASE 84 U/L (40-136); BILIRUBIN,TOTAL 0.3 MG/DL (0.1-1.0); BUN/CREATININE RATIO 12; CALCIUM 9.7 MG/DL (8.5-10.1); CARBON DIOXIDE 23 MMOL/L (21-32); CHLORIDE 100 MMOL/L (98-107); CREATININE SERUM 1.15 MG/DL (0.60-1.30); GFR ESTIMATED > 60; GLUCOSE 107 MG/DL (70-105); MAGNESIUM 2.3 MG/DL (1.8-2.4); POTASSIUM 4.7 MMOL/L (3.6-5.0); SODIUM 134 MMOL/L (135-145); TOTAL PROTEIN 7.9 GM/DL (6.4-8.2); URIC ACID 4.6 MG/DL (2.6-7.2)
[2018-10-31 09:08] LABS: BASOPHILS % (AUTO) 0 % (0-10); EOSINOPHILS # (AUTO) 0.2 10^3/uL (0.0-0.3); EOSINOPHILS % (AUTO) 2 % (0-10); HEMATOCRIT 38 % (40-54); HEMOGLOBIN 12.8 G/DL (13.3-17.7); LYMPHOCYTES # (AUTO) 0.4 X 10^3 (1.0-4.0); LYMPHOCYTES % (AUTO) 4 % (12-44); MEAN CORPUSCULAR HEMOGLOBIN 32 PG (25-34); MEAN CORPUSCULAR HGB CONC 34 G/DL (32-36); MEAN CORPUSCULAR VOLUME 95 FL (80-99); MEAN PLATELET VOLUME 8.9 FL (7.4-10.4); MONOCYTES # (AUTO) 0.7 X 10^3 (0.0-1.0); MONOCYTES % (AUTO) 7 % (0-12); NEUTROPHILS # (AUTO) 8.5 X 10^3 (1.8-7.8); NEUTROPHILS % (AUTO) 86 % (42-75); PLATELET COUNT 157 10^3/uL (130-400); RED CELL DISTRIBUTION WIDTH 15.5 % (10.0-14.5); WHITE BLOOD COUNT 9.8 10^3/uL (4.3-11.0)
[2018-10-31 09:27] LABS: BUN/CREATININE RATIO 15; CALCIUM 9.5 MG/DL (8.5-10.1); CARBON DIOXIDE 25 MMOL/L (21-32); CHLORIDE 99 MMOL/L (98-107); CREATININE SERUM 1.05 MG/DL (0.60-1.30); GFR ESTIMATED > 60; GLUCOSE 100 MG/DL (70-105); POTASSIUM 4.6 MMOL/L (3.6-5.0); SODIUM 132 MMOL/L (135-145); URIC ACID 5.5 MG/DL (2.6-7.2)
[2018-11-07 09:04] LABS: BASOPHILS # (AUTO) 0.1 10^3/uL (0.0-0.1); BASOPHILS % (AUTO) 1 % (0-10); EOSINOPHILS # (AUTO) 0.2 10^3/uL (0.0-0.3); EOSINOPHILS % (AUTO) 2 % (0-10); HEMATOCRIT 36 % (40-54); HEMOGLOBIN 12.7 G/DL (13.3-17.7); LYMPHOCYTES # (AUTO) 1.4 X 10^3 (1.0-4.0); LYMPHOCYTES % (AUTO) 16 % (12-44); MEAN CORPUSCULAR HEMOGLOBIN 33 PG (25-34); MEAN CORPUSCULAR HGB CONC 36 G/DL (32-36); MEAN CORPUSCULAR VOLUME 91 FL (80-99); MEAN PLATELET VOLUME 9.2 FL (7.4-10.4); MONOCYTES % (AUTO) 10 % (0-12); NEUTROPHILS # (AUTO) 6.6 X 10^3 (1.8-7.8); NEUTROPHILS % (AUTO) 72 % (42-75); PLATELET COUNT 160 10^3/uL (130-400); RED CELL DISTRIBUTION WIDTH 15.5 % (10.0-14.5); WHITE BLOOD COUNT 9.3 10^3/uL (4.3-11.0)
[2018-11-07 09:18] LABS: BUN/CREATININE RATIO 14; CALCIUM 9.6 MG/DL (8.5-10.1); CARBON DIOXIDE 22 MMOL/L (21-32); CHLORIDE 101 MMOL/L (98-107); CREATININE SERUM 1.14 MG/DL (0.60-1.30); GFR ESTIMATED > 60; GLUCOSE 87 MG/DL (70-105); POTASSIUM 4.5 MMOL/L (3.6-5.0); SODIUM 132 MMOL/L (135-145)
[2018-11-14 15:35] LABS: BASOPHILS % (AUTO) 0 % (0-10); EOSINOPHILS # (AUTO) 0.1 10^3/uL (0.0-0.3); EOSINOPHILS % (AUTO) 1 % (0-10); HEMATOCRIT 34 % (40-54); HEMOGLOBIN 11.6 G/DL (13.3-17.7); LYMPHOCYTES # (AUTO) 1.4 X 10^3 (1.0-4.0); LYMPHOCYTES % (AUTO) 15 % (12-44); MEAN CORPUSCULAR HEMOGLOBIN 32 PG (25-34); MEAN CORPUSCULAR HGB CONC 34 G/DL (32-36); MEAN CORPUSCULAR VOLUME 93 FL (80-99); MEAN PLATELET VOLUME 8.8 FL (7.4-10.4); MONOCYTES # (AUTO) 1.1 X 10^3 (0.0-1.0); MONOCYTES % (AUTO) 12 % (0-12); NEUTROPHILS # (AUTO) 6.5 X 10^3 (1.8-7.8); NEUTROPHILS % (AUTO) 71 % (42-75); PLATELET COUNT 193 10^3/uL (130-400); WHITE BLOOD COUNT 9.1 10^3/uL (4.3-11.0)
[2018-11-14 16:01] LABS: CALCIUM 10.4 MG/DL (8.5-10.1); CREATININE SERUM 1.25 MG/DL (0.60-1.30); POTASSIUM 4.3 MMOL/L (3.6-5.0)
[2018-11-20 11:07] LABS: BASOPHILS % (AUTO) 0 % (0-10); EOSINOPHILS # (AUTO) 0.1 10^3/uL (0.0-0.3); EOSINOPHILS % (AUTO) 2 % (0-10); HEMATOCRIT 33 % (40-54); HEMOGLOBIN 11.7 G/DL (13.3-17.7); LYMPHOCYTES # (AUTO) 1.2 X 10^3 (1.0-4.0); LYMPHOCYTES % (AUTO) 21 % (12-44); MEAN CORPUSCULAR HEMOGLOBIN 32 PG (25-34); MEAN CORPUSCULAR HGB CONC 35 G/DL (32-36); MEAN CORPUSCULAR VOLUME 91 FL (80-99); MEAN PLATELET VOLUME 8.4 FL (7.4-10.4); MONOCYTES # (AUTO) 0.5 X 10^3 (0.0-1.0); MONOCYTES % (AUTO) 8 % (0-12); NEUTROPHILS % (AUTO) 69 % (42-75); PLATELET COUNT 299 10^3/uL (130-400); WHITE BLOOD COUNT 5.8 10^3/uL (4.3-11.0)
[2018-11-20 11:33] LABS: ALANINE AMINOTRANSFERASE 23 U/L (0-55); ALBUMIN 4.1 GM/DL (3.2-4.5); ALKALINE PHOSPHATASE 94 U/L (40-136); BILIRUBIN,TOTAL 0.4 MG/DL (0.1-1.0); BUN/CREATININE RATIO 12; CALCIUM 10.1 MG/DL (8.5-10.1); CARBON DIOXIDE 25 MMOL/L (21-32); CHLORIDE 101 MMOL/L (98-107); GFR ESTIMATED > 60; GLUCOSE 153 MG/DL (70-105); POTASSIUM 4.1 MMOL/L (3.6-5.0); SODIUM 135 MMOL/L (135-145); TOTAL PROTEIN 7.8 GM/DL (6.4-8.2)
[2018-12-05 14:43] LABS: BASOPHILS % (AUTO) 0 % (0-10); EOSINOPHILS # (AUTO) 0.1 10^3/uL (0.0-0.3); EOSINOPHILS % (AUTO) 2 % (0-10); HEMATOCRIT 32 % (40-54); LYMPHOCYTES # (AUTO) 0.9 X 10^3 (1.0-4.0); LYMPHOCYTES % (AUTO) 19 % (12-44); MEAN CORPUSCULAR HEMOGLOBIN 32 PG (25-34); MEAN CORPUSCULAR HGB CONC 34 G/DL (32-36); MEAN CORPUSCULAR VOLUME 95 FL (80-99); MEAN PLATELET VOLUME 9.2 FL (7.4-10.4); MONOCYTES # (AUTO) 0.6 X 10^3 (0.0-1.0); MONOCYTES % (AUTO) 12 % (0-12); NEUTROPHILS # (AUTO) 3.1 X 10^3 (1.8-7.8); NEUTROPHILS % (AUTO) 67 % (42-75); PLATELET COUNT 136 10^3/uL (130-400); WHITE BLOOD COUNT 4.6 10^3/uL (4.3-11.0)
[2018-12-05 14:55] LABS: BUN/CREATININE RATIO 16; CALCIUM 9.8 MG/DL (8.5-10.1); CARBON DIOXIDE 26 MMOL/L (21-32); CHLORIDE 102 MMOL/L (98-107); GFR ESTIMATED > 60; GLUCOSE 92 MG/DL (70-105); POTASSIUM 4.5 MMOL/L (3.6-5.0); SODIUM 136 MMOL/L (135-145)
[2018-12-18 10:57] LABS: BASOPHILS % (AUTO) 1 % (0-10); EOSINOPHILS # (AUTO) 0.1 10^3/uL (0.0-0.3); EOSINOPHILS % (AUTO) 4 % (0-10); HEMATOCRIT 31 % (40-54); HEMOGLOBIN 10.8 G/DL (13.3-17.7); LYMPHOCYTES # (AUTO) 0.8 X 10^3 (1.0-4.0); LYMPHOCYTES % (AUTO) 38 % (12-44); MEAN CORPUSCULAR HEMOGLOBIN 32 PG (25-34); MEAN CORPUSCULAR HGB CONC 34 G/DL (32-36); MEAN CORPUSCULAR VOLUME 94 FL (80-99); MEAN PLATELET VOLUME 8.8 FL (7.4-10.4); MONOCYTES # (AUTO) 0.5 X 10^3 (0.0-1.0); MONOCYTES % (AUTO) 27 % (0-12); NEUTROPHILS # (AUTO) 0.6 X 10^3 (1.8-7.8); NEUTROPHILS % (AUTO) 31 % (42-75); PLATELET COUNT 172 10^3/uL (130-400); RED CELL DISTRIBUTION WIDTH 16.1 % (10.0-14.5)
[2018-12-18 11:17] LABS: ALANINE AMINOTRANSFERASE 21 U/L (0-55); ALBUMIN 4.3 GM/DL (3.2-4.5); ALKALINE PHOSPHATASE 85 U/L (40-136); BILIRUBIN,TOTAL 0.5 MG/DL (0.1-1.0); BUN/CREATININE RATIO 13; CALCIUM 9.9 MG/DL (8.5-10.1); CARBON DIOXIDE 25 MMOL/L (21-32); CHLORIDE 100 MMOL/L (98-107); CREATININE SERUM 0.92 MG/DL (0.60-1.30); GFR ESTIMATED > 60; GLUCOSE 91 MG/DL (70-105); POTASSIUM 4.1 MMOL/L (3.6-5.0); SODIUM 135 MMOL/L (135-145)
[~2018-12-19] VITALS: Ht 182.9 cm; Wt 95.3 kg
[~2018-12-19 12:50] MED LIST changes: +ACETAMINOPHEN 325 MG TAB (TYLENOL) CANCER CTR PO PRN; +ACETAMINOPHEN 500 MG TAB (TYLENOL) CANCER CTR PO PRN; +BENDAMUSTINE HCL 130 MG in NS (IVPB) CANCER CENTER 50 ML IV SCH; +DEXAMETHASONE IV SCH; -HOLD METFORMIN - RECEIVED CONTRAST 20 ML VIAL IV SCH; -IOHEXOL 350 MG/ML 100 ML (OMNIPAQUE 350) VIAL IV ONE; +IVIG 20 GM (PRIVIGEN) CANCER C 200 ML IV SCH; +IVIG 5 GM (PRIVIGEN) CANCER CT 50 ML IV SCH; +NS (IVPB) CANCER CENTER 250 ML IV SCH; +NS IV 1000 ML (CANCER CTR) 1,000 ML ONE; +NS IV SCH; +OBINUTUZUMAB 1,000 MG in NS (IVPB) CANCER CENTER 250 ML IV SCH; +OBINUTUZUMAB IV SCH; +ONDANSETRON IV SCH; +PALONOSETRON HCL 0.25 MG, DEXAMETHASONE INJECTION 10 MG in NS (IVPB) CANCER CENTER 50 ML IV SCH; +PALONOSETRON HCL 0.25 MG, DEXAMETHASONE INJECTION 20 MG in NS (IVPB) CANCER CENTER 50 ML IV SCH; +[UNRECOGNIZED DRUG - OTHER] IV SCH; +diphenhydrAMINE 25 MG TAB (BENADRYL) CANCER CENTER PO ONE; +diphenhydrAMINE 25 MG TAB (BENADRYL) CANCER CENTER PO SCH; +diphenhydrAMINE 50 MG/ML INJ (CANCER CENTER) IV PRN; +riTUXimab 500 MG, riTUXimab FOR IV INJ CONC 300 MG in NS (IVPB) CANCER CENTER 186 ML IV SCH
== END 2018-12-20 | disposition home or self-care (01) ==
LOC: ONC 12:50
PROVIDERS: ATTEND Internal Medicine Hematology & Oncology
DX: C82.18 Follicular lymphoma grade II, lymph nodes of multiple sites (principal); D80.2 Selective deficiency of immunoglobulin A [IgA]; D68.59 Other primary thrombophilia; B19.20 Unspecified viral hepatitis C without hepatic coma; Z79.899 Other long term (current) drug therapy
CPT/HCPCS: 36415; 36591; 80048; 80053; 83615; 83735; 84550; 85025; 85610; 96365; 96366; 96367; 96375; 96409; 96411; 96413; 96415; 99213

== ENCOUNTER 2019-03-16 15:09 | Outpatient (RCR) | payer MEDICARE ==
[2019-01-15 11:47] LABS: BASOPHILS % (AUTO) 1 % (0-10); EOSINOPHILS # (AUTO) 0.2 10^3/uL (0.0-0.3); EOSINOPHILS % (AUTO) 7 % (0-10); HEMATOCRIT 35 % (40-54); HEMOGLOBIN 12.2 G/DL (13.3-17.7); LYMPHOCYTES # (AUTO) 0.7 X 10^3 (1.0-4.0); LYMPHOCYTES % (AUTO) 26 % (12-44); MEAN CORPUSCULAR HEMOGLOBIN 32 PG (25-34); MEAN CORPUSCULAR HGB CONC 35 G/DL (32-36); MEAN CORPUSCULAR VOLUME 93 FL (80-99); MEAN PLATELET VOLUME 9.7 FL (7.4-10.4); MONOCYTES # (AUTO) 0.6 X 10^3 (0.0-1.0); MONOCYTES % (AUTO) 21 % (0-12); NEUTROPHILS # (AUTO) 1.2 X 10^3 (1.8-7.8); NEUTROPHILS % (AUTO) 45 % (42-75); PLATELET COUNT 179 10^3/uL (130-400); RED CELL DISTRIBUTION WIDTH 15.1 % (10.0-14.5); WHITE BLOOD COUNT 2.7 10^3/uL (4.3-11.0)
[2019-01-15 12:02] LABS: ALANINE AMINOTRANSFERASE 17 U/L (0-55); ALBUMIN 4.5 GM/DL (3.2-4.5); ALKALINE PHOSPHATASE 94 U/L (40-136); BILIRUBIN,TOTAL 0.6 MG/DL (0.1-1.0); BUN/CREATININE RATIO 17; CARBON DIOXIDE 26 MMOL/L (21-32); CHLORIDE 103 MMOL/L (98-107); CREATININE SERUM 1.13 MG/DL (0.60-1.30); GFR ESTIMATED > 60; GLUCOSE 89 MG/DL (70-105); POTASSIUM 4.2 MMOL/L (3.6-5.0); SODIUM 137 MMOL/L (135-145); TOTAL PROTEIN 7.9 GM/DL (6.4-8.2)
[2019-02-12 10:09] LABS: BASOPHILS % (AUTO) 0 % (0-10); EOSINOPHILS # (AUTO) 0.1 10^3/uL (0.0-0.3); EOSINOPHILS % (AUTO) 2 % (0-10); HEMATOCRIT 32 % (40-54); HEMOGLOBIN 11.5 G/DL (13.3-17.7); LYMPHOCYTES # (AUTO) 0.9 X 10^3 (1.0-4.0); LYMPHOCYTES % (AUTO) 28 % (12-44); MEAN CORPUSCULAR HEMOGLOBIN 32 PG (25-34); MEAN CORPUSCULAR HGB CONC 36 G/DL (32-36); MEAN CORPUSCULAR VOLUME 91 FL (80-99); MEAN PLATELET VOLUME 9.3 FL (7.4-10.4); MONOCYTES # (AUTO) 0.4 X 10^3 (0.0-1.0); MONOCYTES % (AUTO) 13 % (0-12); NEUTROPHILS # (AUTO) 1.8 X 10^3 (1.8-7.8); NEUTROPHILS % (AUTO) 57 % (42-75); PLATELET COUNT 152 10^3/uL (130-400); WHITE BLOOD COUNT 3.2 10^3/uL (4.3-11.0)
[2019-02-12 10:29] LABS: ALANINE AMINOTRANSFERASE 21 U/L (0-55); ALBUMIN 4.4 GM/DL (3.2-4.5); ALKALINE PHOSPHATASE 78 U/L (40-136); BILIRUBIN,TOTAL 0.7 MG/DL (0.1-1.0); BUN/CREATININE RATIO 14; CALCIUM 9.6 MG/DL (8.5-10.1); CARBON DIOXIDE 26 MMOL/L (21-32); CHLORIDE 103 MMOL/L (98-107); CREATININE SERUM 1.09 MG/DL (0.60-1.30); GFR ESTIMATED > 60; GLUCOSE 118 MG/DL (70-105); SODIUM 138 MMOL/L (135-145); TOTAL PROTEIN 7.5 GM/DL (6.4-8.2)
[2019-03-12 10:36] LABS: BASOPHILS % (AUTO) 0 % (0-10); EOSINOPHILS # (AUTO) 0.1 10^3/uL (0.0-0.3); EOSINOPHILS % (AUTO) 3 % (0-10); HEMATOCRIT 32 % (40-54); HEMOGLOBIN 11.2 G/DL (13.3-17.7); LYMPHOCYTES # (AUTO) 0.6 X 10^3 (1.0-4.0); LYMPHOCYTES % (AUTO) 16 % (12-44); MEAN CORPUSCULAR HEMOGLOBIN 34 PG (25-34); MEAN CORPUSCULAR HGB CONC 35 G/DL (32-36); MEAN CORPUSCULAR VOLUME 96 FL (80-99); MEAN PLATELET VOLUME 9.1 FL (7.4-10.4); MONOCYTES # (AUTO) 0.4 X 10^3 (0.0-1.0); MONOCYTES % (AUTO) 11 % (0-12); NEUTROPHILS # (AUTO) 2.7 X 10^3 (1.8-7.8); NEUTROPHILS % (AUTO) 70 % (42-75); PLATELET COUNT 137 10^3/uL (130-400); WHITE BLOOD COUNT 3.8 10^3/uL (4.3-11.0)
[2019-03-12 10:56] LABS: ALANINE AMINOTRANSFERASE 14 U/L (0-55); ALBUMIN 4.3 GM/DL (3.2-4.5); ALKALINE PHOSPHATASE 83 U/L (40-136); BILIRUBIN,TOTAL 0.5 MG/DL (0.1-1.0); BUN/CREATININE RATIO 11; CALCIUM 9.5 MG/DL (8.5-10.1); CARBON DIOXIDE 22 MMOL/L (21-32); CHLORIDE 103 MMOL/L (98-107); CREATININE SERUM 1.17 MG/DL (0.60-1.30); GFR ESTIMATED > 60; GLUCOSE 142 MG/DL (70-105); POTASSIUM 4.3 MMOL/L (3.6-5.0); SODIUM 136 MMOL/L (135-145); TOTAL PROTEIN 7.6 GM/DL (6.4-8.2)
[~2019-03-16 15:09] MED LIST changes: +IMMU GLOBULIN,GAMMA (IGG) 100 ML IV SCH; +IMMU GLOBULIN,GAMMA (IGG) 50 ML IV SCH; +IMMUNE GLOBULIN,GAMMA (IGG) 200 ML IV SCH; +NS IV 500 ML (CANCER CENTER) 500 ML ONE; -NS IV SCH; -OBINUTUZUMAB IV SCH; -PALONOSETRON HCL 0.25 MG, DEXAMETHASONE INJECTION 20 MG in NS (IVPB) CANCER CENTER 50 ML IV SCH; -diphenhydrAMINE 25 MG TAB (BENADRYL) CANCER CENTER PO SCH; -riTUXimab 500 MG, riTUXimab FOR IV INJ CONC 300 MG in NS (IVPB) CANCER CENTER 186 ML IV SCH
== END 2019-04-15 | disposition home or self-care (01) ==
LOC: ONC 15:09
PROVIDERS: ATTEND Internal Medicine Hematology & Oncology
DX: Z51.11 Encounter for antineoplastic chemotherapy (principal); C82.18 Follicular lymphoma grade II, lymph nodes of multiple sites; D80.2 Selective deficiency of immunoglobulin A [IgA]; D68.59 Other primary thrombophilia; B19.20 Unspecified viral hepatitis C without hepatic coma; Z79.899 Other long term (current) drug therapy
CPT/HCPCS: 36415; 36591; 80053; 82784; 83615; 85025; 96365; 96366; 96375; 96409; 96411; 96413; 96415; J1569

== ENCOUNTER → 2019-04-19 | Outpatient (CLI) | payer MEDICARE ==
[~2019-04-19] MED LIST changes: -ACETAMINOPHEN 325 MG TAB (TYLENOL) CANCER CTR PO PRN; -ACETAMINOPHEN 500 MG TAB (TYLENOL) CANCER CTR PO PRN; -BENDAMUSTINE HCL 130 MG in NS (IVPB) CANCER CENTER 50 ML IV SCH; -DEXAMETHASONE IV SCH; +HOLD METFORMIN - RECEIVED CONTRAST 20 ML VIAL IV SCH; -IMMU GLOBULIN,GAMMA (IGG) 100 ML IV SCH; -IMMU GLOBULIN,GAMMA (IGG) 50 ML IV SCH; -IMMUNE GLOBULIN,GAMMA (IGG) 200 ML IV SCH; +IOHEXOL 350 MG/ML 100 ML (OMNIPAQUE 350) VIAL IV ONE; -IVIG 20 GM (PRIVIGEN) CANCER C 200 ML IV SCH; -IVIG 5 GM (PRIVIGEN) CANCER CT 50 ML IV SCH; -NS (IVPB) CANCER CENTER 250 ML IV SCH; +NS 100 ML (IVPB) BAG IV ONE; -NS IV 1000 ML (CANCER CTR) 1,000 ML ONE; -NS IV 500 ML (CANCER CENTER) 500 ML ONE; -OBINUTUZUMAB 1,000 MG in NS (IVPB) CANCER CENTER 250 ML IV SCH; -ONDANSETRON IV SCH; -PALONOSETRON HCL 0.25 MG, DEXAMETHASONE INJECTION 10 MG in NS (IVPB) CANCER CENTER 50 ML IV SCH; -[UNRECOGNIZED DRUG - OTHER] IV SCH; -diphenhydrAMINE 25 MG TAB (BENADRYL) CANCER CENTER PO ONE; -diphenhydrAMINE 50 MG/ML INJ (CANCER CENTER) IV PRN
--- NOTE | 2019-04-19 14:57 | Diagnostic Imaging Report ---
PROCEDURE: CT chest with contrast, CT abdomen and pelvis with and without contrast. TECHNIQUE: Pre and post intravenous contrast axial imaging of the abdomen and pelvis and post contrast axial imaging of the chest were performed. Auto Exposure Controls were utilized during the CT exam to meet ALARA standards for radiation dose reduction. INDICATION: Follicular non-Hodgkin's lymphoma. Comparison is made with prior CT from 12/13/2018. CT chest: A right chest wall port has tip at the SVC right atrial junction. No left-sided axillary lymphadenopathy is seen. Marker lymph node right axilla has significantly decreased in size, now measuring 1.2 x 0.8 cm compared with 2.3 x 1.3 cm. No mediastinal or hilar lymphadenopathy is detected. No pericardial or pleural fluid is detected. No pulmonary infiltrates, nodules or masses are seen. The bony structures are unremarkable. IMPRESSION: Significant decrease in size of right axillary enlarged lymph node when compared with exam from 12/13/2018. No new thoracic lymphadenopathy is detected. CT abdomen and pelvis: No discrete liver mass is identified. The gallbladder is unremarkable. No biliary ductal dilatation is seen. The pancreas and spleen are unremarkable. No adrenal mass is detected. Kidneys are unremarkable. Aorta and iliac vessels are calcified but not aneurysmal. Overall there has been significant improvement in abdominal and pelvic lymphadenopathy. A lymph node in the hepatogastric region measures 1.9 x 2.4 cm compared with 1.9 x 2.6 cm. Macario hepatis node is now barely visible and difficult to measure. Lobulated mass previously seen at the root of the mesentery has significantly decreased in size now at 3.4 x 2.2 cm compared with 4.8 x 3.7 cm measured by similar technique. Enlarged nodes just to the right and to the left of the dominant node at this location have essentially resolved. A right iliac chain lymphadenopathy has significantly improved. A lymph node anterior to the right external iliac artery measures 2.7 x 2.4 cm compared with 3.4 x 3.5 cm. Enlarged node just medial to the right external iliac structures measures 3.1 x 1.8 cm compared with 4.3 x 2.9 cm. Right obturator node measures 2.2 x 1.6 cm compared with 3.3 x 2.4 cm. Dominant node in the right inguinal region has significantly decreased in size measuring 2.8 x 2.0 cm compared with 4.4 x 2.9 cm. Enlarged nodes in the left inguinal region have also all decreased in size. Prostate remains enlarged. Bladder is unremarkable. There is no ascites. Small and large bowel loops are nondistended. There is a small fat-containing umbilical hernia. Bony structures are nonacute. IMPRESSION: Significant improvement in abdominal and pelvic lymphadenopathy when compared with prior CT from 12/13/2018. No new abnormality is detected. Dictated by: Dictated on workstation # [id number]
== END ==
LOC: RAD 12:43
PROVIDERS: ATTEND Nurse Practitioner Adult Health
DX: C82.18 Follicular lymphoma grade II, lymph nodes of multiple sites (principal); Z95.828 Presence of other vascular implants and grafts
CPT/HCPCS: 71260; 74178

== ENCOUNTER → 2019-05-21 | Outpatient (CLI) | payer MEDICARE ==
[~2019-05-21] MED LIST changes: -HOLD METFORMIN - RECEIVED CONTRAST 20 ML VIAL IV SCH; -IOHEXOL 350 MG/ML 100 ML (OMNIPAQUE 350) VIAL IV ONE; -NS 100 ML (IVPB) BAG IV ONE
--- NOTE | 2019-05-21 16:46 | Diagnostic Imaging Report ---
Indication: Cough and congestion PA and lateral chest Heart size and pulmonary vascularity are normal. Lungs are clear. There are no effusions or pneumothoraces. Right IJ Port-A-Cath tip projects over the SVC. IMPRESSION: No acute abnormalities in the chest Dictated by: Dictated on workstation # [id number]
== END ==
LOC: RAD 12:30
PROVIDERS: ATTEND Nurse Practitioner Adult Health
DX: D80.1 Nonfamilial hypogammaglobulinemia (principal); R09.89 Other specified symptoms and signs involving the circulatory and respiratory systems; R05 Cough; Z95.828 Presence of other vascular implants and grafts
CPT/HCPCS: 71046

== ENCOUNTER 2019-07-17 10:53 | Outpatient (RCR) | payer MEDICARE ==
[2019-04-23 13:03] LABS: BASOPHILS % (AUTO) 0 % (0-10); EOSINOPHILS # (AUTO) 0.1 10^3/uL (0.0-0.3); EOSINOPHILS % (AUTO) 4 % (0-10); HEMATOCRIT 33 % (40-54); HEMOGLOBIN 11.5 G/DL (13.3-17.7); LYMPHOCYTES # (AUTO) 0.4 X 10^3 (1.0-4.0); LYMPHOCYTES % (AUTO) 16 % (12-44); MEAN CORPUSCULAR HEMOGLOBIN 33 PG (25-34); MEAN CORPUSCULAR HGB CONC 35 G/DL (32-36); MEAN CORPUSCULAR VOLUME 95 FL (80-99); MEAN PLATELET VOLUME 8.9 FL (7.4-10.4); MONOCYTES # (AUTO) 0.3 X 10^3 (0.0-1.0); MONOCYTES % (AUTO) 13 % (0-12); NEUTROPHILS # (AUTO) 1.6 X 10^3 (1.8-7.8); NEUTROPHILS % (AUTO) 68 % (42-75); PLATELET COUNT 115 10^3/uL (130-400); RED CELL DISTRIBUTION WIDTH 14.8 % (10.0-14.5); WHITE BLOOD COUNT 2.3 10^3/uL (4.3-11.0)
[2019-04-23 13:25] LABS: ALANINE AMINOTRANSFERASE 13 U/L (0-55); ALBUMIN 4.2 GM/DL (3.2-4.5); ALKALINE PHOSPHATASE 77 U/L (40-136); BILIRUBIN,TOTAL 0.6 MG/DL (0.1-1.0); BUN/CREATININE RATIO 7; CALCIUM 9.3 MG/DL (8.5-10.1); CARBON DIOXIDE 25 MMOL/L (21-32); CHLORIDE 103 MMOL/L (98-107); CREATININE SERUM 0.87 MG/DL (0.60-1.30); GFR ESTIMATED > 60; GLUCOSE 87 MG/DL (70-105); SODIUM 138 MMOL/L (135-145); TOTAL PROTEIN 7.2 GM/DL (6.4-8.2)
[2019-05-21 11:29] LABS: HEMOGLOBIN 12.2 G/DL (13.3-17.7)
[2019-05-21 11:30] LABS: BASOPHILS % (AUTO) 1 % (0-10); EOSINOPHILS # (AUTO) 0.1 10^3/uL (0.0-0.3); EOSINOPHILS % (AUTO) 4 % (0-10); HEMATOCRIT 35 % (40-54); LYMPHOCYTES # (AUTO) 0.4 X 10^3 (1.0-4.0); LYMPHOCYTES % (AUTO) 18 % (12-44); MEAN CORPUSCULAR HEMOGLOBIN 34 PG (25-34); MEAN CORPUSCULAR HGB CONC 35 G/DL (32-36); MEAN CORPUSCULAR VOLUME 96 FL (80-99); MEAN PLATELET VOLUME 9.4 FL (7.4-10.4); MONOCYTES # (AUTO) 0.3 X 10^3 (0.0-1.0); MONOCYTES % (AUTO) 15 % (0-12); NEUTROPHILS # (AUTO) 1.3 X 10^3 (1.8-7.8); NEUTROPHILS % (AUTO) 62 % (42-75); PLATELET COUNT 124 10^3/uL (130-400); RED CELL DISTRIBUTION WIDTH 14.6 % (10.0-14.5)
[2019-05-21 11:55] LABS: ALANINE AMINOTRANSFERASE 21 U/L (0-55); ALBUMIN 4.3 GM/DL (3.2-4.5); ALKALINE PHOSPHATASE 81 U/L (40-136); BILIRUBIN,TOTAL 0.6 MG/DL (0.1-1.0); BUN/CREATININE RATIO 14; CALCIUM 9.5 MG/DL (8.5-10.1); CARBON DIOXIDE 28 MMOL/L (21-32); CHLORIDE 106 MMOL/L (98-107); CREATININE SERUM 0.95 MG/DL (0.60-1.30); GFR ESTIMATED > 60; GLUCOSE 102 MG/DL (70-105); POTASSIUM 4.2 MMOL/L (3.6-5.0); SODIUM 140 MMOL/L (135-145); TOTAL PROTEIN 7.5 GM/DL (6.4-8.2)
[2019-07-16 14:17] LABS: BASOPHILS % (AUTO) 0 % (0-10); EOSINOPHILS # (AUTO) 0.1 10^3/uL (0.0-0.3); EOSINOPHILS % (AUTO) 3 % (0-10); HEMATOCRIT 34 % (40-54); HEMOGLOBIN 11.9 G/DL (13.3-17.7); LYMPHOCYTES # (AUTO) 0.4 X 10^3 (1.0-4.0); LYMPHOCYTES % (AUTO) 13 % (12-44); MEAN CORPUSCULAR HEMOGLOBIN 34 PG (25-34); MEAN CORPUSCULAR HGB CONC 35 G/DL (32-36); MEAN CORPUSCULAR VOLUME 96 FL (80-99); MEAN PLATELET VOLUME 9.2 FL (7.4-10.4); MONOCYTES # (AUTO) 0.4 X 10^3 (0.0-1.0); MONOCYTES % (AUTO) 13 % (0-12); NEUTROPHILS % (AUTO) 71 % (42-75); PLATELET COUNT 154 10^3/uL (130-400); RED CELL DISTRIBUTION WIDTH 14.8 % (10.0-14.5); WHITE BLOOD COUNT 2.9 10^3/uL (4.3-11.0)
[2019-07-16 14:33] LABS: ALANINE AMINOTRANSFERASE 17 U/L (0-55); ALBUMIN 4.4 GM/DL (3.2-4.5); ALKALINE PHOSPHATASE 75 U/L (40-136); BILIRUBIN,TOTAL 0.5 MG/DL (0.1-1.0); BUN/CREATININE RATIO 14; CALCIUM 9.2 MG/DL (8.5-10.1); CARBON DIOXIDE 24 MMOL/L (21-32); CHLORIDE 104 MMOL/L (98-107); CREATININE SERUM 1.03 MG/DL (0.60-1.30); GFR ESTIMATED > 60; GLUCOSE 95 MG/DL (70-105); POTASSIUM 4.3 MMOL/L (3.6-5.0); SODIUM 137 MMOL/L (135-145); TOTAL PROTEIN 7.4 GM/DL (6.4-8.2)
[~2019-07-17 10:53] MED LIST changes: -ACET-2469 PO; +ACET-2715 PO; +ACETAMINOPHEN 325 MG TAB (TYLENOL) CANCER CTR ONE; +ACETAMINOPHEN 325 MG TAB (TYLENOL) CANCER CTR PO PRN; +ACETAMINOPHEN 500 MG TAB (TYLENOL) CANCER CTR PO PRN; +DEXAMETHASONE IV SCH; +IMMU GLOBULIN,GAMMA (IGG) 50 ML IV SCH; +IMMUNE GLOBULIN,GAMMA (IGG) 200 ML IV SCH; +NS (IVPB) CANCER CENTER 250 ML IV SCH; +NS IV 1000 ML (CANCER CTR) 1,000 ML ONE; +NS IV SCH; +OBINUTUZUMAB 1,000 MG in NS (IVPB) CANCER CENTER 250 ML IV SCH; +diphenhydrAMINE 25 MG TAB (BENADRYL) CANCER CENTER PO SCH; +diphenhydrAMINE 50 MG/ML INJ (CANCER CENTER) ONE
[2019-07-17] MEDS ORDERED: diphenhydrAMINE 50 MG/ML INJ (CANCER CENTER) ONE (11:53)
[2019-07-17] MEDS ORDERED: NS IV 1000 ML (CANCER CTR) 1,000 ML ONE (11:53)
== END 2019-07-22 | disposition home or self-care (01) ==
LOC: ONC 10:53
PROVIDERS: ATTEND Internal Medicine Hematology & Oncology
DX: Z51.11 Encounter for antineoplastic chemotherapy (principal); C82.18 Follicular lymphoma grade II, lymph nodes of multiple sites; D80.2 Selective deficiency of immunoglobulin A [IgA]; D68.59 Other primary thrombophilia; B19.20 Unspecified viral hepatitis C without hepatic coma; Z79.899 Other long term (current) drug therapy
CPT/HCPCS: 36591; 80053; 82784; 83615; 85025; 87804; 96365; 96366; 96375; 96413; 96415; J1569

== ENCOUNTER → 2019-11-02 | Outpatient (CLI) | payer MEDICARE ==
[~2019-11-02] MED LIST changes: -ACETAMINOPHEN 325 MG TAB (TYLENOL) CANCER CTR ONE; -ACETAMINOPHEN 325 MG TAB (TYLENOL) CANCER CTR PO PRN; -ACETAMINOPHEN 500 MG TAB (TYLENOL) CANCER CTR PO PRN; -DEXAMETHASONE IV SCH; +HOLD METFORMIN - RECEIVED CONTRAST 20 ML VIAL IV SCH; -IMMU GLOBULIN,GAMMA (IGG) 50 ML IV SCH; -IMMUNE GLOBULIN,GAMMA (IGG) 200 ML IV SCH; +IOHEXOL 350 MG/ML 100 ML (OMNIPAQUE 350) VIAL IV ONE; -NS (IVPB) CANCER CENTER 250 ML IV SCH; +NS 100 ML (IVPB) BAG IV ONE; -NS IV 1000 ML (CANCER CTR) 1,000 ML ONE; -NS IV SCH; -OBINUTUZUMAB 1,000 MG in NS (IVPB) CANCER CENTER 250 ML IV SCH; -diphenhydrAMINE 25 MG TAB (BENADRYL) CANCER CENTER PO SCH; -diphenhydrAMINE 50 MG/ML INJ (CANCER CENTER) ONE
--- NOTE | 2019-11-02 11:49 | Diagnostic Imaging Report ---
PROCEDURE: CT chest with contrast, CT abdomen and pelvis with and without contrast. TECHNIQUE: Pre and post intravenous contrast axial imaging of the abdomen and pelvis and post contrast axial imaging of the chest were performed. Auto Exposure Controls were utilized during the CT exam to meet ALARA standards for radiation dose reduction. DATE: November 02, 2019. COMPARISON: CT chest, abdomen and pelvis December 13, 2018. April 19, 2019. CT chest, neck, chest, abdomen and pelvis August 24, 2017. INDICATION: 69-year-old male, history of non-Hodgkin's lymphoma. FINDINGS: There is no identified pulmonary nodule. There is no lung mass. There are linear opacities in the right lower lobe most consistent with scarring and/or atelectasis. There is no additional airspace consolidation. There is no pneumothorax. There is no pleural effusion. The central airways are patent. There is no identified pulmonary embolus. The heart is not enlarged. There is no pericardial effusion. There is no identified abnormally enlarged mediastinal or hilar lymph node meeting CT size criteria for adenopathy. There is a soft tissue attenuation nodule in the left chest measuring 13 x 10 mm in size on axial image 29. This is indeterminant and not specific. This is new since April 19, 2019. This does raise concern for possibility of neoplasm. There is a left axillary lymph node on axial image 23 which measures 8 mm in short axis which is new. The liver is unremarkable in size and contour. There is no identified liver lesion. The main, right, and left portal veins are patent. The gallbladder is unremarkable. There is no intrahepatic or extrahepatic bile duct dilation. The main pancreatic duct is not abnormally dilated. Unremarkable appearance of the pancreatic parenchyma. The spleen is not enlarged. The adrenal glands are unremarkable. Unremarkable appearance of the renal parenchyma. The urinary collecting systems are not distended. There is no identified renal or ureteral stone. Urinary bladder is unremarkable. The prostate gland is enlarged. There is a small fat-containing left inguinal hernia. There is a right inguinal lymph node on axial image 232 measuring 15 mm in short axis. This previously measured 19 mm in short axis on April 19, 2019. The additional previously noted right inguinal lymph nodes are also less prominent in size on the current exam. There is a right external iliac chain lymph node measuring 12 mm in short axis which is also decreased in size since prior exam on current axial image 218. There are additional subcentimeter short axis right iliac lymph nodes which also appear mildly decreased in size. There is a circumaortic left renal vein. There is a mesenteric lymph node measuring 16 mm in short axis on axial image 115 which measures larger in size since April 19, 2019. This previously measured 8 mm in short axis. There is a superior mesenteric lymph node measuring 2.6 cm in short axis on axial image 104 which is also increased in size. This previously measured 18 mm in short axis. There is an additional mesenteric lymph node on axial image 145 measuring 3.4 cm in short axis which is increased in size and previously measured up to 2.2 cm in short axis. There is a lymph node in the posterior pelvis measuring increased in size currently at 16 mm in short axis compared to 8 mm in short axis previously. There is no adjacent wall thickening of the distal sigmoid colon. The intestinal tract is not distended. The appendix is unremarkable. There is no free intraperitoneal air. There is no drainable fluid collection. There is no free pelvic fluid. There is a small fat-containing umbilical hernia. There are atherosclerotic calcifications. 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 There is no identified focal concerning bone lesion. IMPRESSION: CT chest, abdomen, and pelvis. 1. New soft tissue attenuation nodule in the upper left anterior chest which does raise concern for possibility of malignancy as well as new left axillary lymph node. 2. Interval increase in size of mesenteric lymph nodes concerning for disease progression. 3. Interval decrease in size of right inguinal and right internal iliac chain lymph nodes. 4. Interval increase in size of a posterior pelvic lymph node also concerning for site of progression. Dictated by: Dictated on workstation # [id number]
== END ==
LOC: RAD 09:28
PROVIDERS: ATTEND Nurse Practitioner Adult Health
DX: C82.18 Follicular lymphoma grade II, lymph nodes of multiple sites (principal)
CPT/HCPCS: 71260; 74178

== ENCOUNTER 2019-11-07 09:02 | Outpatient (RCR) | payer MEDICARE ==
[2019-09-10 15:00] LABS: BASOPHILS % (AUTO) 1 % (0-10); EOSINOPHILS # (AUTO) 0.1 10^3/uL (0.0-0.3); EOSINOPHILS % (AUTO) 5 % (0-10); HEMATOCRIT 32 % (40-54); HEMOGLOBIN 10.9 G/DL (13.3-17.7); LYMPHOCYTES # (AUTO) 0.3 X 10^3 (1.0-4.0); LYMPHOCYTES % (AUTO) 16 % (12-44); MEAN CORPUSCULAR HEMOGLOBIN 34 PG (25-34); MEAN CORPUSCULAR HGB CONC 34 G/DL (32-36); MEAN CORPUSCULAR VOLUME 99 FL (80-99); MEAN PLATELET VOLUME 8.8 FL (7.4-10.4); MONOCYTES # (AUTO) 0.2 X 10^3 (0.0-1.0); MONOCYTES % (AUTO) 10 % (0-12); NEUTROPHILS # (AUTO) 1.2 X 10^3 (1.8-7.8); NEUTROPHILS % (AUTO) 69 % (42-75); PLATELET COUNT 132 10^3/uL (130-400); RED CELL DISTRIBUTION WIDTH 15.6 % (10.0-14.5); WHITE BLOOD COUNT 1.7 10^3/uL (4.3-11.0)
[2019-09-10 15:17] LABS: ALANINE AMINOTRANSFERASE 14 U/L (0-55); ALKALINE PHOSPHATASE 72 U/L (40-136); BILIRUBIN,TOTAL 0.2 MG/DL (0.1-1.0); BUN/CREATININE RATIO 12; CALCIUM 8.9 MG/DL (8.5-10.1); CARBON DIOXIDE 27 MMOL/L (21-32); CHLORIDE 104 MMOL/L (98-107); CREATININE SERUM 1.09 MG/DL (0.60-1.30); GFR ESTIMATED > 60; GLUCOSE 113 MG/DL (70-105); POTASSIUM 4.1 MMOL/L (3.6-5.0); SODIUM 138 MMOL/L (135-145); TOTAL PROTEIN 7.3 GM/DL (6.4-8.2)
[2019-11-02 09:54] LABS: BASOPHILS % (AUTO) 0 % (0-10); EOSINOPHILS # (AUTO) 0.1 10^3/uL (0.0-0.3); EOSINOPHILS % (AUTO) 3 % (0-10); HEMATOCRIT 40 % (40-54); HEMOGLOBIN 14.2 G/DL (13.3-17.7); LYMPHOCYTES # (AUTO) 0.6 X 10^3 (1.0-4.0); LYMPHOCYTES % (AUTO) 19 % (12-44); MEAN CORPUSCULAR HEMOGLOBIN 35 PG (25-34); MEAN CORPUSCULAR HGB CONC 36 G/DL (32-36); MEAN CORPUSCULAR VOLUME 98 FL (80-99); MEAN PLATELET VOLUME 9.1 FL (7.4-10.4); MONOCYTES # (AUTO) 0.4 X 10^3 (0.0-1.0); MONOCYTES % (AUTO) 14 % (0-12); NEUTROPHILS # (AUTO) 1.9 X 10^3 (1.8-7.8); NEUTROPHILS % (AUTO) 64 % (42-75); PLATELET COUNT 164 10^3/uL (130-400)
[2019-11-02 10:11] LABS: ALANINE AMINOTRANSFERASE 24 U/L (0-55); ALBUMIN 4.9 GM/DL (3.2-4.5); ALKALINE PHOSPHATASE 87 U/L (40-136); BILIRUBIN,TOTAL 0.8 MG/DL (0.1-1.0); BUN/CREATININE RATIO 10; CALCIUM 9.3 MG/DL (8.5-10.1); CARBON DIOXIDE 24 MMOL/L (21-32); CHLORIDE 102 MMOL/L (98-107); CREATININE SERUM 1.06 MG/DL (0.60-1.30); GFR ESTIMATED > 60; GLUCOSE 100 MG/DL (70-105); POTASSIUM 4.1 MMOL/L (3.6-5.0); SODIUM 137 MMOL/L (135-145); TOTAL PROTEIN 8.4 GM/DL (6.4-8.2)
[~2019-11-07 09:02] MED LIST changes: +ACETAMINOPHEN 325 MG TAB (TYLENOL) CANCER CTR PO PRN; +ACETAMINOPHEN 500 MG TAB (TYLENOL) CANCER CTR PO PRN; +DEXAMETHASONE IV SCH; -HOLD METFORMIN - RECEIVED CONTRAST 20 ML VIAL IV SCH; +IMMU GLOBULIN,GAMMA (IGG) 50 ML IV SCH; +IMMUNE GLOBULIN,GAMMA (IGG) 200 ML IV SCH; -IOHEXOL 350 MG/ML 100 ML (OMNIPAQUE 350) VIAL IV ONE; +NS (IVPB) CANCER CENTER 250 ML IV SCH; -NS 100 ML (IVPB) BAG IV ONE; +NS IV 1000 ML (CANCER CTR) 1,000 ML ONE; +NS IV SCH; +OBINUTUZUMAB 1,000 MG in NS (IVPB) CANCER CENTER 250 ML IV SCH; +diphenhydrAMINE 25 MG TAB (BENADRYL) CANCER CENTER PO SCH; +diphenhydrAMINE 50 MG/ML INJ (CANCER CENTER) ONE
[2019-11-07] MEDS ORDERED: diphenhydrAMINE 50 MG/ML INJ (CANCER CENTER) ONE (09:28)
[2019-11-07] MEDS ORDERED: NS IV 500 ML (CANCER CENTER) 500 ML ONE (10:55)
== END 2019-11-11 | disposition home or self-care (01) ==
LOC: ONC 09:02
PROVIDERS: ATTEND Internal Medicine Hematology & Oncology
DX: C82.18 Follicular lymphoma grade II, lymph nodes of multiple sites (principal); D80.2 Selective deficiency of immunoglobulin A [IgA]; D68.59 Other primary thrombophilia; B19.20 Unspecified viral hepatitis C without hepatic coma; Z79.899 Other long term (current) drug therapy
CPT/HCPCS: 36591; 80053; 82784; 83615; 85025; 96365; 96366; 96375; 96413; 96415; 99213; J1569

== ENCOUNTER 2020-02-26 10:34 | Outpatient (RCR) | payer MEDICARE ==
[2020-01-01 13:08] LABS: BASOPHILS % (AUTO) 0 % (0-10); EOSINOPHILS # (AUTO) 0.1 10^3/uL (0.0-0.3); EOSINOPHILS % (AUTO) 3 % (0-10); HEMATOCRIT 36 % (40-54); LYMPHOCYTES # (AUTO) 0.6 X 10^3 (1.0-4.0); LYMPHOCYTES % (AUTO) 20 % (12-44); MEAN CORPUSCULAR HEMOGLOBIN 35 PG (25-34); MEAN CORPUSCULAR HGB CONC 36 G/DL (32-36); MEAN CORPUSCULAR VOLUME 99 FL (80-99); MEAN PLATELET VOLUME 8.9 FL (7.4-10.4); MONOCYTES # (AUTO) 0.4 X 10^3 (0.0-1.0); MONOCYTES % (AUTO) 12 % (0-12); NEUTROPHILS # (AUTO) 2.2 X 10^3 (1.8-7.8); NEUTROPHILS % (AUTO) 66 % (42-75); PLATELET COUNT 181 10^3/uL (130-400); RED CELL DISTRIBUTION WIDTH 13.7 % (10.0-14.5); WHITE BLOOD COUNT 3.3 10^3/uL (4.3-11.0)
[2020-01-01 13:30] LABS: ALANINE AMINOTRANSFERASE 18 U/L (0-55); ALBUMIN 4.4 GM/DL (3.2-4.5); ALKALINE PHOSPHATASE 86 U/L (40-136); BILIRUBIN,TOTAL 0.4 MG/DL (0.1-1.0); BUN/CREATININE RATIO 9; CALCIUM 9.4 MG/DL (8.5-10.1); CARBON DIOXIDE 26 MMOL/L (21-32); CHLORIDE 102 MMOL/L (98-107); CREATININE SERUM 1.16 MG/DL (0.60-1.30); GFR ESTIMATED > 60; GLUCOSE 95 MG/DL (70-105); POTASSIUM 4.1 MMOL/L (3.6-5.0); SODIUM 136 MMOL/L (135-145); TOTAL PROTEIN 8.4 GM/DL (6.4-8.2)
[2020-02-25 13:16] LABS: BASOPHILS % (AUTO) 0 % (0-10); EOSINOPHILS # (AUTO) 0.1 10^3/uL (0.0-0.3); EOSINOPHILS % (AUTO) 3 % (0-10); HEMATOCRIT 37 % (40-54); HEMOGLOBIN 13.2 G/DL (13.3-17.7); LYMPHOCYTES # (AUTO) 0.5 X 10^3 (1.0-4.0); LYMPHOCYTES % (AUTO) 17 % (12-44); MEAN CORPUSCULAR HEMOGLOBIN 35 PG (25-34); MEAN CORPUSCULAR HGB CONC 36 G/DL (32-36); MEAN CORPUSCULAR VOLUME 97 FL (80-99); MEAN PLATELET VOLUME 9.1 FL (7.4-10.4); MONOCYTES # (AUTO) 0.4 X 10^3 (0.0-1.0); MONOCYTES % (AUTO) 14 % (0-12); NEUTROPHILS # (AUTO) 2.1 X 10^3 (1.8-7.8); NEUTROPHILS % (AUTO) 66 % (42-75); PLATELET COUNT 160 10^3/uL (130-400); RED CELL DISTRIBUTION WIDTH 14.6 % (10.0-14.5); WHITE BLOOD COUNT 3.1 10^3/uL (4.3-11.0)
[2020-02-25 13:37] LABS: ALANINE AMINOTRANSFERASE 17 U/L (0-55); ALBUMIN 4.3 GM/DL (3.2-4.5); ALKALINE PHOSPHATASE 71 U/L (40-136); BILIRUBIN,TOTAL 0.4 MG/DL (0.1-1.0); BUN/CREATININE RATIO 9; CALCIUM 9.1 MG/DL (8.5-10.1); CARBON DIOXIDE 22 MMOL/L (21-32); CHLORIDE 104 MMOL/L (98-107); CREATININE SERUM 0.91 MG/DL (0.60-1.30); GFR ESTIMATED > 60; GLUCOSE 101 MG/DL (70-105); POTASSIUM 3.7 MMOL/L (3.6-5.0); SODIUM 137 MMOL/L (135-145); TOTAL PROTEIN 7.5 GM/DL (6.4-8.2)
[~2020-02-26 10:34] MED LIST changes: +MULT-567 PO; -MULT1TAB69 PO; +NS IV 500 ML (CANCER CENTER) 500 ML ONE
[2020-02-26] MEDS ORDERED: NS IV 500 ML (CANCER CENTER) 500 ML ONE (14:05)
== END 2020-03-02 | disposition home or self-care (01) ==
LOC: ONC 10:34
PROVIDERS: ATTEND Internal Medicine Hematology & Oncology
DX: Z51.11 Encounter for antineoplastic chemotherapy (principal); C82.18 Follicular lymphoma grade II, lymph nodes of multiple sites; D80.2 Selective deficiency of immunoglobulin A [IgA]; D68.59 Other primary thrombophilia; B19.20 Unspecified viral hepatitis C without hepatic coma; I25.10 Atherosclerotic heart disease of native coronary artery without angina pectoris; Z92.21 Personal history of antineoplastic chemotherapy; Z79.899 Other long term (current) drug therapy
CPT/HCPCS: 36591; 80053; 82784; 83615; 85025; 96365; 96366; 96375; 96413; 96415; J1569

== ENCOUNTER 2020-06-18 08:49 | Outpatient (RCR) | payer MEDICARE ==
[2020-04-22 10:09] LABS: BASOPHILS % (AUTO) 0 % (0-10); EOSINOPHILS # (AUTO) 0.1 10^3/uL (0.0-0.3); EOSINOPHILS % (AUTO) 4 % (0-10); HEMATOCRIT 37 % (40-54); HEMOGLOBIN 13.1 G/DL (13.3-17.7); LYMPHOCYTES # (AUTO) 0.6 X 10^3 (1.0-4.0); LYMPHOCYTES % (AUTO) 18 % (12-44); MEAN CORPUSCULAR HEMOGLOBIN 35 PG (25-34); MEAN CORPUSCULAR HGB CONC 35 G/DL (32-36); MEAN CORPUSCULAR VOLUME 98 FL (80-99); MEAN PLATELET VOLUME 8.8 FL (7.4-10.4); MONOCYTES # (AUTO) 0.6 X 10^3 (0.0-1.0); MONOCYTES % (AUTO) 15 % (0-12); NEUTROPHILS # (AUTO) 2.3 X 10^3 (1.8-7.8); NEUTROPHILS % (AUTO) 63 % (42-75); PLATELET COUNT 177 10^3/uL (130-400); WHITE BLOOD COUNT 3.6 10^3/uL (4.3-11.0)
[2020-04-22 10:31] LABS: ALANINE AMINOTRANSFERASE 15 U/L (0-55); ALBUMIN 4.4 GM/DL (3.2-4.5); ALKALINE PHOSPHATASE 91 U/L (40-136); BILIRUBIN,TOTAL 0.8 MG/DL (0.1-1.0); BUN/CREATININE RATIO 8; CALCIUM 9.4 MG/DL (8.5-10.1); CARBON DIOXIDE 24 MMOL/L (21-32); CHLORIDE 102 MMOL/L (98-107); CREATININE SERUM 1.04 MG/DL (0.60-1.30); GFR ESTIMATED > 60; GLUCOSE 137 MG/DL (70-105); SODIUM 135 MMOL/L (135-145)
[2020-06-17 10:45] LABS: BASOPHILS % (AUTO) 1 % (0-10); EOSINOPHILS # (AUTO) 0.2 10^3/uL (0.0-0.3); EOSINOPHILS % (AUTO) 4 % (0-10); HEMATOCRIT 38 % (40-54); HEMOGLOBIN 13.1 g/dL (13.3-17.7); LYMPHOCYTES # (AUTO) 1.1 10^3/uL (1.0-4.0); LYMPHOCYTES % (AUTO) 24 % (12-44); MEAN CORPUSCULAR HEMOGLOBIN 34 pg (25-34); MEAN CORPUSCULAR HGB CONC 35 g/dL (32-36); MEAN CORPUSCULAR VOLUME 98 fL (80-99); MEAN PLATELET VOLUME 9.5 fL (9.0-12.2); MONOCYTES # (AUTO) 0.6 10^3/uL (0.0-1.0); MONOCYTES % (AUTO) 13 % (0-12); NEUTROPHILS # (AUTO) 2.2 10^3/uL (1.8-7.8); NEUTROPHILS % (AUTO) 51 % (42-75); PLATELET COUNT 190 10^3/uL (130-400); WHITE BLOOD COUNT 4.3 10^3/uL (4.3-11.0)
[2020-06-17 11:10] LABS: ALANINE AMINOTRANSFERASE 19 U/L (0-55); ALBUMIN 4.5 GM/DL (3.2-4.5); ALKALINE PHOSPHATASE 79 U/L (40-136); BILIRUBIN,TOTAL 0.6 MG/DL (0.1-1.0); BUN/CREATININE RATIO 12; CALCIUM 9.2 MG/DL (8.5-10.1); CARBON DIOXIDE 23 MMOL/L (21-32); CHLORIDE 102 MMOL/L (98-107); CREATININE SERUM 1.08 MG/DL (0.60-1.30); GFR ESTIMATED > 60; GLUCOSE 89 MG/DL (70-105); POTASSIUM 4.3 MMOL/L (3.6-5.0); SODIUM 135 MMOL/L (135-145); TOTAL PROTEIN 7.8 GM/DL (6.4-8.2)
[~2020-06-18 08:49] MED LIST changes: -ACET-2715 PO; +ACET-3075 PO; -DEXAMETHASONE IV SCH; -NS IV 500 ML (CANCER CENTER) 500 ML ONE; -NS IV SCH
== END 2020-06-22 | disposition home or self-care (01) ==
LOC: ONC 08:49
PROVIDERS: ATTEND Internal Medicine Hematology & Oncology
DX: C82.18 Follicular lymphoma grade II, lymph nodes of multiple sites (principal); D80.2 Selective deficiency of immunoglobulin A [IgA]; D68.59 Other primary thrombophilia; B19.20 Unspecified viral hepatitis C without hepatic coma; I25.10 Atherosclerotic heart disease of native coronary artery without angina pectoris; Z92.21 Personal history of antineoplastic chemotherapy; Z79.899 Other long term (current) drug therapy
CPT/HCPCS: 36591; 80053; 82784; 83615; 85025; 96365; 96366; 96375; 96413; 96415; J1569

== ENCOUNTER 2020-08-13 08:56 | Outpatient (RCR) | payer MEDICARE ==
[2020-08-12 13:00] LABS: BASOPHILS % (AUTO) 1 % (0-10); EOSINOPHILS # (AUTO) 0.2 10^3/uL (0.0-0.3); EOSINOPHILS % (AUTO) 4 % (0-10); HEMATOCRIT 39 % (40-54); HEMOGLOBIN 13.7 g/dL (13.3-17.7); LYMPHOCYTES # (AUTO) 0.9 10^3/uL (1.0-4.0); LYMPHOCYTES % (AUTO) 23 % (12-44); MEAN CORPUSCULAR HEMOGLOBIN 35 pg (25-34); MEAN CORPUSCULAR HGB CONC 35 g/dL (32-36); MEAN CORPUSCULAR VOLUME 98 fL (80-99); MEAN PLATELET VOLUME 9.2 fL (9.0-12.2); MONOCYTES # (AUTO) 0.5 10^3/uL (0.0-1.0); MONOCYTES % (AUTO) 13 % (0-12); NEUTROPHILS # (AUTO) 2.3 10^3/uL (1.8-7.8); NEUTROPHILS % (AUTO) 56 % (42-75); PLATELET COUNT 187 10^3/uL (130-400); WHITE BLOOD COUNT 4.1 10^3/uL (4.3-11.0)
[2020-08-12 13:37] LABS: ALANINE AMINOTRANSFERASE 21 U/L (0-55); ALBUMIN 4.6 GM/DL (3.2-4.5); ALKALINE PHOSPHATASE 77 U/L (40-136); BILIRUBIN,TOTAL 0.5 MG/DL (0.1-1.0); BUN/CREATININE RATIO 10; CALCIUM 9.3 MG/DL (8.5-10.1); CARBON DIOXIDE 28 MMOL/L (21-32); CHLORIDE 102 MMOL/L (98-107); CREATININE SERUM 1.11 MG/DL (0.60-1.30); GFR ESTIMATED > 60; GLUCOSE 92 MG/DL (70-105); POTASSIUM 4.2 MMOL/L (3.6-5.0); SODIUM 134 MMOL/L (135-145); TOTAL PROTEIN 8.1 GM/DL (6.4-8.2)
[~2020-08-13 08:56] MED LIST changes: -NS IV 1000 ML (CANCER CTR) 1,000 ML ONE; -diphenhydrAMINE 50 MG/ML INJ (CANCER CENTER) ONE
[2020-08-13] MEDS ORDERED: NS IV 1000 ML (CANCER CTR) 1,000 ML ONE (08:57)
== END 2020-08-29 08:52 | disposition home or self-care (01) ==
LOC: ONC 08:56
PROVIDERS: ATTEND Internal Medicine Hematology & Oncology
DX: C82.18 Follicular lymphoma grade II, lymph nodes of multiple sites (principal); D80.2 Selective deficiency of immunoglobulin A [IgA]; D68.59 Other primary thrombophilia; B19.20 Unspecified viral hepatitis C without hepatic coma; I25.10 Atherosclerotic heart disease of native coronary artery without angina pectoris; Z92.21 Personal history of antineoplastic chemotherapy; Z79.899 Other long term (current) drug therapy
CPT/HCPCS: 36591; 80053; 82784; 83615; 85025; 96365; 96366; 96375; 96413; 96415; J1569

== ENCOUNTER 2020-12-03 09:56 | Outpatient (RCR) | payer MEDICARE ==
[2020-10-07 11:24] LABS: BASOPHILS % (AUTO) 1 % (0-10); EOSINOPHILS # (AUTO) 0.1 10^3/uL (0.0-0.3); EOSINOPHILS % (AUTO) 2 % (0-10); HEMATOCRIT 38 % (40-54); HEMOGLOBIN 13.3 g/dL (13.3-17.7); LYMPHOCYTES % (AUTO) 26 % (12-44); MEAN CORPUSCULAR HEMOGLOBIN 35 pg (25-34); MEAN CORPUSCULAR HGB CONC 36 g/dL (32-36); MEAN CORPUSCULAR VOLUME 98 fL (80-99); MEAN PLATELET VOLUME 9.4 fL (9.0-12.2); MONOCYTES # (AUTO) 0.6 10^3/uL (0.0-1.0); MONOCYTES % (AUTO) 17 % (0-12); NEUTROPHILS # (AUTO) 1.9 10^3/uL (1.8-7.8); NEUTROPHILS % (AUTO) 50 % (42-75); PLATELET COUNT 185 10^3/uL (130-400); WHITE BLOOD COUNT 3.8 10^3/uL (4.3-11.0)
[2020-10-07 11:47] LABS: ALANINE AMINOTRANSFERASE 20 U/L (0-55); ALBUMIN 4.5 GM/DL (3.2-4.5); ALKALINE PHOSPHATASE 69 U/L (40-136); BILIRUBIN,TOTAL 0.5 MG/DL (0.1-1.0); BUN/CREATININE RATIO 8; CALCIUM 9.3 MG/DL (8.5-10.1); CARBON DIOXIDE 22 MMOL/L (21-32); CHLORIDE 103 MMOL/L (98-107); CREATININE SERUM 1.15 MG/DL (0.60-1.30); GFR ESTIMATED > 60; GLUCOSE 81 MG/DL (70-105); POTASSIUM 4.2 MMOL/L (3.6-5.0); SODIUM 135 MMOL/L (135-145); TOTAL PROTEIN 7.8 GM/DL (6.4-8.2)
[2020-12-02 11:03] LABS: BASOPHILS % (AUTO) 1 % (0-10); EOSINOPHILS # (AUTO) 0.1 10^3/uL (0.0-0.3); EOSINOPHILS % (AUTO) 3 % (0-10); HEMATOCRIT 39 % (40-54); HEMOGLOBIN 13.9 g/dL (13.3-17.7); LYMPHOCYTES # (AUTO) 1.1 10^3/uL (1.0-4.0); LYMPHOCYTES % (AUTO) 25 % (12-44); MEAN CORPUSCULAR HEMOGLOBIN 35 pg (25-34); MEAN CORPUSCULAR HGB CONC 35 g/dL (32-36); MEAN CORPUSCULAR VOLUME 99 fL (80-99); MEAN PLATELET VOLUME 9.5 fL (9.0-12.2); MONOCYTES # (AUTO) 0.6 10^3/uL (0.0-1.0); MONOCYTES % (AUTO) 13 % (0-12); NEUTROPHILS # (AUTO) 2.4 10^3/uL (1.8-7.8); NEUTROPHILS % (AUTO) 52 % (42-75); PLATELET COUNT 205 10^3/uL (130-400); WHITE BLOOD COUNT 4.5 10^3/uL (4.3-11.0)
[2020-12-02 11:19] LABS: ALANINE AMINOTRANSFERASE 21 U/L (0-55); ALBUMIN 4.6 GM/DL (3.2-4.5); ALKALINE PHOSPHATASE 71 U/L (40-136); BILIRUBIN,TOTAL 0.7 MG/DL (0.1-1.0); BUN/CREATININE RATIO 8; CALCIUM 9.3 MG/DL (8.5-10.1); CARBON DIOXIDE 22 MMOL/L (21-32); CHLORIDE 101 MMOL/L (98-107); CREATININE SERUM 1.11 MG/DL (0.60-1.30); GFR ESTIMATED > 60; GLUCOSE 93 MG/DL (70-105); POTASSIUM 4.4 MMOL/L (3.6-5.0); SODIUM 135 MMOL/L (135-145); TOTAL PROTEIN 7.7 GM/DL (6.4-8.2)
[~2020-12-03 09:56] MED LIST changes: +ALTEPLASE 2 MG (CATHFLO) CANCER CENTER IV ONE; -LISI-552 PO; +LISI20TA26 PO; +NS IV 1000 ML (CANCER CTR) 1,000 ML ONE
== END 2020-12-08 | disposition home or self-care (01) ==
LOC: ONC 09:56
PROVIDERS: ATTEND Internal Medicine Hematology & Oncology
DX: C82.18 Follicular lymphoma grade II, lymph nodes of multiple sites (principal); D80.3 Selective deficiency of immunoglobulin G [IgG] subclasses; D68.59 Other primary thrombophilia; B19.20 Unspecified viral hepatitis C without hepatic coma; I25.10 Atherosclerotic heart disease of native coronary artery without angina pectoris; Z92.21 Personal history of antineoplastic chemotherapy; Z79.899 Other long term (current) drug therapy
CPT/HCPCS: 36591; 36593; 80053; 82784; 83615; 85025; 96365; 96366; 96375; 96413; 96415; J1569

== ENCOUNTER → 2021-03-16 | Outpatient (CLI) | payer MEDICARE ==
[~2021-03-16] MED LIST changes: -ACETAMINOPHEN 325 MG TAB (TYLENOL) CANCER CTR PO PRN; -ACETAMINOPHEN 500 MG TAB (TYLENOL) CANCER CTR PO PRN; -ALTEPLASE 2 MG (CATHFLO) CANCER CENTER IV ONE; +BARIUM SUSPENSION 2.1% (VANILLA SILQ) 450 ML PO ONE; +CATHETER FLUSH 10 ML SYR IV PRN; +HOLD METFORMIN - RECEIVED CONTRAST 20 ML VIAL IV SCH; -IMMU GLOBULIN,GAMMA (IGG) 50 ML IV SCH; -IMMUNE GLOBULIN,GAMMA (IGG) 200 ML IV SCH; +IOHEXOL 350 MG/ML 100 ML (OMNIPAQUE 350) VIAL IV ONE; -NS (IVPB) CANCER CENTER 250 ML IV SCH; +NS 100 ML (IVPB) BAG IV ONE; -NS IV 1000 ML (CANCER CTR) 1,000 ML ONE; -OBINUTUZUMAB 1,000 MG in NS (IVPB) CANCER CENTER 250 ML IV SCH; -diphenhydrAMINE 25 MG TAB (BENADRYL) CANCER CENTER PO SCH
[2021-03-16 10:41] LABS: CREATININE SERUM 0.88 MG/DL (0.60-1.30)
--- NOTE | 2021-03-16 18:57 | Diagnostic Imaging Report ---
PROCEDURE: CT Neck, Chest Abdomen and Pelvis with contrast, Abdomen and Pelvis without. TECHNIQUE: Multiple contiguous axial images were obtained through the neck, chest, abdomen, and pelvis after the uneventful bolus administration of intravenous contrast. Precontrast acquisitions through the abdomen and pelvis were performed. Sagittal and coronal reformations are then performed. Auto Exposure Controls were utilized during the CT exam to meet ALARA standards for radiation dose reduction. INDICATION: Non-Hodgkin's lymphoma. COMPARISON: CT neck 06/20/2017. CT chest, abdomen, and pelvis of 11/02/2019. FINDINGS: NECK: Enlarged right cervical lymph node located posterior to the sternocleidomastoid muscle measures 1.8 x 1.5 cm (previously 1.7 x 1.2 cm). The previously noted other enlarged right-sided cervical lymph node has resolved. Thyroid is normal. Airway is widely patent. Right IJ Port-A-Cath is in stable position. No space-occupying mass or hydrocephalus within the visualized aspects of the brain. The paranasal sinuses are clear. Orbits are unremarkable. No lytic or blastic skeletal lesions have developed. CHEST: Enlarging left axillary lymph node/chest wall mass now measures 1.5 x 1.4 cm (previously 0.8 x 0.2 cm). The more anterior and medial left chest wall mass has decreased in size. No right axillary lymphadenopathy. No mediastinal or hilar lymphadenopathy. Heart is normal in size without pericardial effusion. Coronary artery calcifications are unchanged. Normal caliber thoracic aorta. No pleural effusion or pneumothorax. No endoluminal nodule within the trachea. No pulmonary mass or consolidation. Stable volume loss within the right lung base. No concerning pulmonary nodules. No worrisome focal osseous lesions. ABDOMEN AND PELVIS: No free intraperitoneal air or fluid. The liver and spleen remain normal in size without focal lesions. Pancreas and adrenals are normal. No renal mass or obstructive uropathy. Urinary bladder is partially filled. Prostamegaly is unchanged. Enlarging cystic mass in the right mesorectal fat with central low-attenuation now measures 5.9 x 5.6 cm (previously 1.5 x 1.5 cm). This abuts the rectum. Atherosclerotic aorta. Previously noted lymph nodes around the pancreas have diminished in size. For example, a celiac axis lymph node now measures 2.0 x 1.3 cm (previously 3.3 x 2.7 cm). Lymph node inferior to the pancreatic head has transverse dimension of 2.8 cm (previously 3.4 cm). No worrisome focal osseous lesions. Grade 2 anterolisthesis of L5 on S1 due to chronic pars defects. IMPRESSION: 1. Mixed response to therapy when compared to prior examinations. 2. Enlarging right-sided posterior cervical lymph node. However, the other enlarged cervical lymph node from 2017 has resolved. 3. Enlarging left axillary/lateral chest wall mass. More medial chest wall mass has decreased in size 4. Cystic mass adjacent to the rectum has significantly increased in size and could represent a centrally necrotic lymph node. If patient has not had a recent colonoscopy, direct visualization of the rectum may be beneficial. 5. Upper abdominal lymphadenopathy has improved but persists. Dictated by: Dictated on workstation # [id number]
== END ==
LOC: RAD 10:15
PROVIDERS: ATTEND Nurse Practitioner Adult Health
DX: C82.90 Follicular lymphoma, unspecified, unspecified site (principal)
CPT/HCPCS: 36415; 70491; 71260; 74178; 82565; 84520

== ENCOUNTER 2021-03-23 10:12 | Outpatient (RCR) | payer MEDICARE ==
[2021-01-26 11:04] LABS: BASOPHILS % (AUTO) 1 % (0-10); EOSINOPHILS # (AUTO) 0.1 10^3/uL (0.0-0.3); EOSINOPHILS % (AUTO) 3 % (0-10); HEMATOCRIT 39 % (40-54); HEMOGLOBIN 13.9 g/dL (13.3-17.7); LYMPHOCYTES # (AUTO) 1.2 10^3/uL (1.0-4.0); LYMPHOCYTES % (AUTO) 23 % (12-44); MEAN CORPUSCULAR HEMOGLOBIN 35 pg (25-34); MEAN CORPUSCULAR HGB CONC 35 g/dL (32-36); MEAN CORPUSCULAR VOLUME 99 fL (80-99); MONOCYTES # (AUTO) 0.6 10^3/uL (0.0-1.0); MONOCYTES % (AUTO) 13 % (0-12); NEUTROPHILS # (AUTO) 2.7 10^3/uL (1.8-7.8); NEUTROPHILS % (AUTO) 54 % (42-75); PLATELET COUNT 212 10^3/uL (130-400); WHITE BLOOD COUNT 4.9 10^3/uL (4.3-11.0)
[2021-01-26 11:30] LABS: ALANINE AMINOTRANSFERASE 17 U/L (0-55); ALBUMIN 4.5 GM/DL (3.2-4.5); ALKALINE PHOSPHATASE 73 U/L (40-136); BILIRUBIN,TOTAL 0.5 MG/DL (0.1-1.0); BUN/CREATININE RATIO 7; CALCIUM 9.6 MG/DL (8.5-10.1); CARBON DIOXIDE 25 MMOL/L (21-32); CHLORIDE 100 MMOL/L (98-107); CREATININE SERUM 0.97 MG/DL (0.60-1.30); GFR ESTIMATED > 60; GLUCOSE 94 MG/DL (70-105); POTASSIUM 4.5 MMOL/L (3.6-5.0); SODIUM 134 MMOL/L (135-145)
[~2021-03-23 10:12] MED LIST changes: +ACETAMINOPHEN 325 MG TAB (TYLENOL) CANCER CTR PO PRN; +ACETAMINOPHEN 500 MG TAB (TYLENOL) CANCER CTR PO PRN; -BARIUM SUSPENSION 2.1% (VANILLA SILQ) 450 ML PO ONE; -CATHETER FLUSH 10 ML SYR IV PRN; -HOLD METFORMIN - RECEIVED CONTRAST 20 ML VIAL IV SCH; +IMMU GLOBULIN,GAMMA (IGG) 50 ML IV SCH; +IMMUNE GLOBULIN,GAMMA (IGG) 200 ML IV SCH; -IOHEXOL 350 MG/ML 100 ML (OMNIPAQUE 350) VIAL IV ONE; +NS (IVPB) CANCER CENTER 250 ML IV SCH; -NS 100 ML (IVPB) BAG IV ONE; +NS IV 1000 ML (CANCER CTR) 1,000 ML ONE; +OBINUTUZUMAB 1,000 MG in NS (IVPB) CANCER CENTER 250 ML IV SCH; +diphenhydrAMINE 25 MG TAB (BENADRYL) CANCER CENTER PO SCH
[2021-03-23 10:42] LABS: BASOPHILS % (AUTO) 1 % (0-10); EOSINOPHILS # (AUTO) 0.1 10^3/uL (0.0-0.3); EOSINOPHILS % (AUTO) 2 % (0-10); HEMATOCRIT 40 % (40-54); HEMOGLOBIN 14.2 g/dL (13.3-17.7); LYMPHOCYTES # (AUTO) 0.9 10^3/uL (1.0-4.0); LYMPHOCYTES % (AUTO) 20 % (12-44); MEAN CORPUSCULAR HEMOGLOBIN 36 pg (25-34); MEAN CORPUSCULAR HGB CONC 36 g/dL (32-36); MEAN CORPUSCULAR VOLUME 100 fL (80-99); MEAN PLATELET VOLUME 8.9 fL (9.0-12.2); MONOCYTES # (AUTO) 0.6 10^3/uL (0.0-1.0); MONOCYTES % (AUTO) 14 % (0-12); NEUTROPHILS # (AUTO) 2.4 10^3/uL (1.8-7.8); NEUTROPHILS % (AUTO) 56 % (42-75); PLATELET COUNT 179 10^3/uL (130-400); WHITE BLOOD COUNT 4.3 10^3/uL (4.3-11.0)
[2021-03-23 10:59] LABS: ALBUMIN 4.2 GM/DL (3.2-4.5); BILIRUBIN,TOTAL 0.6 MG/DL (0.1-1.0); CALCIUM 9.6 MG/DL (8.5-10.1); CREATININE SERUM 0.88 MG/DL (0.60-1.30); POTASSIUM 4.2 MMOL/L (3.6-5.0); TOTAL PROTEIN 7.7 GM/DL (6.4-8.2)
== END 2021-03-30 | disposition home or self-care (01) ==
LOC: ONC 10:12
PROVIDERS: ATTEND Internal Medicine Hematology & Oncology
DX: Z51.11 Encounter for antineoplastic chemotherapy (principal); Z51.12 Encounter for antineoplastic immunotherapy; C82.18 Follicular lymphoma grade II, lymph nodes of multiple sites; D80.3 Selective deficiency of immunoglobulin G [IgG] subclasses; D68.59 Other primary thrombophilia; I25.10 Atherosclerotic heart disease of native coronary artery without angina pectoris; Z92.21 Personal history of antineoplastic chemotherapy; Z79.899 Other long term (current) drug therapy; Z86.19 Personal history of other infectious and parasitic diseases; Z87.891 Personal history of nicotine dependence; Z79.82 Long term (current) use of aspirin
CPT/HCPCS: 80053; 82784; 83615; 85025; 96365; 96366; 96375; 96413; 96415; J1569

== ENCOUNTER 2021-05-12 05:32 | Outpatient (CLI) | payer MEDICARE ==
[~2021-05-12] VITALS: Ht 180.3 cm; Wt 98.5 kg
[~2021-05-12 05:32] MED LIST changes: -ACETAMINOPHEN 325 MG TAB (TYLENOL) CANCER CTR PO PRN; -ACETAMINOPHEN 500 MG TAB (TYLENOL) CANCER CTR PO PRN; -IMMU GLOBULIN,GAMMA (IGG) 50 ML IV SCH; -IMMUNE GLOBULIN,GAMMA (IGG) 200 ML IV SCH; -NS (IVPB) CANCER CENTER 250 ML IV SCH; -NS IV 1000 ML (CANCER CTR) 1,000 ML ONE; -OBINUTUZUMAB 1,000 MG in NS (IVPB) CANCER CENTER 250 ML IV SCH; -diphenhydrAMINE 25 MG TAB (BENADRYL) CANCER CENTER PO SCH
[2021-05-13] MEDS ORDERED: SULF-11 PO (13:51)
[2021-05-13] MEDS ORDERED: FLUT15.845 NS (13:51)
[2021-05-13] MEDS ORDERED: IBUP-1780 PO (13:51)
== END 2021-05-13 15:11 ==
LOC: PREOP 05:32
PROVIDERS: ATTEND Surgery
DX: Z01.818 Encounter for other preprocedural examination (principal)

== ENCOUNTER 2021-05-19 09:28 | Day surgery (SDC) | payer MEDICARE ==
[~2021-05-19] VITALS: Ht 182.8 cm; Wt 98.9 kg
[~2021-05-19 09:28] MED LIST changes: +FLUT15.845 NS; +IBUP-1780 PO; +SULF-11 PO
[2021-05-19] MEDS ORDERED: LACTATED RINGERS 1,000 ML IV STA (09:31)
[2021-05-19] MEDS ORDERED: LACTATED RINGERS 1,000 ML IV ONE (09:34)
[2021-05-19 09:53] VITALS: BP 145/98
[2021-05-19] MEDS ORDERED: PROPOFOL INJECTION 50 ML IV ONE (10:38)
[2021-05-19 11:48] VITALS: BP 98/71
[2021-05-19 11:50] VITALS: BP 119/59
--- NOTE | 2021-05-19 11:51 | Progress Note-Post Operative ---
Post-Operative Progess Note Surgeon (s)/Fill Technician (s) Surgeon MAXI CHEN DO Fill Technician: na Pre-Operative Diagnosis abnormal ct abdomen/pelvis Post-Operative Diagnosis colon polyps, anorectal mass Procedure & Operative Findings Date of Procedure 05/19/21 Procedure Performed/Findings colonoscopy with hot bx polypectomy x 2 and cold biopsies of anorectal mass Anesthesia Type per animal doctor Estimated Blood Loss Estimated blood loss (mL): none Specimens/Packing Specimens Removed sigmoid polyps, anorectal mass MAXI CHEN DO May 19, 2021 11:51
--- NOTE | 2021-05-19 11:52 | Discharge Inst-Simple/Standard ---
Discharge Inst-Standard Patient Instructions/Follow Up Plan of Care/Instructions/FU: 2 weeks Yves Activity as Tolerated: Yes Discharge Diet: Regular Diet MAXI CHEN DO May 19, 2021 11:52
[2021-05-19 12:20] VITALS: BP 133/82
[2021-05-19 12:34] VITALS: BP 133/82
--- NOTE | 2021-05-19 18:22 | OPERATIVE REPORT ---
DATE OF SERVICE: 05/19/2021 PREOPERATIVE DIAGNOSIS: Abnormal CT of the abdomen and pelvis. POSTOPERATIVE DIAGNOSES: Colon polyps and anorectal mass. PROCEDURES PERFORMED: Colonoscopy with hot biopsy polypectomy x2 and cold biopsy of the anorectal mass. SURGEON: Maxi Marinelli DO. ANESTHESIA: Per ACCOUNTING METHODS ANALYST. ESTIMATED BLOOD LOSS: Scant. COMPLICATIONS: None. INDICATIONS FOR PROCEDURE: The patient is a 70-year-old male, who had a CT scan with abnormal findings with a mass near the rectum. The patient understands the risks and benefits of the procedure and wished to proceed with the procedure. Consent was signed in the chart. DESCRIPTION OF PROCEDURE: The patient was taken to the endoscopy suite and placed in a left lateral recumbent position. A timeout was performed. Digital rectal exam was performed demonstrating an anorectal mass. No other palpable abnormalities. Scope was inserted, visualizing the anorectal mass. It was advanced all the way to the cecum with minimal difficulty. Prep was adequate with irrigation and suction. Scope was then slowly retracted back. There were no polyps, masses or ulcerations in the cecum, ascending, transverse, and descending colon. In the sigmoid colon, multiple polyps were present, which hot biopsy polypectomy x2 was performed and four small polyps were present, which were fulgurated. Scope was then continuously and slowly retracted back in retroflex, but due to the narrow rectum, it is difficult to retroflex. It was returned to its normal position for better visualization. The question is if there is some external compression on the rectum, but as the scope was continuously retracted back, the anorectal mass was visualized. Multiple cold biopsies were obtained and scope was then slowly retracted back until completely removed. The patient tolerated the procedure well without any complications and taken to the recovery room in a stable condition. RECOMMENDATIONS: The patient will follow up on biopsy results in two weeks. Any issues before that be seen at that time. CC: [facility] - requested, unable to deliver Job ID: [id number] DocumentID: [id number] Dictated Date: 05/19/2021 11:56:53 Processing Supervisor Date: 05/19/2021 18:21:55 Dictated By: MAXI MARINELLI DO
== END 2021-05-19 12:55 | disposition home or self-care (01) ==
LOC: ENDO 09:28
PROVIDERS: ATTEND Surgery
DX: C21.8 Malignant neoplasm of overlapping sites of rectum, anus and anal canal (principal); K63.5 Polyp of colon; C85.90 Non-Hodgkin lymphoma, unspecified, unspecified site; I10 Essential (primary) hypertension; I25.10 Atherosclerotic heart disease of native coronary artery without angina pectoris; D47.2 Monoclonal gammopathy; B19.20 Unspecified viral hepatitis C without hepatic coma; F32.A Depression, unspecified; F41.9 Anxiety disorder, unspecified; J44.9 Chronic obstructive pulmonary disease, unspecified; K74.60 Unspecified cirrhosis of liver; Z92.21 Personal history of antineoplastic chemotherapy; Z87.891 Personal history of nicotine dependence; Z79.82 Long term (current) use of aspirin; Z79.899 Other long term (current) drug therapy; Z88.8 Allergy status to other drugs, medicaments and biological substances

== ENCOUNTER 2021-07-10 10:56 | Emergency (ER) | payer MEDICARE ==
[~2021-07-10] VITALS: Ht 180 cm; Wt 93.0 kg
[~2021-07-10 10:56] MED LIST changes: -LEVO500T80 PO; +LEVO500T81 PO
[2021-07-10 11:48] LABS: BILIRUBIN,URINE NEGATIVE (NEGATIVE); CLARITY,URINE CLEAR; COLOR,URINE YELLOW; GLUCOSE, URINE (UA) NEGATIVE (NEGATIVE); KETONES,URINE NEGATIVE (NEGATIVE); LEUKOCYTE ESTERASE ,URINE NEGATIVE (NEGATIVE); NITRITE,URINE NEGATIVE (NEGATIVE); PH,URINE 5.5 (5-9); PROTEIN,URINE NEGATIVE (NEGATIVE)
[2021-07-10 12:01] LABS: BACTERIA,URINE NEGATIVE /HPF
--- NOTE | 2021-07-10 12:12 | ED GU-Male ---
General Chief Complaint: - Reproductive Stated Complaint: DIFFICULTY URINATING Nursing Triage Note: PT AMB TO RM 3 W REPORTS OF PAIN D/T INABILITY TO URINATE SX 2300 YESTERDAY. PT ALSO EXPERIENCING SWOLLEN PENIS AND TESTICLES. A&OX4. Source: patient Exam Limitations: no limitations History of Present Illness Date Seen by Provider: Jul 10, 2021 Allergies and Home Medications Allergies Coded Allergies: Gadolinium-Containing Contrast Medi (Verified Allergy, Severe, Anaphylaxis, 08/12/17) gadoteridol (Verified Allergy, Mild, SNEEZING, HOARSE VOICE, 08/12/17) Patient Home Medication List Acetaminophen/Diphenhydramine (Tylenol Pm Ex-Strength Caplet) 1 Each Tablet, 1 EACH PO HS, (Reported) Entered as Reported by: AGNES CAMPBELL on 09/23/16926 Aspirin (Aspirin) 325 Mg Tablet, 1,300 MG PO DAILY, (Reported) Entered as Reported by: CHERYL OLIVAS on 06/11/15 175 Fluticasone Propionate (Fluticasone Propionate) 15.8 Ml [place].susp, 15.8 ML NS DAILY, (Reported) Entered as Reported by: AIMEE HIGH on 05/13/21 135 Ibuprofen (Ibuprofen) 800 Mg Tablet, 800 MG PO Q8H PRN for PAIN-MILD, (Reported) Entered as Reported by: AIMEE HIGH on 05/13/21 135 Lisinopril (Lisinopril) 20 Mg Tablet, 20 MG PO DAILY, (Reported) Entered as Reported by: AGNES CAMPBELL on 09/23/16926 Metoprolol Succinate (Toprol Xl) 25 Mg Tab.er.24h, 25 MG PO DAILY Prescribed by: RAYSHAWN STEVENSON on 08/13/17 1414 Multivitamin (Multivitamins) 1 Each Tablet, 1 TAB PO DAILY, (Reported) Entered as Reported by: SAMM PHAM on 06/12/15 1035 [place] 3 Polyunsat Fatty Acids (Fish Oil 1,000 mg Capsule) 1,000 Mg Cap, 1,000 MG PO BID, (Reported) Entered as Reported by: CHERYL OLIVAS on 06/11/15 1752 Sulfamethoxazole/Trimethoprim (Sulfamethoxazole-Tmp Ss Tablet) 1 Each Tablet, 1 EACH PO UD, (Reported) Entered as Reported by: AIMEE HIGH on 05/13/21 1351 Vitamin B Complex & Vit C No.4 (Super B Complex) 150 Mg Tablet, 150 MG PO DAILY, (Reported) Entered as Reported by: AGNES CAMPBELL on 09/23/16926 Past Rvkbsic-Uhhoeb-Kvsezq Hx Patient Social History Tobacco Use?: No Use of E-Cig and/or Vaping dev: No Substance use?: Yes Substance type: Marijuana Alcohol Use?: Yes Alcohol type: Beer Alcohol Frequency: Daily Immunizations Up To Date Tetanus Booster (TDap): Unknown First/Initial COVID19 Vaccinat: 11/18/2020 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: [employer] Seasonal Allergies Seasonal Allergies: No Past Medical History Surgery/Hospitalization HX: PMH: NON-HODGKIN'S LYMPHOMA, RECTAL CANCER Surgeries: Yes (bilat ing HERNIA REPAIR x2, T&A, BIOPSY, port) Abdominal, Adenoidectomy, Tonsillectomy Respiratory: Yes Pneumonia, Emphysema Currently Using CPAP: No Currently Using BIPAP: No Cardiac: Yes Hypertension Neurological: Yes (10/27 ACUTE METABOLIC ENCEPHALOPATHY) Reproductive Disorders: No Sexually Transmitted Disease: No HIV/AIDS: No Genitourinary: No Gastrointestinal: Yes Hemorrhoids, Hepatitis, Cirrhosis Musculoskeletal: Yes Degenerate Disk Disease Endocrine: No HEENT: No Loss of Vision: Denies Hearing Impairment: Denies Cancer: Yes (NON-HODGKINS LYMPHOMA ) Lymphoma Did You Recieve Any Treatments: Yes What Type of Treatment Did You: Chemotherapy Psychosocial: Yes Anxiety, Depression Integumentary: No Blood Disorders: Yes (ANEMIA, blood dyscrasias related to lymphoma, protein S deficiency) Adverse Reaction/Blood Tranf: No Family Medical History Abdominal aortic aneurysm Alcoholism Aphasia Cancer Cancer of colon Cataract Chest pain Congestive heart failure Coronary thrombosis 09 BROTHER 09 BROTHER 09 BROTHER 09 BROTHER 09 SISTER 09 SISTER 09 SISTER Dementia Dysphagia Family history: Allergy Family history: Alzheimer's disease Family history: Cardiovascular disease Family history: Coronary thrombosis Family history: Gastrointestinal disease Family history: Thyroid disorder Heart disease Hereditary disease History of drug abuse Kidney disease Myocardial infarction 09 BROTHER Psychotic disorder Seizure disorder Stroke 09 BROTHER No Family History of: Richard's disease Congenital heart disease Cystic fibrosis Family history: Arthritis Family history: Asthma Family history: Breast disease Family history: Diabetes mellitus Family history: Glaucoma Family history: Hypertension Family history: Osteoporosis Headache Hearing loss History of - anemia History of - respiratory disease Human immunodeficiency virus (HIV) seropositivity Hypercholesterolemia Infertile Malignant neoplasm of lung Parkinson's disease Prostate cancer Tuberculosis Visual impairment Physical Exam Vital Signs Vital Signs - First Documented 07/10/21 11:09 Temp 36.2 Pulse 100 Resp 20 B/P (MAP) 131/101 (111) Pulse Ox 97 O2 Delivery Room Air Capillary Refill : Less Than 3 Seconds Height, Weight, BMI Height: 6'0.00" Weight: 220lbs. 0.0oz. [id number]; 28.00 BMI Method:Stated Progress/Results/Core Measures Suspected Sepsis SIRS Temperature: Pulse: 100 Respiratory Rate: 20 Blood Pressure 131 /101 Mean: 111 Results/Orders Lab Results Laboratory Tests Test 07/10/21 11:26 Range/Units Urine Color YELLOW Urine Clarity CLEAR Urine pH 5.5 5-9 Urine Specific [place] <=1.005 1.016-1.022 Urine Protein NEGATIVE NEGATIVE Urine Glucose (UA) NEGATIVE NEGATIVE Urine Ketones NEGATIVE NEGATIVE Urine Nitrite NEGATIVE NEGATIVE Urine Bilirubin NEGATIVE NEGATIVE Urine Urobilinogen 0.2 < = 1.0 MG/DL Urine Leukocyte Esterase NEGATIVE NEGATIVE Urine RBC (Auto) 1+ H NEGATIVE Urine RBC NONE /HPF Urine WBC NONE /HPF Urine Squamous Epithelial Cells NONE /HPF Urine Crystals NONE /LPF Urine Bacteria NEGATIVE /HPF Urine Casts NONE /LPF Urine Mucus NEGATIVE /LPF Urine Culture Indicated NO My Orders Orders - ROSHAN CROW MD Ua Culture If Indicated (07/10/21 11:12) Dang Cath (07/10/21 11:18) Vital Signs/I&O 07/10/21 11:09 Temp 36.2 Pulse 100 Resp 20 B/P (MAP) 131/101 (111) Pulse Ox 97 O2 Delivery Room Air Capillary Refill : Less Than 3 Seconds Blood Pressure Mean: 111 Departure Impression Primary Impression: Urinary retention Disposition: 01 HOME, SELF-CARE Condition: Improved Departure-Patient Inst. Decision time for Depature: 12:08 Referrals: [facility] (PCP/Family) Primary Care Physician ASIA VARELA MD Patient Instructions: Urinary Retention, How to Care for Your Dang Catheter, Male Add. Discharge Instructions: Start Flomax as prescribed and continue until otherwise directed. Please contact both Dr. Chen's office and Dr. Neely's office on Tuesday to inform them of your urinary obstruction. Your urinary obstruction could be related to enlarged prostate and or your anorectal mass. You should also consider following up with a urologist such as Dr. Varela as soon as possible. Please discuss this with your other providers. Empty your catheter bag often and try to keep the catheter bag lower than the level of your bladder. Drink plenty of clear liquids to stay well-hydrated. Call with questions or concerns. Return to the ER if you have worsening symptoms. All discharge instructions reviewed with patient and/or family. Voiced understanding. Scripts Tamsulosin HCl (Flomax) 0.4 Mg Cap 0.4 MG PO DAILY, #30 CAP Prov: ROSHAN CROW MD 07/10/21 Copy Copies To 1: MAXI CHEN DO Copies To 2: INOCENCIO NEELY JOSHUA T MD Jul 10, 2021 12:12
[2021-07-10] MEDS ORDERED: TMSL.4C PO (12:16)
[2021-07-10 12:53] VITALS: BP 145/94
== END 2021-07-10 12:53 | disposition home or self-care (01) ==
LOC: EDUNIT# 10:56 → ER 10:58
DX: R33.9 Retention of urine, unspecified (principal); J43.9 Emphysema, unspecified; I10 Essential (primary) hypertension; Z79.82 Long term (current) use of aspirin
CPT/HCPCS: 51702; 81000

== ENCOUNTER 2021-07-15 10:54 | Outpatient (RCR) | payer MEDICARE ==
[2021-05-20 10:29] LABS: BASOPHILS % (AUTO) 1 % (0-10); EOSINOPHILS # (AUTO) 0.1 10^3/uL (0.0-0.3); EOSINOPHILS % (AUTO) 2 % (0-10); HEMATOCRIT 41 % (40-54); HEMOGLOBIN 14.5 g/dL (13.3-17.7); LYMPHOCYTES # (AUTO) 1.1 10^3/uL (1.0-4.0); LYMPHOCYTES % (AUTO) 25 % (12-44); MEAN CORPUSCULAR HEMOGLOBIN 35 pg (25-34); MEAN CORPUSCULAR HGB CONC 36 g/dL (32-36); MEAN CORPUSCULAR VOLUME 99 fL (80-99); MEAN PLATELET VOLUME 9.4 fL (9.0-12.2); MONOCYTES # (AUTO) 0.7 10^3/uL (0.0-1.0); MONOCYTES % (AUTO) 15 % (0-12); NEUTROPHILS # (AUTO) 2.3 10^3/uL (1.8-7.8); NEUTROPHILS % (AUTO) 50 % (42-75); PLATELET COUNT 196 10^3/uL (130-400); WHITE BLOOD COUNT 4.5 10^3/uL (4.3-11.0)
[2021-05-20 10:53] LABS: ALBUMIN 4.3 GM/DL (3.2-4.5); BILIRUBIN,TOTAL 0.6 MG/DL (0.1-1.0); CREATININE SERUM 0.83 MG/DL (0.60-1.30); POTASSIUM 4.1 MMOL/L (3.6-5.0); TOTAL PROTEIN 7.6 GM/DL (6.4-8.2)
[~2021-07-15] VITALS: Ht 182.9 cm; Wt 98.0 kg
[~2021-07-15 10:54] MED LIST changes: +ACETAMINOPHEN 325 MG TAB (TYLENOL) CANCER CTR PO PRN; +ACETAMINOPHEN 500 MG TAB (TYLENOL) CANCER CTR PO PRN; +FLUOROURACIL IV SCH; +IMMU GLOBULIN,GAMMA (IGG) 50 ML IV SCH; +IMMUNE GLOBULIN,GAMMA (IGG) 200 ML IV SCH; +MITOMYCIN INJECTION 20 MG in NS (IVPB) CANCER CENTER 50 ML IV SCH; +NS (IVPB) CANCER CENTER 250 ML IV SCH; +NS IV SCH; +OBINUTUZUMAB 1,000 MG in NS (IVPB) CANCER CENTER 250 ML IV SCH; +TMSL.4C PO; +diphenhydrAMINE 25 MG TAB (BENADRYL) CANCER CENTER PO SCH
== END 2021-07-21 | disposition home or self-care (01) ==
LOC: ONC 10:54
PROVIDERS: ATTEND Internal Medicine Hematology & Oncology
DX: Z51.11 Encounter for antineoplastic chemotherapy (principal); C82.18 Follicular lymphoma grade II, lymph nodes of multiple sites; Z79.899 Other long term (current) drug therapy; Z98.890 Other specified postprocedural states
CPT/HCPCS: 36591; 80053; 82784; 83615; 85025; 96365; 96366; 99204; 99213; 99214; J1569

== ENCOUNTER 2021-08-04 08:02 | Emergency (ER) | payer MEDICARE ==
[~2021-08-04] VITALS: Ht 180.3 cm; Wt 95.4 kg
[~2021-08-04 08:02] MED LIST changes: -ACETAMINOPHEN 325 MG TAB (TYLENOL) CANCER CTR PO PRN; -ACETAMINOPHEN 500 MG TAB (TYLENOL) CANCER CTR PO PRN; -FLUOROURACIL IV SCH; -IMMU GLOBULIN,GAMMA (IGG) 50 ML IV SCH; -IMMUNE GLOBULIN,GAMMA (IGG) 200 ML IV SCH; -MITOMYCIN INJECTION 20 MG in NS (IVPB) CANCER CENTER 50 ML IV SCH; -NS (IVPB) CANCER CENTER 250 ML IV SCH; -NS IV SCH; -OBINUTUZUMAB 1,000 MG in NS (IVPB) CANCER CENTER 250 ML IV SCH; -diphenhydrAMINE 25 MG TAB (BENADRYL) CANCER CENTER PO SCH
[2021-08-04] MEDS ORDERED: LIDOCAINE UROJET 2% GEL 10 ML PKG TOP ONE (08:30)
[2021-08-04 08:42] LABS: BILIRUBIN,URINE NEGATIVE (NEGATIVE); CLARITY,URINE SL CLOUDY; COLOR,URINE YELLOW; GLUCOSE, URINE (UA) NEGATIVE (NEGATIVE); KETONES,URINE NEGATIVE (NEGATIVE); LEUKOCYTE ESTERASE ,URINE NEGATIVE (NEGATIVE); NITRITE,URINE NEGATIVE (NEGATIVE); PROTEIN,URINE NEGATIVE (NEGATIVE)
[2021-08-04 08:59] LABS: BACTERIA,URINE NEGATIVE /HPF
[2021-08-04] MEDS ORDERED: TMSL.4C PO (09:34)
--- NOTE | 2021-08-04 09:34 | ED GU-Male ---
General Chief Complaint: - Reproductive Stated Complaint: DIFFICULTY URINATING Nursing Triage Note: AMB TO ED REPORTS THAT IS HAVING TROUBLE URINATING HAD MANZANO IN BUT REMOVED IT HIMSELF. HAD A APPOINTMENT YESTERDAY AT DR VARELA WENT TO OFFICE AND LEFT BECAUSE HE DID NOT WANT TO WAIT. Source: patient, old records Exam Limitations: no limitations History of Present Illness Date Seen by Provider: Aug 04, 2021 Time Seen by Provider: 08:10 Initial Comments This is 70-year-old gentleman presents to the emergency room with urinary retention. He was seen in the ER almost a month ago for another episode of urinary retention. He has history of non-Hodgkin's lymphoma and anal rectal cancer. Imaging suggested perhaps mass affect was causing a problem with urinary retention. A Manzano catheter had been placed at that time. Referral was made to Dr. Varela. Patient had an appointment with him yesterday but left to the waiting room because he did not want to wait any longer and he was urinating freely at that time. Patient removed his catheter 2 days ago by cutting the bu lb lumen to drain it. After he could not urinate, he attempted to replace the catheter himself. This was obviously not successful. See chart from prior visit for more details. Allergies and Home Medications Allergies Coded Allergies: Gadolinium-Containing Contrast Medi (Verified Allergy, Severe, Anaphylaxis, 08/12/17) gadoteridol (Verified Allergy, Mild, SNEEZING, HOARSE VOICE, 08/12/17) Patient Home Medication List Home Medication List Reviewed: Yes Acetaminophen/Diphenhydramine (Tylenol Pm Ex-Strength Caplet) 1 Each Tablet, 1 EACH PO HS, (Reported) Entered as Reported by: AGNES CAMPBELL on 09/23/16 0927 Aspirin (Aspirin) 325 Mg Tablet, 1,300 MG PO DAILY, (Reported) Entered as Reported by: CHERYL OLIVAS on 06/11/15 1752 Fluticasone Propionate (Fluticasone Propionate) 15.8 Ml [place].susp, 15.8 ML NS DAILY, (Reported) Entered as Reported by: AIMEE HIGH on 05/13/21 1351 Ibuprofen (Ibuprofen) 800 Mg Tablet, 800 MG PO Q8H PRN for PAIN-MILD, (Reported) Entered as Reported by: AIMEE HIGH on 05/13/21 1351 Lisinopril (Lisinopril) 20 Mg Tablet, 20 MG PO DAILY, (Reported) Entered as Reported by: AGNES CAMPBELL on 09/23/16 09 Metoprolol Succinate (Toprol Xl) 25 Mg Tab.er.24h, 25 MG PO DAILY Prescribed by: RAYSHAWN STEVENSON on 08/13/17 1414 Multivitamin (Multivitamins) 1 Each Tablet, 1 TAB PO DAILY, (Reported) Entered as Reported by: SAMM PHAM on 06/12/15 1035 [place] 3 Polyunsat Fatty Acids (Fish Oil 1,000 mg Capsule) 1,000 Mg Cap, 1,000 MG PO BID, (Reported) Entered as Reported by: CHERYL OLIVAS on 06/11/15 1752 Sulfamethoxazole/Trimethoprim (Sulfamethoxazole-Tmp Ss Tablet) 1 Each Tablet, 1 EACH PO UD, (Reported) Entered as Reported by: AIMEE HIGH on 05/13/21 1351 Tamsulosin HCl (Flomax) 0.4 Mg Cap, 0.4 MG PO DAILY Prescribed by: ROSHAN GARNETT on 07/10/21 1216 Tamsulosin HCl (Flomax) 0.4 Mg Cap, 0.4 MG PO DAILY Prescribed by: ROSHAN GARNETT on 08/04/21 0934 Vitamin B Complex & Vit C No.4 (Super B Complex) 150 Mg Tablet, 150 MG PO DAILY, (Reported) Entered as Reported by: AGNES CAMPBELL on 09/23/16 0927 Review of Systems Review of Systems Constitutional: no symptoms reported EENTM: no symptoms reported Respiratory: no symptoms reported Cardiovascular: no symptoms reported Gastrointestinal: see HPI Genitourinary: see HPI Musculoskeletal: no symptoms reported Skin: no symptoms reported Psychiatric/Neurological: No Symptoms Reported Endocrine: No Symptoms Reported Hematologic/Lymphatic: See HPI Past Knsdyty-Pbiuvr-Gubkyw Hx Patient Social History Tobacco Use?: No Substance use?: Yes Substance type: Marijuana Alcohol Use?: Yes Alcohol Frequency: Rarely Immunizations Up To Date Tetanus Booster (TDap): Unknown First/Initial COVID19 Vaccinat: OCTOBER 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: [employer] Seasonal Allergies Seasonal Allergies: No Past Medical History Surgery/Hospitalization HX: PMH: NON-HODGKIN'S LYMPHOMA, RECTAL CANCER Surgeries: Yes (bilat ing HERNIA REPAIR x2, T&A, BIOPSY, port) Abdominal, Adenoidectomy, Tonsillectomy Respiratory: Yes Pneumonia, Emphysema Currently Using CPAP: No Currently Using BIPAP: No Cardiac: Yes Hypertension Neurological: Yes (10/27 ACUTE METABOLIC ENCEPHALOPATHY) Reproductive Disorders: No Sexually Transmitted Disease: No HIV/AIDS: No Genitourinary: Yes (Urinary retention) Gastrointestinal: Yes Hemorrhoids, Hepatitis, Cirrhosis Musculoskeletal: Yes Degenerate Disk Disease Endocrine: No HEENT: No Loss of Vision: Denies Hearing Impairment: Denies Cancer: Yes (NON-HODGKINS LYMPHOMA ) Rectal, Lymphoma Did You Recieve Any Treatments: Yes What Type of Treatment Did You: Chemotherapy Psychosocial: Yes Anxiety, Depression Integumentary: No Blood Disorders: Yes (ANEMIA, blood dyscrasias related to lymphoma, protein S deficiency) Adverse Reaction/Blood Tranf: No Family Medical History Abdominal aortic aneurysm Alcoholism Aphasia Cancer Cancer of colon Cataract Chest pain Congestive heart failure Coronary thrombosis 09 BROTHER 09 BROTHER 09 BROTHER 09 BROTHER 09 SISTER 09 SISTER 09 SISTER Dementia Dysphagia Family history: Allergy Family history: Alzheimer's disease Family history: Cardiovascular disease Family history: Coronary thrombosis Family history: Gastrointestinal disease Family history: Thyroid disorder Heart disease Hereditary disease History of drug abuse Kidney disease Myocardial infarction 09 BROTHER Psychotic disorder Seizure disorder Stroke 09 BROTHER No Family History of: Major's disease Congenital heart disease Cystic fibrosis Family history: Arthritis Family history: Asthma Family history: Breast disease Family history: Diabetes mellitus Family history: Glaucoma Family history: Hypertension Family history: Osteoporosis Headache Hearing loss History of - anemia History of - respiratory disease Human immunodeficiency virus (HIV) seropositivity Hypercholesterolemia Infertile Malignant neoplasm of lung Parkinson's disease Prostate cancer Tuberculosis Visual impairment Physical Exam Vital Signs Vital Signs - First Documented 08/04/21 08:08 Temp 35.1 Pulse 91 Resp 18 B/P (MAP) 161/99 (119) Pulse Ox 99 O2 Delivery Room Air Capillary Refill : Less Than 3 Seconds Height, Weight, BMI Height: 6'0.00" Weight: 220lbs. 0.0oz. 99.267739zp; 29.00 BMI Method:Stated General Appearance: WD/WN, no apparent distress HEENT: normal ENT inspection Neck: normal inspection Cardiovascular: regular rate, rhythm, no edema, no murmur Respiratory: lungs clear, normal breath sounds, no respiratory distress Gastrointestinal: normal bowel sounds, soft, distended (Suprapubic distention), tenderness (Lower abdomen) Extremities: normal inspection, no pedal edema Neurologic/Psychiatric: jazz singer II-XII nml as tested, no motor/sensory deficits, alert, normal mood/affect, oriented x 3 Skin: normal color, warm/dry Progress/Results/Core Measures Suspected Sepsis SIRS Temperature: Pulse: 91 Respiratory Rate: 18 Blood Pressure 161 /99 Mean: 119 Results/Orders Lab Results Laboratory Tests Test 08/04/21 08:36 Range/Units Urine Color YELLOW Urine Clarity [place] Urine pH 6.0 5-9 Urine Specific [place] 1.010 L 1.016-1.022 Urine Protein NEGATIVE NEGATIVE Urine Glucose (UA) NEGATIVE NEGATIVE Urine Ketones NEGATIVE NEGATIVE Urine Nitrite NEGATIVE NEGATIVE Urine Bilirubin NEGATIVE NEGATIVE Urine Urobilinogen 0.2 < = 1.0 MG/DL Urine Leukocyte Esterase NEGATIVE NEGATIVE Urine RBC (Auto) NEGATIVE NEGATIVE Urine RBC NONE /HPF Urine WBC NONE /HPF Urine Crystals NONE /LPF Urine Bacteria NEGATIVE /HPF Urine Casts NONE /LPF Urine Mucus NEGATIVE /LPF Urine Culture Indicated NO My Orders Orders - ROSHAN CROW MD Ua Culture If Indicated (08/04/21 08:17) Lidocaine 2% (Urojet) (Xylocaine Urojet) (08/04/21 08:30) Manzano Cath (08/04/21 08:22) Medications Given in ED Vital Signs/I&O 08/04/21 08/04/21 08:08 09:50 Temp 35.1 35.1 Pulse 91 91 Resp 18 18 B/P (MAP) 161/99 (119) 161/99 Pulse Ox 99 99 O2 Delivery Room Air Room Air Capillary Refill : Less Than 3 Seconds Blood Pressure Mean: 119 Progress Note : Progress Note Manzano catheter was replaced. Surprisingly, only about 200 mL of urine was yielded. Urine was yellow and slightly cloudy. No evidence of pyuria was found on urinalysis. See discharge instructions for further discussion. Flomax prescription was extended. Departure Impression Primary Impression: Urinary retention Disposition: 01 HOME, SELF-CARE Condition: Improved Departure-Patient Inst. Decision time for Depature: 09:15 Referrals: [facility] (PCP/Family) Primary Care Physician ASIA VARELA MD Patient Instructions: Urinary Retention, How to Care for Your Manzano Catheter, Male Add. Discharge Instructions: Keep your Manzano catheter in until you follow-up with a urologist or your primary care provider. Establish with a urologist as soon as possible. Do not attempt to remove or replace a Manzano catheter on your own. Do not cut on a Manzano catheter either. Attempting to do these things may cause injury to your urethra or contamination resulting in urinary tract infection. Empty the catheter bag often. Continue with Flomax until you are otherwise instructed. Call with questions or concerns. Return to the ER if you have worsening symptoms. All discharge instructions reviewed with patient and/or family. Voiced understanding. Scripts Tamsulosin HCl (Flomax) 0.4 Mg Cap 0.4 MG PO DAILY, #30 CAP 2 Refills Prov: ROSHAN CROW MD 08/04/21 Copy Copies To 1: ASIA VARELA MD Copies To 2: ROSALBA ROGERS JOSHUA T MD Aug 04, 2021 09:34
[2021-08-04 09:50] VITALS: BP 161/99
== END 2021-08-04 09:50 | disposition home or self-care (01) ==
LOC: EDUNIT# 08:02 → ER 08:06
DX: R33.9 Retention of urine, unspecified (principal); I10 Essential (primary) hypertension; Z79.82 Long term (current) use of aspirin; Z79.899 Other long term (current) drug therapy
CPT/HCPCS: 51702; 81000

== ENCOUNTER 2021-08-12 10:31 | Outpatient (RCR) | payer MEDICARE ==
[~2021-08-12 10:31] MED LIST changes: +ACETAMINOPHEN 325 MG TAB (TYLENOL) CANCER CTR PO PRN; +IMMU GLOBULIN,GAMMA (IGG) 50 ML IV SCH; +IMMUNE GLOBULIN,GAMMA (IGG) 200 ML IV SCH; +diphenhydrAMINE 25 MG TAB (BENADRYL) CANCER CENTER PO SCH
[2021-08-12 10:50] LABS: BASOPHILS % (AUTO) 1 % (0-10); EOSINOPHILS # (AUTO) 0.1 10^3/uL (0.0-0.3); EOSINOPHILS % (AUTO) 3 % (0-10); HEMATOCRIT 39 % (40-54); HEMOGLOBIN 13.7 g/dL (13.3-17.7); LYMPHOCYTES # (AUTO) 0.7 10^3/uL (1.0-4.0); LYMPHOCYTES % (AUTO) 14 % (12-44); MEAN CORPUSCULAR HEMOGLOBIN 34 pg (25-34); MEAN CORPUSCULAR HGB CONC 35 g/dL (32-36); MEAN CORPUSCULAR VOLUME 98 fL (80-99); MEAN PLATELET VOLUME 9.1 fL (9.0-12.2); MONOCYTES # (AUTO) 0.5 10^3/uL (0.0-1.0); MONOCYTES % (AUTO) 11 % (0-12); NEUTROPHILS % (AUTO) 64 % (42-75); PLATELET COUNT 214 10^3/uL (130-400); WHITE BLOOD COUNT 4.7 10^3/uL (4.3-11.0)
[2021-08-12 11:07] LABS: BILIRUBIN,TOTAL 0.5 MG/DL (0.1-1.0); CALCIUM 9.8 MG/DL (8.5-10.1); CREATININE SERUM 0.99 MG/DL (0.60-1.30); POTASSIUM 4.7 MMOL/L (3.6-5.0)
[2021-08-12 11:08] LABS: ALBUMIN 4.5 GM/DL (3.2-4.5)
[2021-08-12] MEDS ORDERED: ACETAMINOPHEN 500 MG TAB (TYLENOL) CANCER CTR ONE (11:48)
== END 2021-08-14 | disposition home or self-care (01) ==
LOC: ONC 10:31
PROVIDERS: ATTEND Internal Medicine Hematology & Oncology
DX: Z51.11 Encounter for antineoplastic chemotherapy (principal); C82.10 Follicular lymphoma grade II, unspecified site; C21.0 Malignant neoplasm of anus, unspecified; D80.9 Immunodeficiency with predominantly antibody defects, unspecified; E66.9 Obesity, unspecified; Z79.899 Other long term (current) drug therapy; Z98.890 Other specified postprocedural states
CPT/HCPCS: 80053; 82784 ×3; 85025; 96365; 96366; G0463; 99213; J1569

== ENCOUNTER → 2021-08-19 | Outpatient (CLI) | payer MEDICARE ==
[~2021-08-19] MED LIST changes: -ACETAMINOPHEN 325 MG TAB (TYLENOL) CANCER CTR PO PRN; +BARIUM SUSPENSION 2.1% (VANILLA SILQ) 450 ML PO ONE; +CATHETER FLUSH 10 ML SYR IV PRN; +HOLD METFORMIN - RECEIVED CONTRAST 20 ML VIAL IV SCH; -IMMU GLOBULIN,GAMMA (IGG) 50 ML IV SCH; -IMMUNE GLOBULIN,GAMMA (IGG) 200 ML IV SCH; +IOHEXOL 350 MG/ML 100 ML (OMNIPAQUE 350) VIAL IV ONE; +NS 100 ML (IVPB) BAG IV ONE; -diphenhydrAMINE 25 MG TAB (BENADRYL) CANCER CENTER PO SCH
--- NOTE | 2021-08-19 11:44 | Diagnostic Imaging Report ---
EXAMINATION: CT neck and chest with contrast. CT abdomen and pelvis with and without intravenous contrast. TECHNIQUE: Multiple contiguous axial images were obtained through the neck, chest, abdomen, and pelvis after the uneventful administration of intravenous contrast. Pre-contrast images of the abdomen and pelvis were also obtained. All CT scans use one or more of the following dose optimizing techniques: automated exposure control, MA and/or KvP adjustment based on patient size and exam type or iterative reconstruction. HISTORY: Lymphoma. COMPARISON: 03/16/2021. FINDINGS: NECK CT: There is a stable right posterior cervical lymph node measuring 1.9 x 1.5 cm, previously 1.8 x 1.6 cm. No other enlarged cervical lymph nodes are seen. There is a right-sided port catheter extending into the internal jugular vein. The muscles of the neck are normal. Vessels of the neck demonstrate normal course and caliber. Fascial planes are preserved and the deep spaces of the neck are normal. The visualized airway is widely patent. The base of the skull and the temporal bones are normal. Limited views of the brain including the cerebellum and brainstem are normal. The limited view of the [place] is unremarkable. The visualized portions of the orbits are normal. The spinal canal is normal in caliber. Intervertebral disk heights are normal. Neural foramina are normal. CHEST CT: The lungs are clear without edema or pneumonia. No pleural effusion or pneumothorax. No suspicious nodules. There is a stable left axillary lymph node measuring 1.5 x 1.7 cm, previously 1.4 x 1.6 cm. There is no mediastinal lymphadenopathy. Heart size is normal. There are severe coronary artery calcifications. No pericardial effusion. Aorta is normal in caliber. ABDOMEN AND PELVIS CT: The liver is normal without focal lesion. There is no biliary ductal dilation. Gallbladder is normal. Pancreas is normal. Spleen is normal. Adrenal glands are normal. The kidneys are normal. There is no hydronephrosis. The bladder is decompressed by a Dang catheter. The prostate is markedly enlarged. A presacral thick-walled enhancing fluid collection has increased in size measuring 8.2 x 8.9 cm, previously 5.8 x 5.9 cm. It is intimately associated with the rectal wall. The remaining bowel is normal without obstruction or inflammation. No free fluid or air. A christopher mass at the root of the mesentery measures 2.6 cm, previously 2.7 cm. Aorta is normal in caliber without aneurysm. There are no suspicious osseus lesions. There is moderate anterolisthesis of L5 on S1 due to bilateral pars defects. IMPRESSION: 1. Stable right posterior cervical, left axillary, and mesenteric lymph nodes. No new lymphadenopathy. 2. Increase in size of the thick-walled peripherally enhancing fluid collection in the presacral space intimately associated with the rectum. This is concerning for a rectal malignancy. Dictated by: Dictated on workstation # [id number]
== END ==
LOC: RAD 10:15
PROVIDERS: ATTEND Nurse Practitioner Adult Health
DX: C82.90 Follicular lymphoma, unspecified, unspecified site (principal)
CPT/HCPCS: 70491; 71260; 74178

== ENCOUNTER → 2021-09-14 | Outpatient (RCR) | payer MEDICARE ==
[~2021-09-14] MED LIST changes: -BARIUM SUSPENSION 2.1% (VANILLA SILQ) 450 ML PO ONE; -CATHETER FLUSH 10 ML SYR IV PRN; -HOLD METFORMIN - RECEIVED CONTRAST 20 ML VIAL IV SCH; -IOHEXOL 350 MG/ML 100 ML (OMNIPAQUE 350) VIAL IV ONE; -NS 100 ML (IVPB) BAG IV ONE
== END | disposition home or self-care (01) ==
LOC: ONC 08-24 12:56
PROVIDERS: ATTEND Internal Medicine Hematology & Oncology
DX: Z51.0 Encounter for antineoplastic radiation therapy (principal); C82.10 Follicular lymphoma grade II, unspecified site; C21.0 Malignant neoplasm of anus, unspecified; D84.9 Immunodeficiency, unspecified; I25.10 Atherosclerotic heart disease of native coronary artery without angina pectoris; E66.9 Obesity, unspecified; Z79.899 Other long term (current) drug therapy; Z98.890 Other specified postprocedural states
CPT/HCPCS: 77300; 77301; 77334; 77338; 77470; G0463; 77336; 77386; 99213

== ENCOUNTER 2021-10-09 13:55 | Outpatient (RCR) | payer MEDICARE | END 2021-10-12 | disposition home or self-care (01) | LOC: ONC 13:55 | PROVIDERS: ATTEND Radiology Radiation Oncology | DX: Z51.0 Encounter for antineoplastic radiation therapy (principal); C82.10 Follicular lymphoma grade II, unspecified site; C21.0 Malignant neoplasm of anus, unspecified; D84.9 Immunodeficiency, unspecified; I25.10 Atherosclerotic heart disease of native coronary artery without angina pectoris; E66.9 Obesity, unspecified; Z79.899 Other long term (current) drug therapy; Z98.890 Other specified postprocedural states | CPT/HCPCS: 77386; G0463; 77336 ==

== ENCOUNTER 2021-10-11 02:45 | Outpatient (RCR) | payer MEDICARE | END 2021-10-26 16:03 | disposition home or self-care (01) | LOC: ONC 02:45 | PROVIDERS: ATTEND Radiology Radiation Oncology | DX: Z51.0 Encounter for antineoplastic radiation therapy (principal); C82.10 Follicular lymphoma grade II, unspecified site; C21.0 Malignant neoplasm of anus, unspecified; D84.9 Immunodeficiency, unspecified; I25.10 Atherosclerotic heart disease of native coronary artery without angina pectoris; E66.9 Obesity, unspecified; Z79.899 Other long term (current) drug therapy; Z98.890 Other specified postprocedural states | CPT/HCPCS: 77336 ==

== ENCOUNTER 2021-11-26 10:15 | Outpatient (RCR) | payer MEDICARE | END 2021-12-12 | disposition home or self-care (01) | LOC: ONC 10:15 | PROVIDERS: ATTEND Radiology Radiation Oncology | DX: C82.90 Follicular lymphoma, unspecified, unspecified site (principal) | CPT/HCPCS: 99213 ==

== ENCOUNTER 2022-03-14 08:35 | Inpatient (IN) | payer MEDICARE, MEDICAID ==
[~2022-03-14] VITALS: Ht 180.3 cm; Wt 87.6 kg
[2022-03-14] VITALS (17 sets, daily range): BP systolic 87–138; BP diastolic 49–97
--- NOTE | 2022-03-14 08:51 | ED Abdominal Pain ---
General Chief Complaint: Abdominal/GI Problems Stated Complaint: ABD PAIN Nursing Triage Note: ARRIVED VIA EMS FROM HOME WITH ABD PAIN N/V SINCE TUESDAY. Source of Information: Patient Exam Limitations: No Limitations History of Present Illness Date Seen by Provider: Mar 14, 2022 Time Seen by Provider: 08:38 Initial Comments This 71-year-old gentleman presents to the emergency room with 3 to 4 days of nausea, vomiting, and central abdominal pain. He has had small quantities of water but no solid food in the amount of time. His emesis is brown in color and looks like a "sewage". He arrives via EMS and a liter of normal saline as well as Zofran 4 mg IV was administered in route. Blood sugar was 158. Patient has history of rectal and prostate cancer, both of which have been treated. He recently finished radiation therapy. He is also presently receiving oral treatment for non-Hodgkin's lymphoma. He has immunodeficiency and receives IVIG infusions monthly. He has been experiencing significant weakness and lightheadedness as well as a headache. Today he was unable to get up and walk which prompted the call to EMS. Allergies and Home Medications Allergies Coded Allergies: Gadolinium-Containing Contrast Medi (Verified Allergy, Severe, Anaphylaxis, 08/12/17) gadoteridol (Verified Allergy, Mild, SNEEZING, HOARSE VOICE, 08/12/17) Patient Home Medication List Home Medication List Reviewed: Yes Acetaminophen/Diphenhydramine (Tylenol Pm Ex-Strength Caplet) 1 Each Tablet, 1 EACH PO HS, (Reported) Entered as Reported by: AGNES CAMPBELL on 09/23/16 0927 Aspirin (Aspirin) 325 Mg Tablet, 1,300 MG PO DAILY, (Reported) Entered as Reported by: CHERYL OLIVAS on 06/11/15 1752 Fluticasone Propionate (Fluticasone Propionate) 15.8 Ml [place].susp, 15.8 ML NS DAILY, (Reported) Entered as Reported by: AIMEE HIGH on 05/13/21 1351 Ibuprofen (Ibuprofen) 800 Mg Tablet, 800 MG PO Q8H PRN for PAIN-MILD, (Reported) Entered as Reported by: AIMEE HIGH on 05/13/21 1351 Lisinopril (Lisinopril) 20 Mg Tablet, 20 MG PO DAILY, (Reported) Entered as Reported by: AGNES CAMPBELL on 09/23/16 09 Metoprolol Succinate (Toprol Xl) 25 Mg Tab.er.24h, 25 MG PO DAILY Prescribed by: RAYSHAWN STEVENSON on 08/13/17 1414 Multivitamin (Multivitamins) 1 Each Tablet, 1 TAB PO DAILY, (Reported) Entered as Reported by: SAMM PHAM on 06/12/15 1035 [place] 3 Polyunsat Fatty Acids (Fish Oil 1,000 mg Capsule) 1,000 Mg Cap, 1,000 MG PO BID, (Reported) Entered as Reported by: CHERYL OLIVAS on 06/11/15 1752 Sulfamethoxazole/Trimethoprim (Sulfamethoxazole-Tmp Ss Tablet) 1 Each Tablet, 1 EACH PO UD, (Reported) Entered as Reported by: AIMEE HIGH on 05/13/21 1351 Tamsulosin HCl (Flomax) 0.4 Mg Cap, 0.4 MG PO DAILY Prescribed by: ROSHAN GARNETT on 07/10/21 1216 Tamsulosin HCl (Flomax) 0.4 Mg Cap, 0.4 MG PO DAILY Prescribed by: ROSHAN GARNETT on 08/04/21 0934 Vitamin B Complex & Vit C No.4 (Super B Complex) 150 Mg Tablet, 150 MG PO DAILY, (Reported) Entered as Reported by: AGNES CAMPBELL on 09/23/16926 Review of Systems Review of Systems Constitutional: see HPI EENTM: No Symptoms Reported Respiratory: No Symptoms Reported Cardiovascular: See HPI Gastrointestinal: See HPI Genitourinary: No Symptoms Reported Musculoskeletal: no symptoms reported Skin: no symptoms reported Psychiatric/Neurological: No Symptoms Reported Endocrine: No Symptoms Reported Hematologic/Lymphatic: See HPI Past Ouietga-Jjzrvb-Zepeai Hx Patient Social History Tobacco Use?: No Substance use?: Yes Substance type: Marijuana Alcohol Use?: Yes Alcohol type: Beer Alcohol Frequency: Daily (2 beers daily) Immunizations Up To Date Tetanus Booster (TDap): Unknown First/Initial COVID19 Vaccinat: J&J COVID19 Vaccine Numerical Control Operator: UNKNOWN Seasonal Allergies Seasonal Allergies: No Past Medical History Surgery/Hospitalization HX: PMH: NON-HODGKIN'S LYMPHOMA, RECTAL CANCER Surgeries: Yes (bilat ing HERNIA REPAIR x2, T&A, BIOPSY, port) Abdominal, Adenoidectomy, Tonsillectomy Respiratory: Yes Pneumonia, Emphysema Currently Using CPAP: No Currently Using BIPAP: No Cardiac: Yes Hypertension Neurological: Yes (10/27 ACUTE METABOLIC ENCEPHALOPATHY) Reproductive Disorders: No Sexually Transmitted Disease: No HIV/AIDS: No Genitourinary: Yes (Urinary retention) Gastrointestinal: Yes Hemorrhoids, Hepatitis, Cirrhosis Musculoskeletal: Yes Degenerate Disk Disease Endocrine: No HEENT: No Loss of Vision: Denies Hearing Impairment: Denies Cancer: Yes (NON-HODGKINS LYMPHOMA ) Rectal, Lymphoma Did You Recieve Any Treatments: Yes What Type of Treatment Did You: Chemotherapy, Radiation Psychosocial: Yes Anxiety, Depression Integumentary: No Blood Disorders: Yes (ANEMIA, blood dyscrasias related to lymphoma, protein S deficiency) Adverse Reaction/Blood Tranf: No Family Medical History Abdominal aortic aneurysm Alcoholism Aphasia Cancer Cancer of colon Cataract Chest pain Congestive heart failure Coronary thrombosis 09 BROTHER 09 BROTHER 09 BROTHER 09 BROTHER 09 SISTER 09 SISTER 09 SISTER Dementia Dysphagia Family history: Allergy Family history: Alzheimer's disease Family history: Cardiovascular disease Family history: Coronary thrombosis Family history: Gastrointestinal disease Family history: Thyroid disorder Heart disease Hereditary disease History of drug abuse Kidney disease Myocardial infarction 09 BROTHER Psychotic disorder Seizure disorder Stroke 09 BROTHER No Family History of: [place]'s disease Congenital heart disease Cystic fibrosis Family history: Arthritis Family history: Asthma Family history: Breast disease Family history: Diabetes mellitus Family history: Glaucoma Family history: Hypertension Family history: Osteoporosis Headache Hearing loss History of - anemia History of - respiratory disease Human immunodeficiency virus (HIV) seropositivity Hypercholesterolemia Infertile Malignant neoplasm of lung Parkinson's disease Prostate cancer Tuberculosis Visual impairment Physical Exam Vital Signs Vital Signs - First Documented 03/14/22 08:35 Temp 36.0 Pulse 79 Resp 16 B/P (MAP) 167/85 (112) Pulse Ox 98 O2 Delivery Room Air Capillary Refill : Less Than 3 Seconds Height/Weight/BMI Height: 6'0.00" Weight: 220lbs. 0.0oz. 99.760009ho; 27.00 BMI Method:Stated General Appearance: WD/WN, mild distress HEENT: PERRL/EOMI, normal ENT inspection, other Neck: normal inspection (Oropharynx somewhat dry) Respiratory: lungs clear, normal breath sounds, no respiratory distress, no accessory muscle use Cardiovascular: regular rate, rhythm, no edema, no murmur Gastrointestinal: soft, abnormal bowel sounds (Decreased), distended, tenderness (Generalized upper abdominal pain with palpation) Extremities: normal inspection, no pedal edema Neurologic/Psychiatric: e business specialist II-XII nml as tested, no motor/sensory deficits, alert, normal mood/affect, oriented x 3 Skin: normal color, warm/dry Progress/Results/Core Measures Results/Orders Lab Results Laboratory Tests Test 03/14/22 08:40 03/14/22 08:47 03/14/22 09:14 Range/Units White Blood Count 6.1 4.3-11.0 10^3/uL Red Blood Count 3.51 L 4.30-5.52 10^6/uL Hemoglobin 12.3 L 13.3-17.7 g/dL Hematocrit 32 L 40-54 % Mean Corpuscular Volume 91 80-99 fL Mean Corpuscular Hemoglobin 35 H 25-34 pg Mean Corpuscular Hemoglobin Concent 38 H 32-36 g/dL Red Cell Distribution Width 14.3 10.0-14.5 % Platelet Count 161 130-400 10^3/uL Mean Platelet Volume 9.1 9.0-12.2 fL Immature Granulocyte % (Auto) 3 % Neutrophils (%) (Auto) 77 H 42-75 % Lymphocytes (%) (Auto) 8 L 12-44 % Monocytes (%) (Auto) 12 0-12 % Eosinophils (%) (Auto) 0 0-10 % Basophils (%) (Auto) 0 0-10 % Neutrophils # (Auto) 4.7 1.8-7.8 10^3/uL Lymphocytes # (Auto) 0.5 L 1.0-4.0 10^3/uL Monocytes # (Auto) 0.7 0.0-1.0 10^3/uL Eosinophils # (Auto) 0.0 0.0-0.3 10^3/uL Basophils # (Auto) 0.0 0.0-0.1 10^3/uL Immature Granulocyte # (Auto) 0.2 H 0.0-0.1 10^3/uL Neutrophils % (Manual) 82 % Lymphocytes % (Manual) 9 % Monocytes % (Manual) 9 % Hypersegmented Neutrophils MODERATE Blood Morphology Comment NORMAL Prothrombin Time 13.4 12.2-14.7 SEC INR Comment 1.0 0.8-1.4 Activated Partial Thromboplast Time 32 24-35 SEC Sodium Level 126 L 135-145 MMOL/L Potassium Level 2.6 L 3.6-5.0 MMOL/L Chloride Level 73 L 98-107 MMOL/L Carbon Dioxide Level 34 H 21-32 MMOL/L Anion Gap 19 H 5-14 MMOL/L Blood Urea Nitrogen 18 7-18 MG/DL Creatinine 2.35 H 0.60-1.30 MG/DL Estimat Glomerular Filtration Rate 29 BUN/Creatinine Ratio 8 Glucose Level 133 H 70-105 MG/DL Calcium Level 9.5 8.5-10.1 MG/DL Corrected Calcium 9.3 8.5-10.1 MG/DL Magnesium Level 1.9 1.6-2.4 MG/DL Total Bilirubin 1.1 H 0.1-1.0 MG/DL Aspartate Amino Transf (AST/SGOT) 22 5-34 U/L Alanine Aminotransferase (ALT/SGPT) 12 0-55 U/L Alkaline Phosphatase 69 40-136 U/L C-Reactive Protein High Sensitivity 1.94 H 0.00-0.50 MG/DL Total Protein 7.4 6.4-8.2 GM/DL Albumin 4.3 3.2-4.5 GM/DL Lipase 13 8-78 U/L Influenza Type A (RT-PCR) Not Detected Not Detecte Influenza Type B (RT-PCR) Not Detected Not Detecte SARS-CoV-2 RNA (RT-PCR) Not Detected Not Detecte Urine Color YELLOW Urine Clarity CLEAR Urine pH 6.5 5-9 Urine Specific Neon 1.010 L 1.016-1.022 Urine Protein 1+ H NEGATIVE Urine Glucose (UA) NEGATIVE NEGATIVE Urine Ketones TRACE H NEGATIVE Urine Nitrite NEGATIVE NEGATIVE Urine Bilirubin 1+ H NEGATIVE Urine Urobilinogen 0.2 < = 1.0 MG/DL Urine Leukocyte Esterase NEGATIVE NEGATIVE Urine RBC (Auto) 1+ H NEGATIVE Urine RBC NONE /HPF Urine WBC 10-25 H /HPF Urine Squamous Epithelial Cells 2-5 /HPF Urine Crystals NONE /LPF Urine Bacteria TRACE /HPF Urine Casts PRESENT /LPF Urine Hyaline Casts 10-25 H /LPF Urine Mucus NEGATIVE /LPF Urine Culture Indicated YES My Orders Orders - ROSHAN CROW MD Ondansetron Injection (Zofran Injectio (03/14/22 09:00) Cbc With Automated Diff (03/14/22 08:50) Comprehensive Metabolic Panel (03/14/22 08:50) Hs C Reactive Protein (03/14/22 08:50) Lipase (03/14/22 08:50) Ua Culture If Indicated (03/14/22 08:50) Covid 19 Inhouse Test (03/14/22 08:51) Influenza A And B By Pcr (03/14/22 08:51) Magnesium (03/14/22 08:51) Manual Differential (03/14/22 08:40) Urine Culture (03/14/22 09:14) Potassium Cl 10meq/50ml Ivpb (Kcl 10 Meq (03/14/22 10:00) Ns Iv 1000 Ml (Sodium Chloride 0.9%) (03/14/22 10:00) Ct Abdomen/Pelvis Wo (03/14/22 09:50) Piperacillin Sodium/Tazobactam (Zosyn Vi (03/14/22 10:00) Ns Iv 1000 Ml (Sodium Chloride 0.9%) (03/14/22 10:45) Blood Culture (03/14/22 10:40) Sputum Culture (03/14/22 10:40) Protime With Inr (03/14/22 10:40) Partial Thromboplastin Time (03/14/22 10:40) Chest 1 View, Ap/Pa Only (03/14/22 10:40) Ed Iv/Invasive Line Start (03/14/22 10:40) Vital Signs Adult Sepsis Patie Q15M (03/14/22 10:40) Lactic Acid Analyzer (03/14/22 10:40) Ng Tube Insert & Assessment (03/14/22 10:53) Fentanyl Inj (Sublimaze Injection) (03/14/22 11:00) Benzocaine Extension Tube (Hurricaine Ex (03/14/22 10:58) Code/Resuscitation (03/14/22 11:29) Medications Given in ED Current Medications Medications Dose Ordered Sig/Aviva Route Start Time Stop Time Status Last Admin Dose Admin Fentanyl Citrate 25 mcg ONCE ONCE IVP 03/14/22 11:00 03/14/22 11:01 DC 03/14/22 11:01 25 MCG Ondansetron HCl 4 mg ONCE ONCE IVP 03/14/22 09:00 03/14/22 09:01 DC 03/14/22 08:53 4 MG Piperacillin Sod/ Tazobactam Sod 4.5 gm/Sodium Chloride 100 ml @ 200 mls/hr ONCE ONCE IV 03/14/22 10:00 03/14/22 10:29 DC 03/14/22 10:07 200 MLS/HR Potassium Chloride 50 ml @ 50 mls/hr ONCE ONCE IV 03/14/22 10:00 03/14/22 10:59 DC 03/14/22 11:18 50 MLS/HR Sodium Chloride 1,000 ml @ 150 mls/hr Q6H40M ONCE IV 03/14/22 10:00 03/14/22 16:39 DC 03/14/22 10:31 150 MLS/HR Vital Signs/I&O 03/14/22 08:35 Temp 36.0 Pulse 79 Resp 16 B/P (MAP) 167/85 (112) Pulse Ox 98 O2 Delivery Room Air Blood Pressure Mean: 112 Progress Progress Note : Time: 11:20 Progress Note Patient was treated with fentanyl and Zofran. He was found to have severe electrolyte abnormalities with hyponatremia and hypokalemia. This is being replaced by IV route. He was also found to have urinary tract infection which is being treated with Zosyn. CT was obtained and revealed small bowel obstru ction, possibly a closed-loop obstruction. Dr. aMrinelli has been to the ER and reviewed images with me. Patient likely needs urgent surgery. Because of his immunodeficiency and other CT findings, septic work-up is being pursued as well. Unfortunately, at least one of the cultures was obtained after antibiotics were infused. NG tube will be attempted prior to going to surgery. Dr. Treviño has been consulted for medical management and will be involved after patient leaves surgery. Patient states he would like his daughter Bonny to be his POA. She lives out of state, so he designates his sister Alison as an alternative POA if Bonny is not available. Both contacts are listed in his demographics. Patient wishes to have a full CODE STATUS. Diagnostic Imaging Diagonstic Imaging: CT Plain Films/CT/US/NM/MRI: abdomen, pelvis Comments CT abdomen pelvis viewed by me and report reviewed. See report below: NAME: BOSSMAN KELLY [facility] REC#: [id number] PT STATUS: REG ER : 1950 PHYSICIAN: ROSHAN CROW MD ADMIT DATE: 03/14/22/ER Signed Date of Exam:03/14/22 CT ABDOMEN/PELVIS WO EXAMINATION: CT abdomen and pelvis without contrast. TECHNIQUE: Multiple contiguous axial images were obtained through the abdomen and pelvis without the use of intravenous contrast. All CT scans use one or more of the following dose optimizing techniques: automated exposure control, MA and/or KvP adjustment based on patient size and exam type or iterative reconstruction. HISTORY: Abdominal pain COMPARISON: 11/02/2019 FINDINGS: Lung bases: Bibasilar dependent atelectasis. Solid organs: The liver is normal. The gallbladder is normal. There is no biliary ductal dilation. Pancreas is normal. Spleen is normal. Adrenal glands are normal. The kidneys are normal without visualized calculus or hydronephrosis. Bowel: Multiple dilated air and fluid-filled loops of small bowel. There are 2 focal areas of transition in the right abdomen (series 2 image 101). There is mild wall thickening of the left hemicolon. The appendix is normal. Peritoneum: There is a loculated fluid collection within the right perirectal space measuring up to 5.2 x 4.3 x 3.4 cm. No suspicious lymphadenopathy. Vasculature: Calcification of the aorta without aneurysm. Musculoskeletal: Degenerative changes of the spine without suspicious osseous lesion or compression fracture. Bilateral L5 pars defects. Pelvis: The prostate gland is enlarged. The urinary bladder is normal. IMPRESSION: 1. Findings of small bowel obstruction with transition points within the right lower abdomen. This involves a short loop which can be seen with closed loop obstruction. 2. Loculated fluid collection within the right perirectal fat. This is new from prior exam. This could represent contained perforation. 3. Mild diffuse wall thickening of the left hemicolon. This could be secondary to underdistention but infectious or inflammatory colitis would be within the differential. Dictated by: Dictated on workstation # [id number] Dict: 03/14/22 1020 Trans: 03/14/22 1042 [facility] [id number] Interpreted by: DAYO WAHL DO Electronically signed by: DAYO WAHL DO 03/14/22 1042 Diagonstic Imaging: Xray Plain Films/CT/US/NM/MRI: chest Comments NAME: BOSSMAN KELLY [facility] REC#: [id number] PT STATUS: REG ER : 1950 PHYSICIAN: ROSHAN CROW MD ADMIT DATE: 03/14/22/ER Draft Date of Exam:03/14/22 CHEST 1 VIEW, AP/PA ONLY CLINICAL INDICATION: Patient with septic workup. EXAM: Portable chest x-ray upright view. COMPARISON: Chest x-ray dated 08/12/2017. FINDINGS: Right IJ central line again seen. Lungs/pleura: There is mild right basilar atelectasis. There is no lung infiltrate. There is no pneumothorax. There is no pleural effusion. Mediastinum: Unremarkable. Pulmonary vasculature: Unremarkable. Heart: Unremarkable. Bones/extrathoracic soft tissue: There are degenerative spurs involving the thoracic spine. IMPRESSION: There is mild bibasilar atelectasis. There is no radiographic evidence of acute cardiopulmonary process. Dictated on workstation # [id number] Dict: 03/14/22 1102 Trans: 03/14/22 1111 CV [id number] Interpreted by: DANUTA ESCOBAR MD Departure Communication (Admissions) Time/Spoke to Admitting Phy: 11:13 Dr. Marinelli Time/Spoke to Consulting Phy: 11:20 Dr. Treviño Impression Primary Impression: Small bowel obstruction Additional Impressions: Hypokalemia Hyponatremia Generalized weakness Non Hodgkin's lymphoma Qualified Codes: C85.90 - Non-Hodgkin lymphoma, unspecified, unspecified site Disposition: ADMITTED INPATIENT Condition: Stable Admissions Decision to Admit Reason: Admit from ER (General) Decision to Admit/Date: Mar 14, 2022 Time/Decision to Admit Time: 11:13 Departure-Patient Inst. Referrals: [facility] (PCP/Family) Primary Care Physician Copy Copies To 1: [facility]/ROSHAN ALVARES MD Mar 14, 2022 08:51
[2022-03-14 09:00] LABS: BASOPHILS % (AUTO) 0 % (0-10); EOSINOPHILS % (AUTO) 0 % (0-10); HEMATOCRIT 32 % (40-54); HEMOGLOBIN 12.3 g/dL (13.3-17.7); LYMPHOCYTES # (AUTO) 0.5 10^3/uL (1.0-4.0); LYMPHOCYTES % (AUTO) 8 % (12-44); MEAN CORPUSCULAR HEMOGLOBIN 35 pg (25-34); MEAN CORPUSCULAR HGB CONC 38 g/dL (32-36); MEAN CORPUSCULAR VOLUME 91 fL (80-99); MEAN PLATELET VOLUME 9.1 fL (9.0-12.2); MONOCYTES # (AUTO) 0.7 10^3/uL (0.0-1.0); MONOCYTES % (AUTO) 12 % (0-12); NEUTROPHILS # (AUTO) 4.7 10^3/uL (1.8-7.8); NEUTROPHILS % (AUTO) 77 % (42-75); PLATELET COUNT 161 10^3/uL (130-400); WHITE BLOOD COUNT 6.1 10^3/uL (4.3-11.0)
[2022-03-14] MEDS ORDERED: ONDANSETRON 4 MG/2 ML (SDV) Z0FRAN IVP ONE (09:00)
[2022-03-14 09:02] LABS: ALBUMIN 4.3 GM/DL (3.2-4.5)
[2022-03-14 09:03] LABS: CALCIUM 9.5 MG/DL (8.5-10.1)
[2022-03-14 09:05] LABS: TOTAL PROTEIN 7.4 GM/DL (6.4-8.2)
[2022-03-14 09:06] LABS: BILIRUBIN,TOTAL 1.1 MG/DL (0.1-1.0)
[2022-03-14 09:08] LABS: CREATININE SERUM 2.35 MG/DL (0.60-1.30)
[2022-03-14 09:11] LABS: MAGNESIUM 1.9 MG/DL (1.6-2.4)
[2022-03-14 09:23] LABS: CLARITY,URINE CLEAR; COLOR,URINE YELLOW; GLUCOSE, URINE (UA) NEGATIVE (NEGATIVE); KETONES,URINE TRACE (NEGATIVE); LEUKOCYTE ESTERASE ,URINE NEGATIVE (NEGATIVE); NITRITE,URINE NEGATIVE (NEGATIVE); PH,URINE 6.5 (5-9); PROTEIN,URINE 1+ (NEGATIVE)
[2022-03-14 09:26] LABS: POTASSIUM 2.6 MMOL/L (3.6-5.0)
[2022-03-14 09:36] LABS: HYPERSEGMENTED NEUT MODERATE; LYMPHOCYTES % (MANUAL) 9 %; MONOCYTES % (MANUAL) 9 %; NEUTROPHILS % (MANUAL) 82 %; RBC MORPH NORMAL
[2022-03-14 09:37] LABS: BACTERIA,URINE TRACE /HPF; BILIRUBIN,URINE 1+ (NEGATIVE)
[2022-03-14] MEDS ORDERED: PIPERACILLIN SODIUM/TAZOBACTAM 4.5 GM in NS (IVPB) 100 ML IV ONE (10:00)
[2022-03-14] MEDS ORDERED: NS IV 1000 ML 1,000 ML IV ONE (10:00)
[2022-03-14] MEDS ORDERED: POTASSIUM CL 10MEQ/50ML IVPB 50 ML IV ONE (10:00)
--- NOTE | 2022-03-14 10:31 | Diagnostic Imaging Report ---
EXAMINATION: CT abdomen and pelvis without contrast. TECHNIQUE: Multiple contiguous axial images were obtained through the abdomen and pelvis without the use of intravenous contrast. All CT scans use one or more of the following dose optimizing techniques: automated exposure control, MA and/or KvP adjustment based on patient size and exam type or iterative reconstruction. HISTORY: Abdominal pain COMPARISON: 11/02/2019 FINDINGS: Lung bases: Bibasilar dependent atelectasis. Solid organs: The liver is normal. The gallbladder is normal. There is no biliary ductal dilation. Pancreas is normal. Spleen is normal. Adrenal glands are normal. The kidneys are normal without visualized calculus or hydronephrosis. Bowel: Multiple dilated air and fluid-filled loops of small bowel. There are 2 focal areas of transition in the right abdomen (series 2 image 101). There is mild wall thickening of the left hemicolon. The appendix is normal. Peritoneum: There is a loculated fluid collection within the right perirectal space measuring up to 5.2 x 4.3 x 3.4 cm. No suspicious lymphadenopathy. Vasculature: Calcification of the aorta without aneurysm. Musculoskeletal: Degenerative changes of the spine without suspicious osseous lesion or compression fracture. Bilateral L5 pars defects. Pelvis: The prostate gland is enlarged. The urinary bladder is normal. IMPRESSION: 1. Findings of small bowel obstruction with transition points within the right lower abdomen. This involves a short loop which can be seen with closed loop obstruction. 2. Loculated fluid collection within the right perirectal fat. This is new from prior exam. This could represent contained perforation. 3. Mild diffuse wall thickening of the left hemicolon. This could be secondary to underdistention but infectious or inflammatory colitis would be within the differential. Dictated by: Dictated on workstation # [id number]
[2022-03-14] MEDS ORDERED: NS IV 1000 ML 1,000 ML IV SCH (10:45)
[2022-03-14 10:57] LABS: PROTHROMBIN TIME PATIENT 13.4 SEC (12.2-14.7)
[2022-03-14] MEDS ORDERED: HURRICAINE EXT TUBE (BENZOCAINE) ONE (10:58)
[2022-03-14] MEDS ORDERED: fentaNYL INJ 100 MCG/2 ML AMP IVP ONE (11:00)
--- NOTE | 2022-03-14 11:11 | Diagnostic Imaging Report ---
CLINICAL INDICATION: Patient with septic workup. EXAM: Portable chest x-ray upright view. COMPARISON: Chest x-ray dated 08/12/2017. FINDINGS: Right IJ central line again seen. Lungs/pleura: There is mild right basilar atelectasis. There is no lung infiltrate. There is no pneumothorax. There is no pleural effusion. Mediastinum: Unremarkable. Pulmonary vasculature: Unremarkable. Heart: Unremarkable. Bones/extrathoracic soft tissue: There are degenerative spurs involving the thoracic spine. IMPRESSION: There is mild bibasilar atelectasis. There is no radiographic evidence of acute cardiopulmonary process. Dictated by: Dictated on workstation # [id number]
--- NOTE | 2022-03-14 11:55 | Consultation - Surgery ---
History of Present Illness History of Present Illness Patient Consulted On(vickie/time) 03/14/22 11:50 Date Seen by Provider: Mar 14, 2022 Time Seen by Provider: 11:13 History of Present Illness Seen and evaluated in ED. Consult requested by Dr. Mi 71 year old male presents to ed with 3-4 days of nausea and vomiting. Nothing making better or worse. Abdomen more distended than normal. Mild discomfort more over central abdomen. No radiation of pain. Patient had ct scan that demonstrates closed loop small bowel obstruction. Allergies and Home Medications Allergies Coded Allergies: Gadolinium-Containing Contrast Medi (Verified Allergy, Severe, Anaphylaxis, 08/12/17) gadoteridol (Verified Allergy, Mild, SNEEZING, HOARSE VOICE, 08/12/17) Patient Home Medication List Home Medication List Reviewed: Yes Acetaminophen/Diphenhydramine (Tylenol Pm Ex-Strength Caplet) 1 Each Tablet, 1 EACH PO HS, (Reported) Entered as Reported by: AGNES CAMPBELL on 09/23/16 09 Aspirin (Aspirin) 325 Mg Tablet, 1,300 MG PO DAILY, (Reported) Entered as Reported by: CHERYL OLIVAS on 06/11/15 175 Fluticasone Propionate (Fluticasone Propionate) 15.8 Ml [place].susp, 15.8 ML NS DAILY, (Reported) Entered as Reported by: AIMEE HIGH on 05/13/21 1351 Ibuprofen (Ibuprofen) 800 Mg Tablet, 800 MG PO Q8H PRN for PAIN-MILD, (Reported) Entered as Reported by: AIMEE HIGH on 05/13/21 1351 Lisinopril (Lisinopril) 20 Mg Tablet, 20 MG PO DAILY, (Reported) Entered as Reported by: AGNES CAMPBELL on 09/23/16 09 Metoprolol Succinate (Toprol Xl) 25 Mg Tab.er.24h, 25 MG PO DAILY Prescribed by: RAYSHAWN STEVENSON on 08/13/17 1414 Multivitamin (Multivitamins) 1 Each Tablet, 1 TAB PO DAILY, (Reported) Entered as Reported by: SAMM PHAM on 06/12/15 1035 [place] 3 Polyunsat Fatty Acids (Fish Oil 1,000 mg Capsule) 1,000 Mg Cap, 1,000 MG PO BID, (Reported) Entered as Reported by: CHERYL OLIVAS on 06/11/15 1752 Sulfamethoxazole/Trimethoprim (Sulfamethoxazole-Tmp Ss Tablet) 1 Each Tablet, 1 EACH PO UD, (Reported) Entered as Reported by: AIMEE HIGH on 05/13/21 1351 Tamsulosin HCl (Flomax) 0.4 Mg Cap, 0.4 MG PO DAILY Prescribed by: ROSHAN GARNETT on 07/10/21 1216 Tamsulosin HCl (Flomax) 0.4 Mg Cap, 0.4 MG PO DAILY Prescribed by: ROHSAN GARNETT on 08/04/21 0934 Vitamin B Complex & Vit C No.4 (Super B Complex) 150 Mg Tablet, 150 MG PO DAILY, (Reported) Entered as Reported by: AGNES CAMPBELL on 09/23/16 0927 Past Mxijsnx-Vbtzss-Ycpmai Hx Patient Social History Former Smoker, Quit: May 13, 2014 Type Used: Cigarettes, Smokeless Tobacco 2nd Hand Smoke Exposure: No Recent Hopitalizations: No Alcohol Use?: Yes Substance type: Marijuana Immunizations Up To Date Tetanus Booster (TDap): Unknown Date of Pneumonia Vaccine: December 13, 2014 Date of Influenza Vaccine: Jun 12, 2020 Seasonal Allergies Seasonal Allergies: No Surgeries History of Surgeries: Yes (bilat ing HERNIA REPAIR x2, T&A, BIOPSY, port) Surgeries: Abdominal, Adenoidectomy, Tonsillectomy Respiratory History of Respiratory Disorde: Yes Respiratory Disorders: Pneumonia, Emphysema Cardiovascular History of Cardiac Disorders: Yes Cardiac Disorders: Hypertension Neurological History of Neurological Disord: Yes (10/27 ACUTE METABOLIC ENCEPHALOPATHY) Reproductive System Hx Reproductive Disorders: No Sexually Transmitted Disease: No HIV/AIDS: No Genitourinary History of Genitourinary Disor: Yes (Urinary retention) Gastrointestinal History of Gastrointestinal Di: Yes Gastrointestinal Disorders: Hemorrhoids, Hepatitis, Cirrhosis Musculoskeletal History of Musculoskeletal Dis: Yes Musculoskeletal Disorders: Degenerate Disk Disease Endocrine History of Endocrine Disorders: No HEENT History of HEENT Disorders: No Loss of Vision: Denies Hearing Impairment: Denies Cancer 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, Lymphoma Psychosocial History of Psychiatric Problem: Yes Behavioral Health Disorders: Anxiety, Depression Integumentary History of Skin or Integumenta: No Blood Transfusions History of Blood Disorders: Yes (ANEMIA, blood dyscrasias related to lymphoma, protein S deficiency) Adverse Reaction to a Blood Tr: No Family Medical History Significant Family History: No Pertinent Family Hx Family Medial History: Abdominal aortic aneurysm Alcoholism Aphasia Cancer Cancer of colon Cataract Chest pain Congestive heart failure Coronary thrombosis 09 BROTHER 09 BROTHER 09 BROTHER 09 BROTHER 09 SISTER 09 SISTER 09 SISTER Dementia Dysphagia Family history: Allergy Family history: Alzheimer's disease Family history: Cardiovascular disease Family history: Coronary thrombosis Family history: Gastrointestinal disease Family history: Thyroid disorder Heart disease Hereditary disease History of drug abuse Kidney disease Myocardial infarction 09 BROTHER Psychotic disorder Seizure disorder Stroke 09 BROTHER No Family History of: Richard's disease Congenital heart disease Cystic fibrosis Family history: Arthritis Family history: Asthma Family history: Breast disease Family history: Diabetes mellitus Family history: Glaucoma Family history: Hypertension Family history: Osteoporosis Headache Hearing loss History of - anemia History of - respiratory disease Human immunodeficiency virus (HIV) seropositivity Hypercholesterolemia Infertile Malignant neoplasm of lung Parkinson's disease Prostate cancer Tuberculosis Visual impairment Review of Systems-General Constitutional: No chills, No diaphoresis EENTM: No blurred vision, No double vision Respiratory: No cough, No dyspnea on exertion Gastrointestinal: abdominal pain, nausea, vomiting Genitourinary: No decreased output, No discharge Musculoskeletal: No back pain, No joint pain Skin: No change in color, No change in hair/nails Psychiatric/Neurological: Denies Anxiety, Denies Depressed, Denies Emotional Problems All Other Systems Reviewed Negative Unless Noted: Yes (Negative excepted noted.) Physical Exam-General Problems Physical Exam Vital Signs Vital Signs - First Documented 03/14/22 08:35 Temp 36.0 Pulse 79 Resp 16 B/P (MAP) 167/85 (112) Pulse Ox 98 O2 Delivery Room Air Capillary Refill : Less Than 3 Seconds General Appearance: WD/WN, no apparent distress HEENT: PERRL/EOMI, normal ENT inspection Neck: non-tender, supple Respiratory: chest non-tender, no respiratory distress, no accessory muscle use Gastrointestinal: distended (mild), tenderness (around central abdomen), hernia (umbilical small) Rectal: deferred Back: normal inspection, no CVA tenderness Extremities: non-tender, normal inspection Neurologic/Psychiatric: alert, normal mood/affect, oriented x 3 Skin: normal color, warm/dry Lymphatic: no adenopathy Data Review Labs Laboratory Tests 03/14/22 08:40: White Blood Count 6.1, Red Blood Count 3.51L, Hemoglobin 12.3L, Hematocrit 32L, Mean Corpuscular Volume 91, Mean Corpuscular Hemoglobin 35H, Mean Corpuscular Hemoglobin Concent 38H, Red Cell Distribution Width 14.3, Platelet Count 161, Mean Platelet Volume 9.1, Immature Granulocyte % (Auto) 3, Neutrophils (%) (Auto) 77H, Lymphocytes (%) (Auto) 8L, Monocytes (%) (Auto) 12, Eosinophils (%) (Auto) 0, Basophils (%) (Auto) 0, Neutrophils # (Auto) 4.7, Lymphocytes # (Auto) 0.5L, Monocytes # (Auto) 0.7, Eosinophils # (Auto) 0.0, Basophils # (Auto) 0.0, Immature Granulocyte # (Auto) 0.2H, Neutrophils % (Manual) 82, Lymphocytes % (Manual) 9, Monocytes % (Manual) 9, Hypersegmented Neutrophils MODERATE, Blood Morphology Comment NORMAL, Prothrombin Time 13.4, INR Comment 1.0, Activated Partial Thromboplast Time 32, Sodium Level 126L, Potassium Level 2.6L, Chloride Level 73L, Carbon Dioxide Level 34H, Anion Gap 19H, Blood Urea Nitrogen 18, Creatinine 2.35H, Estimat Glomerular Filtration Rate 29, BUN/Creatinine Ratio 8, Glucose Level 133H, Calcium Level 9.5, Corrected Calcium 9.3, Magnesium Level 1.9, Total Bilirubin 1.1H, Aspartate Amino Transf (AST/SGOT) 22, Alanine Aminotransferase (ALT/SGPT) 12, Alkaline Phosphatase 69, C-Reactive Protein High Sensitivity 1.94H, Total Protein 7.4, Albumin 4.3, Lipase 13 03/14/22 08:47: Influenza Type A (RT-PCR) Not Detected, Influenza Type B (RT-PCR) Not Detected, SARS-CoV-2 RNA (RT-PCR) Not Detected 03/14/22 09:14: Urine Color YELLOW, Urine Clarity CLEAR, Urine pH 6.5, Urine Specific [place] 1.010L, Urine Protein 1+H, Urine Glucose (UA) NEGATIVE, Urine Ketones TRACEH, Urine Nitrite NEGATIVE, Urine Bilirubin 1+H, Urine Urobilinogen 0.2, Urine Leukocyte Esterase NEGATIVE, Urine RBC (Auto) 1+H, Urine RBC NONE, Urine WBC 10- 25H, Urine Squamous Epithelial Cells 2-5, Urine Crystals NONE, Urine Bacteria TRACE, Urine Casts PRESENT, Urine Hyaline Casts 10-25H, Urine Mucus NEGATIVE, Urine Culture Indicated YES Assessment/Plan Assessment/Plan Assessment/Plan nausea and vomiting closed loop small bowel obstruction Cll hepatitis discussed need for exploratory laparotomy due to closed loop small bowel obstruction. he and family understand and wish to proceed to OR. AMBERO MAXI CHEN DO Mar 14, 2022 11:55
[2022-03-14] MEDS ORDERED: ceFAZolin 2 GM IV Premixed 50 ML IV NR (12:00)
[2022-03-14] MEDS ORDERED: ceFAZolin 2 GM IV Premixed 50 ML ONE (12:08)
[2022-03-14] MEDS: LACTATED RINGERS 1,000 ML IV PRN ×2 (12:47→14:36)
[2022-03-14] MEDS ORDERED: fentaNYL INJ 100 MCG/2 ML AMP ONE (12:50)
[2022-03-14] MEDS ORDERED: LIDOCAINE PF 2% 5 ML (XYLOCAINE) VIAL ONE (13:28)
[2022-03-14] MEDS ORDERED: PHENYLEPHRINE 100 MCG/ML 10 ML (ANESTHESIA) SYR ONE (13:28)
[2022-03-14] MEDS ORDERED: ROCURONIUM 50 MG/5 ML (ZEMURON) VIAL IV ONE (13:28)
[2022-03-14] MEDS ORDERED: proPOfol 200 MG/20 ML (DIPRIVAN) VIAL IV ONE (13:28)
[2022-03-14] MEDS ORDERED: ONDANSETRON 4 MG/2 ML (SDV) Z0FRAN ONE (13:28)
[2022-03-14] MEDS ORDERED: NEOSTIGMINE (BLOXIVERZ ) 1 MG/1ML 10 ML VIAL ONE (13:53)
[2022-03-14] MEDS ORDERED: GLYCOPYRROLATE 0.2 MG/ML (ROBINUL) 2 ML VIAL ONE (13:53)
[2022-03-14] MEDS ORDERED: ONDANSETRON 4 MG/2 ML (SDV) Z0FRAN IVP PRN (14:15)
[2022-03-14] MEDS ORDERED: HYDROmorphone 2 MG/ML VIAL (DILAUDID) IV ONE (14:15)
[2022-03-14] MEDS ORDERED: morphine INJ 10 MG/ML 1ML (SYR OR VIAL) IVP ONE (14:15)
--- NOTE | 2022-03-14 14:20 | Anesthesia-General Post-Op ---
General Patient Condition Mental Status/LOC: Same as Preop Cardiovascular: Satisfactory Nausea/Vomiting: Absent Respiratory: Satisfactory Pain: Controlled Complications: Absent Post Op Complications Complications None Follow Up Care/Instructions Patient Instructions None needed. Anesthesia/Patient Condition Patient Condition Patient is doing well, no complaints, stable vital signs, no apparent adverse anesthesia problems. No complications reported per nursing. HUSAM WHITING CRNA Mar 14, 2022 14:20
--- NOTE | 2022-03-14 14:52 | Tele-ICU Consult ---
Progress Note 71 y/o male presents with s/s consistent with a SBO CT shows possible closed loop obstruction Surgery consulted PLAN: exp lap Focused Exam Lactate Level 03/14/22 11:47: Lactic Acid Level 0.69 Height, Weight, BMI Height: 6'0.00" Weight: 220lbs. 0.0oz. [id number]; 27.00 BMI Method:Stated Lactic Acid Level Laboratory Tests Test 03/14/22 11:47 Lactic Acid Level 0.69 MMOL/L (0.50-2.00) Labs Laboratory Tests 03/14/22 08:40 Results Results/Procedures Lab Laboratory Tests 03/14/22 08:40 Results Labs Labs Laboratory Tests 03/14/22 08:40: White Blood Count 6.1, Red Blood Count 3.51L, Hemoglobin 12.3L, Hematocrit 32L, Mean Corpuscular Volume 91, Mean Corpuscular Hemoglobin 35H, Mean Corpuscular Hemoglobin Concent 38H, Red Cell Distribution Width 14.3, Platelet Count 161, Mean Platelet Volume 9.1, Immature Granulocyte % (Auto) 3, Neutrophils (%) (Auto) 77H, Lymphocytes (%) (Auto) 8L, Monocytes (%) (Auto) 12, Eosinophils (%) (Auto) 0, Basophils (%) (Auto) 0, Neutrophils # (Auto) 4.7, Lymphocytes # (Auto) 0.5L, Monocytes # (Auto) 0.7, Eosinophils # (Auto) 0.0, Basophils # (Auto) 0.0, Immature Granulocyte # (Auto) 0.2H, Neutrophils % (Manual) 82, Lymphocytes % (Manual) 9, Monocytes % (Manual) 9, Hypersegmented Neutrophils MODERATE, Blood Morphology Comment NORMAL, Prothrombin Time 13.4, INR Comment 1.0, Activated Partial Thromboplast Time 32, Sodium Level 126L, Potassium Level 2.6L, Chloride Level 73L, Carbon Dioxide Level 34H, Anion Gap 19H, Blood Urea Nitrogen 18, Creatinine 2.35H, Estimat Glomerular Filtration Rate 29, BUN/Creatinine Ratio 8, Glucose Level 133H, Calcium Level 9.5, Corrected Calcium 9.3, Magnesium Level 1.9, Total Bilirubin 1.1H, Aspartate Amino Transf (AST/SGOT) 22, Alanine Aminotransferase (ALT/SGPT) 12, Alkaline Phosphatase 69, C-Reactive Protein High Sensitivity 1.94H, Total Protein 7.4, Albumin 4.3, Lipase 13 03/14/22 08:47: Influenza Type A (RT-PCR) Not Detected, Influenza Type B (RT-PCR) Not Detected, SARS-CoV-2 RNA (RT-PCR) Not Detected 03/14/22 09:14: Urine Color YELLOW, Urine Clarity CLEAR, Urine pH 6.5, Urine Specific [place] 1.010L, Urine Protein 1+H, Urine Glucose (UA) NEGATIVE, Urine Ketones TRACEH, Urine Nitrite NEGATIVE, Urine Bilirubin 1+H, Urine Urobilinogen 0.2, Urine Leukocyte Esterase NEGATIVE, Urine RBC (Auto) 1+H, Urine RBC NONE, Urine WBC 10- 25H, Urine Squamous Epithelial Cells 2-5, Urine Crystals NONE, Urine Bacteria TRACE, Urine Casts PRESENT, Urine Hyaline Casts 10-25H, Urine Mucus NEGATIVE, Urine Culture Indicated YES 03/14/22 11:47: Lactic Acid Level 0.69 CARMEN MCGOVERN MD Mar 14, 2022 14:52
--- NOTE | 2022-03-14 15:04 | History & Physical-Hospitalist ---
History of Present Illness HPI/Chief Complaint Chief complaint: Closed-loop bowel obstruction requiring urgent surgery History of present illness: This is a 71-year-old male [facility] patient who has a past medical history of multiple cancers and lymphoma who presented to the ER abdominal pain found to have a closed-loop bowel obstruction requiring emergent surgery by Dr. Marinelli. He is currently postop and awake and alert and doing well reporting pain is controlled. Source: patient, RN/MD, old records Exam Limitations: clinical condition Date Seen 03/14/22 Time Seen by a Provider: 15:00 Attending Physician [place] PCP Admitting Physician: Attending Physician: Aaron Marinelli DO Referring Physician Date of Admission Home Medications & Allergies Home Medications Reviewed patient Home Medication Reconciliation performed by pharmacy medication reconciliations electronic train control technician and/or nursing. Patients Allergies have been reviewed. Allergies Allergies Coded Allergies Gadolinium-Containing Contrast Medi (Verified Allergy, Severe, Anaphylaxis, 08/12/17) gadoteridol (Verified Allergy, Mild, SNEEZING, HOARSE VOICE, 08/12/17) Past Xmedcqu-Kwlveu-Xzjsid Hx Patient Social History Marrital Status: Tobacco Use?: No Smokeless type used: Chew Substance use?: Yes Substance type: Marijuana Alcohol Use?: Yes Alcohol type: Beer Alcohol Frequency: Daily (2 beers daily) Immunizations Up To Date Date of Influenza Vaccine: Jun 12, 2020 First/Initial COVID19 Vaccinat: J&J Tetanus Booster (TDap): Unknown Hepatitis B: Yes Date of Pneumonia Vaccine: December 13, 2014 Seasonal Allergies Seasonal Allergies: No Current Status Advance Directives: No Primary Language: [place] Preferred Spoken Language: [place] Past Medical History Surgeries: Abdominal, Adenoidectomy, Tonsillectomy Pneumonia, Emphysema Currently Using CPAP: No Currently Using BIPAP: No Hypertension Sexually Transmitted Disease: No HIV/AIDS: No Hemorrhoids, Hepatitis, Cirrhosis Degenerate Disk Disease Loss of Vision: Denies Hearing Impairment: Denies Rectal, Lymphoma Did You Recieve Any Treatments: Yes What Type of Treatment Did You: Chemotherapy, Radiation Anxiety, Depression Blood Disorders: Yes (ANEMIA, blood dyscrasias related to lymphoma, protein S deficiency) Adverse Reaction/Blood Tranf: No Past medical history 1. Non-Hodgkin's lymphoma, currently receiving antibody treatment 2. Pneumonia with associated ARDS earlier this year 3. Chronic hepatitis C 4. Protein S deficiency 5. Tobaccoism Past surgical history 1. Inguinal hernia repair 2. Tonsillectomy 3. Biopsy of abdominal mass Family Medical History Abdominal aortic aneurysm Alcoholism Aphasia Cancer Cancer of colon Cataract Chest pain Congestive heart failure Coronary thrombosis 09 BROTHER 09 BROTHER 09 BROTHER 09 BROTHER 09 SISTER 09 SISTER 09 SISTER Dementia Dysphagia Family history: Allergy Family history: Alzheimer's disease Family history: Cardiovascular disease Family history: Coronary thrombosis Family history: Gastrointestinal disease Family history: Thyroid disorder Heart disease Hereditary disease History of drug abuse Kidney disease Myocardial infarction 09 BROTHER Psychotic disorder Seizure disorder Stroke 09 BROTHER No Family History of: Richard's disease Congenital heart disease Cystic fibrosis Family history: Arthritis Family history: Asthma Family history: Breast disease Family history: Diabetes mellitus Family history: Glaucoma Family history: Hypertension Family history: Osteoporosis Headache Hearing loss History of - anemia History of - respiratory disease Human immunodeficiency virus (HIV) seropositivity Hypercholesterolemia Infertile Malignant neoplasm of lung Parkinson's disease Prostate cancer Tuberculosis Visual impairment No Pertinent Family Hx Review of Systems Constitutional: see HPI Gastrointestinal: abdominal pain Physical Exam Physical Exam Vital Signs Vital Signs - First Documented 03/14/22 08:35 Temp 36.0 Pulse 79 Resp 16 B/P (MAP) 167/85 (112) Pulse Ox 98 O2 Delivery Room Air Capillary Refill : Less Than 3 Seconds Height, Weight, BMI Height: 6'0.00" Weight: 220lbs. 0.0oz. 99.928609sd; 27.00 BMI Method:Stated General Appearance: No Apparent Distress, Chronically ill Eyes: Right Eye Normal Inspection, Right Eye PERRL HEENT: PERRL/EOMI, Normal ENT Inspection, Pharynx Normal, Moist Mucous Membrane s Neck: Full Range of Motion, Normal Inspection, Non Tender Respiratory: Chest Non Tender, Lungs Clear, Normal Breath Sounds, No Accessory Muscle Use, No Respiratory Distress Cardiovascular: Regular Rate, Rhythm, No Edema, No Gallop, No JVD, No Murmur, Normal Peripheral Pulses Gastrointestinal: No Organomegaly, No Pulsatile Mass, Soft, Abnormal Bowel Sounds Back: Normal Inspection, No CVA Tenderness, No Vertebral Tenderness Extremity: Normal Capillary Refill, Normal Inspection, Normal Range of Motion, Non Tender, No Calf Tenderness, No Pedal Edema Neurologic/Psychiatric: Alert, Oriented x3, No Motor/Sensory Deficits, Normal Mood/Affect Skin: Normal Color, Warm/Dry Lymphatic: No Adenopathy Results Results/Procedures Labs Laboratory Tests 03/14/22 08:40 Patient resulted labs reviewed. Assessment/Plan Admission Diagnosis Assessment: Closed-loop bowel obstruction requiring emergent surgery History of multiple cancers History of abdominal surgeries Lymphoma NIMA Hyponatremia Hypokalemia Plan: ICU Pain control Monitor closely Admission Status: Inpatient Order (span 2 midnights) Reason for Inpatient Admission: Bowel obstruction MIGUEL MARROQUIN DO Mar 14, 2022 15:04
[2022-03-14] MEDS: morphine INJ 4 MG/ML 1 ML (VIAL/SYRINGE) IVP PRN ×2 (15:52→19:37)
[2022-03-14] MEDS: LACTATED RINGERS 1,000 ML IV SCH ×2 (15:53→17:07)
[2022-03-14] MEDS: HYDROcodone/APAP 5 MG/325 MG (LORTAB) TAB PO PRN (22:25)
[2022-03-15] VITALS (27 sets, daily range): BP systolic 75–158; BP diastolic 42–100
[2022-03-15] MEDS: morphine INJ 4 MG/ML 1 ML (VIAL/SYRINGE) IVP PRN ×5 (00:15→15:19)
[2022-03-15] MEDS: ceFAZolin 2 GM IV Premixed 50 ML IV SCH ×2 (00:16→12:20)
[2022-03-15] MEDS: LACTATED RINGERS 1,000 ML IV SCH ×2 (03:03→10:22)
--- NOTE | 2022-03-15 03:21 | OPERATIVE REPORT ---
DATE OF SERVICE: 03/14/2022 PREOPERATIVE DIAGNOSES: Nausea and vomiting, closed loop small bowel obstruction. POSTOPERATIVE DIAGNOSIS: Closed loop small bowel obstruction. PROCEDURE: Exploratory laparotomy with release of small bowel obstruction. SURGEON: Maxi Marinelli DO ANESTHESIA: General. ESTIMATED BLOOD LOSS: Minimal. COMPLICATIONS: None. INDICATIONS: The patient is a 71-year-old male, who presented with 3 to 4 days of nausea and vomiting. He was seen and evaluated in the Emergency Department and had a CT scan, which demonstrated findings consistent with a closed loop small bowel obstruction. He understands risks and benefits of procedure and wished to proceed. Consent was signed in the chart. DESCRIPTION OF PROCEDURE: The patient was taken to the operating suite. He was prepped and draped in sterile fashion. Surgical pause was performed. Midline incision was made. With a 15 blade scalpel, cautery was used to dissect down through subcutaneous tissues and the fascia was divided and the abdomen was entered. Small bowel was dilated. Small bowel was then ran encountering an adhesion, which was causing a closed loop bowel obstruction. This was then divided. The small bowel was then ran distally all the way to the ileocecal valve and then proximally to the ligament of Treitz, noting no other pathology after the adhesion was released. Pelvis had normal anatomy, did not see any other abnormalities. The liver had smooth contour and the stomach had no other abnormality. The NG tube was within the stomach. The colon had normal appearance. The abdomen was then irrigated with copious amounts of irrigation and suction. The fascia was then closed using 1-0 looped PDS in a running fashion. The skin was then closed with vikash. The area was washed and dried and sterile bandages were applied. The patient tolerated procedure well without any complications. He was taken to recovery room in stable condition. Job ID: [id number] DocumentID: [id number] Dictated Date: 03/14/2022 21:46:19 Hospitalist Nocturnist Physician Date: 03/15/2022 03:20:10 Dictated By: MAXI MARINELLI DO
[2022-03-15 04:28] LABS: HEMOGLOBIN 10.5 g/dL (13.3-17.7); MEAN PLATELET VOLUME 9.2 fL (9.0-12.2); WHITE BLOOD COUNT 4.5 10^3/uL (4.3-11.0)
[2022-03-15 04:40] LABS: ALBUMIN 3.5 GM/DL (3.2-4.5)
[2022-03-15 04:41] LABS: CALCIUM 8.7 MG/DL (8.5-10.1)
[2022-03-15 04:42] LABS: TOTAL PROTEIN 6.1 GM/DL (6.4-8.2)
[2022-03-15 04:44] LABS: BILIRUBIN,TOTAL 0.8 MG/DL (0.1-1.0)
[2022-03-15 04:46] LABS: CREATININE SERUM 1.42 MG/DL (0.60-1.30)
--- NOTE | 2022-03-15 09:02 | Physical Therapy Evaluation ---
PT Evaluation-General Medical Diagnosis Admission Date Medical Diagnosis: bowel obstruction, post ex lap Onset Date: Mar 14, 2022 Therapy Diagnosis Therapy Diagnosis: impaired mobility Height/Weight Height (Feet): 6 Height (Inches): 0.00 Weight (Pounds): 220 Weight (Ounces): 0.0 Precautions Precautions/Isolations: Standard Precautions Weight Bear Status Right Lower Extremity: Right Weight Bearing/Tolerated Left Lower Extremity: Left Weight Bearing/Tolerated Referral Physician: Yves Reason for Referral: Evaluation/Treatment Medical History Additional Medical History Past Medical History Surgeries: Abdominal, Adenoidectomy, Tonsillectomy Pneumonia, Emphysema Currently Using CPAP: No Currently Using BIPAP: No Hypertension Sexually Transmitted Disease: No HIV/AIDS: No Hemorrhoids, Hepatitis, Cirrhosis Degenerate Disk Disease Loss of Vision: Denies Hearing Impairment: Denies Rectal, Lymphoma Did You Recieve Any Treatments: Yes What Type of Treatment Did You: Chemotherapy, Radiation Anxiety, Depression Blood Disorders: Yes (ANEMIA, 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 4-Ydyosdanum-egdzufn completes the activity by him/herself with no assistance from a helper. 5-Set-up or Clean-up Assistance-helper sets up or cleans up; patient completes activity. [place] assists only prior to or following the activity. 4-Supervision or Touching Assistance-helper provides verbal cues and/or touching/steadying and/or contact guard assistance as patient completes activity. Assistance may be provided throughout the activity or intermittently. 3-Partial/Moderate Assistance-helper does LESS THAN HALF the effort. [place] lifts, holds or supports trunk or limbs, but provides less than half the effort. 2-Substantial/Maximal Assistance-helper does MORE THAN HALF the effort. [place] lifts or holds trunk or limbs and provides more than half the effort. 8-Bsywiucaw-djmnuj does ALL the effort. Patient does none of the effort to complete the activity. Or, the assistance of 2 or more helpers is required for the patient to complete the activity. If activity was not attempted, code reason: 7-Patient Refused. 9-Not Applicable-not attempted and the patient did not perform the activity before the current illness, exacerbation or injury. 10-Not Attempted due to Environmental Limitations-(lack of equipment, weather restraints, etc.). 88-Not Attempted due to Medical Conditions or Safety Concerns. Bed Mobility: 6 Transfers (B,C,W/C): 6 Gait: 6 Stairs: 6 Indoor Mobility (Ambulation): Independent Stairs: Independent single point cane PT Evaluation-Current Subjective Patient in bed pre tx, agrees to PT, has 8/10 pain in abdomen, states he has already had pain meds. Pt/Family Goals to be independent at home Objective Patient Orientation: Person, Place, Situation Attachments: NG Tube, SCD's, Oxygen, Dang Catheter, IV ROM/Strength ROM Lower Extremities WNL Strength Lower Extremities grossly 3+/5 BLE Sensory Vision: Functional Hearing: Functional Transfers Roll Left to Right (QC): 2 Sit to Lying (QC): 2 Lying to Sitting/Side of Bed(Q: 2 Sit to Stand (QC): 4 after standing patient is able to take a couple of steps toward the head of the bed with CGA Balance Sitting Static: Good Sitting Dynamic: Good Standing Static: Good Standing Dynamic: Good Treatment standing exercises x10 (HR, mini-squats) Assessment/Needs Patient in bed post tx with nurse call, phone, tray, all needs met. Patient has impaired mobility and severe pain with supine <-> sit Rehab Potential: Fair PT Remedial [place] Goals Mcc Goals PT Mcc Goals Time Frame: Mar 22, 2022 Roll Left & Right (QC): 4 Sit to Lying (QC): 4 Lying-Sitting on Side/Bed(QC): 4 Sit to Stand (QC): 6 Chair/Zwo-db-Gwmsx Xfer(QC): 6 Walk 10 feet (QC): 6 Walk 50ft with 2 Turns (QC): 6 Walk 150 ft (QC): 6 PT Plan Problem List Problem List: Activity Tolerance, Functional Strength, Safety, Balance, Gait, Transfer, Bed Mobility, ROM Treatment/Plan Treatment Plan: Continue Plan of Care Treatment Plan: Bed Mobility, Education, Functional Activity Sofia, Functional Strength, Gait, Safety, Therapeutic Exercise, Transfers Treatment Duration: Mar 22, 2022 Frequency: 6 times per week Estimated Hrs Per Day: .25 hour per day Patient and/or Family Agrees t: Yes Safety Risks/Education Patient Education: Correct Positioning, Safety Issues Teaching Recipient: Patient Teaching Methods: Demonstration, Discussion Response to Teaching: Reinforcement Needed Discharge Recommendations Plan Patient will perform bed mobility and transfer training, balance and endurance training, functional strengthening, stair training, gait training, and education, to improve functional mobility and independence at home. Therapy Discharge Recommendati: Home & Family, Post Acute PT Time/GCodes Time In: 813 Time Out: 830 Total Billed Treatment Time: 17 Total Billed Treatment 1 visit OSCAR OTTO IZAGUIRRE PT Mar 15, 2022 09:02
[2022-03-15] MEDS ORDERED: NS IV 500 ML 500 ML IV PRN (09:15)
[2022-03-15] MEDS: NICOTINE 21 MG (NICODERM) PATCH TD SCH (09:22)
[2022-03-15] MEDS: HYDROcodone/APAP 5 MG/325 MG (LORTAB) TAB PO PRN ×2 (09:26→20:49)
[2022-03-15] MEDS ORDERED: POTASSIUM CL 10MEQ/50ML IVPB 50 ML IV ONE (09:45)
[2022-03-15] MEDS: POTASSIUM CL 10MEQ/50ML IVPB 50 ML IV SCH ×5 (10:22→15:18)
--- NOTE | 2022-03-15 11:35 | Progress Note ---
Subjective Subjective/Events-last exam Patient states that he is feeling better. Denies any flatus. Pain is controlled with IV medication. States that he has not been able to sleep since he has been here. Review of Systems Pulmonary: No Dyspnea, No Cough Cardiovascular: No: Chest Pain, Palpitations Gastrointestinal: Abdominal Pain Neurological: Weakness, Incoordination Focused Exam Lactate Level 03/14/22 11:47: Lactic Acid Level 0.69 Objective Exam Last Set of Vital Signs Vital Signs Date Time Temp Pulse Resp B/P (MAP) Pulse Ox O2 Delivery O2 Flow Rate FiO2 03/15/22 11:00 90 38 101/70 (80) 97 Nasal Cannula 2.00 03/15/22 07:00 37.0 Capillary Refill : Less Than 3 Seconds I&O Intake and Output 03/15/22 00:00 Intake Total 4200 ml Output Total 1375 ml Balance 2825 ml Intake Oral 0 ml IV Total 4200 ml Output Urine Total 1250 ml Gastric Drainage Total 125 ml Daily Weight Change No General: Alert, Oriented X3 Lungs: Clear to Auscultation, Normal Air Movement Heart: Regular Rate, No Murmurs Abdomen: Soft, Other (no rebound or guarding) Results/Procedures Lab Laboratory Tests 03/14/22 11:47: Lactic Acid Level 0.69 03/15/22 04:00: White Blood Count 4.5, Red Blood Count 3.06L, Hemoglobin 10.5L, Hematocrit 29L, Mean Corpuscular Volume 95, Mean Corpuscular Hemoglobin 34, Mean Corpuscular Hemoglobin Concent 36, Red Cell Distribution Width 14.8H, Platelet Count 120L, Mean Platelet Volume 9.2, Percent Immature Platelet Fraction 2.3, Sodium Level 132L, Potassium Level 3.0L, Chloride Level 85L, Carbon Dioxide Level 34H, Anion Gap 13, Blood Urea Nitrogen 13, Creatinine 1.42H, Estimat Glomerular Filtration Rate 53, BUN/Creatinine Ratio 9, Glucose Level 96, Calcium Level 8.7, Corrected Calcium 9.1, Total Bilirubin 0.8, Aspartate Amino Transf (AST/SGOT) 17, Alanine Aminotransferase (ALT/SGPT) 9, Alkaline Phosphatase 53, Total Protein 6.1L, Albumin 3.5 Assessment/Plan Assessment/Plan (1) Small bowel obstruction Status: Acute Assessment & Plan: 03/15: POD #1, NPO (2) Acute kidney failure Status: Acute Assessment & Plan: 03/15: IVFs, will continue to monitor, likely prerenal Qualifiers: Qualified Codes: N17.9 - Acute kidney failure, unspecified (3) Hyponatremia Status: Acute Assessment & Plan: 03/15: Likely prerenal, will monitor with fluids (4) Hypokalemia Status: Acute Assessment & Plan: 03/15: Started on ICU electrolyte protocol (5) Non Hodgkin's lymphoma Status: Acute Qualifiers: Qualified Codes: C85.90 - Non-Hodgkin lymphoma, unspecified, unspecified site STAR MAYES MD Mar 15, 2022 11:35
[2022-03-15] MEDS ORDERED: TRZ50T PO (14:27)
[2022-03-15] MEDS ORDERED: [UNRECOGNIZED DRUG - CODE] PO (14:27)
[2022-03-15] MEDS ORDERED: TMSL.4C PO (14:27)
[2022-03-15] MEDS ORDERED: FINA5TAB6 PO (14:27)
[2022-03-15] MEDS ORDERED: SULF-221 PO (14:27)
[2022-03-15] MEDS ORDERED: MTP25TSR PO (14:27)
--- NOTE | 2022-03-15 15:24 | Progress Note - Surgery ---
Subjective Date Seen by a Provider: Mar 15, 2022 Time Seen by a Provider: 15:16 Subjective/Events-last exam Patient is s/p exploratory laparotomy and release of closed loop small bowel obstruction. Patient pain controlled. Ng tube in place. No bowel function. Denies nausea, vomiting. Incision appears to be healing well. Appropriate urine output was also noted today. Focused Exam Lactate Level 03/14/22 11:47: Lactic Acid Level 0.69 Objective Exam Vital Signs Date Time Temp Pulse Resp B/P (MAP) Pulse Ox O2 Delivery O2 Flow Rate FiO2 03/15/22 14:00 86 14 116/71 (86) 98 Nasal Cannula 2.00 03/15/22 13:00 96 19 108/70 (83) 97 Nasal Cannula 2.00 03/15/22 12:45 95 03/15/22 12:29 Nasal Cannula 2.00 03/15/22 12:00 36.9 03/15/22 12:00 90 16 121/78 (92) 97 Nasal Cannula 2.00 03/15/22 11:00 90 38 101/70 (80) 97 Nasal Cannula 2.00 03/15/22 10:00 84 13 95/67 (76) 97 Nasal Cannula 2.00 03/15/22 09:00 90 110/68 (82) 96 Nasal Cannula 2.00 03/15/22 08:15 95 Nasal Cannula 2.00 03/15/22 08:00 Nasal Cannula 2.00 03/15/22 08:00 85 19 125/70 (88) Nasal Cannula 2.00 03/15/22 07:41 89 03/15/22 07:00 92 16 103/61 (75) Nasal Cannula 2.00 03/15/22 07:00 37.0 03/15/22 06:00 87 23 100/67 (78) Nasal Cannula 2.00 03/15/22 05:22 87 13 101/66 (78) Nasal Cannula 2.00 03/15/22 05:03 82 19 86/56 (66) Nasal Cannula 2.00 03/15/22 04:18 OxyMask 3.00 03/15/22 04:00 92 13 82/55 (62) Nasal Cannula 2.00 03/15/22 03:30 85 12 85/58 (70) Nasal Cannula 2.00 03/15/22 02:45 91 17 91/59 (70) Nasal Cannula 2.00 03/15/22 02:00 87 9 87/57 (66) Nasal Cannula 2.00 03/15/22 01:00 85 20 84/56 (65) Nasal Cannula 2.00 03/15/22 01:00 85 03/15/22 00:23 92 18 98/71 (80) Nasal Cannula 2.00 03/15/22 00:00 86 12 75/42 (51) Nasal Cannula 2.00 03/15/22 00:00 OxyMask 3.00 03/14/22 23:34 92 18 88/54 (68) Nasal Cannula 2.00 03/14/22 23:00 89 17 87/52 (67) Nasal Cannula 2.00 03/14/22 22:00 92 9 89/57 (67) Nasal Cannula 2.00 03/14/22 21:00 99 26 91/63 (75) Nasal Cannula 2.00 03/14/22 20:07 87 9 100/59 (73) Nasal Cannula 2.00 03/14/22 20:00 OxyMask 3.00 03/14/22 19:30 90 18 92/49 (62) 96 Nasal Cannula 2.00 03/14/22 19:21 83 87/57 (69) 95 Nasal Cannula 2.00 03/14/22 19:19 37.1 03/14/22 19:00 80 03/14/22 18:00 95 14 96/61 (73) 98 Nasal Cannula 2.00 03/14/22 17:00 94 16 101/80 (87) 98 Nasal Cannula 2.00 03/14/22 16:00 86 20 138/97 (111) 97 Nasal Cannula 2.00 03/14/22 15:30 Nasal Cannula 2.00 03/14/22 15:19 36.4 I & O 03/15/22 07:00 Intake Total 5450 ml Output Total 1925 ml Balance 3525 ml Capillary Refill : Less Than 3 Seconds General Appearance: No Apparent Distress, Chronically ill HEENT: PERRL/EOMI, Normal ENT Inspection, Pharynx Normal, Moist Mucous Membranes Neck: Full Range of Motion, Normal Inspection, Non Tender Respiratory: Chest Non Tender, No Accessory Muscle Use, No Respiratory Distress Cardiovascular: Regular Rate, Rhythm, No JVD, Normal Peripheral Pulses Gastrointestinal: soft, distended (minimal), tenderness (Generalized lower abdominal tenderness with palpation, slight blood at incision, other pereira no signs of infection) Extremity: Normal Capillary Refill, Normal Inspection, Normal Range of Motion, Non Tender, No Calf Tenderness, No Pedal Edema Neurologic/Psychiatric: Alert, Oriented x3, No Motor/Sensory Deficits, Normal Mood/Affect Skin: Normal Color, Warm/Dry Lymphatic: No Adenopathy Results Lab Laboratory Tests 03/15/22 04:00: White Blood Count 4.5, Red Blood Count 3.06L, Hemoglobin 10.5L, Hematocrit 29L, Mean Corpuscular Volume 95, Mean Corpuscular Hemoglobin 34, Mean Corpuscular Hemoglobin Concent 36, Red Cell Distribution Width 14.8H, Platelet Count 120L, Mean Platelet Volume 9.2, Percent Immature Platelet Fraction 2.3, Sodium Level 132L, Potassium Level 3.0L, Chloride Level 85L, Carbon Dioxide Level 34H, Anion Gap 13, Blood Urea Nitrogen 13, Creatinine 1.42H, Estimat Glomerular Filtration Rate 53, BUN/Creatinine Ratio 9, Glucose Level 96, Calcium Level 8.7, Corrected Calcium 9.1, Total Bilirubin 0.8, Aspartate Amino Transf (AST/SGOT) 17, Alanine Aminotransferase (ALT/SGPT) 9, Alkaline Phosphatase 53, Total Protein 6.1L, Albumin 3.5 Microbiology 03/14/22 Blood Culture - Preliminary, Resulted No growth 03/14/22 Urine Culture - Final, Complete Strep anginosus Assessment/Plan Assessment/Plan Assessment/Plan nausea and vomiting closed loop small bowel obstruction hepatitis s/p ex lap c release of small bowel obstruction hypokalemia Urine output today was appropriate, may remove carrero catheter. await bowel function Incentive spirometer Replace electrolytes NPO IV fluids MAXI CHEN DO Mar 15, 2022 15:24
[2022-03-15] MEDS: ONDANSETRON 4 MG/2 ML (SDV) Z0FRAN IVP PRN (17:34)
[2022-03-15] MEDS: ZOLPIDEM 5 MG (AMBIEN) TAB PO SCH (20:44)
[2022-03-15] MEDS ORDERED: diphenhydrAMINE 50 MG/ML INJ (BENADRYL) IVP ONE (23:15)
[2022-03-15] MEDS ORDERED: diphenhydrAMINE 50 MG/ML INJ (BENADRYL) ONE (23:22)
[2022-03-16] VITALS (16 sets, daily range): BP systolic 105–161; BP diastolic 68–94
[2022-03-16 04:54] LABS: HEMOGLOBIN 9.7 g/dL (13.3-17.7); MEAN PLATELET VOLUME 8.9 fL (9.0-12.2)
[2022-03-16 04:55] LABS: BASOPHILS % (AUTO) 0 % (0-10); EOSINOPHILS # (AUTO) 0.1 10^3/uL (0.0-0.3); EOSINOPHILS % (AUTO) 1 % (0-10); HEMATOCRIT 27 % (40-54); LYMPHOCYTES # (AUTO) 0.4 10^3/uL (1.0-4.0); LYMPHOCYTES % (AUTO) 8 % (12-44); MEAN CORPUSCULAR HEMOGLOBIN 35 pg (25-34); MEAN CORPUSCULAR HGB CONC 36 g/dL (32-36); MEAN CORPUSCULAR VOLUME 96 fL (80-99); MONOCYTES # (AUTO) 0.5 10^3/uL (0.0-1.0); MONOCYTES % (AUTO) 10 % (0-12); NEUTROPHILS # (AUTO) 3.6 10^3/uL (1.8-7.8); NEUTROPHILS % (AUTO) 78 % (42-75); PLATELET COUNT 130 10^3/uL (130-400); WHITE BLOOD COUNT 4.6 10^3/uL (4.3-11.0)
[2022-03-16 05:05] LABS: ALBUMIN 3.4 GM/DL (3.2-4.5); POTASSIUM 3.4 MMOL/L (3.6-5.0)
[2022-03-16 05:07] LABS: TOTAL PROTEIN 5.9 GM/DL (6.4-8.2)
[2022-03-16 05:09] LABS: BILIRUBIN,TOTAL 1.1 MG/DL (0.1-1.0)
[2022-03-16 05:10] LABS: PHOSPHORUS 2.2 MG/DL (2.3-4.7)
[2022-03-16 05:11] LABS: CREATININE SERUM 0.8 MG/DL (0.60-1.30)
[2022-03-16 05:13] LABS: MAGNESIUM 1.9 MG/DL (1.6-2.4)
[2022-03-16] MEDS ORDERED: KCL 20 MEQ TAB (K-DUR) PO SCH (06:00)
[2022-03-16] MEDS ORDERED: MAGNESIUM 1 GM/100 ML IVPB 100 ML IV SCH (06:00)
[2022-03-16] MEDS ORDERED: POTASSIUM CL 10MEQ/50ML IVPB 50 ML IV SCH (06:00)
[2022-03-16] MEDS: LACTATED RINGERS 1,000 ML IV SCH ×4 (07:00→23:42)
[2022-03-16] MEDS: POTASSIUM CL 10MEQ/50ML IVPB 50 ML IV SCH ×4 (07:50→11:00)
--- NOTE | 2022-03-16 08:06 | Progress Note - Surgery ---
VALARIE NAIR 03/16/22 0806: Subjective Date Seen by a Provider: Mar 16, 2022 Time Seen by a Provider: 08:02 Subjective/Events-last exam Patient reports mild pain around healing incision. He also states that pain medication is helping and he is feeling better today. Reports flatus and urination x4 since yesterday. Removed NG tube. Focused Exam Lactate Level 03/14/22 11:47: Lactic Acid Level 0.69 Objective Exam Vital Signs Date Time Temp Pulse Resp B/P (MAP) Pulse Ox O2 Delivery O2 Flow Rate FiO2 03/16/22 07:58 100 03/16/22 07:00 100 17 119/94 (102) 96 Nasal Cannula 2.00 03/16/22 06:00 94 22 139/80 (99) 96 Nasal Cannula 2.00 03/16/22 05:00 103 19 130/78 (100) 96 Nasal Cannula 2.00 03/16/22 04:00 93 37 124/69 (93) 94 Nasal Cannula 2.00 03/16/22 03:47 Nasal Cannula 2.00 03/16/22 03:00 89 16 133/68 (85) 92 Nasal Cannula 2.00 03/16/22 02:00 99 16 110/69 (84) 95 Nasal Cannula 2.00 03/16/22 01:00 100 16 117/76 (92) 93 Nasal Cannula 2.00 03/16/22 01:00 100 03/16/22 00:00 Nasal Cannula 2.00 03/16/22 00:00 101 14 105/70 (75) 99 Nasal Cannula 2.00 03/15/22 23:00 102 132/75 (87) 98 Nasal Cannula 2.00 03/15/22 22:00 135 31 132/95 (107) 88 Nasal Cannula 2.00 03/15/22 21:10 114 158/88 (105) 94 Nasal Cannula 2.00 03/15/22 20:04 Nasal Cannula 2.00 03/15/22 20:00 114 22 132/87 (102) 93 Nasal Cannula 2.00 03/15/22 20:00 36.6 03/15/22 19:00 105 03/15/22 19:00 100 28 142/100 (114) 98 Nasal Cannula 2.00 03/15/22 18:00 106 12 131/83 (99) 97 Nasal Cannula 2.00 03/15/22 17:00 97 15 135/76 (95) 95 Nasal Cannula 2.00 03/15/22 16:00 98 24 130/82 (98) 96 Nasal Cannula 2.00 03/15/22 16:00 37.4 03/15/22 16:00 Nasal Cannula 2.00 03/15/22 15:00 96 18 132/73 (92) 97 Nasal Cannula 2.00 03/15/22 14:00 86 14 116/71 (86) 98 Nasal Cannula 2.00 03/15/22 13:00 96 19 108/70 (83) 97 Nasal Cannula 2.00 03/15/22 12:45 95 03/15/22 12:29 Nasal Cannula 2.00 03/15/22 12:00 36.9 03/15/22 12:00 90 16 121/78 (92) 97 Nasal Cannula 2.00 03/15/22 11:00 90 38 101/70 (80) 97 Nasal Cannula 2.00 03/15/22 10:00 84 13 95/67 (76) 97 Nasal Cannula 2.00 03/15/22 09:00 90 110/68 (82) 96 Nasal Cannula 2.00 03/15/22 08:15 95 Nasal Cannula 2.00 I & O 03/16/22 07:00 Intake Total 1300 ml Output Total 1300 ml Balance 0 ml Capillary Refill : Less Than 3 Seconds General Appearance: No Apparent Distress, Chronically ill HEENT: PERRL/EOMI, Normal ENT Inspection, Pharynx Normal, Moist Mucous Membranes Neck: Full Range of Motion, Normal Inspection, Non Tender Respiratory: Chest Non Tender, No Accessory Muscle Use, No Respiratory Distress Cardiovascular: Regular Rate, Rhythm, No JVD, Normal Peripheral Pulses Gastrointestinal: soft, distended (minimal), tenderness (Generalized lower abdominal tenderness with palpation, mild pain at incision, other pereira no signs of infection) Extremity: Normal Capillary Refill, Normal Inspection, Normal Range of Motion, Non Tender, No Calf Tenderness, No Pedal Edema Neurologic/Psychiatric: Alert, Oriented x3, No Motor/Sensory Deficits, Normal Mood/Affect Skin: Normal Color, Warm/Dry Lymphatic: No Adenopathy Results Lab Laboratory Tests 03/16/22 04:45: White Blood Count 4.6, Red Blood Count 2.81L, Hemoglobin 9.7L, Hematocrit 27L, Mean Corpuscular Volume 96, Mean Corpuscular Hemoglobin 35H, Mean Corpuscular Hemoglobin Concent 36, Red Cell Distribution Width 14.4, Platelet Count 130, Mean Platelet Volume 8.9L, Immature Granulocyte % (Auto) 2, Neutrophils (%) (Auto) 78H, Lymphocytes (%) (Auto) 8L, Monocytes (%) (Auto) 10, Eosinophils (%) (Auto) 1, Basophils (%) (Auto) 0, Neutrophils # (Auto) 3.6, Lymphocytes # (Auto) 0.4L, Monocytes # (Auto) 0.5, Eosinophils # (Auto) 0.1, Basophils # (Auto) 0.0, Immature Granulocyte # (Auto) 0.1, Percent Immature Platelet Fraction 1.5, Sodium Level 133L, Potassium Level 3.4L, Chloride Level 89L, Carbon Dioxide Level 31, Anion Gap 13, Blood Urea Nitrogen 11, Creatinine 0.80, Estimat Glomerular Filtration Rate 95, BUN/Creatinine Ratio 14, Glucose Level 81, Calcium Level 9.0, Corrected Calcium 9.5, Phosphorus Level 2.2L, Magnesium Level 1.9, Total Bilirubin 1.1H, Aspartate Amino Transf (AST/SGOT) 21, Alanine Aminotransferase (ALT/SGPT) 11, Alkaline Phosphatase 51, Total Protein 5.9L, Albumin 3.4 Microbiology 03/14/22 Blood Culture - Preliminary, Resulted No growth 03/14/22 Urine Culture - Final, Complete Strep anginosus Assessment/Plan Assessment/Plan Assessment/Plan hepatitis s/p ex lap c release of small bowel obstruction Start liquid diet and see if patient is able to tolerate. Incentive spirometer IV fluids MAXI MARINELLI DO 03/16/22 2011: Subjective Subjective/Events-last exam Patient feeling well. Passed little flatus. Urinating without difficulty. Patient without any nausea vomiting fever sweats chills shortness of breath or chest pain. Objective Exam General Appearance: No Apparent Distress, Chronically ill HEENT: PERRL/EOMI, Normal ENT Inspection Neck: Normal Inspection, Non Tender Respiratory: Chest Non Tender, No Accessory Muscle Use, No Respiratory Distress Cardiovascular: Regular Rate, Rhythm, No JVD Gastrointestinal: soft; No distended; tenderness (Minimal incisional tenderness incision is clean dry intact) Extremity: Normal Inspection, Non Tender Neurologic/Psychiatric: Alert, Oriented x3, No Motor/Sensory Deficits, Normal Mood/Affect Skin: Normal Color, Warm/Dry Lymphatic: No Adenopathy Assessment/Plan Assessment/Plan Assessment/Plan Bowel obstruction Status post exploratory laparotomy with release of small bowel obstruction Hepatitis Patient NG tube removed. Start clear liquids. Continue use incentive spirometer. Ambulate 100 feet 3 times daily. SCDs DVT prophylaxis/GI prophylaxis. Supervisory-Addendum Brief Verification & Attestation Participated in pt care: history, MDM, physical Personally performed: exam, history, MDM, supervision of care Care discussed with: Medical Student Procedures: n/a Results interpretation: Verified all documentation Verification and Attestation of Medical Student E/M Service A medical student performed and documented this service in my presence. I reviewed and verified all information documented by the medical student and made modifications to such information, when appropriate. I personally performed the physical exam and medical decision making. Maxi Marinelli, Mar 16, 2022,20:11 VALARIE NAIR Mar 16, 2022 08:06 MAXI MARINELLI DO Mar 16, 2022 20:11
[2022-03-16] MEDS: HYDROcodone/APAP 5 MG/325 MG (LORTAB) TAB PO PRN ×2 (09:13→19:08)
[2022-03-16] MEDS: NICOTINE 21 MG (NICODERM) PATCH TD SCH (09:14)
[2022-03-16] MEDS: NICOTINE PATCH REMOVAL TP SCH (09:14)
--- NOTE | 2022-03-16 11:44 | Physical Therapy Daily Note ---
PT Daily Note-Current Subjective Patient in bed pre tx, agrees to PT, has no complaints of pain at rest. Appearance Patient in bed post tx with nurse call, phone, tray, all needs met. Mental Status Patient Orientation: Person, Place, Situation Attachments: NG Tube, Oxygen, IV Transfers SCALE: Activities may be completed with or without assistive devices. 6-Jogohvwaid-qcirlex completes the activity by him/herself with no assistance from a helper. 5-Set-up or Clean-up Assistance-helper sets up or cleans up; patient completes activity. [place] assists only prior to or following the activity. 4-Supervision or Touching Assistance-helper provides verbal cues and/or touching/steadying and/or contact guard assistance as patient completes activi ty. Assistance may be provided throughout the activity or intermittently. 3-Partial/Moderate Assistance-helper does LESS THAN HALF the effort. [place] lifts, holds or supports trunk or limbs, but provides less than half the effort. 2-Substantial/Maximal Assistance-helper does MORE THAN HALF the effort. [place] lifts or holds trunk or limbs and provides more than half the effort. 9-Evybybmxf-nxpbat does ALL the effort. Patient does none of the effort to complete the activity. Or, the assistance of 2 or more helpers is required for the patient to complete the activity. If activity was not attempted, code reason: 7-Patient Refused. 9-Not Applicable-not attempted and the patient did not perform the activity before the current illness, exacerbation or injury. 10-Not Attempted due to Environmental Limitations-(lack of equipment, weather restraints, etc.). 88-Not Attempted due to Medical Conditions or Safety Concerns. Roll Left & Right (QC): 6 Sit to Lying (QC): 6 Lying to Sitting/Side of Bed(Q: 6 Sit to Stand (QC): 4 Weight Bearing Right Lower Extremity: Right Weight Bearing/Tolerated Left Lower Extremity: Left Weight Bearing/Tolerated Gait Training Distance: 150' Walk 10 feet (QC): 4 Walk 50 ft with 2 Turns(QC): 4 Walk 150 ft (QC): 4 Gait Persons Needed: 1 Gait Assistive Device: None Patient ambulates back and forth in his room for about 150' without an assistive device, no LOB or unsteadiness or dizziness. Took off O2 for ambulation O2 started at 96%, went down to 90% with ambulation, came back up to 92% very quickly after sitting. Nasal canula put back on when done with ambulation. Treatments bed mobility and transfers, ambulation Assessment Current Status: Fair Progress improving endurance and ambulation PT [facility] Goals O[place]elter Goals PT [place] Goals Time Frame: Mar 22, 2022 Roll Left & Right (QC): 4 Sit to Lying (QC): 4 Lying-Sitting on Side/Bed(QC): 4 Sit to Stand (QC): 6 Chair/Xpi-na-Ehymg Xfer(QC): 6 Walk 10 feet (QC): 6 Walk 50ft with 2 Turns (QC): 6 Walk 150 ft (QC): 6 PT Plan Problem List Problem List: Activity Tolerance, Functional Strength, Safety, Balance, Gait, Transfer, ROM Treatment/Plan Treatment Plan: Continue Plan of Care Treatment Plan: Bed Mobility, Education, Functional Activity Sofia, Functional Strength, Gait, Safety, Therapeutic Exercise, Transfers Treatment Duration: Mar 22, 2022 Frequency: 6 times per week Estimated Hrs Per Day: .25 hour per day Patient and/or Family Agrees t: Yes Safety Risks/Education Patient Education: Gait Training, Transfer Techniques, Correct Positioning, Safety Issues Teaching Recipient: Patient Teaching Methods: Demonstration, Discussion Response to Teaching: Reinforcement Needed Time/GCodes Time In: 1103 Time Out: 1119 Total Billed Treatment Time: 16 Total Billed Treatment 1 visit FA 16' OTTO IRVIN PT Mar 16, 2022 11:44
[2022-03-16] MEDS ORDERED: TRIM/SULFAMETH 160/800 (SEPTRA DS) TAB PO SCH (16:00)
[2022-03-16] MEDS: ZOLPIDEM 5 MG (AMBIEN) TAB PO SCH (19:02)
[2022-03-16] MEDS ORDERED: KCL 20 MEQ TAB (K-DUR) PO ONE (20:15)
--- NOTE | 2022-03-16 20:17 | Progress Note ---
Subjective Subjective/Events-last exam Patient feeling better. States that he has passed some gas but "nothing to write home about". NPO. Pain well controlled Review of Systems General: Malaise Gastrointestinal: Abdominal Pain Neurological: Weakness Focused Exam Lactate Level 03/14/22 11:47: Lactic Acid Level 0.69 Objective Exam Last Set of Vital Signs Vital Signs Date Time Temp Pulse Resp B/P (MAP) Pulse Ox O2 Delivery O2 Flow Rate FiO2 03/16/22 19:31 37.9 103 20 161/90 (113) 93 Room Air 03/16/22 12:00 2.00 Capillary Refill : Less Than 3 Seconds I&O Intake and Output 03/16/22 00:00 Intake Total 2550 ml Output Total 1850 ml Balance 700 ml Intake Oral 250 ml IV Total 2300 ml Output Urine Total 1700 ml Gastric Drainage Total 150 ml General: Alert, Oriented X3, Cooperative, No Acute Distress Lungs: Clear to Auscultation, Normal Air Movement Heart: Regular Rate, No Murmurs Abdomen: Soft, Other (mild incisional ttp, decreased bowel sounds) Extremities: No Edema, No Tenderness/Swelling Neuro: Normal Speech, Sensation Intact, Cranial Nerves 3-12 NL Results/Procedures Lab Laboratory Tests 03/16/22 04:45: White Blood Count 4.6, Red Blood Count 2.81L, Hemoglobin 9.7L, Hematocrit 27L, Mean Corpuscular Volume 96, Mean Corpuscular Hemoglobin 35H, Mean Corpuscular Hemoglobin Concent 36, Red Cell Distribution Width 14.4, Platelet Count 130, Mean Platelet Volume 8.9L, Immature Granulocyte % (Auto) 2, Neutrophils (%) (Auto) 78H, Lymphocytes (%) (Auto) 8L, Monocytes (%) (Auto) 10, Eosinophils (%) (Auto) 1, Basophils (%) (Auto) 0, Neutrophils # (Auto) 3.6, Lymphocytes # (Auto) 0.4L, Monocytes # (Auto) 0.5, Eosinophils # (Auto) 0.1, Basophils # (Auto) 0.0, Immature Granulocyte # (Auto) 0.1, Percent Immature Platelet Fraction 1.5, Sodium Level 133L, Potassium Level 3.4L, Chloride Level 89L, Carbon Dioxide Level 31, Anion Gap 13, Blood Urea Nitrogen 11, Creatinine 0.80, Estimat Glomerular Filtration Rate 95, BUN/Creatinine Ratio 14, Glucose Level 81, Calcium Level 9.0, Corrected Calcium 9.5, Phosphorus Level 2.2L, Magnesium Level 1.9, Total Bilirubin 1.1H, Aspartate Amino Transf (AST/SGOT) 21, Alanine Aminotransferase (ALT/SGPT) 11, Alkaline Phosphatase 51, Total Protein 5.9L, Alb umin 3.4 Microbiology 03/14/22 Blood Culture - Preliminary, Resulted No growth 03/14/22 Urine Culture - Final, Complete Strep anginosus Assessment/Plan Assessment/Plan (1) Small bowel obstruction Status: Acute Assessment & Plan: 03/15: POD #1, NPO 03/16: POD#2, NPO except meds, monitor for bowel sounds and flatus (2) Acute kidney failure Status: Resolved Assessment & Plan: 03/15: IVFs, will continue to monitor, likely prerenal Qualifiers: Qualified Codes: N17.9 - Acute kidney failure, unspecified (3) Hyponatremia Status: Resolved Assessment & Plan: 03/15: Likely prerenal, will monitor with fluids (4) Hypokalemia Status: Acute Assessment & Plan: 03/15: Started on ICU electrolyte protocol 03/16: Replaced and will repeat in AM (5) Non Hodgkin's lymphoma Status: Acute Assessment & Plan: 03/16: Notified Dr Neely of admission as patient was due for IVIG tomorrow Qualifiers: Qualified Codes: C85.90 - Non-Hodgkin lymphoma, unspecified, unspecified site STAR MAYES MD Mar 16, 2022 20:17
[2022-03-16] MEDS: TAMSULOSIN 0.4 MG (FLOMAX) CAP PO SCH (20:22)
[2022-03-16] MEDS: ONDANSETRON 4 MG/2 ML (SDV) Z0FRAN IVP PRN (20:22)
[2022-03-16] MEDS ORDERED: traZODone 50 MG (DESYREL) TAB PO SCH (21:00)
[2022-03-16] MEDS ORDERED: ENOXAPARIN 40 MG/0.4 ML (LOVENOX) SYR SC SCH (21:45)
[2022-03-16] MEDS: FAMOTIDINE 20MG/2ML IV (PEPCID) IVP SCH (21:48)
[2022-03-17 04:12] VITALS: BP 148/80
[2022-03-17 04:54] LABS: HEMOGLOBIN 9.6 g/dL (13.3-17.7); LYMPHOCYTES # (AUTO) 0.4 10^3/uL (1.0-4.0)
[2022-03-17 04:56] LABS: BASOPHILS % (AUTO) 1 % (0-10); EOSINOPHILS # (AUTO) 0.1 10^3/uL (0.0-0.3); EOSINOPHILS % (AUTO) 2 % (0-10); HEMATOCRIT 27 % (40-54); LYMPHOCYTES % (AUTO) 10 % (12-44); MEAN CORPUSCULAR HEMOGLOBIN 34 pg (25-34); MEAN CORPUSCULAR HGB CONC 36 g/dL (32-36); MEAN CORPUSCULAR VOLUME 96 fL (80-99); MEAN PLATELET VOLUME 8.9 fL (9.0-12.2); MONOCYTES # (AUTO) 0.4 10^3/uL (0.0-1.0); MONOCYTES % (AUTO) 9 % (0-12); NEUTROPHILS # (AUTO) 3.3 10^3/uL (1.8-7.8); NEUTROPHILS % (AUTO) 77 % (42-75); PLATELET COUNT 143 10^3/uL (130-400); WHITE BLOOD COUNT 4.3 10^3/uL (4.3-11.0)
[2022-03-17 05:11] LABS: ALBUMIN 3.5 GM/DL (3.2-4.5); POTASSIUM 3.7 MMOL/L (3.6-5.0)
[2022-03-17 05:14] LABS: TOTAL PROTEIN 6.1 GM/DL (6.4-8.2)
[2022-03-17 05:15] LABS: BILIRUBIN,TOTAL 1.1 MG/DL (0.1-1.0)
[2022-03-17 05:17] LABS: CREATININE SERUM 0.74 MG/DL (0.60-1.30); PHOSPHORUS 1.7 MG/DL (2.3-4.7)
[2022-03-17 05:20] LABS: MAGNESIUM 1.8 MG/DL (1.6-2.4)
--- NOTE | 2022-03-17 07:31 | Progress Note - Surgery ---
VALARIE NAIR 03/17/22 0731: Subjective Date Seen by a Provider: Mar 17, 2022 Time Seen by a Provider: 07:28 Subjective/Events-last exam Patient resting upon entering room today. Reports bowel movement earlier today. He has mild abdominal discomfort while eating but otherwise stable. Incision is dry, clean and healing. Focused Exam Lactate Level 03/14/22 11:47: Lactic Acid Level 0.69 Objective Exam Vital Signs Date Time Temp Pulse Resp B/P (MAP) Pulse Ox O2 Delivery O2 Flow Rate FiO2 03/17/22 04:12 37.5 91 18 148/80 (102) 92 Room Air 03/16/22 23:59 37.4 93 18 138/74 (95) 91 Room Air 03/16/22 20:00 Room Air 03/16/22 19:31 37.9 103 20 161/90 (113) 93 Room Air 03/16/22 15:39 37.8 101 20 156/88 (110) 94 Room Air 03/16/22 14:59 37.2 103 18 139/80 (99) 90 Room Air 03/16/22 12:35 91 03/16/22 12:00 Nasal Cannula 2.00 03/16/22 12:00 37.2 103 16 139/80 (99) 90 Room Air 03/16/22 10:00 107 11 149/87 (107) 92 Nasal Cannula 2.00 03/16/22 09:00 107 11 149/87 (107) 92 Nasal Cannula 2.00 03/16/22 08:00 Nasal Cannula 2.00 03/16/22 08:00 98 26 127/85 (99) 94 Nasal Cannula 2.00 03/16/22 07:58 100 I & O 03/17/22 07:00 Intake Total 650 ml Output Total 1300 ml Balance -650 ml Capillary Refill : Less Than 3 Seconds General Appearance: No Apparent Distress, Chronically ill HEENT: PERRL/EOMI, Normal ENT Inspection Neck: Normal Inspection, Non Tender Respiratory: Chest Non Tender, No Accessory Muscle Use, No Respiratory Distress Cardiovascular: Regular Rate, Rhythm, No JVD Gastrointestinal: soft; No distended; tenderness (Minimal incisional tenderness incision is clean dry intact) Extremity: Normal Inspection, Non Tender Neurologic/Psychiatric: Alert, Oriented x3, No Motor/Sensory Deficits, Normal Mood/Affect Skin: Normal Color, Warm/Dry Lymphatic: No Adenopathy Results Lab Laboratory Tests 03/17/22 04:45: White Blood Count 4.3, Red Blood Count 2.80L, Hemoglobin 9.6L, Hematocrit 27L, Mean Corpuscular Volume 96, Mean Corpuscular Hemoglobin 34, Mean Corpuscular Hemoglobin Concent 36, Red Cell Distribution Width 14.1, Platelet Count 143, Mean Platelet Volume 8.9L, Immature Granulocyte % (Auto) 2, Neutrophils (%) (Auto) 77H, Lymphocytes (%) (Auto) 10L, Monocytes (%) (Auto) 9, Eosinophils (%) (Auto) 2, Basophils (%) (Auto) 1, Neutrophils # (Auto) 3.3, Lymphocytes # (Auto) 0.4L, Monocytes # (Auto) 0.4, Eosinophils # (Auto) 0.1, Basophils # (Auto) 0.0, Immature Granulocyte # (Auto) 0.1, Percent Immature Platelet Fraction 1.4, Sodium Level 133L, Potassium Level 3.7, Chloride Level 92L, Carbon Dioxide Level 30, Anion Gap 11, Blood Urea Nitrogen 10, Creatinine 0.74, Estimat Glomerular Filtration Rate 97, BUN/Creatinine Ratio 14, Glucose Level 82, Calcium Level 9.0, Corrected Calcium 9.4, Phosphorus Level 1.7L, Magnesium Level 1.8, Total Bilirubin 1.1H, Aspartate Amino Transf (AST/SGOT) 21, Alanine Aminotransferase (ALT/SGPT) 12, Alkaline Phosphatase 67, Total Protein 6.1L, Albumin 3.5 Microbiology 03/14/22 Blood Culture - Preliminary, Resulted No growth 03/14/22 Urine Culture - Final, Complete Strep anginosus Assessment/Plan Assessment/Plan Assessment/Plan Bowel obstruction Status post exploratory laparotomy with release of small bowel obstruction Hepatitis Advance diet and consider discharge if tolerated. Continue use incentive spirometer. Ambulate 100 feet 3 times daily. SCDs DVT prophylaxis/GI prophylaxis. MAXI MARINELLI DO 03/17/22 0745: Subjective Subjective/Events-last exam Bowel function. Tolerating liquid diet. Pain controlled. Denies n/v fever sweats chills shortness of breath or chest pain. Objective Exam General Appearance: No Apparent Distress, Chronically ill HEENT: PERRL/EOMI, Normal ENT Inspection Neck: Normal Inspection, Non Tender, Supple Respiratory: Chest Non Tender, No Accessory Muscle Use, No Respiratory Distress Cardiovascular: Regular Rate, Rhythm, No JVD Gastrointestinal: soft; No distended; tenderness (Minimal incisional tenderness incision is clean dry intact) Extremity: Normal Inspection, Non Tender Neurologic/Psychiatric: Alert, Oriented x3, No Motor/Sensory Deficits, Normal Mood/Affect Skin: Normal Color, Warm/Dry Lymphatic: No Adenopathy Assessment/Plan Assessment/Plan Assessment/Plan Closed loop small bowel obstruction Status post exploratory laparotomy with release of small bowel obstruction Hepatitis Advance diet and consider discharge if tolerated. Continue use incentive spirometer. Ambulate 100 feet 3 times daily. SCDs DVT prophylaxis/GI prophylaxis. Supervisory-Addendum Brief Verification & Attestation Participated in pt care: history, MDM, physical Personally performed: exam, history, MDM, supervision of care Care discussed with: Medical Student Procedures: n/a Results interpretation: Verified all documentation Verification and Attestation of Medical Student E/M Service A medical student performed and documented this service in my presence. I reviewed and verified all information documented by the medical student and made modifications to such information, when appropriate. I personally performed the physical exam and medical decision making. Maxi Marinelli, Mar 17, 2022,07:45 VALARIE NAIR Mar 17, 2022 07:31 MAXI MARINELLI DO Mar 17, 2022 07:45
[2022-03-17] MEDS ORDERED: DOCU-143 PO (07:48)
[2022-03-17] MEDS ORDERED: ACHD5005 PO (07:48)
--- NOTE | 2022-03-17 07:49 | Discharge Inst-Simple/Standard ---
Discharge Inst-Standard Discharge Medications New, Converted or Re-Newed RX: Transmitted to Pharmacy Patient Instructions/Follow Up Plan of Care/Instructions/FU: 2 weeks xenia Activity as Tolerated: No Discharge Diet: Regular Diet Other Inst to Patient Follow up Appt: Make appointment for 2 week. Instructions: No lifting greater than 10 pounds. No strenuous activity. May shower in 24 hours, no tub bath or soaking. Use incentive spirometer at home as directed. No Smoking Skin/Wound Care: Keep incision clean and dry. Symptoms to Report: Appetite Changes, Extremity Discoloration, Numbness/Tingling, Swelling Increased, Bleeding Excessive, Eyesight Changes, Pain Increased, Urine Color Change, Constipation(Persistent), Fever over 101 degree F, Pain/Pressure in chest, Urinating Difficulty, Cough Up/Vomit Blood, Heart Beat Irreg/Pounding, Pain/Pressure in jaw, Vaginal Bleeding Increase, Cramps in feet or legs, Lightheadedness, Pain/Pressure in shoulder, Diarrhea(Persistent), Memory Changes Suddenly, Questions/Concerns, Weight gain consecutive days, Dizziness/Fainting, Nausea/Vomiting, Shortness of Breath, Weight gain over 2 pounds If questions or concerns contact your physician Or seek help at emergency department. MAXI CHEN DO Mar 17, 2022 07:49
[2022-03-17] MEDS: FAMOTIDINE 20MG/2ML IV (PEPCID) IVP SCH (08:22)
[2022-03-17] MEDS: HYDROcodone/APAP 5 MG/325 MG (LORTAB) TAB PO PRN (08:23)
[2022-03-17] MEDS: NICOTINE PATCH REMOVAL TP SCH (08:24)
[2022-03-17] MEDS: TAMSULOSIN 0.4 MG (FLOMAX) CAP PO SCH (08:24)
[2022-03-17] MEDS: NICOTINE 21 MG (NICODERM) PATCH TD SCH (08:25)
[2022-03-17 08:44] VITALS: BP 179/99
[2022-03-17] MEDS ORDERED: MULTIVIT W/MINERALS TAB (THERAGRAN M) PO SCH (09:00)
[2022-03-17] MEDS ORDERED: lisINopril 20 MG (PRINIVIL) TABLET PO SCH (09:00)
[2022-03-17] MEDS ORDERED: ASPIRIN 325 MG (5 GR) TABLET PO SCH (09:00)
[2022-03-17] MEDS ORDERED: FINASTERIDE (PROSCAR) 5 MG TAB PO SCH (09:00)
[2022-03-17] MEDS ORDERED: HEParin (CENTRAL IV FLUSH) 500 UNIT/5 ML SYR IV ONE (09:45)
[2022-03-17 11:09] VITALS: BP 179/99
== END 2022-03-17 10:45 | disposition home or self-care (01) | DRG 336 ==
LOC: EDUNIT# 08:35 → ER 08:36 → SDC 11:33 → ICU 11:34 → 4TH 03-16 14:01
PROVIDERS: ADMIT Surgery; ATTEND Surgery
PROC: 0DN80ZZ Release Small Intestine, Open Approach (ICD-10-PCS; principal; 2022-03-14 12:47)
DX: K56.50 Intestinal adhesions [bands], unspecified as to partial versus complete obstruction (principal); C85.90 Non-Hodgkin lymphoma, unspecified, unspecified site; E87.1 Hypo-osmolality and hyponatremia; N17.9 Acute kidney failure, unspecified; Z85.46 Personal history of malignant neoplasm of prostate; Z85.048 Personal history of other malignant neoplasm of rectum, rectosigmoid junction, and anus; Z92.3 Personal history of irradiation; Z79.82 Long term (current) use of aspirin; Z79.899 Other long term (current) drug therapy; F12.90 Cannabis use, unspecified, uncomplicated; J43.9 Emphysema, unspecified; I10 Essential (primary) hypertension; K74.60 Unspecified cirrhosis of liver; Z92.21 Personal history of antineoplastic chemotherapy; F41.9 Anxiety disorder, unspecified; F32.A Depression, unspecified; E87.6 Hypokalemia; R53.1 Weakness; Z20.822 Contact with and (suspected) exposure to COVID-19; F17.210 Nicotine dependence, cigarettes, uncomplicated; B18.2 Chronic viral hepatitis C
CPT/HCPCS: 36415; 71045; 74176; 80053; 81000; 83605; 83690; 83735; 84100; 85007; 85025; 85027; 85610; 85730; 86141; 87040; 87077; 87088; 87636; 94664

== ENCOUNTER → 2022-06-16 | Outpatient (CLI) | payer MEDICARE, MEDICAID ==
[~2022-06-16] MED LIST changes: +DOCU-143 PO; +FINA5TAB6 PO; +LEVO-55 PO; -LEVO500T81 PO; +LEVO750T PO; -LEVO750T39 PO; +MTP25TSR PO; +SULF-221 PO; +TRZ50T PO; +[UNRECOGNIZED DRUG - CODE] PO
== END | disposition home or self-care (01) ==
LOC: PREOP 05:37
PROVIDERS: ATTEND Surgery
DX: Z01.818 Encounter for other preprocedural examination (principal)

== ENCOUNTER → 2022-09-13 | Outpatient (CLI) | payer MEDICARE, MEDICAID | LOC: WOUNDCARE 12:32 | PROVIDERS: ATTEND Family Medicine | DX: C44.520 Squamous cell carcinoma of anal skin (principal); I96 Gangrene, not elsewhere classified; L98.492 Non-pressure chronic ulcer of skin of other sites with fat layer exposed; L59.9 Disorder of the skin and subcutaneous tissue related to radiation, unspecified; R60.0 Localized edema; Z92.21 Personal history of antineoplastic chemotherapy | CPT/HCPCS: 99212 ==

== ENCOUNTER → 2022-10-11 | Outpatient (CLI) | payer MEDICARE, MEDICAID | LOC: WOUNDCARE 12:13 | PROVIDERS: ATTEND Family Medicine | DX: C44.520 Squamous cell carcinoma of anal skin (principal); I96 Gangrene, not elsewhere classified; L98.492 Non-pressure chronic ulcer of skin of other sites with fat layer exposed; L59.9 Disorder of the skin and subcutaneous tissue related to radiation, unspecified; R60.0 Localized edema; Z92.21 Personal history of antineoplastic chemotherapy | CPT/HCPCS: 11042; G0463; 99213 ==

== ENCOUNTER → 2022-11-11 | Outpatient (CLI) | payer MEDICARE, MEDICAID | LOC: WOUNDCARE 11:08 | PROVIDERS: ATTEND Family Medicine | DX: L98.492 Non-pressure chronic ulcer of skin of other sites with fat layer exposed (principal); C44.520 Squamous cell carcinoma of anal skin; R60.0 Localized edema; L59.9 Disorder of the skin and subcutaneous tissue related to radiation, unspecified; Z92.21 Personal history of antineoplastic chemotherapy | CPT/HCPCS: 99212 ==

== ENCOUNTER → 2022-11-17 | Outpatient (CLI) | payer MEDICARE, MEDICAID | LOC: PREOP 16:30 | PROVIDERS: ATTEND Surgery | DX: Z01.818 Encounter for other preprocedural examination (principal) ==

== ENCOUNTER 2022-12-02 05:33 | Outpatient (CLI) | payer MEDICARE, MEDICAID ==
[~2022-12-02] VITALS: Ht 180.3 cm; Wt 84.0 kg
== END 2022-12-02 15:53 | disposition home or self-care (01) ==
LOC: PREOP 05:33
PROVIDERS: ATTEND Surgery
DX: Z01.818 Encounter for other preprocedural examination (principal)

== ENCOUNTER 2022-12-09 06:47 | Day surgery (SDC) | payer MEDICARE, MEDICAID ==
[2022-12-09] VITALS (8 sets, daily range): BP systolic 106–148; BP diastolic 58–86
[~2022-12-09] VITALS: Ht 180.3 cm; Wt 84.0 kg
[2022-12-09] MEDS ORDERED: HEParin (CENTRAL IV FLUSH) 500 UNIT/5 ML SYR ONE (06:57)
[2022-12-09] MEDS ORDERED: 0.9% SODIUM CHLORIDE PF INJ 20 ML VIAL ONE (06:57)
[2022-12-09] MEDS ORDERED: BUP/EPI 0.5% 1:200,000 (SENSORCAINE) 30 ML VIAL ONE (06:57)
[2022-12-09] MEDS ORDERED: ceFAZolin INJECTION 2,000 MG in NS (IVPB) 50 ML IV ONE (07:15)
[2022-12-09] MEDS ORDERED: LACTATED RINGERS 1,000 ML IV PRN (07:15)
[2022-12-09] MEDS ORDERED: HEParin (CENTRAL IV FLUSH) 500 UNIT/5 ML SYR IV ONE (07:17)
[2022-12-09] MEDS ORDERED: BUP/EPI 0.5% 1:200,000 (SENSORCAINE) 30 ML VIAL INJ ONE (07:18)
[2022-12-09] MEDS ORDERED: 0.9% SODIUM CHLORIDE PF INJ 20 ML VIAL IV ONE (07:19)
[2022-12-09] MEDS ORDERED: PROPOFOL INJECTION 50 ML IV ONE (07:20)
[2022-12-09] MEDS ORDERED: fentaNYL INJ 100 MCG/2 ML AMP ONE (07:21)
[2022-12-09] MEDS ORDERED: MIDAZOLAM 2 MG/2 ML (VERSED) VIAL ONE (07:21)
--- NOTE | 2022-12-09 07:44 | Progress Note-Pre Operative ---
Pre-Operative Progress Note Date H&P Reviewed: Dec 09, 2022 Time H&P Reviewed: 07:33 History & Physical: H&P Reviewed, Patient Examed, No changes noted Pre-Operative Diagnosis: hx rectal cancer, venous insufficiency MAXI CHEN DO Dec 09, 2022 07:44
[2022-12-09] MEDS ORDERED: ONDANSETRON 4 MG/2 ML (SDV) Z0FRAN ONE (08:22)
--- NOTE | 2022-12-09 08:29 | Progress Note-Post Operative ---
Post-Operative Progess Note Surgeon (s)/Training Developer (s) Surgeon MAXI CHEN DO Training Developer: na Pre-Operative Diagnosis hx rectal cancer, venous insufficiency Post-Operative Diagnosis same Procedure & Operative Findings Date of Procedure 12/09/22 Procedure Performed/Findings PROCEDURE: Left internal jugular port placement using ultrasound guidance. COMPLICATIONS: None. INDICATIONS: The patient is a 72 year old male history of rectal cancer and poor venous acces s. Patient understands the risks and benefits of port placement and wished to proceed with the procedure. Consent was signed on the chart. PROCEDURE: The patient was taken to the operating suite, was prepped and draped in the sterile fashion. A surgical pause was performed. Ultrasound was used to locate the internal jugular vein. Once located anesthetic was infiltrated above it. Using micro-access kit, the right internal vein was accessed. Dark nonpulsatile blood was withdrawn. The wire was inserted. Fluoroscopy assured proper placement. The needle was removed. The micro-access dilator was advanced over the wire and the wire was removed. The regular wire was inserted and fluoroscopy assured proper placement. The wire was then secured. Local anesthetic was used to anesthetize from the neck for tunneling down to the right chest and for pocket creation. A 15 blade scalpel was used to make an incision over the left chest. Cautery was used to dissect down to the pectoral fascia. A pocket was created with blunt dissection. The dilator sheath was then advanced over the wire under fluoroscopy and the dilator and wire were removed. The Groshong catheter was inserted through the sheath and the sheath was then removed. The Groshong wire was removed. The catheter was then tunneled to the right chest pocket. Fluoroscopy was used to cut to length and this was then attached to the port which was then placed within the pocket. The port was then accessed without difficulty. It was then flushed with saline and then heparin. The subcutaneous tissues were then reapproximated using 3-0 Vicryl. The areas were then washed and dried. Skin Affix was placed over incision. The insertion point of the neck Skin Affix was placed over the incision. The patient tolerated the procedure well without complication and was taken to recovery room in stable condition. Chest x-ray is pending. Anesthesia Type mac c local Estimated Blood Loss Estimated blood loss (mL): minimal Specimens/Packing Specimens Removed MAXI Carbajal DO Dec 09, 2022 08:29
[2022-12-09] MEDS ORDERED: fentaNYL INJ 100 MCG/2 ML AMP IVP ONE (08:30)
[2022-12-09] MEDS ORDERED: morphine INJ 10 MG/ML 1ML (SYR OR VIAL) IVP ONE (08:30)
[2022-12-09] MEDS ORDERED: ONDANSETRON 4 MG/2 ML (SDV) Z0FRAN IVP PRN (08:30)
--- NOTE | 2022-12-09 08:31 | Discharge Inst-Simple/Standard ---
Discharge Inst-Standard Patient Instructions/Follow Up Plan of Care/Instructions/FU: 2 weeks Yves Activity as Tolerated: No Discharge Diet: Regular Diet Other Inst to Patient Follow up Appt: Make appointment for 2 week. Instructions: No lifting greater than 10 pounds. No strenuous activity. May shower in 24 hours, no tub bath or soaking. Use incentive spirometer at home as directed. No Smoking Skin/Wound Care: You have special glue over your incision that will fall off on it's own. Ice pack on 15 min off 30 min and repeat for first 48 hours. This reduces swelling and discomfort. Symptoms to Report: Appetite Changes, Extremity Discoloration, Numbness/Tingling, Swelling Increased, Bleeding Excessive, Eyesight Changes, Pain Increased, Urine Color Change, Constipation(Persistent), Fever over 101 degree F, Pain/Pressure in chest, Urinating Difficulty, Cough Up/Vomit Blood, Heart Beat Irreg/Pounding, Pain/Pressure in jaw, Vaginal Bleeding Increase, Cramps in feet or legs, Lightheadedness, Pain/Pressure in shoulder, Diarrhea(Persistent), Memory Changes Suddenly, Questions/Concerns, Weight gain consecutive days, Dizziness/Fainting, Nausea/Vomiting, Shortness of Breath, Weight gain over 2 pounds If questions or concerns contact your physician Or seek help at emergency department. AMXI CHEN DO Dec 09, 2022 08:31
--- NOTE | 2022-12-09 08:31 | Anesthesia-General Post-Op ---
MAC Patient Condition Mental Status/LOC: Same as Preop Cardiovascular: Satisfactory Nausea/Vomiting: Absent Respiratory: Satisfactory Pain: Controlled Complications: Absent Post Op Complications Complications None Follow Up Care/Instructions Patient Instructions None needed. Anesthesiology Discharge Order Discharge Order Patient is doing well, no complaints, stable vital signs, no apparent adverse anesthesia problems. No complications reported per nursing. JORJE GRIMM CRNA Dec 09, 2022 08:31
--- NOTE | 2022-12-09 08:45 | Diagnostic Imaging Report ---
Groshong catheter placement. Time of Exam: 8:26 AM Correlation is made with prior chest 03/14/2022. A left chest wall port has tip overlying the SVC right atrial junction. Lungs appear clear. No pneumothorax is detected. There is some minimal atelectasis in the right base. No effusion is seen. Impression: Removal of right-sided port with placement of a new left-sided port which has the tip in good position. No pneumothorax is identified. Dictated by: Dictated on workstation # [id number]
--- NOTE | 2022-12-09 09:07 | Diagnostic Imaging Report ---
INDICATION: Fluoroscopy for port placement. Fluoroscopy was provided in the OR during port placement. 26 seconds of fluoroscopic time was utilized. Single image was obtained demonstrating a left-sided port. The tip is not well visualized on this exam. IMPRESSION: Fluoroscopy during port placement. Dictated by: Dictated on workstation # [id number]
== END 2022-12-09 09:50 | disposition home or self-care (01) ==
LOC: SDC 06:47
PROVIDERS: ATTEND Surgery
DX: C20 Malignant neoplasm of rectum (principal); I87.2 Venous insufficiency (chronic) (peripheral); E66.9 Obesity, unspecified; Z87.891 Personal history of nicotine dependence; Z68.25 Body mass index [BMI] 25.0-25.9, adult
CPT/HCPCS: 36561; 71045; 76000; 87081; C1788

== ENCOUNTER → 2022-12-15 | Outpatient (CLI) | payer MEDICARE, MEDICAID | LOC: WOUNDCARE 14:41 | PROVIDERS: ATTEND Family Medicine | DX: L98.492 Non-pressure chronic ulcer of skin of other sites with fat layer exposed (principal); C44.520 Squamous cell carcinoma of anal skin; R60.0 Localized edema; L59.8 Other specified disorders of the skin and subcutaneous tissue related to radiation; Z92.21 Personal history of antineoplastic chemotherapy | CPT/HCPCS: 99212 ==

== ENCOUNTER 2023-05-16 14:23 | Emergency (ER) | payer MEDICARE, MEDICAID ==
[~2023-05-16] VITALS: Ht 180.3 cm; Wt 86.2 kg
[2023-05-16] MEDS ORDERED: fentaNYL INJECTION 100 MCG/2 ML VIAL IVP STA ×2 (15:05→16:27)
--- NOTE | 2023-05-16 15:08 | ED Fall/Injury ---
General Chief Complaint: Trauma-Non Activation Stated Complaint: FALL | UPPER RT RIB INJ Nursing Triage Note: PT AMBULATE TO ROOM 01 WITHOUT DIFFICULTY WITH C/O RIGHT SHOULDER PAIN AFTER FALLING OUT OF BED ON TUESDAY. PT REPORTS FALLING OUT OF BED AND HITTING RIGHT SHOULDER ON CORNER OF NIGHT STAND. PT DENIES LOC. PT REPORTS PAIN BETWEEN SHOULDER BLADES. Source: patient Exam Limitations: no limitations History of Present Illness Date Seen by Provider: May 16, 2023 Time Seen by Provider: 14:55 Initial Comments Right upper chest wall pain and right scapular pain after falling out of bed onto his nightstand a few days ago. Has history of Hodgkin's lymphoma as well as other cancer apparently gets terminal type. He follows with Dr. Cui. He has been taking his pain medicines but has been taking a little bit more of his breakthrough medicines than typically prescribed because the pain was not controlled. He is here for further evaluation. He arrives with the right arm in a self-made sling which she states helps. Denies nausea, vomiting or breathi ng problems. Denies loss of consciousness or other injury with the fall. Occurred: other (3 to 4 days ago) Severity: moderate Injuries/Pain Location: upper extremity, chest Context: other (A lot of bed) Loss of Consciousness: no loss of consciousness Modifying Factors: Worse With Movement Associated Symptoms (Fall): No Abdominal Pain; Chest Pain; No Headache, No Nausea/Vomiting, No Neck Pain, No Shortness of Air Allergies and Home Medications Allergies Coded Allergies: Gadolinium-Containing Contrast Medi (Verified Allergy, Severe, Anaphylaxis, 12/02/22) gadoteridol (Verified Allergy, Mild, SNEEZING, HOARSE VOICE, 12/02/22) Patient Home Medication List Home Medication List Reviewed: Yes Aspirin (Aspirin) 325 Mg Tablet, 325 MG PO DAILY, (Reported) Entered as Reported by: CHERYL OLIVAS on 06/11/15 854 Finasteride (Finasteride) 5 Mg Tablet, 5 MG PO DAILY, (Reported) Entered as Reported by: KARY FONG on 03/15/22 1427 Metoprolol Succinate (Metoprolol Succinate) 25 Mg Tab.er.24h, 25 MG PO DAILY, (Reported) Entered as Reported by: KARY FONG on 03/15/22 142 Multivitamin (Multivitamins) 1 Each Tablet, 1 TAB PO DAILY, (Reported) Entered as Reported by: SAMM PHAM on 06/12/15 1035 Tamsulosin HCl (Flomax) 0.4 Mg Cap, 0.4 MG PO BID, (Reported) Entered as Reported by: KARY FONG on 03/15/22 1427 Trazodone HCl (Trazodone HCl) 50 Mg Tablet, 50 MG PO HS, (Reported) Entered as Reported by: KARY FONG on 03/15/22 1427 Review of Systems Review of Systems Constitutional: see HPI; No chills, No fever Respiratory: No cough, No short of breath Cardiovascular: see HPI Gastrointestinal: No nausea, No vomiting Musculoskeletal: joint pain, muscle pain Skin: change in color, lesions (Has cancer lesions on abdomen) Past Zzvwyxz-Ciafrj-Obbsbj Hx Patient Social History Tobacco Use?: No Smoking Status: Never a Smoker Smokeless Tobacco Frequency: Current Everyday User Use of E-Cig and/or Vaping dev: No Use of E-Cig and/or Vaping Brain: Never a User Substance use?: Yes Substance type: Marijuana Substance frequency: Daily Alcohol Use?: Yes Alcohol Frequency: Daily Pt feels they are or have been: No Immunizations Up To Date Tetanus Booster (TDap): Unknown First/Initial COVID19 Vaccinat: yes unknown date Second COVID19 Vaccination Soren: yes unknown date Third COVID19 Vaccination Date: UNKNOWN DATE Seasonal Allergies Seasonal Allergies: No Past Medical History Surgery/Hospitalization HX: PMH: NON-HODGKIN'S LYMPHOMA, RECTAL CANCER Surgeries: Yes (bilat ing HERNIA REPAIR x2, T&A, BIOPSY, port, and removal port) Abdominal, Adenoidectomy, Tonsillectomy Respiratory: Yes Pneumonia, Emphysema Currently Using CPAP: No Currently Using BIPAP: No Cardiac: Yes Hypertension Neurological: Yes (10/27 ACUTE METABOLIC ENCEPHALOPATHY) Reproductive Disorders: No Sexually Transmitted Disease: No HIV/AIDS: No Genitourinary: Yes (Urinary retention) Gastrointestinal: Yes Hemorrhoids, Hepatitis, Cirrhosis Musculoskeletal: Yes Degenerate Disk Disease Endocrine: No HEENT: No Loss of Vision: Denies Hearing Impairment: Denies Cancer: Yes (NON-HODGKINS LYMPHOMA ) Rectal, Lymphoma Did You Recieve Any Treatments: Yes What Type of Treatment Did You: Chemotherapy, Radiation Psychosocial: Yes Anxiety, Depression Integumentary: No Blood Disorders: Yes (ANEMIA, blood dyscrasias related to lymphoma, protein S deficiency) Adverse Reaction/Blood Tranf: No Family Medical History Reviewed Nursing Family Hx Abdominal aortic aneurysm Alcoholism Aphasia Cancer Cancer of colon Cataract Chest pain Congestive heart failure Coronary thrombosis 09 BROTHER 09 BROTHER 09 BROTHER 09 BROTHER 09 SISTER 09 SISTER 09 SISTER Dementia Dysphagia Family history: Allergy Family history: Alzheimer's disease Family history: Cardiovascular disease Family history: Coronary thrombosis Family history: Gastrointestinal disease Family history: Thyroid disorder Heart disease Hereditary disease History of drug abuse Kidney disease Myocardial infarction 09 BROTHER Psychotic disorder Seizure disorder Stroke 09 BROTHER No Pertinent Family Hx Physical Exam Vital Signs Vital Signs - First Documented 05/16/23 14:40 Temp 36.2 Pulse 96 Resp 17 B/P (MAP) 149/87 (107) Pulse Ox 97 O2 Delivery Room Air Capillary Refill : Less Than 3 Seconds Height, Weight, BMI Height: 6'0.00" Weight: 220lbs. 0.0oz. 99.042231or; 26.00 BMI Method:Stated General Appearance: WD/WN, no apparent distress Neck: non-tender, full range of motion, supple, normal inspection Cardiovascular: regular rate, rhythm, no murmur, other (Tenderness to the right upper chest on palpation and with movement of the right shoulder) Respiratory: lungs clear, normal breath sounds Gastrointestinal: non tender, soft Back: normal inspection, no CVA tenderness, no vertebral tenderness Extremities: non-tender, normal inspection Neurologic/Psychiatric: alert, oriented x 3 Skin: normal color, warm/dry [place] Coma Score Best Eye Response: (4) Open Spontaneously Best Verbal Response: (5) Oriented Best Motor Response: (6) Obeys Commands Progress/Results/Core Measures Results/Orders My Orders Orders - KULDIP JEFFERS MD Ed Iv/Invasive Line Start (05/16/23 15:05) Fentanyl Injection (Fentanyl Injection (05/16/23 15:05) Ct Chest Wo (05/16/23 15:05) Vital Signs/I&O 05/16/23 05/16/23 14:40 14:40 Temp 36.2 36.2 Pulse 96 96 Resp 17 17 B/P (MAP) 149/87 (107) 149/87 (107) Pulse Ox 97 O2 Delivery Room Air Room Air Blood Pressure Mean: 107 Progress Progress Note : Progress Note Seen and evaluated. We will access his port and give fentanyl 75 mcg IV for pain. Noncontrast CT of the chest ordered due to concerns for rib fractures and this will also elucidate lung injury. This happened 4 days ago and he cannot think there is value in risking contast. This was discussed with the patient who agrees. Monitor patient. Differential diagnosis includes rib fracture versus musculoskeletal injury and muscle strain. 1628: CT scan of the chest is complete. I do not see obvious fracture but there are multiple masses in the lungs and liver on my interpretation. Reviewed radiology report which agrees. His pain was controlled better with the fentanyl. He was talking with his oncologist office who are going to work with his pain medications. I will send a copy of the chart to Dr. Neely. We will repeat fentanyl 75 mcg IV now and discharged home. Discharged home with return precautions. Patient verbalized understanding of instructions and agreement with plan Diagnostic Imaging Diagonstic Imaging: CT Plain Films/CT/US/NM/MRI: chest Comments [facility]. [place], [place] NAME: JAVIER KELLYLilia Lilia [facility] REC#: [id number] PT STATUS: REG ER : 1950 PHYSICIAN: KULDIP JEFFERS MD ADMIT DATE: 05/16/23/ER Draft Date of Exam:05/16/23 CT CHEST WO PROCEDURE: CT chest without contrast. TECHNIQUE: Multiple contiguous axial images were obtained through the chest without the use of intravenous contrast. Auto Exposure Controls were utilized during the CT exam to meet ALARA standards for radiation dose reduction. INDICATION: Fall, right scapula pain. COMPARISON: 11/02/2019. FINDINGS: The heart is normal in size. There is no significant pericardial effusion. The left Port-A-Cath is in the SVC. There is calcific atherosclerosis. The aorta is normal in caliber. There is a mildly prominent aortopulmonary lymph node measuring 11 mm in the short axis, which is new since 2020 (image 58, series 2). No hilar adenopathy is seen on this noncontrast exam. There is a minimal right pleural effusion. There are multiple nodules in the lungs bilaterally. There are two nodules at the confluence of the major and minor fissures posteriorly, with associated atelectasis or scarring, one measuring about 1.2 cm in diameter and the other measuring about 0.9 cm in diameter (image 79 and 82 of series 2). There is a spiculated pleural-based nodule in the left upper lobe measuring 1.6 cm in diameter (image 41, series 2). There are additional smaller nodules in the lungs. No pneumothorax is seen. No central endobronchial lesion is identified. There is an ill-defined mass in the dome of the liver measuring 4.9 x 4.6 cm in size. There is marked elevation of the right hemidiaphragm. There are numerous enlarged retroperitoneal lymph nodes and some enlarged tim hepatis lymph nodes. This includes a conglomeration of nodes left of the aorta measuring about 3.5 x 2.6 cm in size (image 171, series 2). No acute osseous abnormality is seen. There are degenerative changes in the spine. There are multiple subcutaneous nodules about the chest including posteriorly (image 5, series 2) and in the left chest (image 47, series 2). IMPRESSION: 1. No acute fracture is seen in the right scapula or posterior right ribs. 2. Multiple pulmonary nodules. Mediastinal and upper abdominal lymphadenopathy. Multiple subcutaneous nodules. Large liver mass. Findings are consistent with metastatic disease. 3. Elevation of the right hemidiaphragm with a small right pleural effusion and atelectasis. Dictated on workstation # [id number] Dict: 05/16/23 1544 Trans: 05/16/23 1602 [id number] Interpreted by: MIRIAM SPRINGER MD Electronically signed by: Reviewed: Reviewed by Me Departure Impression Primary Impression: Contusion of rib on right side Qualified Codes: S20.211A - Contusion of right front wall of thorax, initial encounter Additional Impression: Contusion of right shoulder Qualified Codes: S40.011A - Contusion of right shoulder, initial encounter Disposition: 01 HOME, SELF-CARE Condition: Stable Departure-Patient Inst. Decision time for Depature: 16:29 Referrals: [facility] (PCP/Family) Primary Care Physician Patient Instructions: Shoulder Pain ED, Bruised Rib, Blunt Chest Trauma (DC) Add. Discharge Instructions: All discharge instructions reviewed with patient and/or family. Voiced understanding. Your oncologist for recheck and further evaluation and for continued pain m edications. You may use [id number] Icy Hot with lidocaine patches or cream, Aspercreme with lidocaine patches or cream, Salonpas with lidocaine patches or cream or similar items to area of concern per package directions. Return for worse pain, fever, vomiting, weakness, breathing problems or other concerns as needed. Continue home medications as previously prescribed. Copy Copies To 1: INOCENCIO NEELY TIMOTHY D MD May 16, 2023 15:08
--- NOTE | 2023-05-16 16:03 | Diagnostic Imaging Report ---
PROCEDURE: CT chest without contrast. TECHNIQUE: Multiple contiguous axial images were obtained through the chest without the use of intravenous contrast. Auto Exposure Controls were utilized during the CT exam to meet ALARA standards for radiation dose reduction. INDICATION: Fall, right scapula pain. COMPARISON: 11/02/2019. FINDINGS: The heart is normal in size. There is no significant pericardial effusion. The left Port-A-Cath is in the SVC. There is calcific atherosclerosis. The aorta is normal in caliber. There is a mildly prominent aortopulmonary lymph node measuring 11 mm in the short axis, which is new since 2020 (image 58, series 2). No hilar adenopathy is seen on this noncontrast exam. There is a minimal right pleural effusion. There are multiple nodules in the lungs bilaterally. There are two nodules at the confluence of the major and minor fissures posteriorly, with associated atelectasis or scarring, one measuring about 1.2 cm in diameter and the other measuring about 0.9 cm in diameter (image 79 and 82 of series 2). There is a spiculated pleural-based nodule in the left upper lobe measuring 1.6 cm in diameter (image 41, series 2). There are additional smaller nodules in the lungs. No pneumothorax is seen. No central endobronchial lesion is identified. There is an ill-defined mass in the dome of the liver measuring 4.9 x 4.6 cm in size. There is marked elevation of the right hemidiaphragm. There are numerous enlarged retroperitoneal lymph nodes and some enlarged tim hepatis lymph nodes. This includes a conglomeration of nodes left of the aorta measuring about 3.5 x 2.6 cm in size (image 171, series 2). No acute osseous abnormality is seen. There are degenerative changes in the spine. There are multiple subcutaneous nodules about the chest including posteriorly (image 5, series 2) and in the left chest (image 47, series 2). IMPRESSION: 1. No acute fracture is seen in the right scapula or posterior right ribs. 2. Multiple pulmonary nodules. Mediastinal and upper abdominal lymphadenopathy. Multiple subcutaneous nodules. Large liver mass. Findings are consistent with metastatic disease. 3. Elevation of the right hemidiaphragm with a small right pleural effusion and atelectasis. Dictated by: Dictated on workstation # [id number]
[2023-05-16 16:48] VITALS: BP 133/76
== END 2023-05-16 16:48 | disposition home or self-care (01) ==
LOC: EDUNIT# 14:23 → ER 14:26
DX: S20.211A Contusion of right front wall of thorax, initial encounter (principal); S40.011A Contusion of right shoulder, initial encounter; C85.92 Non-Hodgkin lymphoma, unspecified, intrathoracic lymph nodes; F17.200 Nicotine dependence, unspecified, uncomplicated; W06.XXXA Fall from bed, initial encounter; W22.03XA Walked into furniture, initial encounter
CPT/HCPCS: 71250; 99282